=== PATIENT | female | born 1940 | race Caucasian/White ===

== ENCOUNTER 2017-10-02 14:51 | Inpatient (IN) | payer OTHER ==
--- NOTE | 2017-10-02 15:12 | PDOC ---
History of Present Illness - General Stated Complaint: FALL Time Seen by Provider: 10/02/17 15:08
[2017-10-02 15:37] VITALS: BMI 30.9
[2017-10-02] MEDS ORDERED: SODIUM CHLORIDE 500 ML IV ONE (15:54)
--- NOTE | 2017-10-02 16:00 | PDOC ---
History of Present Illness - General History Source: Patient, Family (Niece) - History of Present Illness Initial Comments: 10/02/17 16:04 The patient is a 76 year old female with a significant PMH of diabetes and HTN who was brought to the emergency department by her niece with left arm bruising s/p fall yesterday and generalized weakness since. The patient states she was running to the door when she slipped and fell. At baseline, the patient does not leave her home. The patient reports an episode of incontinence since the fall. The patient also states she has been unable to walk without assistance since yesterday. The patient notes she normally eats all day but has been unable to eat since the fall yesterday. The patient denies hitting her head. The patient denies hip or knee pain. The patient denies taking any blood thinners. The patient denies chest pain, back pain, shortness of breath, headache and dizziness. Denies cough, fever, chills, nausea, vomit, diarrhea and constipation. Allergies: NKA Past surgical history: None reported. Social history: No reported alcohol, drug, or cigarette use. <Bety Harris - Last Filed: 10/02/17 16:11> <Shmuel Ge - Last Filed: 10/02/17 17:20> - General Chief Complaint: Injury Stated Complaint: FALL Time Seen by Provider: 10/02/17 15:08 Past History <Bety Harris - Last Filed: 10/02/17 16:11> - Past Medical History COPD: No Diabetes: Yes HTN: Yes Psychiatric Problems: Yes (Depression) Thyroid Disease: Yes - Suicide/Smoking/Psychosocial Hx Smoking History: Never smoked Have you smoked in the past 12 months: No Hx Alcohol Use: No Drug/Substance Use Hx: No <Shmuel Ge - Last Filed: 10/02/17 17:20> - Past Medical History Allergies/Adverse Reactions: Allergies Allergy/AdvReac Type Severity Reaction Status Date / Time Penicillins Allergy Hives Verified 10/02/17 16:31 Home Medications: Ambulatory Orders Lisinopril 0 mg PO DAILY 10/02/17 Metformin HCl 0 mg PO BID 10/02/17 Review of Systems - Review of Systems Constitutional: No: Chills, Fever Respiratory: No: Cough, Shortness of Breath Cardiac (ROS): No: Chest Pain ABD/GI: No: Nausea, Vomiting : Yes: Incontinence, Urgency Musculoskeletal: Yes: Joint Pain, Muscle Pain Neurological: No: Tingling, Weakness All Other Systems: Reviewed and Negative <Shmuel Ge - Last Filed: 10/02/17 17:20> *Physical Exam - Vital Signs Last Vital Signs Temp Pulse Resp BP Pulse Ox 98.8 F 114 H 18 145/91 95 10/02/17 15:31 10/02/17 15:31 10/02/17 15:31 10/02/17 15:31 10/02/17 15:31 - Physical Exam Comments: 10/02/17 16:05 General: Patient is alert and in no acute distress. Speech is clear and appropriate. Head: Atraumatic and nontender. HEENT: Pupils are equal round and reactive to light, extraocular movements are intact. The tympanic membranes are clear, no hemotympanum. No facial deformity/ tenderness, no septal hematoma. The oropharynx is clear. Neck: The trachea is midline, there is no stridor. There is no midline cervical spine tenderness, full range of motion of neck. Chest: Nontender, no ecchymosis or abrasions. Heart: S1-S2, regular rate and rhythm. No murmurs. Lungs: Clear to auscultation bilaterally. Symmetric chest rise. Abdomen: Soft/nontender/nondistended. Bowel sounds are normal. There is no abdominal or flank ecchymosis. Back/Pelvis: There is no midline spine tenderness or step-off. Pelvis is stable and nontender. Extremities: (+) Ecchymosis to the upper left arm, no palpable hematoma. (+) Soft tissue swelling. (+) Lower extremities normal and with good strength. Wrist and lower arm have full ROM. There is no extremity deformity or joint swelling. No focal bony tenderness throughout. 2+ distal pulses throughout. Neuro: Alert and oriented x3. Cranial nerves II through XII are intact. 5 out of 5 motor strength x4 extremities. Kamqlj-krhd-cmidnt is intact. No pronator drift. Gait is stable. Skin: No abrasions/hematomas/lacerations. Psych: Affect is appropriate. <Bety Harris - Last Filed: 10/02/17 16:11> - Vital Signs Last Vital Signs Temp Pulse Resp BP Pulse Ox 98.8 F 114 H 18 145/91 95 10/02/17 15:31 10/02/17 15:31 10/02/17 15:31 10/02/17 15:31 10/02/17 15:31 <Shmuel Ge - Last Filed: 10/02/17 17:20> Heart Score/ECG Review #1 ECG reviewed & interpreted by me at: 16:27 General ECG Interpretation: Sinus Rhythm, Normal Rate (106), Normal Intervals ( RBBB), No acute ischemic changes <Shmuel Ge - Last Filed: 10/02/17 17:20> ED Treatment Course - LABORATORY CBC & Chemistry Diagram: 10/02/17 16:25 10/02/17 16:25 - RADIOLOGY Radiology Studies Ordered: Category Date Time Status HEAD CT WITHOUT CONTRAST [CT] Stat CT Scan 10/02/17 15:55 Ordered CHEST X-RAY PORTABLE* [RAD] Stat Radiology 10/02/17 15:54 Ordered <Shmuel Ge - Last Filed: 10/02/17 17:20> Medical Decision Making - Medical Decision Making 10/02/17 15:56 A portion of this note was documented by scribe services under my direction. I have reviewed the details of the note, within reason, and agree with the documentation with the following case summary and management plan written by me. 76-year-old female with history of hypertension and diabetes presents brought in by her niece/phlebotomist lab assistant with fall yesterday and subsequent generalized weakness since then. At baseline, patient is restricted to her home, avoids ambulating with walker but is otherwise ambulatory without assistance at baseline. Yesterday, patient states she was walking quickly to answer the door and tripped and fell, striking her left arm. No prolonged stay on the floor, but since then has felt generally weak, has had difficulty ambulating on her own , and had a few episodes of urinary urgency/incontinence. Denies any leg pain or weakness, denies any vomiting or headache, no fevers or chills. No localizing symptoms of infection. Normally has a very healthy appetite but barely 8 since yesterday. Afebrile. Vital signs within normal limits but notable tachycardia to 114. Exam as noted, trauma is isolated to the left shoulder Dry mucosa Neurologically intact 76-year-old female with hypertension and diabetes presents with new onset generalized weakness since falling yesterday. Suspect underlying infection or dehydration/metabolic derangement, rule out TBI, rule out shoulder fracture. Broad workup surrounding the etiology of the fall, question dehydration or infection CT head, L shoulder IVF reassess, possible admission given her deviation from baseline 10/02/17 17:19 leukocytosis of 19 with left shift, mild hyperglycemia with normal AG, trop negative. CXR without acute infiltrate, humerus with acute proximal fracture. Suspect UTI , will give abx after UA/cx obtained, proceed with admission. Dr. Delgado, covering service, called. <Shmuel Ge - Last Filed: 10/02/17 17:20> *DC/Admit/Observation/Transfer - Attestations Scribe Attestion: 10/02/17 16:10 Documentation prepared by Bety Harris, acting as medical assistant supervisor for Shmuel Ge MD. <Bety Harris - Last Filed: 10/02/17 16:11> <Shmuel Ge - Last Filed: 10/02/17 17:20> Diagnosis at time of Disposition: Generalized weakness Accidental fall Qualifiers: Encounter type: initial encounter Qualified Code(s): W19.XXXA - Unspecified fall, initial encounter - Discharge Dispostion Condition at time of disposition: Guarded
[2017-10-02 16:37] LABS: BASO % 0.2 % (0-2.0); EOS % 0.2 % (0-4.5); HEMATOCRIT 40.4 % (32.4-45.2); HEMOGLOBIN 13.4 GM/dL (10.7-15.3); LYMPH % 7.3 % (8-40); MCH 27.7 pg (25.7-33.7); MCHC 33.2 g/dl (32.0-36.0); MEAN CELL VOLUME 83.6 fl (80-96); MEAN PLT VOLUME 9.1 fl (7.5-11.1); MONO % 6.4 % (3.8-10.2); NEUT % 85.9 % (42.8-82.8); PLATELET COUNT 261 K/MM3 (134-434); RBC 4.83 M/mm3 (3.60-5.2); RDW 15.1 % (11.6-15.6); WHITE BLOOD COUNT 19.4 K/mm3 (4.0-10.0)
[2017-10-02 17:02] LABS: ALBUMIN 4.2 g/dl (3.4-5.0); ANION GAP 13 (8-16); BLOOD UREA NITROGEN 18 mg/dL (7-18); CALCIUM 9.4 mg/dL (8.5-10.1); CHLORIDE 105 mmol/L (98-107); CO2 22 mmol/L (21-32); CREATININE 0.8 mg/dL (0.55-1.02); GLUCOSE,RANDOM 204 mg/dL (74-106); POTASSIUM 3.9 mmol/L (3.5-5.1); SGOT/AST 19 U/L (15-37); SGPT/ALT 22 U/L (12-78); SODIUM 140 mmol/L (136-145)
[2017-10-02 17:04] LABS: INR 1.12 (0.82-1.09); PROTHROMBIN TIME (PATIENT) 12.6 SEC (9.98-11.88)
[2017-10-02 17:06] LABS: ALK PHOS 79 U/L (45-117); BILIRUBIN,TOTAL 0.5 mg/dL (0.2-1.0); TOT PROT 7.8 g/dl (6.4-8.2)
[2017-10-02 20:49] LABS: URINE APPEARANCE CLEAR; URINE BILIRUBIN NEGATIVE (NEGATIVE); URINE BLOOD NEGATIVE (NEGATIVE); URINE COLOR DKYELLOW; URINE GLUCOSE (UA) 1+ (NEGATIVE); URINE KETONE TRACE (NEGATIVE); URINE LEUK ESTERASE NEGATIVE (NEGATIVE); URINE NITRITE NEGATIVE (NEGATIVE); URINE UROBILINOGEN NEGATIVE mg/dL (0.2-1.0)
[2017-10-02 21:29] LABS: URINE PROTEIN 2+ (NEGATIVE)
[2017-10-02 21:34] LABS: URINE BACTERIA RARE /hpf (NONE SEEN); URINE HYALINE CAST 1 /lpf; URINE MUCUS RARE
--- NOTE | 2017-10-02 22:30 | PDOC ---
*Physical Exam - Vital Signs Last Vital Signs Temp Pulse Resp BP Pulse Ox 98.8 F 78 18 141/72 95 10/02/17 15:31 10/02/17 21:41 10/02/17 21:41 10/02/17 21:41 10/02/17 21:42 ED Treatment Course - LABORATORY CBC & Chemistry Diagram: 10/02/17 16:25 10/02/17 16:25 - ADDITIONAL ORDERS Additional order review: Laboratory Results 10/02/17 10/02/17 10/02/17 20:40 19:15 16:25 PT with INR INR Sodium 140 Potassium 3.9 Chloride 105 Carbon Dioxide 22 Anion Gap 13 BUN 18 Creatinine 0.8 Creat Clearance w eGFR > 60 Random Glucose 204 H Calcium 9.4 Total Bilirubin 0.5 AST 19 ALT 22 Alkaline Phosphatase 79 Creatine Kinase 257 H Creatine Kinase Index 1.8 CK-MB (CK-2) 4.693 H Troponin I 0.02 Total Protein 7.8 Albumin 4.2 Urine Color Dkyellow Urine Appearance Clear Urine pH 5.0 Ur Specific [place] 1.031 Urine Protein 2+ H Urine Glucose (UA) 1+ H Urine Ketones Trace H Urine Blood Negative Urine Nitrite Negative Urine Bilirubin Negative Urine Urobilinogen Negative Urine WBC (Auto) <1 Urine RBC (Auto) <1 Urine Bacteria Rare Hyaline Casts 1 Urine Mucus Rare Blood Type O NEGATIVE Antibody Screen Cancelled Antibody Identification Antigen Identification Spec Expiration Date Cancelled 10/02/17 10/02/17 16:25 15:54 PT with INR 12.60 H INR 1.12 Sodium Potassium Chloride Carbon Dioxide Anion Gap BUN Creatinine Creat Clearance w eGFR Random Glucose Calcium Total Bilirubin AST ALT Alkaline Phosphatase Creatine Kinase Creatine Kinase Index CK-MB (CK-2) Troponin I Total Protein Albumin Urine Color Urine Appearance Urine pH Ur Specific [place] Urine Protein Urine Glucose (UA) Urine Ketones Urine Blood Urine Nitrite Urine Bilirubin Urine Urobilinogen Urine WBC (Auto) Urine RBC (Auto) Urine Bacteria Hyaline Casts Urine Mucus Blood Type O NEGATIVE Antibody Screen Positive H Antibody Identification Anti-d Antigen Identification D Antigen - NEGATIVE Spec Expiration Date 10/02/17 16:25 RBC 4.83 MCV 83.6 MCHC 33.2 RDW 15.1 MPV 9.1 Neutrophils % 85.9 H Lymphocytes % 7.3 L Monocytes % 6.4 Eosinophils % 0.2 Basophils % 0.2 - Medications Given in the ED: ED Medications Discontinued Medications Generic Name Dose Route Start Last Admin Trade Name Mark PRN Reason Stop Dose Admin Sodium Chloride 500 mls @ 1,000 mls/hr 10/02/17 15:54 10/02/17 16:37 Normal Saline - IV 10/02/17 16:23 1,000 mls/hr ONCE ONE Administration Medical Decision Making - Medical Decision Making 10/02/17 22:[address] Keron Tineo about this patient's proximal left humerus fracture. Patient will be placed in a sling and Dr. Tineo will see her in the morning *DC/Admit/Observation/Transfer Diagnosis at time of Disposition: Generalized weakness Accidental fall Qualifiers: Encounter type: initial encounter Qualified Code(s): W19.XXXA - Unspecified fall, initial encounter Humerus fracture Qualifiers: Encounter type: initial encounter Humerus Location: surgical neck Fracture type : closed Fracture morphology: unspecified fracture morphology Fracture alignment : displaced Laterality: left Qualified Code(s): S42.212A - Unspecified displaced fracture of surgical neck of left humerus, initial encounter for closed fracture - Discharge Dispostion Condition at time of disposition: Guarded Admit: Yes - Referrals - Patient Instructions - Post Discharge Activity
--- NOTE | 2017-10-02 22:45 | PN ---
Teaching Attending Note Name of Resident: Salvador Matthews ATTENDING PHYSICIAN STATEMENT I saw and evaluated the patient. I reviewed the resident's note and discussed the case with the resident. I agree with the resident's findings and plan as documented. SUBJECTIVE: 76 F with pmhx of DM, htn, who presents to ED with her neice after she experienced a fall on the arm. Pt. states she slipped and ended up falling on the arm. Pt. notes weakness, but no leg or LE pain. Pt. states her nejoseph did not get her in time to help her to the bathroom, so she had incontinence. States she did not hit her head. Denies any chest pain, pressure or shortness of breath. No N,V,D. OBJECTIVE: Physical: VS: Vital Signs Period Temp Pulse Resp BP Sys/Sheehan Pulse Ox Last 24 Hr 98.8 F 78-114 18-18 141-145/72-91 95-95 GEN: NAD, Resting in bed, AA0X3 HEENT: NCAT, PERRL, Throat without erythema or exudates CARD: RRR S1, S2 RESP: CTAB ABD: BSx4, NTD to palpation EXT: Trace Non-Pitting edema bilateral LE, Left arm unable to raise CBCD WBC 19.4 K/mm3 (4.0-10.0) H 10/02/17 16:25 RBC 4.83 M/mm3 (3.60-5.2) 10/02/17 16:25 Hgb 13.4 GM/dL (10.7-15.3) 10/02/17 16:25 Hct 40.4 % (32.4-45.2) 10/02/17 16:25 MCV 83.6 fl (80-96) 10/02/17 16:25 MCHC 33.2 g/dl (32.0-36.0) 10/02/17 16:25 RDW 15.1 % (11.6-15.6) 10/02/17 16:25 Plt Count 261 K/MM3 (134-434) 10/02/17 16:25 MPV 9.1 fl (7.5-11.1) 10/02/17 16:25 CMP Sodium 140 mmol/L (136-145) 10/02/17 16:25 Potassium 3.9 mmol/L (3.5-5.1) 10/02/17 16:25 Chloride 105 mmol/L (98-107) 10/02/17 16:25 Carbon Dioxide 22 mmol/L (21-32) 10/02/17 16:25 Anion Gap 13 (8-16) 10/02/17 16:25 BUN 18 mg/dL (7-18) 10/02/17 16:25 Creatinine 0.8 mg/dL (0.55-1.02) 10/02/17 16:25 Creat Clearance w eGFR > 60 (>60) 10/02/17 16:25 Random Glucose 204 mg/dL (74-106) H 10/02/17 16:25 Calcium 9.4 mg/dL (8.5-10.1) 10/02/17 16:25 Total Bilirubin 0.5 mg/dL (0.2-1.0) 10/02/17 16:25 AST 19 U/L (15-37) 10/02/17 16:25 ALT 22 U/L (12-78) 10/02/17 16:25 Alkaline Phosphatase 79 U/L (45-117) 10/02/17 16:25 Total Protein 7.8 g/dl (6.4-8.2) 10/02/17 16:25 Albumin 4.2 g/dl (3.4-5.0) 10/02/17 16:25 CARDIAC ENZYMES Creatine Kinase 257 IU/L (26-192) H 10/02/17 16:25 Troponin I 0.02 ng/ml (0.00-0.05) 10/02/17 16:25 Urine Test Results Urine Color Dkyellow 10/02/17 20:40 Urine Appearance Clear 10/02/17 20:40 Urine pH 5.0 (5.0-8.0) 10/02/17 20:40 Ur Specific [place] 1.031 (1.001-1.035) 10/02/17 20:40 Urine Protein 2+ (NEGATIVE) H 10/02/17 20:40 Urine Glucose (UA) 1+ (NEGATIVE) H 10/02/17 20:40 Urine Ketones Trace (NEGATIVE) H 10/02/17 20:40 Urine Blood Negative (NEGATIVE) 10/02/17 20:40 Urine Nitrite Negative (NEGATIVE) 10/02/17 20:40 Urine Bilirubin Negative (NEGATIVE) 10/02/17 20:40 Urine Bacteria Rare /hpf (NONE SEEN) 10/02/17 20:40 Urine Mucus Rare 10/02/17 20:40 CXR- No acute process Shoulder Xray- L. Humeral fracture CT HEAD- Negative EKG:Sinus Tach 106, Normal Intervals (RBBB), No acute ischemic changes ASSESSMENT AND PLAN: 76 F with pmhx of DM, htn, who presents to ED with her neice after she experienced a fall on the arm. 1.) Mechanical Fall with Left Humeral Fracture - Ortho consult - Type & Screen, coags - CBC in AM - NPO after midnight 2.) Weakness - Ddx: dehydration, Hypothyriodism - Chk. TSH, B12, Folate - Gentle IVF - PT/OT 3.) DM- Uncontrolled - FS - RAISS - D5 1/2 NS after MN - Chk. HgBA1c 4.) HTN - C/W Lisinopril 5.) Dvt Ppx - Scds, due to possible sx Place in Med- Sx
--- NOTE | 2017-10-02 23:06 | MSN ---
Admitting History and Physical - Admission Chief Complaint: Left arm pain s/p fall History of Present Illness: Sherri Hassan is a 76 year old female with past medical history of DM, HTN, Depression, Schizophrenia and Thyroid disease, who was brought in to the ED by her niece for left arm pain and bruising s/p fall yesterday on her left side. Patient states that she was rushing to the door while wearing socks and she slipped and fell. Patient denies any LOC, head injury or use of any blood thinners. Patient also reports generalized weakness. Patient states that since the fall yesterday she has been experiencing fecal and urinary incontinence. Patient reports another fall today while trying to get out of bed. She states she hasn't taken any pain medications for her arm pain. Patient states that her appetite has been good. Patient states that at baseline, she ambulates without any assistive device at home. Patient denies fever, chills, cough, chest pain, SOB, nausea, vomiting, or leg swelling. ED course was notable for: 1. Left arm x-ray: acute proximal left humeral neck fracture with associated fracture of greater and possibly lesser tuberosities. 2. WBC: 19.4, T: 98.9F, CO: 114, BP: 145/91 3. CK-MB: 4.693 History Source: Patient, Family Member Limitations to Obtaining History: No Limitations - Past Medical History Cardiovascular: Yes: HTN Psych: Yes: Depression, Schizophrenia Endocrine: Yes: Diabetes Mellitus, Other (Thyroid disease, patient is unclear whether it's hypothyroidism or hyperthyroidism) - Smoking History Smoking history: Never smoked Have you smoked in the past 12 months: No - Alcohol/Substance Use Hx Alcohol Use: No Home Medications - Allergies Allergies/Adverse Reactions: Allergies Allergy/AdvReac Type Severity Reaction Status Date / Time Penicillins Allergy Hives Verified 10/02/17 16:31 - Home Medications Home Medications: Ambulatory Orders Lisinopril 0 mg PO DAILY 10/02/17 Metformin HCl 0 mg PO BID 10/02/17 Review of Systems - Review of Systems Constitutional: reports: Weakness Eyes: reports: No Symptoms HENT: reports: No Symptoms Neck: reports: No Symptoms Cardiovascular: reports: No Symptoms Respiratory: reports: No Symptoms Gastrointestinal: reports: No Symptoms Genitourinary: reports: No Symptoms Musculoskeletal: reports: Decreased ROM, Extremity Pain, Joint Pain Neurological: reports: No Symptoms Physical Examination Vital Signs: Vital Signs Temperature 98.8 F 10/02/17 15:31 Pulse Rate 78 10/02/17 21:41 Respiratory Rate 18 10/02/17 21:41 Blood Pressure 141/72 10/02/17 21:41 O2 Sat by Pulse Oximetry (%) 95 10/02/17 21:42 Constitutional: Yes: Well Nourished, Calm Eyes: Yes: Conjunctiva Clear, EOM Intact HENT: Yes: Atraumatic, Normocephalic Neck: Yes: Supple, Trachea Midline Cardiovascular: Yes: Regular Rate and Rhythm Respiratory: Yes: Regular, CTA Bilaterally Gastrointestinal: Yes: Normal Bowel Sounds, Soft Musculoskeletal: Yes: Other (decreased ROM in left upper extremity secondary to pain, ecchymosis noted in left upper arm, 1/5 strength in left upper extremtiy, 5/5 strength in right upper extremtiy and bilateral lower extremities) Extremities: Yes: Other (decreased ROM in left upper extremity secondary to pain , ecchymosis noted in left upper arm, 1/5 strength in left upper extremtiy, 5/5 strength in right upper extremtiy and bilateral lower extremities, pulses were palpable bilaterally and 2+ in upper and lower extremities bilaterally) Edema: No Peripheral Pulses WNL: Yes Peripheral Pulses: Left Radial: 2+, Right Radial: 2+, Left Doralis Pedis: 2+, Right Dorsalis Pedis: 2+ Neurological: Yes: Alert, Oriented Labs: CBC, BMP 10/02/17 16:25 10/02/17 16:25 Assessment/Plan Sherri Hassan is a 76 yo F w/ PMHx of DM, HTN, Depression, Schizophrenia and Thyroid disease, who was brought in to the ED for L arm pain s/p fall. Patient was admitted for left humeral neck fracture. 1. Left humeral neck fracture s/p fall - Xray of left shoulder showed acute proximal left humeral neck fracture with associated fracture of greater and possibly lesser tuberosities. - Head CT showed no acute intracranial pathology - WBC: 19.4 likely reactive because of fracture - Consult ortho, will possibly need surgery - NPO in case she goes to surgery - Pain control with morphine 1mg IVPUSH Q4H PRN 2. Weakness likely due to dehydration - IV fluids - CBC, BMP - TSH, B12, Folate, HbA1c - PT and OT - If no improvement, get neuro on board 3. DM - Hold meds - BGM - Sliding scale on board- Novolog 4. HTN - Continue Lisinopril 5. DVT proph - SCDs bilaterally Dispo: Admit to Med-Surg.
[2017-10-03] MEDS ORDERED: morphine SULFATE 4 MG/ML VIAL IVPUSH PRN ×2 (00:48→14:30)
[2017-10-03] MEDS ORDERED: SODIUM CHLORIDE 1,000 ML IV SCH ×3 (01:00→18:15)
--- NOTE | 2017-10-03 01:22 | HP ---
CHIEF COMPLAINT: fall and left arm pain HISTORY OF PRESENT ILLNESS: Patient is a 76 yo F with a PMHx of Schizophrenia, HTN, DM, hypothyroidism, presented with niece because of left arm pain after mechanical fall yesterday. Patient states she heard a doorbell and rushed to open the door. She tripped and fell on her left arm. Her nieceh eard her fall and took her to her bed. She states she can't move her arm and describes the pain as 7/10, constant pain and gets worse with movement. Patient had 1 episode of fecal and urinary incontinence because she states her niece took a long time to take her to the restroom. Patient is able to ambulate without a walker but has not been able to walk since falling yesterday. She also fell off the bed today but denies being injured. Patient denies head trauma, LOC, dizziness, chest pain, SOB, fever, nausea and vomiting. ER course was notable for: (1) Left Shoulder Xray- L. Humeral fracture (2) CT HEAD- Negative Recent Travel: n/a PAST MEDICAL HISTORY: Schizophrenia, HTN, DM PAST SURGICAL HISTORY: n/a Social History: Smoking: denies Alcohol: denies Drugs: denies Family History: Allergies Penicillins Allergy (Verified 10/02/17 16:31) Hives HOME MEDICATIONS: Home Medications Medication Instructions Recorded Lisinopril 0 mg PO DAILY 10/02/17 Metformin HCl 0 mg PO BID 10/02/17 REVIEW OF SYSTEMS CONSTITUTIONAL: generalized weakness Absent: fever, chills, diaphoresis, malaise, loss of appetite, weight change HEENT: Absent: rhinorrhea, nasal congestion, throat pain, throat swelling, difficulty swallowing, mouth swelling, ear pain, eye pain, visual changes CARDIOVASCULAR: Absent: chest pain, syncope, palpitations, irregular heart rate, lightheadedness , peripheral edema RESPIRATORY: Absent: cough, shortness of breath, dyspnea with exertion, orthopnea, wheezing, stridor, hemoptysis GASTROINTESTINAL: Absent: abdominal pain, abdominal distension, nausea, vomiting, diarrhea, constipation, melena, hematochezia GENITOURINARY: Absent: dysuria, frequency, urgency, hesitancy, hematuria, flank pain, genital pain MUSCULOSKELETAL: Absent: myalgia, arthralgia, joint swelling, back pain, neck pain SKIN: Absent: rash, itching, pallor HEMATOLOGIC/IMMUNOLOGIC: Absent: easy bleeding, easy bruising, lymphadenopathy, frequent infections ENDOCRINE: Absent: unexplained weight gain, unexplained weight loss, heat intolerance, cold intolerance NEUROLOGIC: Absent: headache, focal weakness or paresthesias, dizziness, unsteady gait, seizure, mental status changes, bladder or bowel incontinence PSYCHIATRIC: Absent: anxiety, depression, suicidal or homicidal ideation, hallucinations. PHYSICAL EXAMINATION Vital Signs - 24 hr 10/02/17 10/02/17 10/02/17 15:31 21:41 21:42 Temperature 98.8 F Pulse Rate 114 H Pulse Rate [ 78 Apical] Respiratory 18 18 Rate Blood Pressure 145/91 Blood Pressure 141/72 [Right Arm] O2 Sat by Pulse 95 95 Oximetry (%) GENERAL: Awake, alert, and fully oriented, in no acute distress. HEAD: Normal with no signs of trauma. EYES: sclera anicteric, conjunctiva clear. No lid lag. EARS, NOSE, THROAT: oropharynx clear without exudates. Moist mucous membranes. NECK: supple without lymphadenopathy, JVD, or masses. LUNGS: Breath sounds equal, clear to auscultation bilaterally. No wheezes, and no crackles. No accessory muscle use. HEART: Regular rate and rhythm, normal S1 and S2 without murmur, rub or gallop. ABDOMEN: Soft, nontender, not distended, normoactive bowel sounds, no guarding, no rebound, no masses. UPPER EXTREMITIES: 2+ pulses, warm, limited range of motion in left arm with 1/ 5 strength. 5/5 strength throughout except left arm. tender to palpation left arm. LOWER EXTREMITIES: No peripheral edema. NEUROLOGICAL: Cranial nerves II-XII intact. Normal speech. Normal gait. PSYCHIATRIC: Cooperative. Good eye contact. Appropriate mood and affect. SKIN: Warm, dry, normal turgor, no rashes or lesions noted, normal capillary refill. Laboratory Results - last 24 hr 10/02/17 10/02/17 10/02/17 15:54 16:25 16:25 WBC 19.4 H RBC 4.83 Hgb 13.4 Hct 40.4 MCV 83.6 MCH 27.7 MCHC 33.2 RDW 15.1 Plt Count 261 MPV 9.1 Neutrophils % 85.9 H Lymphocytes % 7.3 L Monocytes % 6.4 Eosinophils % 0.2 Basophils % 0.2 PT with INR 12.60 H INR 1.12 Sodium Potassium Chloride Carbon Dioxide Anion Gap BUN Creatinine Creat Clearance w eGFR Random Glucose Calcium Total Bilirubin AST ALT Alkaline Phosphatase Creatine Kinase Creatine Kinase Index CK-MB (CK-2) Troponin I Total Protein Albumin Urine Color Urine Appearance Urine pH Ur Specific [place] Urine Protein Urine Glucose (UA) Urine Ketones Urine Blood Urine Nitrite Urine Bilirubin Urine Urobilinogen Urine WBC (Auto) Urine RBC (Auto) Urine Bacteria Hyaline Casts Urine Mucus Blood Type O NEGATIVE Antibody Screen Positive H Antibody Identification Anti-d Antigen Identification D Antigen - NEGATIVE Spec Expiration Date 10/02/17 10/02/17 10/02/17 16:25 19:15 20:40 WBC RBC Hgb Hct MCV MCH MCHC RDW Plt Count MPV Neutrophils % Lymphocytes % Monocytes % Eosinophils % Basophils % PT with INR INR Sodium 140 Potassium 3.9 Chloride 105 Carbon Dioxide 22 Anion Gap 13 BUN 18 Creatinine 0.8 Creat Clearance w eGFR > 60 Random Glucose 204 H Calcium 9.4 Total Bilirubin 0.5 AST 19 ALT 22 Alkaline Phosphatase 79 Creatine Kinase 257 H Creatine Kinase Index 1.8 CK-MB (CK-2) 4.693 H Troponin I 0.02 Total Protein 7.8 Albumin 4.2 Urine Color Dkyellow Urine Appearance Clear Urine pH 5.0 Ur Specific [place] 1.031 Urine Protein 2+ H Urine Glucose (UA) 1+ H Urine Ketones Trace H Urine Blood Negative Urine Nitrite Negative Urine Bilirubin Negative Urine Urobilinogen Negative Urine WBC (Auto) <1 Urine RBC (Auto) <1 Urine Bacteria Rare Hyaline Casts 1 Urine Mucus Rare Blood Type O NEGATIVE Antibody Screen Cancelled Antibody Identification Antigen Identification Spec Expiration Date Cancelled CXR- No acute process Shoulder Xray- L. Humeral fracture CT HEAD- Negative ASSESSMENT/PLAN: Patient is a 76 yo F with a PMHx of Schizophrenia, HTN, DM, presented because of left arm pain after mechanical fall and was found to have a left humerus fracture. #Mechanical Fall with Left Humeral Fracture - Ortho consult: Dr. Tineo - CLYDE morning labs: CBC, BMP, Mag, Phos - Type & Screen, PT/INR - Pain control: morphine 1mg Q4 PRN - NPO #Weakness -From possible dehydration, hypothyroidism -FU TSH, B12, Folate -PT #Hypothyroidism -confirm home meds #DM -uncontrolled -HGB A1C -BGM's -D5 1/2 NS after MN -ISS #HTN - cont home med -Lisinopril 5mg Daily #FEN -D5 1/2 NS -WNL -NPO #Schizoprenia -confirm home meds #PPX -SCDs due to possible surgery Visit type - Emergency Visit Emergency Visit: Yes ED Registration Date: 10/02/17 Care time: The patient presented to the Emergency Department on the above date and was hospitalized for further evaluation of their emergent condition. - New Patient This patient is new to me today: Yes Date on this admission: 10/03/17 - Critical Care Critical Care patient: No
[2017-10-03] MEDS ORDERED: EPINEPHrine 1:1,000 0.3 MG/0.3 ML SYR IM ONE (02:26)
[2017-10-03] MEDS ORDERED: methylPREDNISolone NA SUCC 125 MG/2 ML VIAL IVPUSH ONE (02:27)
[2017-10-03] MEDS ORDERED: RACEPINEPHRINE IH SOL 2.25% 11.25 MG/0.5 ML VIAL IH ONE (02:28)
[2017-10-03] MEDS ORDERED: DEXTROSE 5%-0.45% SALINE 1,000 ML IV SCH ×2 (03:30→14:30)
[2017-10-03] MEDS ORDERED: INSULIN SLIDING SCALE (NOVOLOG) 1 VIAL SQ SCH ×2 (07:00)
[2017-10-03 08:46] LABS: BASO % 0.4 % (0-2.0); EOS % 0.5 % (0-4.5); HEMATOCRIT 37.7 % (32.4-45.2); HEMOGLOBIN 12.3 GM/dL (10.7-15.3); MCH 27.3 pg (25.7-33.7); MCHC 32.6 g/dl (32.0-36.0); MEAN CELL VOLUME 83.6 fl (80-96); MONO % 6.2 % (3.8-10.2); NEUT % 79.9 % (42.8-82.8); PLATELET COUNT 257 K/MM3 (134-434); RBC 4.51 M/mm3 (3.60-5.2); WHITE BLOOD COUNT 16.8 K/mm3 (4.0-10.0)
[2017-10-03 09:17] LABS: ANION GAP 9 (8-16); BLOOD UREA NITROGEN 13 mg/dL (7-18); CALCIUM 8.4 mg/dL (8.5-10.1); CHLORIDE 109 mmol/L (98-107); CO2 23 mmol/L (21-32); CREATININE 0.7 mg/dL (0.55-1.02); GLUCOSE,RANDOM 238 mg/dL (74-106); MAGNESIUM 1.9 mg/dL (1.8-2.4); PHOSPHOROUS 2.7 mg/dL (2.5-4.9); POTASSIUM 3.6 mmol/L (3.5-5.1); SODIUM 141 mmol/L (136-145)
[2017-10-03 09:22] LABS: INR 1.15 (0.82-1.09)
--- NOTE | 2017-10-03 09:29 | PN ---
Progress Note (short form) - Note Progress Note: Ortho FULL CONSULT DICTATED BY DR. DENSON
[2017-10-03] MEDS ORDERED: LISINOPRIL 5 MG TABLET (FP) PO SCH ×2 (10:00)
[2017-10-03] MEDS ORDERED: ATORVASTATIN CA 20 MG TABLET (FP) PO SCH (10:00)
[2017-10-03] MEDS ORDERED: ARIPiprazole 10 MG TABLET PO SCH (10:00)
[2017-10-03] MEDS ORDERED: SERTRALINE HCL 50 MG TABLET (FP) PO SCH (10:00)
[2017-10-03] MEDS ORDERED: METHIMAZOLE 5 MG TABLET (FP) PO SCH (10:00)
[2017-10-03] MEDS ORDERED: ROPIVACAINE HCL 0.5% 30ML VIAL ONE (11:38)
[2017-10-03] MEDS ORDERED: MIDAZOLAM HCL 2 MG/2 ML SINGLE DOSE VIAL ONE ×2 (11:39)
[2017-10-03] MEDS ORDERED: CLINDAMYCIN PHOSPHATE 600 MG/4 ML VIAL ONE (12:24)
[2017-10-03] MEDS ORDERED: PROPOFOL 20 ML ONE (12:24)
[2017-10-03] MEDS ORDERED: ROCURONIUM BROMIDE 50 MG/5 ML VIAL ONE (12:25)
[2017-10-03] MEDS ORDERED: CLINDAMYCIN 600 MG PREMIX BAG IVPB ONE (12:37)
[2017-10-03] MEDS ORDERED: DEXAMETHASONE SOD PHOSPHATE 4 MG/1 ML VIAL ONE (13:19)
[2017-10-03] MEDS ORDERED: NEOSTIGMINE METHYLSULFATE 0.5 MG/ML - 10 ML MDV ONE (13:26)
[2017-10-03] MEDS ORDERED: GLYCOPYRROLATE 0.2 MG/1 ML VIAL ONE (13:26)
--- NOTE | 2017-10-03 13:32 | OP ---
Operative Note - Note: Operative Date: 10/03/17 Pre-Operative Diagnosis: left proximal humerus fracture, RTC tear Operation: left proximal humerus ORIF, open RTC repair Implants: [place] screws x 2, 30mm length, 2 washers Surgeon: Lázaro Javier Tilt Wall Supervisor: Guillaume Bower Anesthesiologist/HAMMER OPERATOR: Shweta Michel Anesthesia: General Estimated Blood Loss (mls): 50 Drains, Volume Out (mls): 0 Blood Volume Replaced (mls): 0 Fluid Volume Replaced (mls): 700 Operative Report Dictated: Yes
--- NOTE | 2017-10-03 13:49 | CONS ---
DATE OF CONSULTATION: 10/03/2017 ORTHOPEDIC CONSULTATION/[facility] Patient is a 76-year-old female, schizophrenic, hypertensive, diabetic, who presented after a fall yesterday. Negative LOC. Patient complained of significant pain in her left shoulder. PHYSICAL EXAMINATION: She has marked increased pain with any range of motion of her shoulder with some moderate swelling. Full range of motion elbow, wrist, and fingers. Nontender clavicle, AC joint, and acromion. Supple C-spine. Cranial nerves 2-12 are grossly intact. IMAGING: X-rays which were evaluated in hospital show a proximal humerus fracture with displaced greater tuberosity fracture. IMPRESSION: A 3-part proximal humerus fracture of the left shoulder.. PLAN: Risks, benefits, and alternatives were discussed with the patient in great detail. Patient will be booked for a left shoulder ORIF later today. ANNA DENSON M.D. [id number]
[2017-10-03] MEDS ORDERED: ONDANSETRON 4 MG/2 ML VIAL IVPUSH PRN (14:04)
[2017-10-03] MEDS: LABETALOL HCL 5 MG/1 ML (100MG/20 ML VIAL) IVPB ONE (14:05)
--- NOTE | 2017-10-03 14:07 | EKG ---
Test Reason : Blood Pressure : / mmHG Vent. Rate : 106 BPM Atrial Rate : 106 BPM P-R Int : 164 ms QRS Dur : 124 ms QT Int : 360 ms P-R-T Axes : 040 021 012 degrees QTc Int : 478 ms SINUS TACHYCARDIA RIGHT BUNDLE BRANCH BLOCK ABNORMAL ECG NO PREVIOUS ECGS AVAILABLE Confirmed by STEPHANIE LAWS, RODRÍGUEZ ([id number]) on 10/03/2017 2:07:24 PM Referred By: Confirmed By:RODRÍGUEZ BROWN MD
[2017-10-03] MEDS ORDERED: LACTATED RINGERS SOLUTION 1,000 ML IV SCH (14:15)
--- NOTE | 2017-10-03 14:36 | MSN ---
Progress Note (short form) - Note Progress Note: Subjective: Patient complains of pain on her left arm but feels better due to the arm sling and morphine. Patient is scheduled and understanding of left proximal humerus ORIF, open RTC repair performed by Dr. Tineo Patient denies SOB, chest pains, nausea/ vomitting, fever. Objective: Last Vital Signs Temp Pulse Resp BP Pulse Ox 98.7 F 102 H 18 140/70 93 L 10/03/17 10:00 10/03/17 10:00 10/03/17 10:00 10/03/17 10:00 10/03/17 05:42 General: Alert and Oriented x3 HEENT: normocephalic, atraumatic. PERRLA. EOMI Heart: RRR, S1, S2 Lungs: clear to auscultation B/L Abdomen: normoactive bowel sound. soft, nontender to palpation. Extremities: Left upper extremity: patient arm is on a sling, pain with motion. ecchymosis on upper posterior left arm. sensation intact throughout Right Upper extremity: 5/5 strength throughout right UE. 2+ reflex of biceps , triceps, brachioradialis on right UE. radial pulse 2+ B/L on UE. sensation intact throughout. Lower extremities B/L: strength 5/5 on hip extension/ flexion, knee extension /flexion, plantar/dorsiflexion B/L. no peripheral edema noted. sensation intact throughout B/L LE. Neurologic: CN II-XII intact. Laboratory Last Values WBC 16.8 K/mm3 (4.0-10.0) H 10/03/17 08:00 RBC 4.51 M/mm3 (3.60-5.2) 10/03/17 08:00 Hgb 12.3 GM/dL (10.7-15.3) 10/03/17 08:00 Hct 37.7 % (32.4-45.2) 10/03/17 08:00 MCV 83.6 fl (80-96) 10/03/17 08:00 MCH 27.3 pg (25.7-33.7) 10/03/17 08:00 MCHC 32.6 g/dl (32.0-36.0) 10/03/17 08:00 RDW 15.0 % (11.6-15.6) 10/03/17 08:00 Plt Count 257 K/MM3 (134-434) 10/03/17 08:00 MPV 9.0 fl (7.5-11.1) 10/03/17 08:00 Neutrophils % 79.9 % (42.8-82.8) 10/03/17 08:00 Lymphocytes % 13.0 % (8-40) D 10/03/17 08:00 Monocytes % 6.2 % (3.8-10.2) 10/03/17 08:00 Eosinophils % 0.5 % (0-4.5) D 10/03/17 08:00 Basophils % 0.4 % (0-2.0) 10/03/17 08:00 PT with INR 13.00 SEC (9.98-11.88) H 10/03/17 08:00 INR 1.15 (0.82-1.09) H 10/03/17 08:00 Sodium 141 mmol/L (136-145) 10/03/17 08:00 Potassium 3.6 mmol/L (3.5-5.1) 10/03/17 08:00 Chloride 109 mmol/L (98-107) H 10/03/17 08:00 Carbon Dioxide 23 mmol/L (21-32) 10/03/17 08:00 Anion Gap 9 (8-16) 10/03/17 08:00 BUN 13 mg/dL (7-18) D 10/03/17 08:00 Creatinine 0.7 mg/dL (0.55-1.02) 10/03/17 08:00 Creat Clearance w eGFR > 60 (>60) 10/02/17 16:25 POC Glucometer 237 UNITS (80-120) 10/03/17 06:46 Random Glucose 238 mg/dL (74-106) H 10/03/17 08:00 Hemoglobin A1c % 8.5 % (4.8-6.0) H 10/03/17 08:00 Calcium 8.4 mg/dL (8.5-10.1) L 10/03/17 08:00 Phosphorus 2.7 mg/dL (2.5-4.9) 10/03/17 08:00 Magnesium 1.9 mg/dL (1.8-2.4) 10/03/17 08:00 Total Bilirubin 0.5 mg/dL (0.2-1.0) 10/02/17 16:25 AST 19 U/L (15-37) 10/02/17 16:25 ALT 22 U/L (12-78) 10/02/17 16:25 Alkaline Phosphatase 79 U/L (45-117) 10/02/17 16:25 Creatine Kinase 257 IU/L (26-192) H 10/02/17 16:25 Creatine Kinase Index 1.8 % (0.0-5.0) 10/02/17 16:25 CK-MB (CK-2) 4.693 ng/mL (0.5-3.6) H 10/02/17 16:25 Troponin I 0.02 ng/ml (0.00-0.05) 10/02/17 16:25 Total Protein 7.8 g/dl (6.4-8.2) 10/02/17 16:25 Albumin 4.2 g/dl (3.4-5.0) 10/02/17 16:25 Vitamin B12 578 pg/ml (180-914) 10/03/17 08:00 Serum Folate 9 ng/ml (3.1-17.5) 10/03/17 08:00 TSH 3.25 uIU/ml (0.358-3.74) 10/03/17 08:00 Urine Color Dkyellow 10/02/17 20:40 Urine Appearance Clear 10/02/17 20:40 Urine pH 5.0 (5.0-8.0) 10/02/17 20:40 Ur Specific [place] 1.031 (1.001-1.035) 10/02/17 20:40 Urine Protein 2+ (NEGATIVE) H 10/02/17 20:40 Urine Glucose (UA) 1+ (NEGATIVE) H 10/02/17 20:40 Urine Ketones Trace (NEGATIVE) H 10/02/17 20:40 Urine Blood Negative (NEGATIVE) 10/02/17 20:40 Urine Nitrite Negative (NEGATIVE) 10/02/17 20:40 Urine Bilirubin Negative (NEGATIVE) 10/02/17 20:40 Urine Urobilinogen Negative mg/dL (0.2-1.0) 10/02/17 20:40 Ur Leukocyte Esterase Negative (NEGATIVE) 10/02/17 20:40 Urine WBC (Auto) <1 /hpf (3-5) 10/02/17 20:40 Urine RBC (Auto) <1 /hpf (0-3) 10/02/17 20:40 Urine Bacteria Rare /hpf (NONE SEEN) 10/02/17 20:40 Hyaline Casts 1 /lpf 10/02/17 20:40 Urine Mucus Rare 10/02/17 20:40 Blood Type O NEGATIVE 10/02/17 19:15 Antibody Screen Cancelled 10/02/17 19:15 Antibody Identification Anti-d 10/02/17 15:54 Antigen Identification D Antigen - NEGATIVE 10/02/17 15:54 Spec Expiration Date Cancelled 10/02/17 19:15 Imaging: - Chest Xray: no acute abnormality - Head CT w/o contrast: no hemorrhage/ masses. no evidence of acute pathology. diffuse cerebral atrophy with sulcal widening and ventricular dilation noted. - shoulder CT: acute impacted humeral fracture w/ associated fractures of greater and possibly lesser humeral head tuberosities Assessment: 76yo F with a history of diabetes, HTN, schizophrenia, depression, hyperthyroidism presented with acute proximal left humeral fracture following a fall. Plan: 1) proximal left humeral fracture status post fall - ORIF, open RTC repair by Dr. Tineo performed on 10/03/17 - morphine sulfate 1mg IV push q4h prn pain - PT and rehab post-op 2) Schizophrenia/ Depression, well managed with home medication - Aripiprazole 10mg PO daily - Sertraline Hcl 100mg PO daily 3) Diabetes - sliding scale insulin aspart 1 vial sq ACHS - glucose have not been monitored due to surgery. Will continue to manage. 4) hyperthyroidism, well controlled with home medication - Methimazole 5mg PO daily 5) HTN, well controlled with home medication - lisinopril 10mg PO daily 6) hyperlipidemia, lipid panel not drawn. - continue home medication of simvastatin 40mg PO daily 7) FEN - fluid: NS 1000mls @50mls/hr IV dextrose/ sodium chloride D5-1/2ns 1000mls @ 42 mls/hr IV - electrolytes: no abnormalities - nutrition: NPO due to surgery 8) DVT prophylaxis - SCD placement B/L LE Dispo: left proximal humerus ORIF, open RTC repair. Post-op management. Physical therapy
--- NOTE | 2017-10-03 18:13 | PN ---
Teaching Attending Note Name of Resident: Debbie De Los Santos ATTENDING PHYSICIAN STATEMENT I saw and evaluated the patient. I reviewed the resident's note and discussed the case with the resident. I agree with the resident's findings and plan as documented. SUBJECTIVE: no fever or chills. has pain in L upper arm after sx . OBJECTIVE: NAd Cv : RRR, Lungs : CTAB ext: LUE in a sling, a surgical dressing on lateral L upper arm, with bruises . radial pulse 2+ , nl sensation and hand movement ASSESSMENT AND PLAN: 76 y/o lady with h/o HTN, DM, and other medical problems who presented with L arm pain after mechanical fall , she was found to have L humerus Fx 1- L humerus Fx: POD 0 after ORIF - pain meds as needed . add percocet to IV morphine - hector-OP Abx per sx - wound care per sx - IVF till MN - repeat CBC in am . leukocytosis is likely reactive to stress 2- HTN: cont lisinopril 3- Hyperthyroidism: - cont methimazole 4- DVT PX : add heaprin sq dispo : HLOC . will probably end up needing SNF
[2017-10-03] MEDS ORDERED: oxyCODONE HCL 5 MG TABLET PO PRN (18:16)
[2017-10-03] MEDS ORDERED: ACETAMINOPHEN 325 MG TABLET (FP) PO PRN (18:16)
[2017-10-03] MEDS: INSULIN SLIDING SCALE (NOVOLOG) 1 VIAL SQ SCH ×2 (18:31→22:17)
--- NOTE | 2017-10-03 20:28 | PN ---
Physical Exam: SUBJECTIVE: Patient seen and examined. Pt denies chest pain, abdominal pain, sob, nausea, vomiting, diarrhea, constipation, fever, chills. No events overnight. OBJECTIVE: Vital Signs Period Temp Pulse Resp BP Sys/Sheehan Pulse Ox Last 24 Hr 97.6 F-99 F 76-128 14-18 103-158/45-73 91-97 GENERAL: The patient is awake, alert, and fully oriented, in no acute distress. HEAD: Normal with no signs of trauma. LUNGS: Breath sounds equal, clear to auscultation bilaterally, no wheezes, no crackles, no accessory muscle use. HEART: Regular rate and rhythm, S1, S2 without murmur, rub or gallop. ABDOMEN: Soft, nontender, nondistended, normoactive bowel sounds, no guarding. EXTREMITIES: 1+ pulses, warm, well-perfused, no edema. 2+ malik radial pulses. LUE in a sling with bruises. NEUROLOGICAL: Cranial nerves II through XII grossly intact. Normal speech, gait not observed. No facial droop. Sensation intact and symmetric throughout. 2+ biceps jerk to RUE. 0+ malik knee jerks. Muscle strength 5/5 to malik LE hip flexion, dorsi- and plantar-flexion. Muscle strength 4/5 to malik UE hand squeeze. PSYCH: Normal mood, normal affect. SKIN: Warm, dry, normal turgor, no rashes or lesions noted Laboratory Results - last 24 hr 10/02/17 10/02/17 10/02/17 15:54 19:15 20:40 WBC RBC Hgb Hct MCV MCH MCHC RDW Plt Count MPV Neutrophils % Lymphocytes % Monocytes % Eosinophils % Basophils % PT with INR INR Sodium Potassium Chloride Carbon Dioxide Anion Gap BUN Creatinine POC Glucometer Random Glucose Hemoglobin A1c % Calcium Phosphorus Magnesium Vitamin B12 Serum Folate TSH Urine Color Dkyellow Urine Appearance Clear Urine pH 5.0 Ur Specific [place] 1.031 Urine Protein 2+ H Urine Glucose (UA) 1+ H Urine Ketones Trace H Urine Blood Negative Urine Nitrite Negative Urine Bilirubin Negative Urine Urobilinogen Negative Ur Leukocyte Esterase Negative Urine WBC (Auto) <1 Urine RBC (Auto) <1 Urine Bacteria Rare Hyaline Casts 1 Urine Mucus Rare Blood Type O NEGATIVE O NEGATIVE Antibody Screen Positive H Cancelled Antibody Identification Anti-d Antigen Identification D Antigen - NEGATIVE Spec Expiration Date Cancelled 10/03/17 10/03/17 10/03/17 06:46 08:00 08:00 WBC 16.8 H RBC 4.51 Hgb 12.3 Hct 37.7 MCV 83.6 MCH 27.3 MCHC 32.6 RDW 15.0 Plt Count 257 MPV 9.0 Neutrophils % 79.9 Lymphocytes % 13.0 D Monocytes % 6.2 Eosinophils % 0.5 D Basophils % 0.4 PT with INR 13.00 H INR 1.15 H Sodium Potassium Chloride Carbon Dioxide Anion Gap BUN Creatinine POC Glucometer 237 Random Glucose Hemoglobin A1c % Calcium Phosphorus Magnesium Vitamin B12 Serum Folate TSH Urine Color Urine Appearance Urine pH Ur Specific [place] Urine Protein Urine Glucose (UA) Urine Ketones Urine Blood Urine Nitrite Urine Bilirubin Urine Urobilinogen Ur Leukocyte Esterase Urine WBC (Auto) Urine RBC (Auto) Urine Bacteria Hyaline Casts Urine Mucus Blood Type Antibody Screen Antibody Identification Antigen Identification Spec Expiration Date 10/03/17 10/03/17 10/03/17 08:00 08:00 08:00 WBC RBC Hgb Hct MCV MCH MCHC RDW Plt Count MPV Neutrophils % Lymphocytes % Monocytes % Eosinophils % Basophils % PT with INR INR Sodium 141 Potassium 3.6 Chloride 109 H Carbon Dioxide 23 Anion Gap 9 BUN 13 D Creatinine 0.7 POC Glucometer Random Glucose 238 H Hemoglobin A1c % 8.5 H Calcium 8.4 L Phosphorus 2.7 Magnesium 1.9 Vitamin B12 578 Cancelled Serum Folate 9 TSH 3.25 Urine Color Urine Appearance Urine pH Ur Specific [place] Urine Protein Urine Glucose (UA) Urine Ketones Urine Blood Urine Nitrite Urine Bilirubin Urine Urobilinogen Ur Leukocyte Esterase Urine WBC (Auto) Urine RBC (Auto) Urine Bacteria Hyaline Casts Urine Mucus Blood Type Antibody Screen Antibody Identification Antigen Identification Spec Expiration Date 10/03/17 17:49 WBC RBC Hgb Hct MCV MCH MCHC RDW Plt Count MPV Neutrophils % Lymphocytes % Monocytes % Eosinophils % Basophils % PT with INR INR Sodium Potassium Chloride Carbon Dioxide Anion Gap BUN Creatinine POC Glucometer 284 Random Glucose Hemoglobin A1c % Calcium Phosphorus Magnesium Vitamin B12 Serum Folate TSH Urine Color Urine Appearance Urine pH Ur Specific [place] Urine Protein Urine Glucose (UA) Urine Ketones Urine Blood Urine Nitrite Urine Bilirubin Urine Urobilinogen Ur Leukocyte Esterase Urine WBC (Auto) Urine RBC (Auto) Urine Bacteria Hyaline Casts Urine Mucus Blood Type Antibody Screen Antibody Identification Antigen Identification Spec Expiration Date Active Medications Generic Name Dose Route Start Last Admin Trade Name Freq PRN Reason Stop Dose Admin Acetaminophen 325 mg 10/03/17 18:17 Tylenol - PO 10/06/17 18:15 Q4H PRN PAIN Aripiprazole 10 mg 10/04/17 10:00 Abilify PO DAILY [facility] Atorvastatin Calcium 20 mg 10/03/17 22:00 Lipitor - PO HS MAGDI Fentanyl 25 mcg 10/03/17 14:04 Sublimaze Injection - IVPUSH [id number] PRN PAIN Heparin Sodium (Porcine) 5,000 unit 10/03/17 22:00 Heparin - SQ TID [facility] Clindamycin Phosphate 600 mg in 50 mls @ 100 mls/hr 10/04/17 00:01 Cleocin 600 Mg Premix Ivpb - IVPB 10/04/17 00:30 ONCE ONE Sodium Chloride 1,000 mls @ 50 mls/hr 10/03/17 18:15 10/03/17 18:30 Normal Saline - IV 50 mls/hr ASDIR MAGDI Administration Insulin Aspart 1 vial 10/03/17 16:30 10/03/17 18:31 Novolog Vial Sliding Scale - SQ 6 units ACHS MAGDI Administration Protocol Lisinopril 10 mg 10/04/17 10:00 Prinivil PO DAILY [facility] Methimazole 5 mg 10/04/17 10:00 Tapazole - PO DAILY [facility] Morphine Sulfate 1 mg 10/03/17 14:30 Morphine Sulfate IVPUSH Q4H PRN PAIN Ondansetron HCl 4 mg 10/03/17 14:04 Zofran Injection IVPUSH Q6H PRN NAUSEA AND/OR VOMITING Oxycodone HCl 5 mg 10/03/17 18:17 Roxicodone - PO Q4H PRN PAIN Sertraline HCl 100 mg 10/04/17 10:00 Zoloft - PO DAILY [facility] IMAGIN10/02/17 CXR -> no definite radiographic evidence of acute abnormality in the chest. 10/02/17 Shoulder XRay -> acute impacted humeral neck fracture with associated fractures of the greater and lesser humeral head tuberosities. 10/02/[address] -> no acute intracranial pathology. ASSESSMENT/PLAN: 76yo F with PMH of htn, dm, hyperthyroidism, schizophrenia, presented s/p mechanical fall, found to have Left humerus fracture. # Left humerus fx - s/p ORIF - pain control with Percocet and Morphine prn - post-op wound care per surgery # DM - Novolog SSI - BGMs # htn - continue home med of Lisinopril # hyperthyroidism - continue home med of Methimazole # FEN - Fluids: NS @ 50 ml/hr - Electrolytes: wnl, continue to monitor - Nutrition: diabetic diet # Prophylaxis - DVT ppx with Heparin TID - deconditioning ppx with PT Visit type - Emergency Visit Emergency Visit: Yes ED Registration Date: 10/02/17 Care time: The patient presented to the Emergency Department on the above date and was hospitalized for further evaluation of their emergent condition. - New Patient This patient is new to me today: Yes Date on this admission: 10/03/17 - Critical Care Critical Care patient: No
[2017-10-03] MEDS: HEPARIN NA (PORCINE) 5,000 UNITS/ML 1ML VIAL SQ SCH (22:08)
[2017-10-03] MEDS: ATORVASTATIN CA 20 MG TABLET (FP) PO SCH (22:08)
[2017-10-03] MEDS: DOCUSATE SODIUM 100 MG CAPSULE (FP) PO SCH (22:08)
[2017-10-04] MEDS ORDERED: CLINDAMYCIN 600MG PREMIX IVPB 600 MG/50 ML BAG IVPB ONE (00:01)
[2017-10-04] MEDS ORDERED: CLINDAMYCIN 600MG PREMIX IVPB 50 ML IVPB ONE (00:01)
[2017-10-04] MEDS: HEPARIN NA (PORCINE) 5,000 UNITS/ML 1ML VIAL SQ SCH ×3 (06:02→21:45)
[2017-10-04] MEDS: DOCUSATE SODIUM 100 MG CAPSULE (FP) PO SCH ×3 (06:02→21:45)
[2017-10-04] MEDS: ACETAMINOPHEN 325 MG TABLET (FP) PO PRN ×2 (06:04→10:45)
[2017-10-04] MEDS: oxyCODONE HCL 5 MG TABLET PO PRN ×2 (06:04→10:43)
[2017-10-04] MEDS: INSULIN SLIDING SCALE (NOVOLOG) 1 VIAL SQ SCH ×4 (06:07→21:48)
[2017-10-04 08:18] LABS: BASO % 0.1 % (0-2.0); EOS % 0.2 % (0-4.5); LYMPH % 13.4 % (8-40); MCH 27.1 pg (25.7-33.7); MCHC 31.5 g/dl (32.0-36.0); MEAN CELL VOLUME 85.9 fl (80-96); MEAN PLT VOLUME 9.5 fl (7.5-11.1); MONO % 8.9 % (3.8-10.2); NEUT % 77.4 % (42.8-82.8); PLATELET COUNT 256 K/MM3 (134-434); RBC 4.08 M/mm3 (3.60-5.2); RDW 15.8 % (11.6-15.6); WHITE BLOOD COUNT 17.3 K/mm3 (4.0-10.0)
--- NOTE | 2017-10-04 08:28 | PN ---
Progress Note (short form) - Note Progress Note: Ortho Pt seen and examined s/p left proximal humerus orif pod #1 Selected Entries 10/04/17 06:00 Temperature 99.9 F H Pulse Rate 103 H Respiratory 20 Rate Blood Pressure 123/64 Laboratory Tests 10/04/17 07:15 WBC Pending Hgb Pending Hct Pending Plt Count Pending immobilizer intact, dressing c/d/i, +ecchymosis and swelling, nvi a/p keep immobilizer intact NWB LUE elevate hob to 60 deg pain control d/c planning
[2017-10-04] MEDS ORDERED: PT OWN MED DRAWER 7, Y5N ONE (10:41)
[2017-10-04] MEDS: METHIMAZOLE 5 MG TABLET (FP) PO SCH (10:45)
[2017-10-04] MEDS: SERTRALINE HCL 50 MG TABLET (FP) PO SCH (10:46)
[2017-10-04] MEDS: ARIPiprazole 10 MG TABLET PO SCH (10:46)
[2017-10-04] MEDS: LISINOPRIL 10 MG TABLET (FP) PO SCH (10:46)
--- NOTE | 2017-10-04 11:15 | PN ---
Progress Note (short form) - Note Progress Note: Pt day#1 s/p left ORIF humerus. Doing well, OOB to chair, no complaints. No anesthetic issues. Continue current treatment
--- NOTE | 2017-10-04 12:47 | OP ---
DATE OF OPERATION: 10/03/2017 PREOPERATIVE DIAGNOSIS: Left proximal humerus fracture and rotator cuff tear. POSTOPERATIVE DIAGNOSIS: Left proximal humerus fracture and rotator cuff tear. PROCEDURE: Left proximal humerus open reduction and internal fixation (ORIF) and open rotator cuff repair. SURGEON: Lázaro Javier M.D. LIBRARIAN HEAD: JOHNNY Ware ANESTHESIOLOGIST: Shweta Michel M.D. ANESTHESIA: Left interscalene block and LMA anesthesia. DRAINS: None. COMPLICATIONS: None. BLOOD LOSS: 50 mL. BLOOD GIVEN: None. FLUID REPLACEMENT: 700 mL. IMPLANTS: Two [place] titanium partially threaded cannulated screws both 30-mm in length with 2 washers and FiberWire. INDICATIONS: The patient is 76-year-old female with the preoperative diagnosis of a comminuted left proximal humerus fracture and rotator cuff tear. This is her non-dominant arm. She has a history of schizophrenia. DESCRIPTION OF PROCEDURE: The patient was brought to the operating room. Peripheral IV was placed. Intravenous sedation was given. Clindamycin of 600 mg was given. Left interscalene block was performed. She was placed in the beach chair position with ample padding throughout. The left upper extremity was prepped and draped in sterile fashion and bony landmarks marked out with a marking pen. A slightly posterior mini open rotator cuff repair incision was marked out with the marking pen. The incision was made with a number 10 scalpel blade. Subcutaneous hemostasis achieved with Bovie cautery. Dissection was done down to the bursa. An open bursectomy was performed exposing the rotator cuff and the fracture fragments. The area was irrigated and washed out. I tried not to disrupt the fracture as much as possible as it was in multiple pieces. The torn rotator cuff tear was still attached to the greater tuberosity. Hugo retractor was placed deep into the wound for retraction and protection including the axillary nerve throughout the case. Next we used 5 FiberWire and put them at the insertion of the rotator cuff onto the greater tuberosity and then used the standard 5.0-mm cannulated screws with the washer at 30-mm in length. We looped the posterior 6 tails around the screw with the washer and tightened it down. Next, I did the same thing with the anterior 4 tails of the FiberWire around an anterior screw with the washer also 30-mm in length. The screws came down quite nicely. There was good fixation. The rotator cuff was repaired. The greater tuberosity fracture was reduced. Overall the head looked to be in an excellent position and I tied the FiberWire tails to each other anterior to posterior 2 to 2. The area was copiously irrigated and washed out. The entire humerus and rotator cuff moved as a unit and visually it looked excellent. X-ray was brought in and the fracture fragments were all reduced into a very good position. The hardware was then in appropriate position. Closure was then done with 0 Vicryl in the deltoid layer, 2-0 Vicryl in the deep dermal layer, and final skin approximation was done with running subcuticular 4-0 Biosyn stitch with a 3-0 V-Loc suture covered with an Aquacel dressing. The patient was extubated and brought to the regular recovery room in stable condition. Total blood loss was about 50 mL. There were no complications during the case. Total operative time was about 45 minutes. Charla [id number]
--- NOTE | 2017-10-04 13:42 | MSN ---
Progress Note (short form) - Note Progress Note: Subjective: Patient complains of left arm pain that is better with pain medications. Patient has a lot of phlegm that she could not get out. Patient denies SOB, chest pains, nausea. vomitting. Objective: Vital Signs 10/03/17 10/03/17 10/04/17 21:00 23:21 02:00 Temperature 98.0 F 100.5 F H Pulse Rate 109 H 112 H Respiratory 20 20 20 Rate Blood Pressure 107/53 125/82 O2 Sat by Pulse 94 L Oximetry (%) 10/04/17 10/04/17 10/04/17 06:00 09:00 10:00 Temperature 99.9 F H 98.7 F Pulse Rate 103 H 111 H Respiratory 20 20 Rate Blood Pressure 123/64 136/56 O2 Sat by Pulse 94 L Oximetry (%) General: patient is alert and oriented x3 and is in no apparent distress HEENT: normocephalic, atraumatic. PERRLA. EOMI Heart: RRR, S1, S2 Lungs: intermittent rhonci and crackles throughout lungs B/L Abdomen: normoactive bowel sound. soft, nontender to palpation. Extremities: Left upper extremity- patient's arm is on an immobilizer. ecchymosis on upper left arm. sensation intact throughout. handgrip strength 4/5 Right upper extremity- 5/5 strength throughout. 2+ reflex on biceps. radial pulse 2+. sensation intact throughout. Lower extremities- 5/5 strength throughout B/L. Patellar reflex unable to ellicit. sensation intact throughout B/L. no edema noted. Neurologic: CN II-XII intact. Laboratory Last Values WBC 17.3 K/mm3 (4.0-10.0) H 10/04/17 07:15 RBC 4.08 M/mm3 (3.60-5.2) 10/04/17 07:15 Hgb 11.0 GM/dL (10.7-15.3) D 10/04/17 07:15 Hct 35.0 % (32.4-45.2) 10/04/17 07:15 MCV 85.9 fl (80-96) 10/04/17 07:15 MCH 27.1 pg (25.7-33.7) 10/04/17 07:15 MCHC 31.5 g/dl (32.0-36.0) L 10/04/17 07:15 RDW 15.8 % (11.6-15.6) H 10/04/17 07:15 Plt Count 256 K/MM3 (134-434) 10/04/17 07:15 MPV 9.5 fl (7.5-11.1) 10/04/17 07:15 Neutrophils % 77.4 % (42.8-82.8) 10/04/17 07:15 Lymphocytes % 13.4 % (8-40) 10/04/17 07:15 Monocytes % 8.9 % (3.8-10.2) 10/04/17 07:15 Eosinophils % 0.2 % (0-4.5) 10/04/17 07:15 Basophils % 0.1 % (0-2.0) 10/04/17 07:15 PT with INR 13.00 SEC (9.98-11.88) H 10/03/17 08:00 INR 1.15 (0.82-1.09) H 10/03/17 08:00 Sodium 141 mmol/L (136-145) 10/03/17 08:00 Potassium 3.6 mmol/L (3.5-5.1) 10/03/17 08:00 Chloride 109 mmol/L (98-107) H 10/03/17 08:00 Carbon Dioxide 23 mmol/L (21-32) 10/03/17 08:00 Anion Gap 9 (8-16) 10/03/17 08:00 BUN 13 mg/dL (7-18) D 10/03/17 08:00 Creatinine 0.7 mg/dL (0.55-1.02) 10/03/17 08:00 Creat Clearance w eGFR > 60 (>60) 10/02/17 16:25 POC Glucometer 238 UNITS (80-120) 10/04/17 11:43 Random Glucose 238 mg/dL (74-106) H 10/03/17 08:00 Hemoglobin A1c % 8.5 % (4.8-6.0) H 10/03/17 08:00 Calcium 8.4 mg/dL (8.5-10.1) L 10/03/17 08:00 Phosphorus 2.7 mg/dL (2.5-4.9) 10/03/17 08:00 Magnesium 1.9 mg/dL (1.8-2.4) 10/03/17 08:00 Total Bilirubin 0.5 mg/dL (0.2-1.0) 10/02/17 16:25 AST 19 U/L (15-37) 10/02/17 16:25 ALT 22 U/L (12-78) 10/02/17 16:25 Alkaline Phosphatase 79 U/L (45-117) 10/02/17 16:25 Creatine Kinase 257 IU/L (26-192) H 10/02/17 16:25 Creatine Kinase Index 1.8 % (0.0-5.0) 10/02/17 16:25 CK-MB (CK-2) 4.693 ng/mL (0.5-3.6) H 10/02/17 16:25 Troponin I 0.02 ng/ml (0.00-0.05) 10/02/17 16:25 Total Protein 7.8 g/dl (6.4-8.2) 10/02/17 16:25 Albumin 4.2 g/dl (3.4-5.0) 10/02/17 16:25 Vitamin B12 578 pg/ml (180-914) 10/03/17 08:00 Serum Folate 9 ng/ml (3.1-17.5) 10/03/17 08:00 TSH 3.25 uIU/ml (0.358-3.74) 10/03/17 08:00 Urine Color Dkyellow 10/02/17 20:40 Urine Appearance Clear 10/02/17 20:40 Urine pH 5.0 (5.0-8.0) 10/02/17 20:40 Ur Specific [place] 1.031 (1.001-1.035) 10/02/17 20:40 Urine Protein 2+ (NEGATIVE) H 10/02/17 20:40 Urine Glucose (UA) 1+ (NEGATIVE) H 10/02/17 20:40 Urine Ketones Trace (NEGATIVE) H 10/02/17 20:40 Urine Blood Negative (NEGATIVE) 10/02/17 20:40 Urine Nitrite Negative (NEGATIVE) 10/02/17 20:40 Urine Bilirubin Negative (NEGATIVE) 10/02/17 20:40 Urine Urobilinogen Negative mg/dL (0.2-1.0) 10/02/17 20:40 Ur Leukocyte Esterase Negative (NEGATIVE) 10/02/17 20:40 Urine WBC (Auto) <1 /hpf (3-5) 10/02/17 20:40 Urine RBC (Auto) <1 /hpf (0-3) 10/02/17 20:40 Urine Bacteria Rare /hpf (NONE SEEN) 10/02/17 20:40 Hyaline Casts 1 /lpf 10/02/17 20:40 Urine Mucus Rare 10/02/17 20:40 Blood Type O NEGATIVE 10/02/17 19:15 Antibody Screen Cancelled 10/02/17 19:15 Antibody Identification Anti-d 10/02/17 15:54 Antigen Identification D Antigen - NEGATIVE 10/02/17 15:54 Spec Expiration Date Cancelled 10/02/17 19:15 Imaging: - Chest xray on 10/04: limited examination. obscured by soft tissue of the chest. no large pleural effusion. follow up with improved respiration recommended. - Chest Xray on 10/02: no acute abnormality - Head CT on 10/02 w/o contrast: no hemorrhage/ masses. no evidence of acute pathology. diffuse cerebral atrophy with sulcal widening and ventricular dilation noted. - shoulder CT on 10/02: acute impacted humeral fracture w/ associated fractures of greater and possibly lesser humeral head tuberosities Assessment: 76yo F with a history of diabetes, HTN, schizophrenia, depression, hyperthyroidism presented with acute proximal left humeral fracture following a fall is status post day 1 left humerus ORIF and rotator cuff repair. Plan: 1) proximal left humeral fracture status post fall. ORIF, open RTC repair by Dr. Tineo performed on 10/03/17 - acetaminophen 325mg PO q4h prn pain. pain is controlled. - oxycodone Hcl 5mg PO q4h prn pain. pain is controlled. - morphine sulfate 1mg IV push q4h prn pain - PT and rehab post-op - continue to monitor WBC and temperature. - ice, elevated head of bed to 60 degrees. non weight bearing on left upper extremity per Dr. Javier. 2) Schizophrenia/ Depression, well managed with home medication - Aripiprazole 10mg PO daily - Sertraline Hcl 100mg PO daily 3) Diabetes - sliding scale insulin aspart 1 vial sq ACHS 4) hyperthyroidism, well controlled with home medication - Methimazole 5mg PO daily 5) HTN, well controlled with home medication - lisinopril 10mg PO daily 6) hyperlipidemia - continue home medication of simvastatin 40mg PO daily 7) constipation, patient has not had bowel movement in 2 days. - Docusate Sodium (Colace -) 100 mg PO TID COUNT INCLUDES THE [facility] 7) FEN - fluid: none - electrolytes: no abnormalities - nutrition: diabetic/sodium diet 8) DVT prophylaxis - Heparin Sodium (Porcine) (Heparin -) 5,000 unit SQ TID COUNT INCLUDES THE [facility] - SCD placement B/L LE Dispo: Patient did not tolerate weight bearing on LE with PT. Will need rehab facility if discharged.
--- NOTE | 2017-10-04 17:43 | PN ---
Teaching Attending Note Name of Resident: Debbie De Los Santos ATTENDING PHYSICIAN STATEMENT I saw and evaluated the patient. I reviewed the resident's note and discussed the case with the resident. I agree with the resident's findings and plan as documented. SUBJECTIVE: low grade fever last night . has no SOB or cough. Low O2 sats this am OBJECTIVE: NAd Cv : RRR Lungs : bilateral crackles ext: LUE in a sling, a surgical dressing on lateral L upper arm, with bruises . radial pulse 2+ , nl sensation and hand movement ASSESSMENT AND PLAN: 76 y/o lady with h/o HTN, DM, and other medical problems who presented with L arm pain after mechanical fall , she was found to have L humerus Fx 1- L humerus Fx: POD 1 after ORIF - pain meds as needed . - wound care per sx - fever within 24 hr of sx. monitor . leukocytosis is likely reactive to stress 2- Hypoxia: stop IVF, Cxray with effusions . allow autodiuresis 2- HTN: cont lisinopril 3- Hyperthyroidism: - cont methimazole 4- DVT PX: heaprin sq SNF placement in progress
--- NOTE | 2017-10-04 20:30 | PN ---
Physical Exam: SUBJECTIVE: Patient seen and examined. Pt had low-grade fever at 2am. Pt denies cough, sob. Pain is controlled. OBJECTIVE: Vital Signs Period Temp Pulse Resp BP Sys/Sheehan Pulse Ox Last 24 Hr 98.0 F-100.5 F 97-116 18-20 107-137/53-82 94-94 GENERAL: The patient is awake, alert, and fully oriented, in no acute distress. HEAD: Normal with no signs of trauma. LUNGS: malik crackles, no accessory muscle use. HEART: Regular rate and rhythm, S1, S2 without murmur, rub or gallop. ABDOMEN: Soft, nontender, nondistended, (+) bowel sounds x 4, no guarding. EXTREMITIES: Warm, well-perfused, no edema. LUE in a sling with bruises, dressing CDI. NEUROLOGICAL: Sensation intact through malik UE. Pt able to move both hands. PSYCH: Normal mood, normal affect. SKIN: Warm, dry, normal turgor, no rashes or lesions noted Laboratory Results - last 24 hr 10/03/17 10/04/17 10/04/17 22:15 06:06 07:15 WBC 17.3 H RBC 4.08 Hgb 11.0 D Hct 35.0 MCV 85.9 MCH 27.1 MCHC 31.5 L RDW 15.8 H Plt Count 256 MPV 9.5 Neutrophils % 77.4 Lymphocytes % 13.4 Monocytes % 8.9 Eosinophils % 0.2 Basophils % 0.1 POC Glucometer 306 204 10/04/17 10/04/17 11:43 16:42 WBC RBC Hgb Hct MCV MCH MCHC RDW Plt Count MPV Neutrophils % Lymphocytes % Monocytes % Eosinophils % Basophils % POC Glucometer 238 198 Active Medications Generic Name Dose Route Start Last Admin Trade Name Freq PRN Reason Stop Dose Admin Acetaminophen 325 mg 10/03/17 18:17 10/04/17 10:45 Tylenol - PO 10/06/17 18:15 325 mg Q4H PRN Administration PAIN Aripiprazole 10 mg 10/04/17 10:00 10/04/17 10:46 Abilify PO 10 mg DAILY MAGDI Administration Atorvastatin Calcium 20 mg 10/03/17 22:00 10/03/17 22:08 Lipitor - PO 20 mg HS MAGDI Administration Docusate Sodium 100 mg 10/03/17 22:00 10/04/17 14:18 Colace - PO 100 mg TID MAGDI Administration Fentanyl 25 mcg 10/03/17 14:04 Sublimaze Injection - IVPUSH [id number] PRN PAIN Heparin Sodium (Porcine) 5,000 unit 10/03/17 22:00 10/04/17 14:18 Heparin - SQ 5,000 unit TID MAGDI Administration Insulin Aspart 1 vial 10/03/17 16:30 10/04/17 17:03 Novolog Vial Sliding Scale - SQ 2 units ACHS MAGDI Administration Protocol Lisinopril 10 mg 10/04/17 10:00 10/04/17 10:46 Prinivil PO 10 mg DAILY MAGDI Administration Methimazole 5 mg 10/04/17 10:00 10/04/17 10:45 Tapazole - PO 5 mg DAILY MAGDI Administration Ondansetron HCl 4 mg 10/03/17 14:04 Zofran Injection IVPUSH Q6H PRN NAUSEA AND/OR VOMITING Oxycodone HCl 5 mg 10/03/17 18:17 10/04/17 10:43 Roxicodone - PO 5 mg Q4H PRN Administration PAIN Sertraline HCl 100 mg 10/04/17 10:00 10/04/17 10:46 Zoloft - PO 100 mg DAILY MAGDI Administration IMAGIN10/04/17 CXR -> no large pleural effusions seen (possibly small Right sided pleural effusion noted). ASSESSMENT/PLAN: 76yo F with PMH of htn, dm, hyperthyroidism, schizophrenia, presented s/p mechanical fall, found to have Left humerus fracture. # Left humerus fx, s/p ORIF - POD #1 - pain control with Percocet and Morphine prn - post-op wound care per surgery - non-weight bearing to Left UE per surgery # hypoxia - D/C IVFs - no diuresis at this time, continue to monitor # DM - Novolog SSI - BGMs # htn - continue home med of Lisinopril # hyperthyroidism - continue home med of Methimazole # chronic schizophrenia - managed with home medications # FEN - Fluids: po - Electrolytes: continue to monitor - Nutrition: diabetic, low sodium diet # Prophylaxis - DVT ppx with Heparin TID - deconditioning ppx with PT Visit type - Emergency Visit Emergency Visit: Yes ED Registration Date: 10/02/17 Care time: The patient presented to the Emergency Department on the above date and was hospitalized for further evaluation of their emergent condition. - New Patient This patient is new to me today: No - Critical Care Critical Care patient: No
[2017-10-04] MEDS: ATORVASTATIN CA 20 MG TABLET (FP) PO SCH (21:45)
[2017-10-05] MEDS: oxyCODONE HCL 5 MG TABLET PO PRN ×2 (03:42→21:21)
[2017-10-05] MEDS: ACETAMINOPHEN 325 MG TABLET (FP) PO PRN ×2 (03:42→21:22)
[2017-10-05] MEDS: HEPARIN NA (PORCINE) 5,000 UNITS/ML 1ML VIAL SQ SCH ×3 (06:19→21:20)
[2017-10-05] MEDS: INSULIN SLIDING SCALE (NOVOLOG) 1 VIAL SQ SCH ×4 (06:19→21:20)
[2017-10-05] MEDS: DOCUSATE SODIUM 100 MG CAPSULE (FP) PO SCH ×3 (06:19→22:18)
[2017-10-05 09:07] LABS: HEMATOCRIT 34.3 % (32.4-45.2); HEMOGLOBIN 10.9 GM/dL (10.7-15.3); MCH 27.1 pg (25.7-33.7); MCHC 31.7 g/dl (32.0-36.0); MEAN CELL VOLUME 85.3 fl (80-96); MEAN PLT VOLUME 9.1 fl (7.5-11.1); PLATELET COUNT 280 K/MM3 (134-434); RBC 4.02 M/mm3 (3.60-5.2); RDW 15.5 % (11.6-15.6)
[2017-10-05] MEDS ORDERED: PT OWN MED DRAWER 7, Y5N ONE (09:35)
[2017-10-05] MEDS: LISINOPRIL 10 MG TABLET (FP) PO SCH (09:40)
[2017-10-05] MEDS: METHIMAZOLE 5 MG TABLET (FP) PO SCH (09:40)
[2017-10-05] MEDS: ARIPiprazole 10 MG TABLET PO SCH (09:40)
[2017-10-05] MEDS: SERTRALINE HCL 50 MG TABLET (FP) PO SCH (09:40)
--- NOTE | 2017-10-05 10:28 | PN ---
Progress Note (short form) - Note Progress Note: Ortho Pt seen and examined s/p left proximal humerus orif pod #2 Selected Entries 10/05/17 05:29 Temperature 98.6 F Pulse Rate 98 H Respiratory 20 Rate Blood Pressure 154/70 Laboratory Tests 10/05/17 09:02 WBC 17.0 H Hgb 10.9 Hct 34.3 Plt Count 280 immobilizer intact, dressing c/d/i, +ecchymosis and swelling, nvi a/p keep immobilizer intact NWB LUE elevate hob to 60 deg pain control d/c planning
[2017-10-05] MEDS ORDERED: INSULIN (NOVOLOG) ASPART 100 UNITS/ML 10ML VIAL ONE ×3 (11:21→21:19)
--- NOTE | 2017-10-05 14:50 | MSN ---
Progress Note (short form) - Note Progress Note: Subjective: Patient is doing better and pain on left arm is well managed. Phlegm has cleared out. Patient denies SOB, chest pains, nausea/vomitting, abdominal discomfort. Patient has not had a bowel movement for 3 days. Objective: Vital Signs - 8 hr 10/05/17 14:04 Temperature 100.2 F H Pulse Rate 103 H Respiratory 18 Rate Blood Pressure 134/66 General: patient is alert and oriented x3 and in no apparent distress HEENT: normocephalic, atraumatic. PERRLA. EOMI Heart: RRR, normal S1, S2 Lungs: CTA B/L Abdomen: normoactive bowel sounds, nontender to palpation Left UE: patient on immnobilizer. ecchymosis on upper left arm has improved. sensation is intact throughout. handgrip strength 3/5. radial pulse 2+ Right UE: 5/5 strength throughout. 2+ reflex on biceps. radial pulse 2+. sensation intact throughout B/L LE: 5/5 strength throughout. Patellar reflex 1+ B/L. sensation intact throughout. no edema noted. CBC WBC 17.0 K/mm3 (4.0-10.0) H 10/05/17 09:02 RBC 4.02 M/mm3 (3.60-5.2) 10/05/17 09:02 Hgb 10.9 GM/dL (10.7-15.3) 10/05/17 09:02 Hct 34.3 % (32.4-45.2) 10/05/17 09:02 MCV 85.3 fl (80-96) 10/05/17 09:02 MCH 27.1 pg (25.7-33.7) 10/05/17 09:02 MCHC 31.7 g/dl (32.0-36.0) L 10/05/17 09:02 RDW 15.5 % (11.6-15.6) 10/05/17 09:02 Plt Count 280 K/MM3 (134-434) 10/05/17 09:02 MPV 9.1 fl (7.5-11.1) 10/05/17 09:02 Neutrophils % 77.4 % (42.8-82.8) 10/04/17 07:15 Lymphocytes % 13.4 % (8-40) 10/04/17 07:15 Monocytes % 8.9 % (3.8-10.2) 10/04/17 07:15 Eosinophils % 0.2 % (0-4.5) 10/04/17 07:15 Basophils % 0.1 % (0-2.0) 10/04/17 07:15 Imaging: - Chest xray on 10/05: shallow inspiration. mild left basilar atelectasis suggested. no evidence of pulmonary consolidations, vascular congestion. - Chest xray on 10/04: limited examination. obscured by soft tissue of the chest. no large pleural effusion. follow up with improved respiration recommended. - Chest Xray on 10/02: no acute abnormality - Head CT on 10/02 w/o contrast: no hemorrhage/ masses. no evidence of acute pathology. diffuse cerebral atrophy with sulcal widening and ventricular dilation noted. - shoulder CT on 10/02: acute impacted humeral fracture w/ associated fractures of greater and possibly lesser humeral head tuberosities Assessment: 76yo F with a history of diabetes, HTN, schizophrenia, depression, hyperthyroidism presented with acute proximal left humeral fracture following a fall is status post day 2 left humerus ORIF and rotator cuff repair. Plan: 1) proximal left humeral fracture status post fall. ORIF, open RTC repair by Dr. Tineo performed on 10/03/17 - oxycodone 5mg q4h prn pain. pain medication renewed. - acetaminophen 325mg PO q4h prn pain. pain is controlled. - morphine sulfate 1mg IV push q4h prn pain - PT and rehab post-op - continue to monitor WBC and temperature. - ice, elevated head of bed to 60 degrees. non weight bearing on left upper extremity per Dr. Javier. 2) Hypoxia & fever. Patient on oxygen mask. - ultrasound of B/L LE for possible DVT. If negative, follow up with chest CT to rule out PE or pneumonia. If chest CT negative then will diurese patient. - UA for possible UTI - continue to monitor WBC for continued signs of infection/ improvements. 3) Schizophrenia/ Depression, well managed with home medication - Aripiprazole 10mg PO daily - Sertraline Hcl 100mg PO daily 4) Diabetes - sliding scale insulin aspart 1 vial sq ACHS. Patient glucose was 210 and received 4 units this morning. 5) hyperthyroidism, well controlled with home medication - Methimazole 5mg PO daily 6) HTN, well controlled with home medication - lisinopril 10mg PO daily 7) hyperlipidemia - continue home medication of simvastatin 40mg PO daily 8) constipation, patient has not had bowel movement in 2 days. - Docusate Sodium (Colace -) 100 mg PO TID [facility] 9) FEN - fluid: none - electrolytes: no abnormalities - nutrition: diabetic/sodium diet 10) DVT prophylaxis - Heparin Sodium (Porcine) (Heparin -) 5,000 unit SQ TID [facility] - SCD placement B/L LE Dispo: management of hypoxia & fever for possible infections, UTI, DVT/PE. Patient did not tolerate weight bearing on LE with PT. Will need rehab facility if discharged.
--- NOTE | 2017-10-05 15:56 | PN ---
Teaching Attending Note Name of Resident: Debbie De Los Santos ATTENDING PHYSICIAN STATEMENT I saw and evaluated the patient. I reviewed the resident's note and discussed the case with the resident. I agree with the resident's findings and plan as documented. SUBJECTIVE: she has no complaints. had fever last night. denies urinary sx like dysuria but per RN, had urinary retention and 500 cc of urine were removed via straight cath. no abd pain. has no cough . no CP was hypoxic on 3 l of oxygen and was placed on venti mask OBJECTIVE: NAD Cv: RRR Lungs : bilateral crackles , much improved today . good air entry . No jVD Ext: LUE in a sling, a surgical dressing on lateral L upper arm, with bruises . radial pulse 2+ , nl sensation and hand movement ASSESSMENT AND PLAN: 76 y/o lady with h/o HTN, DM, and other medical problems who presented with L arm pain after mechanical fall , she was found to have L humerus Fx 1- L humerus Fx: POD 2 after ORIF - pain meds as needed . - wound care per sx. 2- Fever: in the setting of persistent leukocytosis after 24 hr form sx , there is a concern for infection. - Check UA ( especially with the retention last ight ) - Repeat cxray shows no infiltrate, but still PNA can't be r/o. will CT her chest - US doppler to r/o DVT as cause of fever 3- Hypoxia: not clear on reason. PNA is a possibility. Pulmonary edema is possible, but crackles have diminished and BNP is < 300. although P Eis in DDx , it is low in the presence of fever . - check US doppler on LE to r/o DVT - if Neg doppler , will do CTA , to r/o PE. given her WELLS score for PE of 3. - if no PNA and no PE , then will try diuresis 2- HTN: change to Novasc , in anticipation of IV contrast being given. 3- Hyperthyroidism: - cont methimazole 4- DVT PX: heaprin sq HLOC
[2017-10-05 18:11] LABS: URINE APPEARANCE CLOUDY; URINE BILIRUBIN NEGATIVE (NEGATIVE); URINE BLOOD NEGATIVE (NEGATIVE); URINE COLOR YELLOW; URINE GLUCOSE (UA) 1+ (NEGATIVE); URINE KETONE NEGATIVE (NEGATIVE); URINE NITRITE NEGATIVE (NEGATIVE); URINE UROBILINOGEN NEGATIVE mg/dL (0.2-1.0)
[2017-10-05 18:13] LABS: URINE LEUK ESTERASE 3+ (NEGATIVE); URINE PROTEIN 1+ (NEGATIVE)
[2017-10-05 18:16] LABS: EPI CELLS MODERATE /HPF (FEW); URINE BACTERIA MODERATE /hpf (NONE SEEN); URINE HYALINE CAST 6 /lpf; URINE MUCUS RARE
[2017-10-05] MEDS ORDERED: PIPERACILLIN/TAZOB 3.375 GM 50 ML IVPB SCH (19:45)
[2017-10-05] MEDS ORDERED: VANCOMYCIN 1,000 MG in DEXTROSE 5%-WATER - 250 ML IVPB ONE (20:00)
[2017-10-05] MEDS ORDERED: AZTREONAM 1 GRAM SYRINGE 1 GM/10 ML DISP.SYRIN IVPUSH ONE (20:30)
[2017-10-05] MEDS ORDERED: AZTREONAM 2 GRAM SYRINGE 2 GM/10 ML DISP.SYRIN IVPUSH ONE (20:30)
[2017-10-05] MEDS: METRONIDAZOLE 500 MG PREMIXED 500 MG/100 ML MG IVPB SCH (20:54)
--- NOTE | 2017-10-05 21:06 | PN ---
Physical Exam: SUBJECTIVE: Patient seen and examined. Pt had another low-grade fever overnight at 2am. Per nurse had 500ml urinary retention overnight, relieved with straight cath. Pt remains hypoxic on ventimask. Pain is controlled. Pt reports (+) flatus, but no bowel movement. OBJECTIVE: Vital Signs Period Temp Pulse Resp BP Sys/Sheehan Pulse Ox Last 24 Hr 98.1 F-100.6 F 98-109 18-20 114-154/58-70 89-92 GENERAL: The patient is awake, alert, and fully oriented, in no acute distress. LUNGS: jean-paul crackles improved today as compared to yesterday. No accessory muscle use. HEART: Regular rate and rhythm, S1, S2 without murmur, rub or gallop. ABDOMEN: Soft, nontender, nondistended, (+) bowel sounds x 4, no guarding. EXTREMITIES: jean-paul LE warm, well-perfused, no edema. LUE in an immobilizer with healing bruises. Surgical dressing CDI. Radial pulse 2+ jean-paul. NEUROLOGICAL: Sensation intact through jean-paul UE. Pt able to move both hands. PSYCH: Normal mood, normal affect. SKIN: Warm, dry, normal turgor, no rashes or lesions noted Laboratory Results - last 24 hr 10/04/17 10/05/17 10/05/17 21:44 06:17 07:00 WBC RBC Hgb Hct MCV MCH MCHC RDW Plt Count MPV POC Glucometer 254 210 B-Natriuretic Peptide 306.51 Urine Color Urine Appearance Urine pH Ur Specific Logan Urine Protein Urine Glucose (UA) Urine Ketones Urine Blood Urine Nitrite Urine Bilirubin Urine Urobilinogen Urine WBC (Auto) Urine RBC (Auto) Ur Epithelial Cells Urine Bacteria Hyaline Casts Urine Mucus 10/05/17 10/05/17 10/05/17 09:02 11:15 16:15 WBC 17.0 H RBC 4.02 Hgb 10.9 Hct 34.3 MCV 85.3 MCH 27.1 MCHC 31.7 L RDW 15.5 Plt Count 280 MPV 9.1 POC Glucometer 229 B-Natriuretic Peptide Urine Color Yellow Urine Appearance Cloudy Urine pH 5.0 Ur Specific Logan 1.026 Urine Protein 1+ H Urine Glucose (UA) 1+ H Urine Ketones Negative Urine Blood Negative Urine Nitrite Negative Urine Bilirubin Negative Urine Urobilinogen Negative Urine WBC (Auto) 45 Urine RBC (Auto) 1 Ur Epithelial Cells Moderate Urine Bacteria Moderate Hyaline Casts 6 Urine Mucus Rare 10/05/17 16:51 WBC RBC Hgb Hct MCV MCH MCHC RDW Plt Count MPV POC Glucometer 268 B-Natriuretic Peptide Urine Color Urine Appearance Urine pH Ur Specific Logan Urine Protein Urine Glucose (UA) Urine Ketones Urine Blood Urine Nitrite Urine Bilirubin Urine Urobilinogen Urine WBC (Auto) Urine RBC (Auto) Ur Epithelial Cells Urine Bacteria Hyaline Casts Urine Mucus Active Medications Generic Name Dose Route Start Last Admin Trade Name Freq PRN Reason Stop Dose Admin Acetaminophen 325 mg 10/03/17 18:17 10/05/17 03:42 Tylenol - PO 10/06/17 18:15 325 mg Q4H PRN Administration PAIN Amlodipine Besylate 2.5 mg 10/06/17 10:00 Norvasc - PO DAILY MAGDI Aripiprazole 10 mg 10/04/17 10:00 10/05/17 09:40 Abilify PO 10 mg DAILY MAGDI Administration Atorvastatin Calcium 20 mg 10/03/17 22:00 10/04/17 21:45 Lipitor - PO 20 mg HS MAGDI Administration Docusate Sodium 100 mg 10/03/17 22:00 10/05/17 13:52 Colace - PO 100 mg TID MAGDI Administration Fentanyl 25 mcg 10/03/17 14:04 Sublimaze Injection - IVPUSH [id number] PRN PAIN Heparin Sodium (Porcine) 5,000 unit 10/03/17 22:00 10/05/17 13:52 Heparin - SQ 5,000 unit TID MAGDI Administration Vancomycin HCl 1,000 mg/ 250 mls @ 166.667 mls/hr 10/05/17 20:00 Dextrose IVPB 10/05/17 21:29 ONCE ONE Protocol Aztreonam 2 gm/ Dextrose 50 mls @ 100 mls/hr 10/06/17 02:00 IVPB Q8H-IV MAGDI Protocol Metronidazole 500 mg in 100 mls @ 100 mls/hr 10/05/17 20:00 Flagyl 500mg Premixed Ivpb - IVPB Q8H-IV MAGDI Aztreonam 2 gm in 10 mls @ 120 mls/hr 10/05/17 20:30 Azactam (Restricted To Id) - IVPUSH 10/05/17 20:34 ONCE ONE Insulin Aspart 1 vial 10/03/17 16:30 12/15/17 19:18 Novolog Vial Sliding Scale - SQ 6 units ACHS MAGDI Administration Protocol Methimazole 5 mg 10/04/17 10:00 10/05/17 09:40 Tapazole - PO 5 mg DAILY MAGDI Administration Ondansetron HCl 4 mg 10/03/17 14:04 Zofran Injection IVPUSH Q6H PRN NAUSEA AND/OR VOMITING Oxycodone HCl 5 mg 10/03/17 18:17 10/05/17 03:42 Roxicodone - PO 5 mg Q4H PRN Administration PAIN Sertraline HCl 100 mg 10/04/17 10:00 10/05/17 09:40 Zoloft - PO 100 mg DAILY MAGDI Administration IMAGIN10/05/17 CXR -> mild Left basilar atelectasis suggested. No evidence of pulmonary consolidation or congestion. 10/05/17 Vascular Study -> no DVTs to jean-paul LE. 10/05/17 CTA -> official read pending. Jean-Paul infiltrates appreciated. ASSESSMENT/PLAN: 76yo F with PMH of htn, dm, hyperthyroidism, schizophrenia, presented s/p mechanical fall, found to have Left humerus fracture. # Left humerus fx, s/p ORIF on 10/03/17 - POD #2 - pain control with Percocet prn - post-op wound care per surgery - non-weight bearing to Left UE per surgery # fever and persistent leukocytosis - concerning for infection - f/u UA, legionella, blood cultures - Duplex study revealed no DVTs of jean-paul LE - f/u CTA to assess for pulmonary embolism and/or pna - Wells Score 3 (for surgery and tachycardia) - CTA - official read pending though jean-paul infiltrates appreciated -> Vancomycin, Aztreonam, and Flagyl initiated. ID Consult. # persistent hypoxia - ventimask, O2 prn - bnp 300 - crackles improved on physical exam - no diuresis at this time, f/u CTA # DM - Novolog SSI - BGMs # htn - Lisinopril for IV contrast for CTA - Norvasc 2.5mg added # hyperthyroidism - continue home med of Methimazole # chronic schizophrenia - managed with home medications # FEN - Fluids: po - Electrolytes: continue to monitor - Nutrition: diabetic, low sodium diet # Prophylaxis - DVT ppx with Heparin TID - deconditioning ppx with PT Visit type - Emergency Visit Emergency Visit: Yes ED Registration Date: 10/02/17 Care time: The patient presented to the Emergency Department on the above date and was hospitalized for further evaluation of their emergent condition. - New Patient This patient is new to me today: No - Critical Care Critical Care patient: No
[2017-10-05] MEDS: ATORVASTATIN CA 20 MG TABLET (FP) PO SCH (21:21)
[2017-10-06] MEDS: METRONIDAZOLE 500 MG PREMIXED 500 MG/100 ML MG IVPB SCH ×2 (02:35→10:27)
[2017-10-06] MEDS ORDERED: INSULIN (NOVOLOG) ASPART 100 UNITS/ML 10ML VIAL ONE (05:49)
[2017-10-06] MEDS: INSULIN SLIDING SCALE (NOVOLOG) 1 VIAL SQ SCH ×4 (06:13→21:23)
[2017-10-06] MEDS: HEPARIN NA (PORCINE) 5,000 UNITS/ML 1ML VIAL SQ SCH ×3 (06:13→21:21)
[2017-10-06] MEDS: DOCUSATE SODIUM 100 MG CAPSULE (FP) PO SCH ×3 (06:13→21:21)
[2017-10-06 08:09] LABS: HEMATOCRIT 33.9 % (32.4-45.2); MCH 27.4 pg (25.7-33.7); MCHC 32.4 g/dl (32.0-36.0); MEAN CELL VOLUME 84.6 fl (80-96); MEAN PLT VOLUME 9.2 fl (7.5-11.1); PLATELET COUNT 284 K/MM3 (134-434); RBC 4.01 M/mm3 (3.60-5.2); RDW 15.3 % (11.6-15.6); WHITE BLOOD COUNT 14.7 K/mm3 (4.0-10.0)
[2017-10-06 08:37] LABS: ANION GAP 7 (8-16); BLOOD UREA NITROGEN 20 mg/dL (7-18); CALCIUM 8.1 mg/dL (8.5-10.1); CHLORIDE 107 mmol/L (98-107); CO2 25 mmol/L (21-32); CREATININE 0.5 mg/dL (0.55-1.02); GLUCOSE,RANDOM 230 mg/dL (74-106); MAGNESIUM 2.3 mg/dL (1.8-2.4); POTASSIUM 4.1 mmol/L (3.5-5.1); SODIUM 139 mmol/L (136-145)
[2017-10-06] MEDS ORDERED: PT OWN MED DRAWER 7, Y5N ONE ×2 (10:18→21:14)
[2017-10-06] MEDS: amLODIPine BESYLATE 2.5 MG TABLET (FP) PO SCH (10:28)
[2017-10-06] MEDS: ARIPiprazole 10 MG TABLET PO SCH (10:28)
[2017-10-06] MEDS: SERTRALINE HCL 50 MG TABLET (FP) PO SCH (10:28)
[2017-10-06] MEDS: METHIMAZOLE 5 MG TABLET (FP) PO SCH (10:29)
[2017-10-06] MEDS ORDERED: VANCOMYCIN 1,000 MG in DEXTROSE 5%-WATER - 250 ML IVPB ONE (11:30)
[2017-10-06] MEDS ORDERED: AZTREONAM 2 GRAM SYRINGE 2 GM/10 ML DISP.SYRIN IVPUSH ONE (11:30)
[2017-10-06] MEDS ORDERED: POTASSIUM PHOSPHATE 15 MM in SODIUM CHLORIDE 250 ML IVPB ONE (11:33)
--- NOTE | 2017-10-06 11:54 | CON.ID ---
Consult Consult Specialty:: infectious diseases Referred by:: Reason for Consultation:: pneumonia - History of Present Illness Chief Complaint: sob,fever History of Present Illness: 76 year old female with past medical history of DM, HTN, Depression, Schizophrenia and Thyroid disease, admitted for for fall and fracture of her arm and is post op now from s/p left proximal humerus orif pod #3 It seems patient was doing well till she became suddenly sob about 2 days back and spiked a fever,her wbc has also been resistant and has not decreased much and continues to be on the higher side patient does not recollect the incidence of being sob she was worked up and a ct scan was done currently patient does not have any more complaints and though still on nasal o2 patient looks to be comfortable patient was on venti mask during that time also patient receive abx vanco and azactam - History Source History Provided By: Patient, Medical Record Limitations to Obtaining History: Poor Historian - Past Medical History Cardio/Vascular: Yes: HTN Psych: Yes: Depression, Schizophrenia Endocrine: Yes: Diabetes Mellitus, Other (Thyroid disease, patient is unclear whether it's hypothyroidism or hyperthyroidism) - Alcohol/Substance Use Hx Alcohol Use: No - Smoking History Smoking history: Never smoked Have you smoked in the past 12 months: No Home Medications - Allergies Allergies/Adverse Reactions: Allergies Allergy/AdvReac Type Severity Reaction Status Date / Time Penicillins Allergy Hives Verified 10/02/17 16:31 - Home Medications Home Medications: Ambulatory Orders Lisinopril 10 mg PO DAILY 10/02/17 Metformin HCl 1,000 mg PO BID 10/02/17 Aripiprazole [Abilify] 10 mg PO DAILY 10/03/17 Cholecalciferol (Vitamin D3) [Vitamin D3] 50,000 unit PO WEEKLY 10/03/17 Methimazole [Tapazole] 5 mg PO DAILY 10/03/17 Sertraline HCl [Zoloft] 100 mg PO DAILY 10/03/17 Simvastatin 40 mg PO DAILY 10/03/17 Review of Systems - Review of Systems Constitutional: reports: No Symptoms Eyes: reports: No Symptoms HENT: reports: No Symptoms Neck: reports: No Symptoms Cardiovascular: reports: No Symptoms Respiratory: reports: SOB Gastrointestinal: reports: No Symptoms Genitourinary: reports: No Symptoms Breasts: reports: No Symptoms Reported Musculoskeletal: reports: No Symptoms Integumentary: reports: No Symptoms Neurological: reports: No Symptoms Endocrine: reports: No Symptoms Hematology/Lymphatic: reports: No Symptoms Psychiatric: reports: No Symptoms Physical Exam Vital Signs: Vital Signs Temperature 98.8 F 10/06/17 05:29 Pulse Rate 90 10/06/17 05:29 Respiratory Rate 20 10/06/17 05:29 Blood Pressure 146/70 10/06/17 05:29 O2 Sat by Pulse Oximetry (%) 92 L 10/05/17 21:00 Constitutional: Yes: Well Nourished, No Distress, Calm Eyes: Yes: Conjunctiva Clear HENT: Yes: Atraumatic, Normocephalic Neck: Yes: Supple, Trachea Midline Cardiovascular: Yes: Regular Rate and Rhythm Respiratory: Yes: Poor Air Entry (bases), Other (minimal crackles) Gastrointestinal: Yes: Normal Bowel Sounds, Soft Musculoskeletal: Yes: Other Extremities: Yes: Other (left arm wound cdi) Wound/Incision: Yes: Clean/Dry Neurological: Yes: Alert, Oriented Psychiatric: Yes: Alert Labs: CBC, BMP 10/06/17 07:15 10/06/17 07:15 Imaging - Results Chest X-ray: Report Reviewed, Image Reviewed Cat Scan: Image Reviewed, Other (report pending) Assessment/Plan 76yo F with PMH of htn, dm, hyperthyroidism, schizophrenia, presented s/p mechanical fall, found to have Left humerus fracture. # Left humerus fx, s/p ORIF o # fever and persistent leukocytosis # pneumonia # DM # htn # hyperthyroidism # schizophrenia plan will start patient on aztreonam and clinda await for cx reports monitor resp status rest as per primary team patient gets wells with pcn should be able to tolerate ertapenam will watch how she does
[2017-10-06] MEDS ORDERED: ERTAPENEM SODIUM 1 GM/50 ML PRE-DOCKED IVPB SCH (12:15)
[2017-10-06] MEDS: CLINDAMYCIN 300 MG PREMIX IVPB 300 MG/50 ML BAG IVPB SCH ×2 (16:07→21:21)
--- NOTE | 2017-10-06 16:14 | PN ---
Teaching Attending Note Name of Resident: Debbie De Los Santos ATTENDING PHYSICIAN STATEMENT I saw and evaluated the patient. I reviewed the resident's note and discussed the case with the resident. I agree with the resident's findings and plan as documented. SUBJECTIVE: Denies SOB or PC . has no abd pain or diarrhea OBJECTIVE: NAD Cv: RRR Lungs : bilateral crackles at bases . good air entry . No jVD Ext: LUE in a sling, a surgical dressing on lateral L upper arm, with bruises . radial pulse 2+ , nl sensation and hand movement ASSESSMENT AND PLAN: 76 y/o lady with h/o HTN, DM, and other medical problems who presented with L arm pain after mechanical fall , she was found to have L humerus Fx 1- L humerus Fx: POD 3 after ORIF - pain meds as needed . - wound care per sx. 2- Fever: CT with b/l infiltrates. treat for hospital acquired PNA , but aspiration PNA is possibl e UA is also positive . WBC improved after abx last night - send urine cx - appreciate ID input, ertapenem and clinda. - follow legionella Ag 3- Hypoxia:likely due to b.l PNA . CT chest with ground glass opacities which could be due to PNA or pulm congestion after IVf administration - hold of IVF at this itm e - check echo - No PE on CTA 4- HTN: cont Norvasc in place of lisinopril after IV dye administration 5- Hyperthyroidism: - cont methimazole 6- DVT PX: heaprin sq HLOC
[2017-10-06] MEDS: ERTAPENEM SODIUM 1 GM in SODIUM CHLORIDE 50 ML IVPB SCH (16:57)
--- NOTE | 2017-10-06 21:13 | PN ---
Physical Exam: SUBJECTIVE: Patient seen and examined. Pt remains hypoxic. Pain is controlled. Pt reports (+) bowel movement. No events overnight. OBJECTIVE: Vital Signs Period Temp Pulse Resp BP Sys/Sheehan Pulse Ox Last 24 Hr 97.7 F-99.8 F 88-101 18-20 130-151/70-90 98 GENERAL: The patient is awake, alert, and fully oriented, in no acute distress. LUNGS: bibasilar crackles and scattered wheezing. No accessory muscle use. HEART: Regular rate and rhythm, S1, S2 without murmur, rub or gallop. ABDOMEN: Soft, nontender, nondistended, no guarding. EXTREMITIES: malik LE warm, well-perfused, no edema. LUE in an immobilizer with healing bruises. Surgical dressing CDI. Radial pulse 2+ malik. NEUROLOGICAL: Sensation intact through malik UE. Pt able to move both hands. PSYCH: Normal mood, normal affect. SKIN: Warm, dry, normal turgor, no rashes or lesions noted Laboratory Results - last 24 hr 10/05/17 10/06/17 10/06/17 21:18 05:47 07:15 WBC RBC Hgb Hct MCV MCH MCHC RDW Plt Count MPV Sodium 139 Potassium 4.1 Chloride 107 Carbon Dioxide 25 Anion Gap 7 L BUN 20 H D Creatinine 0.5 L D POC Glucometer 316 245 Random Glucose 230 H Calcium 8.1 L Phosphorus 2.0 L D Magnesium 2.3 D 10/06/17 10/06/17 10/06/17 07:15 11:27 16:52 WBC 14.7 H RBC 4.01 Hgb 11.0 Hct 33.9 MCV 84.6 MCH 27.4 MCHC 32.4 RDW 15.3 Plt Count 284 MPV 9.2 Sodium Potassium Chloride Carbon Dioxide Anion Gap BUN Creatinine POC Glucometer 325 207 Random Glucose Calcium Phosphorus Magnesium Active Medications Generic Name Dose Route Start Last Admin Trade Name Freq PRN Reason Stop Dose Admin Amlodipine Besylate 2.5 mg 10/06/17 10:00 10/06/17 10:28 Norvasc - PO 2.5 mg DAILY MAGDI Administration Aripiprazole 10 mg 10/04/17 10:00 10/06/17 10:28 Abilify PO 10 mg DAILY MAGDI Administration Atorvastatin Calcium 20 mg 10/03/17 22:00 10/05/17 21:21 Lipitor - PO 20 mg HS MAGDI Administration Docusate Sodium 100 mg 10/03/17 22:00 10/06/17 13:43 Colace - PO 100 mg TID MAGDI Administration Heparin Sodium (Porcine) 5,000 unit 10/03/17 22:00 10/06/17 13:44 Heparin - SQ 5,000 unit TID MAGDI Administration Clindamycin Phosphate 300 mg in 50 mls @ 100 mls/hr 10/06/17 12:15 10/06/17 16:07 Cleocin 300 Mg Premix Ivpb IVPB 100 mls/hr Q6H-IV MAGDI Administration Ertapenem 1 gm/ Sodium 50 mls @ 100 mls/hr 10/06/17 13:00 10/06/17 16:57 Chloride IVPB 100 mls/hr Q24H MAGDI Administration Insulin Aspart 1 vial 10/03/17 16:30 10/06/17 16:56 Novolog Vial Sliding Scale - SQ 4 units ACHS MAGDI Administration Protocol Methimazole 5 mg 10/04/17 10:00 10/06/17 10:29 Tapazole - PO 5 mg DAILY MAGDI Administration Ondansetron HCl 4 mg 10/03/17 14:04 Zofran Injection IVPUSH Q6H PRN NAUSEA AND/OR VOMITING Oxycodone HCl 5 mg 10/03/17 18:17 10/05/17 21:21 Roxicodone - PO 5 mg Q4H PRN Administration PAIN Sertraline HCl 100 mg 10/04/17 10:00 10/06/17 10:28 Zoloft - PO 100 mg DAILY MAGDI Administration ASSESSMENT/PLAN: 76yo F with PMH of htn, dm, hyperthyroidism, schizophrenia, presented s/p mechanical fall, found to have Left humerus fracture. # Left humerus fx, s/p ORIF on 10/03/17 - POD #3 - pain control with Percocet prn - post-op wound care per surgery - non-weight bearing to Left UE per surgery # fever and persistent leukocytosis - concerning for infection - f/u UA, legionella, blood cultures - ID recs appreciated: Clindamycin and Ertapenem # persistent hypoxia - ventimask, O2 prn - no diuresis at this time, f/u CTA - f/u echo # DM - Novolog SSI - BGMs # htn - continue Norvasc and Lisinopril # hyperthyroidism - continue home med of Methimazole # chronic schizophrenia - managed with home medications # hypophosphatemia - repleted with KPhos 15mm # FEN - Fluids: po - Electrolytes: continue to monitor - Nutrition: diabetic, low sodium diet # Prophylaxis - DVT ppx with Heparin TID - deconditioning ppx with PT Visit type - Emergency Visit Emergency Visit: Yes ED Registration Date: 10/02/17 Care time: The patient presented to the Emergency Department on the above date and was hospitalized for further evaluation of their emergent condition. - New Patient This patient is new to me today: No - Critical Care Critical Care patient: No
[2017-10-06] MEDS: ATORVASTATIN CA 20 MG TABLET (FP) PO SCH (21:21)
[2017-10-07] MEDS: ALBUTEROL SO4 2.5/IPRATROPIUM 0.5 INH SOL 3 ML VIAL.NEB. NEB PRN ×3 (01:07→22:10)
[2017-10-07] MEDS ORDERED: PT OWN MED DRAWER 7, Y5N ONE ×5 (01:43→21:01)
[2017-10-07] MEDS: CLINDAMYCIN 300 MG PREMIX IVPB 300 MG/50 ML BAG IVPB SCH ×5 (03:07→21:17)
[2017-10-07] MEDS: HEPARIN NA (PORCINE) 5,000 UNITS/ML 1ML VIAL SQ SCH ×3 (06:15→21:17)
[2017-10-07] MEDS: INSULIN SLIDING SCALE (NOVOLOG) 1 VIAL SQ SCH ×4 (06:15→21:17)
[2017-10-07] MEDS: DOCUSATE SODIUM 100 MG CAPSULE (FP) PO SCH ×3 (06:15→21:17)
[2017-10-07] MEDS: AZTREONAM 2 GM in DEXTROSE 5%-WATER - 50 ML IVPB SCH (08:52)
[2017-10-07] MEDS: LABETALOL HCL 5 MG/1 ML (100MG/20 ML VIAL) IVPB ONE (08:55)
[2017-10-07 08:59] LABS: BASO % 0.6 % (0-2.0); EOS % 3.8 % (0-4.5); HEMOGLOBIN 10.6 GM/dL (10.7-15.3); LYMPH % 14.7 % (8-40); MCH 27.2 pg (25.7-33.7); MCHC 32.3 g/dl (32.0-36.0); MEAN CELL VOLUME 84.1 fl (80-96); MEAN PLT VOLUME 9.3 fl (7.5-11.1); MONO % 5.6 % (3.8-10.2); NEUT % 75.3 % (42.8-82.8); PLATELET COUNT 301 K/MM3 (134-434); RBC 3.92 M/mm3 (3.60-5.2); RDW 15.1 % (11.6-15.6)
[2017-10-07] MEDS: amLODIPine BESYLATE 2.5 MG TABLET (FP) PO SCH (09:11)
[2017-10-07] MEDS: SERTRALINE HCL 50 MG TABLET (FP) PO SCH (09:11)
[2017-10-07] MEDS: METHIMAZOLE 5 MG TABLET (FP) PO SCH (09:11)
[2017-10-07] MEDS: ARIPiprazole 10 MG TABLET PO SCH (09:12)
[2017-10-07] MEDS: oxyCODONE HCL 5 MG TABLET PO PRN ×2 (09:12→21:16)
[2017-10-07 09:22] LABS: ANION GAP 9 (8-16); BLOOD UREA NITROGEN 14 mg/dL (7-18); CALCIUM 8.5 mg/dL (8.5-10.1); CHLORIDE 108 mmol/L (98-107); CO2 26 mmol/L (21-32); CREATININE 0.6 mg/dL (0.55-1.02); GLUCOSE,RANDOM 229 mg/dL (74-106); POTASSIUM 4.3 mmol/L (3.5-5.1); SODIUM 143 mmol/L (136-145)
--- NOTE | 2017-10-07 11:32 | PN ---
Progress Note, Physician History of Present Illness: says she feels better wbc still on the higher side patient feels comfortable - Current Medication List Current Medications: Active Medications Albuterol/Ipratropium (Duoneb -) 1 amp NEB Q4H PRN PRN Reason: SHORTNESS OF BREATH Last Admin: 10/07/17 06:13 Dose: 1 amp Amlodipine Besylate (Norvasc -) 2.5 mg PO DAILY [facility] Last Admin: 10/07/17 09:11 Dose: 2.5 mg Aripiprazole (Abilify) 10 mg PO DAILY [facility] Last Admin: 10/07/17 09:12 Dose: 10 mg Atorvastatin Calcium (Lipitor -) 20 mg PO HS [facility] Last Admin: 10/06/17 21:21 Dose: 20 mg Docusate Sodium (Colace -) 100 mg PO TID [facility] Last Admin: 10/07/17 06:15 Dose: 100 mg Heparin Sodium (Porcine) (Heparin -) 5,000 unit SQ TID [facility] Last Admin: 10/07/17 06:15 Dose: 5,000 unit Clindamycin Phosphate (Cleocin 300 Mg Premix Ivpb) 300 mg in 50 mls @ 100 mls/ hr IVPB Q6H-IV MAGDI Last Admin: 10/07/17 09:11 Dose: 100 mls/hr Ertapenem 1 gm/ Sodium (Chloride) 50 mls @ 100 mls/hr IVPB Q24H [facility] Last Admin: 10/06/17 16:57 Dose: 100 mls/hr Insulin Aspart (Novolog Vial Sliding Scale -) 1 vial SQ ACHS MAGDI PRN Reason: Protocol Last Admin: 10/07/17 06:15 Dose: 6 units Methimazole (Tapazole -) 5 mg PO DAILY [facility] Last Admin: 10/07/17 09:11 Dose: 5 mg Ondansetron HCl (Zofran Injection) 4 mg IVPUSH Q6H PRN PRN Reason: NAUSEA AND/OR VOMITING Oxycodone HCl (Roxicodone -) 5 mg PO Q4H PRN PRN Reason: PAIN Last Admin: 10/07/17 09:12 Dose: 5 mg Sertraline HCl (Zoloft -) 100 mg PO DAILY [facility] Last Admin: 10/07/17 09:11 Dose: 100 mg - Objective Vital Signs: Vital Signs Temperature 97.1 F L 10/07/17 09:25 Pulse Rate 92 H 10/07/17 09:25 Respiratory Rate 20 10/07/17 09:25 Blood Pressure 136/64 10/07/17 09:25 O2 Sat by Pulse Oximetry (%) 94 L 10/06/17 21:00 Constitutional: Yes: No Distress, Calm Cardiovascular: Yes: Regular Rate and Rhythm Respiratory: Yes: Cough, On Nasal O2, Poor Air Entry, Other (crackles) Gastrointestinal: Yes: Normal Bowel Sounds, Soft Musculoskeletal: Yes: WNL Extremities: Yes: WNL Neurological: Yes: Alert, Oriented Psychiatric: Yes: Alert Labs: CBC, BMP 10/07/17 08:00 10/07/17 08:00 INR, PTT INR 1.15 (0.82-1.09) H 10/03/17 08:00 Assessment/Plan 76yo F with PMH of htn, dm, hyperthyroidism, schizophrenia, presented s/p mechanical fall, found to have Left humerus fracture. # Left humerus fx, s/p ORIF o # fever and persistent leukocytosis # pneumonia # DM # htn # hyperthyroidism # schizophrenia plan will start patient on ertapenam and clinda blood cx reports noted incentive rosi follow wbc if still ncreases then might consider antifungal
[2017-10-07] MEDS: ERTAPENEM SODIUM 1 GM in SODIUM CHLORIDE 50 ML IVPB SCH (12:01)
[2017-10-07] MEDS ORDERED: FUROSEMIDE 40 MG/4 ML INJECTABLE VIAL IVPUSH ONE (17:05)
--- NOTE | 2017-10-07 17:10 | PN ---
Progress Note (short form) - Note Progress Note: Subjective: no SOB , no pain Objective: Vital Signs: Last Vital Signs Temp Pulse Resp BP Pulse Ox 98.2 F 83 20 143/62 94 L 10/07/17 15:54 10/07/17 15:54 10/07/17 15:54 10/07/17 15:54 10/07/17 09:00 al Exam Laboratory Results - last 24 hr 10/06/17 10/06/17 10/07/17 16:52 21:18 06:13 WBC RBC Hgb Hct MCV MCH MCHC RDW Plt Count MPV Neutrophils % Lymphocytes % Monocytes % Eosinophils % Basophils % Sodium Potassium Chloride Carbon Dioxide Anion Gap BUN Creatinine POC Glucometer 207 249 262 Random Glucose Calcium 10/07/17 10/07/17 10/07/17 08:00 08:00 11:38 WBC 16.0 H RBC 3.92 Hgb 10.6 L Hct 33.0 MCV 84.1 MCH 27.2 MCHC 32.3 RDW 15.1 Plt Count 301 MPV 9.3 Neutrophils % 75.3 Lymphocytes % 14.7 Monocytes % 5.6 Eosinophils % 3.8 D Basophils % 0.6 D Sodium 143 Potassium 4.3 Chloride 108 H Carbon Dioxide 26 Anion Gap 9 BUN 14 D Creatinine 0.6 POC Glucometer 238 Random Glucose 229 H Calcium 8.5 : PE : NAD Cv: RRR Lungs : bilateral crackles at bases . good air entry . No jVD Ext: LUE in a sling, a surgical dressing on lateral L upper arm, with bruises . radial pulse 2+ , nl sensation and hand movement ASSESSMENT AND PLAN: 76 y/o lady with h/o HTN, DM, and other medical problems who presented with L arm pain after mechanical fall , she was found to have L humerus Fx 1- L humerus Fx: POD 4 after ORIF - pain meds as needed . - wound care per sx. 2- Hospital acquired PNA ( and possible aspiratioN ) ertapenem and clinda. - follow legionella Ag - urine cx pending due to pyuria 3- Hypoxia:likely due to b.l PNA . CT chest with ground glass opacities which could be due to PNA or pulm congestion after IVf administration -try 20 of IV lasix todya - check echo - No PE on CTA 4- HTN: cont Norvasc in place of lisinopril after IV dye administration 5- Hyperthyroidism: - cont methimazole 6- DVT PX: heaprin sq HLOC Visit type - Emergency Visit Emergency Visit: Yes ED Registration Date: 10/02/17 Care time: The patient presented to the Emergency Department on the above date and was hospitalized for further evaluation of their emergent condition. - New Patient This patient is new to me today: No - Critical Care Critical Care patient: No
[2017-10-07] MEDS ORDERED: INSULIN (NOVOLOG) ASPART 100 UNITS/ML 10ML VIAL ONE ×2 (18:05→21:09)
[2017-10-07] MEDS: ATORVASTATIN CA 20 MG TABLET (FP) PO SCH (21:17)
[2017-10-08] MEDS ORDERED: PT OWN MED DRAWER 7, Y5N ONE ×5 (01:08→16:27)
[2017-10-08] MEDS: CLINDAMYCIN 300 MG PREMIX IVPB 300 MG/50 ML BAG IVPB SCH ×2 (02:36→10:07)
[2017-10-08] MEDS: HEPARIN NA (PORCINE) 5,000 UNITS/ML 1ML VIAL SQ SCH ×3 (05:58→21:45)
[2017-10-08] MEDS: DOCUSATE SODIUM 100 MG CAPSULE (FP) PO SCH ×3 (05:58→21:45)
[2017-10-08] MEDS: INSULIN SLIDING SCALE (NOVOLOG) 1 VIAL SQ SCH ×4 (06:00→21:46)
[2017-10-08] MEDS ORDERED: INSULIN (NOVOLOG) ASPART 100 UNITS/ML 10ML VIAL ONE ×3 (06:16→21:28)
[2017-10-08 08:20] LABS: BASO % 0.2 % (0-2.0); EOS % 4.3 % (0-4.5); HEMATOCRIT 35.2 % (32.4-45.2); HEMOGLOBIN 11.2 GM/dL (10.7-15.3); LYMPH % 12.9 % (8-40); MCH 27.1 pg (25.7-33.7); MCHC 31.9 g/dl (32.0-36.0); MONO % 5.2 % (3.8-10.2); NEUT % 77.4 % (42.8-82.8); PLATELET COUNT 342 K/MM3 (134-434); RBC 4.14 M/mm3 (3.60-5.2); RDW 15.1 % (11.6-15.6); WHITE BLOOD COUNT 15.8 K/mm3 (4.0-10.0)
[2017-10-08 08:36] LABS: ANION GAP 9 (8-16); BLOOD UREA NITROGEN 15 mg/dL (7-18); CALCIUM 8.3 mg/dL (8.5-10.1); CHLORIDE 104 mmol/L (98-107); CO2 26 mmol/L (21-32); GLUCOSE,RANDOM 183 mg/dL (74-106); SODIUM 139 mmol/L (136-145)
[2017-10-08 08:38] LABS: CREATININE 0.6 mg/dL (0.55-1.02)
--- NOTE | 2017-10-08 08:55 | PN ---
Progress Note (short form) - Note Progress Note: Ortho Pt seen and examined s/p left proximal humerus orif Selected Entries 10/08/17 06:00 Temperature 97.9 F Pulse Rate 90 Respiratory 17 Rate Blood Pressure 149/81 Laboratory Tests 10/08/17 07:45 WBC 15.8 H Hgb 11.2 Hct 35.2 Plt Count 342 immobilizer intact, dressing c/d/i, ecchymosis and swelling improving, nvi a/p keep immobilizer intact NWB LUE elevate hob to 60 deg may remove wrist strap and begin elbow ROM as tolerated pain control d/c planning
[2017-10-08] MEDS: SERTRALINE HCL 50 MG TABLET (FP) PO SCH (09:28)
[2017-10-08] MEDS: ARIPiprazole 10 MG TABLET PO SCH (09:28)
[2017-10-08] MEDS: amLODIPine BESYLATE 2.5 MG TABLET (FP) PO SCH (09:28)
[2017-10-08] MEDS: METHIMAZOLE 5 MG TABLET (FP) PO SCH (09:28)
--- NOTE | 2017-10-08 13:35 | PN ---
Progress Note, Physician History of Present Illness: stable says she feels better - Current Medication List Current Medications: Active Medications Albuterol/Ipratropium (Duoneb -) 1 amp NEB Q4H PRN PRN Reason: SHORTNESS OF BREATH Last Admin: 10/07/17 22:10 Dose: 1 amp Amlodipine Besylate (Norvasc -) 2.5 mg PO DAILY [facility] Last Admin: 10/08/17 09:28 Dose: 2.5 mg Aripiprazole (Abilify) 10 mg PO DAILY [facility] Last Admin: 10/08/17 09:28 Dose: 10 mg Atorvastatin Calcium (Lipitor -) 20 mg PO HS [facility] Last Admin: 10/07/17 21:17 Dose: 20 mg Docusate Sodium (Colace -) 100 mg PO TID [facility] Last Admin: 10/08/17 05:58 Dose: 100 mg Heparin Sodium (Porcine) (Heparin -) 5,000 unit SQ TID [facility] Last Admin: 10/08/17 05:58 Dose: 5,000 unit Ertapenem 1 gm/ Sodium (Chloride) 50 mls @ 100 mls/hr IVPB Q24H [facility] Last Admin: 10/07/17 12:01 Dose: 100 mls/hr Insulin Aspart (Novolog Vial Sliding Scale -) 1 vial SQ ACHS [facility] PRN Reason: Protocol Last Admin: 10/08/17 11:35 Dose: 4 units Methimazole (Tapazole -) 5 mg PO DAILY [facility] Last Admin: 10/08/17 09:28 Dose: 5 mg Ondansetron HCl (Zofran Injection) 4 mg IVPUSH Q6H PRN PRN Reason: NAUSEA AND/OR VOMITING Oxycodone HCl (Roxicodone -) 5 mg PO Q4H PRN PRN Reason: PAIN Last Admin: 10/07/17 21:16 Dose: 5 mg Sertraline HCl (Zoloft -) 100 mg PO DAILY [facility] Last Admin: 10/08/17 09:28 Dose: 100 mg - Objective Vital Signs: Vital Signs Temperature 98.2 F 10/08/17 09:26 Pulse Rate 92 H 10/08/17 09:26 Respiratory Rate 22 10/08/17 09:26 Blood Pressure 150/75 10/08/17 09:26 O2 Sat by Pulse Oximetry (%) 91 L 10/08/17 09:00 Constitutional: Yes: No Distress, Calm Cardiovascular: Yes: Regular Rate and Rhythm Respiratory: Yes: On Nasal O2, Poor Air Entry Gastrointestinal: Yes: Normal Bowel Sounds, Soft Musculoskeletal: Yes: WNL Extremities: Yes: Other Wound/Incision: Yes: Clean/Dry Neurological: Yes: Alert, Oriented Psychiatric: Yes: Alert, Oriented Labs: CBC, BMP 10/08/17 07:45 10/08/17 07:45 INR, PTT INR 1.15 (0.82-1.09) H 10/03/17 08:00 Assessment/Plan 76yo F with PMH of htn, dm, hyperthyroidism, schizophrenia, presented s/p mechanical fall, found to have Left humerus fracture. # Left humerus fx, s/p ORIF o # fever and persistent leukocytosis # pneumonia # DM # htn # hyperthyroidism # schizophrenia wbc trending down plan will stop clinda all cx reports noted continue erta for now rest as per primary team
[2017-10-08] MEDS: ERTAPENEM SODIUM 1 GM in SODIUM CHLORIDE 50 ML IVPB SCH (13:48)
[2017-10-08] MEDS: ALBUTEROL SO4 2.5/IPRATROPIUM 0.5 INH SOL 3 ML VIAL.NEB. NEB PRN ×2 (14:25→23:34)
[2017-10-08] MEDS ORDERED: FUROSEMIDE 40 MG/4 ML INJECTABLE VIAL IVPUSH ONE (16:15)
--- NOTE | 2017-10-08 19:11 | PN ---
Teaching Attending Note Name of Resident: Melchor Wolf ATTENDING PHYSICIAN STATEMENT I saw and evaluated the patient. I reviewed the resident's note and discussed the case with the resident. I agree with the resident's findings and plan as documented. SUBJECTIVE: No fever or chills . feels a little wheezy . No SOB OBJECTIVE: NAD Cv: RRR Lungs: bilateral crackles at bases . good air entry . No JVD Ext: LUE in a sling, a surgical dressing on lateral L upper arm, with bruises . radial pulse 2+ , nl sensation and hand movement ASSESSMENT AND PLAN: 76 y/o lady with h/o HTN, DM, and other medical problems who presented with L arm pain after mechanical fall , she was found to have L humerus Fx 1- L humerus Fx: POD 5 after ORIF - pain meds as needed . - wound care per sx. 2- Hospital acquired PNA ( and possible aspiration ) - ertapenem . clinda dc'd - urine cx Neg 3- Hypoxia: likely due to b.l PNA and a component of pulmonary eedema -give 20 f iV lasix today -echo is still pending - No PE on CTA 4- HTN: cont Norvasc in place of lisinopril after IV dye administration 5- Hyperthyroidism: - cont methimazole 6- DVT PX: heaprin sq HLOC
--- NOTE | 2017-10-08 19:14 | PN ---
Physical Exam: SUBJECTIVE: Patient seen and examined. No acute events overnight. Pt endorses a productive cough of clear sputum. He states that pain is well controlled. OBJECTIVE: Vital Signs Period Temp Pulse Resp BP Sys/Sheehan Pulse Ox Last 24 Hr 97.7 F-98.6 F 83-98 17-22 119-159/62-98 91-92 GENERAL: elderly female, awake, alert, and fully oriented, in no acute distress. HEENT: NC, AT LUNGS: right sided rales, transmitted upper airway sounds HEART: Regular rate and rhythm, S1, S2 without murmur, rub or gallop. ABDOMEN: Soft, nontender, nondistended, normoactive bowel sounds, no guarding, no rebound, no hepatosplenomegaly, no masses. EXTREMITIES: no LE edema NEUROLOGICAL: Cranial nerves II through XII grossly intact. Normal speech, gait not observed. Laboratory Results - last 24 hr 10/07/17 10/08/17 10/08/17 21:08 05:54 07:45 WBC 15.8 H RBC 4.14 Hgb 11.2 Hct 35.2 MCV 85.0 MCH 27.1 MCHC 31.9 L RDW 15.1 Plt Count 342 MPV 9.0 Neutrophils % 77.4 Lymphocytes % 12.9 Monocytes % 5.2 Eosinophils % 4.3 Basophils % 0.2 Sodium Potassium Chloride Carbon Dioxide Anion Gap BUN Creatinine POC Glucometer 264 212 Random Glucose Calcium 10/08/17 10/08/17 10/08/17 07:45 11:24 16:52 WBC RBC Hgb Hct MCV MCH MCHC RDW Plt Count MPV Neutrophils % Lymphocytes % Monocytes % Eosinophils % Basophils % Sodium 139 Potassium 4.0 Chloride 104 Carbon Dioxide 26 Anion Gap 9 BUN 15 Creatinine 0.6 POC Glucometer 249 216 Random Glucose 183 H D Calcium 8.3 L Active Medications Generic Name Dose Route Start Last Admin Trade Name Freq PRN Reason Stop Dose Admin Albuterol/Ipratropium 1 amp 10/07/17 00:48 10/08/17 14:25 Duoneb - NEB 1 amp Q4H PRN Administration SHORTNESS OF BREATH Amlodipine Besylate 2.5 mg 10/06/17 10:00 10/08/17 09:28 Norvasc - PO 2.5 mg DAILY MAGDI Administration Aripiprazole 10 mg 10/04/17 10:00 10/08/17 09:28 Abilify PO 10 mg DAILY [facility]DI Administration Atorvastatin Calcium 20 mg 10/03/17 22:00 10/07/17 21:17 Lipitor - PO 20 mg HS MAGDI Administration Docusate Sodium 100 mg 10/03/17 22:00 10/08/17 13:39 Colace - PO 100 mg TID [facility]DI Administration Heparin Sodium (Porcine) 5,000 unit 10/03/17 22:00 10/08/17 13:39 Heparin - SQ 5,000 unit TID [facility]DI Administration Ertapenem 1 gm/ Sodium 50 mls @ 100 mls/hr 10/06/17 13:00 10/08/17 13:48 Chloride IVPB 100 mls/hr Q24H [facility]DI Administration Insulin Aspart 1 vial 10/03/17 16:30 10/08/17 17:04 Novolog Vial Sliding Scale - SQ 4 units ACHS MAGDI Administration Protocol Methimazole 5 mg 10/04/17 10:00 10/08/17 09:28 Tapazole - PO 5 mg DAILY [facility]DI Administration Ondansetron HCl 4 mg 10/03/17 14:04 Zofran Injection IVPUSH Q6H PRN NAUSEA AND/OR VOMITING Oxycodone HCl 5 mg 10/03/17 18:17 10/07/17 21:16 Roxicodone - PO 5 mg Q4H PRN Administration PAIN Sertraline HCl 100 mg 10/04/17 10:00 10/08/17 09:28 Zoloft - PO 100 mg DAILY MAGDI Administration ASSESSMENT/PLAN: 76F w/ hx of HTN, DM, schizophrenia, hyperthyroidism and other medical problems who presented with L arm pain after mechanical fall, and was found to have L humerus Fx. #L humerus Fx - POD #5 after ORIF - pain control wiht oxycodone - wound care #HAP - continue ertapenem - clinda dc'd - urine cx negative -afebrile overnight, wbc trending down #Hypoxia- likely 2/2 b/l PNA and a component of pulmonary edema -20mg IV lasix given -f/u echo - No PE on CTA #HTN -cont Norvasc in place of lisinopril after IV dye administration #Hyperthyroidism - cont methimazole #schizophrenia -continue aripiprazole #anxiety/depression -continue sertraline #DM -continue ISS -BGM #FEN/ppx -no fluids -electrolytes wnl -diabetic/sodium diet -no GI ppx -heparin 5000U TID -Melchor Wolf MD PGY1 Visit type - Emergency Visit Emergency Visit: Yes ED Registration Date: 10/02/17 Care time: The patient presented to the Emergency Department on the above date and was hospitalized for further evaluation of their emergent condition. - New Patient This patient is new to me today: Yes Date on this admission: 10/09/17 - Critical Care Critical Care patient: No
[2017-10-08] MEDS: ATORVASTATIN CA 20 MG TABLET (FP) PO SCH (21:45)
[2017-10-09] MEDS: ALBUTEROL SO4 2.5/IPRATROPIUM 0.5 INH SOL 3 ML VIAL.NEB. NEB PRN ×3 (05:54→23:40)
[2017-10-09] MEDS: HEPARIN NA (PORCINE) 5,000 UNITS/ML 1ML VIAL SQ SCH ×3 (06:41→21:38)
[2017-10-09] MEDS: INSULIN SLIDING SCALE (NOVOLOG) 1 VIAL SQ SCH ×4 (06:42→21:38)
[2017-10-09] MEDS: DOCUSATE SODIUM 100 MG CAPSULE (FP) PO SCH ×3 (06:42→21:38)
[2017-10-09] MEDS ORDERED: PT OWN MED DRAWER 7, Y5N ONE ×2 (06:55→09:15)
[2017-10-09 08:51] LABS: BASO % 0.4 % (0-2.0); EOS % 3.5 % (0-4.5); HEMATOCRIT 36.7 % (32.4-45.2); HEMOGLOBIN 11.8 GM/dL (10.7-15.3); LYMPH % 12.6 % (8-40); MCH 27.1 pg (25.7-33.7); MCHC 32.1 g/dl (32.0-36.0); MEAN CELL VOLUME 84.3 fl (80-96); MEAN PLT VOLUME 8.7 fl (7.5-11.1); NEUT % 78.5 % (42.8-82.8); PLATELET COUNT 391 K/MM3 (134-434); RBC 4.36 M/mm3 (3.60-5.2); RDW 15.3 % (11.6-15.6); WHITE BLOOD COUNT 18.8 K/mm3 (4.0-10.0)
[2017-10-09] MEDS: SERTRALINE HCL 50 MG TABLET (FP) PO SCH (09:16)
[2017-10-09] MEDS: METHIMAZOLE 5 MG TABLET (FP) PO SCH (09:17)
[2017-10-09] MEDS: amLODIPine BESYLATE 2.5 MG TABLET (FP) PO SCH (09:17)
[2017-10-09] MEDS: ARIPiprazole 10 MG TABLET PO SCH (09:17)
[2017-10-09 09:41] LABS: ANION GAP 8 (8-16); BLOOD UREA NITROGEN 14 mg/dL (7-18); CALCIUM 8.3 mg/dL (8.5-10.1); CHLORIDE 105 mmol/L (98-107); CO2 28 mmol/L (21-32); CREATININE 0.6 mg/dL (0.55-1.02); GLUCOSE,RANDOM 191 mg/dL (74-106); POTASSIUM 3.7 mmol/L (3.5-5.1); SODIUM 141 mmol/L (136-145)
[2017-10-09] MEDS: guaiFENesin 600 MG TABLET.ER (FP) PO SCH ×2 (12:26→21:39)
[2017-10-09] MEDS: ERTAPENEM SODIUM 1 GM in SODIUM CHLORIDE 50 ML IVPB SCH (12:27)
--- NOTE | 2017-10-09 14:04 | PN ---
Progress Note, Physician History of Present Illness: stable says she feels better patient looks better wbc has increased - Current Medication List Current Medications: Active Medications Albuterol/Ipratropium (Duoneb -) 1 amp NEB Q4H PRN PRN Reason: SHORTNESS OF BREATH Last Admin: 10/09/17 10:35 Dose: 1 amp Aripiprazole (Abilify) 10 mg PO DAILY [facility] Last Admin: 10/09/17 09:17 Dose: 10 mg Atorvastatin Calcium (Lipitor -) 20 mg PO HS [facility] Last Admin: 10/08/17 21:45 Dose: 20 mg Docusate Sodium (Colace -) 100 mg PO TID [facility] Last Admin: 10/09/17 13:51 Dose: 100 mg Guaifenesin (Mucinex -) 600 mg PO BID [facility] Last Admin: 10/09/17 12:26 Dose: 600 mg Heparin Sodium (Porcine) (Heparin -) 5,000 unit SQ TID [facility] Last Admin: 10/09/17 13:51 Dose: 5,000 unit Ertapenem 1 gm/ Sodium (Chloride) 50 mls @ 100 mls/hr IVPB Q24H [facility] Last Admin: 10/09/17 12:27 Dose: 100 mls/hr Insulin Aspart (Novolog Vial Sliding Scale -) 1 vial SQ ACHS [facility] PRN Reason: Protocol Last Admin: 10/09/17 11:19 Dose: 10 units Lisinopril (Prinivil) 5 mg PO DAILY [facility] Methimazole (Tapazole -) 5 mg PO DAILY [facility] Last Admin: 10/09/17 09:17 Dose: 5 mg Ondansetron HCl (Zofran Injection) 4 mg IVPUSH Q6H PRN PRN Reason: NAUSEA AND/OR VOMITING Oxycodone HCl (Roxicodone -) 5 mg PO Q4H PRN PRN Reason: PAIN Last Admin: 10/07/17 21:16 Dose: 5 mg Sertraline HCl (Zoloft -) 100 mg PO DAILY [facility] Last Admin: 10/09/17 09:16 Dose: 100 mg - Objective Vital Signs: Vital Signs Temperature 98 F 10/09/17 10:00 Pulse Rate 100 H 10/09/17 10:00 Respiratory Rate 20 10/09/17 10:00 Blood Pressure 135/65 10/09/17 10:00 O2 Sat by Pulse Oximetry (%) 95 10/09/17 09:00 Constitutional: Yes: No Distress, Calm Respiratory: Yes: Regular, CTA Bilaterally Gastrointestinal: Yes: Normal Bowel Sounds, Soft Musculoskeletal: Yes: Other Extremities: Yes: Other Wound/Incision: Yes: Clean/Dry Neurological: Yes: Alert, Oriented Psychiatric: Yes: Alert, Oriented Labs: CBC, BMP 10/09/17 08:00 10/09/17 08:48 INR, PTT INR 1.15 (0.82-1.09) H 10/03/17 08:00 Assessment/Plan 76yo F with PMH of htn, dm, hyperthyroidism, schizophrenia, presented s/p mechanical fall, found to have Left humerus fracture. # Left humerus fx, s/p ORIF o # fever and persistent leukocytosis # pneumonia # DM # htn # hyperthyroidism # schizophrenia wbc trending down plan await for repeat cx if wbc does not start trending then we will have to scan the shoulder rest as per primary team
--- NOTE | 2017-10-09 19:55 | PN ---
Teaching Attending Note Name of Resident: Melchor Wolf ATTENDING PHYSICIAN STATEMENT I saw and evaluated the patient. I reviewed the resident's note and discussed the case with the resident. I agree with the resident's findings and plan as documented. SUBJECTIVE: no SOB, has no fever . has minimal pain in L arm OBJECTIVE: NAD Cv: RRR Lungs: bilateral crackles at bases . good air entry . No JVD Ext: LUE in a sling, a surgical dressing on lateral L upper arm, with bruises . radial pulse 2+ , nl sensation and hand movement ASSESSMENT AND PLAN: 76 y/o lady with h/o HTN, DM, and other medical problems who presented with L arm pain after mechanical fall , she was found to have L humerus Fx 1- L humerus Fx: POD 6 after ORIF - pain meds as needed. - wound care per sx. 2- Hospital acquired PNA ( and possible aspiration ) - ertapenem . - white count increased today, he received steroids 2 nights ago, hopefully it is a reaction to that. if no imporvement , then CT of left upper arm should be considered 3- Hypoxia: likely due to b.l PNA and a component of pulmonary edema -received 2 doses of lasix for possible diastolic heart failure - still has O2 requirement of 4 L . will will evaluate volume status tomorrow 4- HTN: switch back to her home lisinopril 5- Hyperthyroidism: - cont methimazole 6- DVT PX: heparin sq HLOC
--- NOTE | 2017-10-09 20:01 | PN ---
Physical Exam: SUBJECTIVE: Patient seen and examined. No acute events overnight. Pt reports that she has difficulty coughing up her sputum. She states that her breathing is fine, and pain is well controlled. OBJECTIVE: Vital Signs Period Temp Pulse Resp BP Sys/Sheehan Pulse Ox Last 24 Hr 98 F-99.1 F 92-100 20-21 135-157/65-82 92-95 GENERAL: elderly female, awake, alert, and fully oriented, in no acute distress. HEENT: NC, AT LUNGS: no rales, + transmitted upper airway sounds HEART: Regular rate and rhythm, S1, S2 without murmur, rub or gallop. ABDOMEN: Soft, nontender, nondistended, normoactive bowel sounds, no guarding, no rebound, no hepatosplenomegaly, no masses. EXTREMITIES: no LE edema NEUROLOGICAL: Cranial nerves II through XII grossly intact. Normal speech, gait not observed. Laboratory Results - last 24 hr 10/08/17 10/09/17 10/09/17 21:45 06:39 08:00 WBC 18.8 H RBC 4.36 Hgb 11.8 Hct 36.7 MCV 84.3 MCH 27.1 MCHC 32.1 RDW 15.3 Plt Count 391 MPV 8.7 Neutrophils % 78.5 Lymphocytes % 12.6 Monocytes % 5.0 Eosinophils % 3.5 Basophils % 0.4 Sodium Potassium Chloride Carbon Dioxide Anion Gap BUN Creatinine POC Glucometer 191 195 Random Glucose Calcium 10/09/17 10/09/17 10/09/17 08:48 11:17 17:01 WBC RBC Hgb Hct MCV MCH MCHC RDW Plt Count MPV Neutrophils % Lymphocytes % Monocytes % Eosinophils % Basophils % Sodium 141 Potassium 3.7 Chloride 105 Carbon Dioxide 28 Anion Gap 8 BUN 14 Creatinine 0.6 POC Glucometer 351 210 Random Glucose 191 H Calcium 8.3 L Active Medications Generic Name Dose Route Start Last Admin Trade Name Freq PRN Reason Stop Dose Admin Albuterol/Ipratropium 1 amp 10/07/17 00:48 10/09/17 10:35 Duoneb - NEB 1 amp Q4H PRN Administration SHORTNESS OF BREATH Aripiprazole 10 mg 10/04/17 10:00 10/09/17 09:17 Abilify PO 10 mg DAILY MAGDI Administration Atorvastatin Calcium 20 mg 10/03/17 22:00 10/08/17 21:45 Lipitor - PO 20 mg HS MAGDI Administration Docusate Sodium 100 mg 10/03/17 22:00 10/09/17 13:51 Colace - PO 100 mg TID MAGDI Administration Guaifenesin 600 mg 10/09/17 10:00 10/09/17 12:26 Mucinex - PO 600 mg BID [facility]DI Administration Heparin Sodium (Porcine) 5,000 unit 10/03/17 22:00 10/09/17 13:51 Heparin - SQ 5,000 unit TID [facility]DI Administration Ertapenem 1 gm/ Sodium 50 mls @ 100 mls/hr 10/06/17 13:00 10/09/17 12:27 Chloride IVPB 100 mls/hr Q24H MAGDI Administration Insulin Aspart 1 vial 10/03/17 16:30 10/09/17 17:04 Novolog Vial Sliding Scale - SQ 4 units ACHS MAGDI Administration Protocol Lisinopril 5 mg 10/10/17 10:00 Prinivil PO DAILY [facility] Methimazole 5 mg 10/04/17 10:00 10/09/17 09:17 Tapazole - PO 5 mg DAILY [facility] Administration Ondansetron HCl 4 mg 10/03/17 14:04 Zofran Injection IVPUSH Q6H PRN NAUSEA AND/OR VOMITING Sertraline HCl 100 mg 10/04/17 10:00 10/09/17 09:16 Zoloft - PO 100 mg DAILY [facility]DI Administration ASSESSMENT/PLAN: 76F w/ hx of HTN, DM, schizophrenia, hyperthyroidism and other medical problems who presented with L arm pain after mechanical fall, and was found to have L humerus Fx. #L humerus Fx - POD #6 after ORIF - pain control with oxycodone - wound care #HAP - continue ertapenem day #4 - urine cx negative -afebrile overnight, wbc trending up to 18.8 from 15.8 -repeat CXR: progressive congestive changes, possible early infiltrate at left base -f/u CXR vinh am. If shows congestion, will give lasix 40mg -f/u repeat Bcx -trend temps and wbc counts #Hypoxia- likely 2/2 b/l PNA and a component of pulmonary edema -20mg IV lasix given -echo: mild to moderate MR, mild aortic sclerosis #HTN -switched back to home lisinopril #Hyperthyroidism - cont methimazole #schizophrenia -continue aripiprazole #anxiety/depression -continue sertraline #DM -continue ISS -BGM #FEN/ppx -no fluids -electrolytes wnl -diabetic/sodium diet -no GI ppx -heparin 5000U TID -Melchor Wolf MD PGY1 Visit type - Emergency Visit Emergency Visit: Yes ED Registration Date: 10/02/17 Care time: The patient presented to the Emergency Department on the above date and was hospitalized for further evaluation of their emergent condition. - New Patient This patient is new to me today: No - Critical Care Critical Care patient: No
[2017-10-09] MEDS: ATORVASTATIN CA 20 MG TABLET (FP) PO SCH (21:38)
[2017-10-10] MEDS: HEPARIN NA (PORCINE) 5,000 UNITS/ML 1ML VIAL SQ SCH ×3 (06:30→21:23)
[2017-10-10] MEDS: DOCUSATE SODIUM 100 MG CAPSULE (FP) PO SCH ×3 (06:30→21:23)
[2017-10-10] MEDS: INSULIN SLIDING SCALE (NOVOLOG) 1 VIAL SQ SCH ×4 (06:31→21:23)
[2017-10-10 09:16] LABS: HEMATOCRIT 37.4 % (32.4-45.2); MCH 27.1 pg (25.7-33.7); MEAN CELL VOLUME 84.8 fl (80-96); MEAN PLT VOLUME 9.1 fl (7.5-11.1); PLATELET COUNT 405 K/MM3 (134-434); RBC 4.41 M/mm3 (3.60-5.2); RDW 15.3 % (11.6-15.6); WHITE BLOOD COUNT 23.7 K/mm3 (4.0-10.0)
[2017-10-10 09:35] LABS: ANION GAP 8 (8-16); BLOOD UREA NITROGEN 12 mg/dL (7-18); CALCIUM 8.3 mg/dL (8.5-10.1); CHLORIDE 104 mmol/L (98-107); CO2 28 mmol/L (21-32); CREATININE 0.6 mg/dL (0.55-1.02); GLUCOSE,RANDOM 198 mg/dL (74-106); POTASSIUM 3.8 mmol/L (3.5-5.1); SODIUM 140 mmol/L (136-145)
[2017-10-10] MEDS ORDERED: FUROSEMIDE 40 MG/4 ML INJECTABLE VIAL IVPUSH ONE (09:48)
[2017-10-10] MEDS ORDERED: PT OWN MED DRAWER 7, Y5N ONE (10:04)
[2017-10-10] MEDS: LISINOPRIL 5 MG TABLET (FP) PO SCH (10:05)
[2017-10-10] MEDS: SERTRALINE HCL 50 MG TABLET (FP) PO SCH (10:05)
[2017-10-10] MEDS: guaiFENesin 600 MG TABLET.ER (FP) PO SCH ×2 (10:05→21:23)
[2017-10-10] MEDS: METHIMAZOLE 5 MG TABLET (FP) PO SCH (10:06)
[2017-10-10] MEDS: ARIPiprazole 10 MG TABLET PO SCH (10:06)
--- NOTE | 2017-10-10 11:19 | PN ---
Progress Note (short form) - Note Progress Note: Pt seen, doing well s/p Left Humerus ORIF. + c/o pain in shoulder but improving LUE grossly NVI Overall pt doing well. Con't with sling. No heavy activities/lifting. Can DC/transfer from an ortho pov F/U in office as an out pt in 7-14 days
--- NOTE | 2017-10-10 11:52 | PN ---
Teaching Attending Note Name of Resident: Melchor Wolf ATTENDING PHYSICIAN STATEMENT I saw and evaluated the patient. I reviewed the resident's note and discussed the case with the resident. I agree with the resident's findings and plan as documented. SUBJECTIVE: Patient is comfortable with no acute distress, no shortness of breath. OBJECTIVE: Vital Signs Temperature 98.3 F 10/10/17 06:00 Pulse Rate 94 H 10/10/17 06:00 Respiratory Rate 21 10/10/17 06:00 Blood Pressure 126/61 10/10/17 06:00 O2 Sat by Pulse Oximetry (%) 95 10/09/17 21:00 CBCD WBC 23.7 K/mm3 (4.0-10.0) H 10/10/17 09:08 RBC 4.41 M/mm3 (3.60-5.2) 10/10/17 09:08 Hgb 12.0 GM/dL (10.7-15.3) 10/10/17 09:08 Hct 37.4 % (32.4-45.2) 10/10/17 09:08 MCV 84.8 fl (80-96) 10/10/17 09:08 MCHC 32.0 g/dl (32.0-36.0) 10/10/17 09:08 RDW 15.3 % (11.6-15.6) 10/10/17 09:08 Plt Count 405 K/MM3 (134-434) 10/10/17 09:08 MPV 9.1 fl (7.5-11.1) 10/10/17 09:08 CMP Sodium 140 mmol/L (136-145) 10/10/17 09:08 Potassium 3.8 mmol/L (3.5-5.1) 10/10/17 09:08 Chloride 104 mmol/L (98-107) 10/10/17 09:08 Carbon Dioxide 28 mmol/L (21-32) 10/10/17 09:08 Anion Gap 8 (8-16) 10/10/17 09:08 BUN 12 mg/dL (7-18) 10/10/17 09:08 Creatinine 0.6 mg/dL (0.55-1.02) 10/10/17 09:08 Creat Clearance w eGFR > 60 (>60) 10/02/17 16:25 Random Glucose 198 mg/dL (74-106) H 10/10/17 09:08 Calcium 8.3 mg/dL (8.5-10.1) L 10/10/17 09:08 Total Bilirubin 0.5 mg/dL (0.2-1.0) 10/02/17 16:25 AST 19 U/L (15-37) 10/02/17 16:25 ALT 22 U/L (12-78) 10/02/17 16:25 Alkaline Phosphatase 79 U/L (45-117) 10/02/17 16:25 Total Protein 7.8 g/dl (6.4-8.2) 10/02/17 16:25 Albumin 4.2 g/dl (3.4-5.0) 10/02/17 16:25 CARDIAC ENZYMES Creatine Kinase 257 IU/L (26-192) H 10/02/17 16:25 Troponin I 0.02 ng/ml (0.00-0.05) 10/02/17 16:25 Current Medications Generic Name Dose Route Start Last Admin Trade Name Freq PRN Reason Stop Dose Admin Albuterol/Ipratropium 1 amp 10/07/17 00:48 10/09/17 23:40 Duoneb - NEB 1 amp Q4H PRN Administration SHORTNESS OF BREATH Aripiprazole 10 mg 10/04/17 10:00 10/10/17 10:06 Abilify PO 10 mg DAILY MAGDI Administration Atorvastatin Calcium 20 mg 10/03/17 22:00 10/09/17 21:38 Lipitor - PO 20 mg HS MAGDI Administration Docusate Sodium 100 mg 10/03/17 22:00 10/10/17 06:30 Colace - PO 100 mg TID MAGDI Administration Guaifenesin 600 mg 10/09/17 10:00 10/10/17 10:05 Mucinex - PO 600 mg BID MAGDI Administration Heparin Sodium (Porcine) 5,000 unit 10/03/17 22:00 10/10/17 06:30 Heparin - SQ 5,000 unit TID MAGDI Administration Ertapenem 1 gm/ Sodium 50 mls @ 100 mls/hr 10/06/17 13:00 10/09/17 12:27 Chloride IVPB 100 mls/hr Q24H MAGDI Administration Insulin Aspart 1 vial 10/03/17 16:30 10/10/17 11:28 Novolog Vial Sliding Scale - SQ 8 units ACHS MAGDI Administration Protocol Lisinopril 5 mg 10/10/17 10:00 10/10/17 10:05 Prinivil PO 5 mg DAILY [facility]DI Administration Methimazole 5 mg 10/04/17 10:00 10/10/17 10:06 Tapazole - PO 5 mg DAILY [facility] Administration Ondansetron HCl 4 mg 10/03/17 14:04 Zofran Injection IVPUSH Q6H PRN NAUSEA AND/OR VOMITING Sertraline HCl 100 mg 10/04/17 10:00 10/10/17 10:05 Zoloft - PO 100 mg DAILY [facility]DI Administration Home Medications Medication Instructions Recorded Lisinopril 10 mg PO DAILY 10/02/17 Metformin HCl 1,000 mg PO BID 10/02/17 Aripiprazole [Abilify] 10 mg PO DAILY 10/03/17 Cholecalciferol (Vitamin D3) 50,000 unit PO WEEKLY 10/03/17 [Vitamin D3] Methimazole [Tapazole] 5 mg PO DAILY 10/03/17 Sertraline HCl [Zoloft] 100 mg PO DAILY 10/03/17 Simvastatin 40 mg PO DAILY 10/03/17 PE: per resident's note Microbiology 10/09/17 14:55 Blood - Peripheral Venous Blood Culture - Preliminary NO GROWTH OBTAINED AFTER 96 HOURS, INCUBATION TO CONTINUE FOR 1 DAYS. 10/09/17 13:40 Blood - Peripheral Venous Blood Culture - Preliminary NO GROWTH OBTAINED AFTER 96 HOURS, INCUBATION TO CONTINUE FOR 1 DAYS. 10/05/17 20:45 Blood - Peripheral Venous Blood Culture - Final NO GROWTH AFTER 5 DAYS INCUBATION 10/05/17 20:45 Blood - Peripheral Venous Blood Culture - Final NO GROWTH AFTER 5 DAYS INCUBATION 10/06/17 17:30 Urine - Urine - Catheterized Urine Culture - Final NO GROWTH OBTAINED 10/02/17 20:40 Urine - Urine Clean Catch Urine Culture - Final NO GROWTH OBTAINED ASSESSMENT AND PLAN: 76 y/o lady with h/o HTN, DM, and other medical problems who presented with L arm pain after mechanical fall , she was found to have L humerus Fx # Left humerus Fx: POD 7 after ORIF continue pain meds. # Hospital acquired PNA on ertapenem continue. Acute Leukocytosis will monitor , possible due to steroid use 2 days ago. If no improvement , then CT of left upper arm should be considered. # HTN: continue home lisinopril # Hyperthyroidism: cont methimazole DVT PX: heparin sq
[2017-10-10 12:37] LABS: ANISOCYTOSIS 1+; MACROCYTOSIS 0; PLATELET ESTIMATE NORMAL
[2017-10-10] MEDS: ERTAPENEM SODIUM 1 GM in SODIUM CHLORIDE 50 ML IVPB SCH (13:30)
--- NOTE | 2017-10-10 15:52 | PN ---
Progress Note, Physician History of Present Illness: stable says she feels better patient looks better wbc has increased - Current Medication List Current Medications: Active Medications Albuterol/Ipratropium (Duoneb -) 1 amp NEB Q4H PRN PRN Reason: SHORTNESS OF BREATH Last Admin: 10/09/17 23:40 Dose: 1 amp Aripiprazole (Abilify) 10 mg PO DAILY [facility] Last Admin: 10/10/17 10:06 Dose: 10 mg Atorvastatin Calcium (Lipitor -) 20 mg PO HS [facility] Last Admin: 10/09/17 21:38 Dose: 20 mg Docusate Sodium (Colace -) 100 mg PO TID [facility] Last Admin: 10/10/17 14:31 Dose: 100 mg Guaifenesin (Mucinex -) 600 mg PO BID [facility] Last Admin: 10/10/17 10:05 Dose: 600 mg Heparin Sodium (Porcine) (Heparin -) 5,000 unit SQ TID [facility] Last Admin: 10/10/17 14:31 Dose: 5,000 unit Ertapenem 1 gm/ Sodium (Chloride) 50 mls @ 100 mls/hr IVPB Q24H [facility] Last Admin: 10/10/17 13:30 Dose: 100 mls/hr Insulin Aspart (Novolog Vial Sliding Scale -) 1 vial SQ ACHS [facility] PRN Reason: Protocol Last Admin: 10/10/17 11:28 Dose: 8 units Lisinopril (Prinivil) 5 mg PO DAILY [facility] Last Admin: 10/10/17 10:05 Dose: 5 mg Methimazole (Tapazole -) 5 mg PO DAILY [facility] Last Admin: 10/10/17 10:06 Dose: 5 mg Sertraline HCl (Zoloft -) 100 mg PO DAILY [facility] Last Admin: 10/10/17 10:05 Dose: 100 mg - Objective Vital Signs: Vital Signs Temperature 98.5 F 10/10/17 14:00 Pulse Rate 117 H 10/10/17 14:00 Respiratory Rate 22 10/10/17 14:00 Blood Pressure 119/69 10/10/17 14:00 O2 Sat by Pulse Oximetry (%) 94 L 10/10/17 09:00 Constitutional: Yes: No Distress, Calm Cardiovascular: Yes: Regular Rate and Rhythm Respiratory: Yes: Regular, CTA Bilaterally, On Nasal O2 Gastrointestinal: Yes: Normal Bowel Sounds, Soft Musculoskeletal: Yes: WNL Extremities: Yes: Other Wound/Incision: Yes: Dressing Dry and Intact Neurological: Yes: Alert, Oriented Psychiatric: Yes: Alert, Oriented Labs: CBC, BMP 10/10/17 09:08 10/10/17 09:08 INR, PTT INR 1.15 (0.82-1.09) H 10/03/17 08:00 Assessment/Plan 76yo F with PMH of htn, dm, hyperthyroidism, schizophrenia, presented s/p mechanical fall, found to have Left humerus fracture. # Left humerus fx, s/p ORIF o # fever and persistent leukocytosis # pneumonia # DM # htn # hyperthyroidism # schizophrenia wbc trending down plan ct scan of the shoulder to be done continue abx once we ahve the scan we will see if the joint needs tapped
--- NOTE | 2017-10-10 16:03 | PN ---
Physical Exam: SUBJECTIVE: Patient seen and examined. Pt reports an unproductive cough and wheezing, but no SOB. She denies all other complaints. OBJECTIVE: Vital Signs Period Temp Pulse Resp BP Sys/Sheehan Pulse Ox Last 24 Hr 98.3 F-99.1 F 94-117 21-22 119-157/61-71 94-95 GENERAL: elderly female, awake, alert, and fully oriented, in no acute distress. HEENT: NC, AT LUNGS: inspiratory rales, expiratory wheezing HEART: Regular rate and rhythm, S1, S2 without murmur, rub or gallop. ABDOMEN: Soft, nontender, nondistended, normoactive bowel sounds, no guarding, no rebound, no hepatosplenomegaly, no masses. EXTREMITIES: no LE edema. LUE in sling, tender NEUROLOGICAL: Cranial nerves II through XII grossly intact. Normal speech, gait not observed. Laboratory Results - last 24 hr 10/09/17 10/09/17 10/10/17 17:01 21:07 06:29 WBC RBC Hgb Hct MCV MCH MCHC RDW Plt Count MPV Neutrophils % Neutrophils % (Manual) Band Neutrophils % Lymphocytes % Lymphocytes % (Manual) Monocytes % (Manual) Eosinophils % (Manual) Basophils % (Manual) Myelocytes % (Man) Metamyelocytes Hypochromia Platelet Estimate Polychromasia Poikilocytosis Anisocytosis Microcytosis Macrocytosis Sodium Potassium Chloride Carbon Dioxide Anion Gap BUN Creatinine POC Glucometer 210 168 201 Random Glucose Calcium 10/10/17 10/10/17 10/10/17 09:08 09:08 11:23 WBC 23.7 H RBC 4.41 Hgb 12.0 Hct 37.4 MCV 84.8 MCH 27.1 MCHC 32.0 RDW 15.3 Plt Count 405 MPV 9.1 Neutrophils % No Result Required. Neutrophils % (Manual) 81.1 Band Neutrophils % 0.0 Lymphocytes % No Result Required. Lymphocytes % (Manual) 12.2 Monocytes % (Manual) 2 L Eosinophils % (Manual) 4.5 Basophils % (Manual) 0.0 Myelocytes % (Man) 0 Metamyelocytes 0 Hypochromia 0 Platelet Estimate Normal Polychromasia 1+ Poikilocytosis 0 Anisocytosis 1+ Microcytosis 1+ Macrocytosis 0 Sodium 140 Potassium 3.8 Chloride 104 Carbon Dioxide 28 Anion Gap 8 BUN 12 Creatinine 0.6 POC Glucometer 343 Random Glucose 198 H Calcium 8.3 L Active Medications Generic Name Dose Route Start Last Admin Trade Name Freq PRN Reason Stop Dose Admin Albuterol/Ipratropium 1 amp 10/07/17 00:48 10/09/17 23:40 Duoneb - NEB 1 amp Q4H PRN Administration SHORTNESS OF BREATH Aripiprazole 10 mg 10/04/17 10:00 10/10/17 10:06 Abilify PO 10 mg DAILY [facility]DI Administration Atorvastatin Calcium 20 mg 10/03/17 22:00 10/09/17 21:38 Lipitor - PO 20 mg HS MAGDI Administration Docusate Sodium 100 mg 10/03/17 22:00 10/10/17 14:31 Colace - PO 100 mg TID [facility]DI Administration Guaifenesin 600 mg 10/09/17 10:00 10/10/17 10:05 Mucinex - PO 600 mg BID MAGDI Administration Heparin Sodium (Porcine) 5,000 unit 10/03/17 22:00 10/10/17 14:31 Heparin - SQ 5,000 unit TID MAGDI Administration Ertapenem 1 gm/ Sodium 50 mls @ 100 mls/hr 10/06/17 13:00 10/10/17 13:30 Chloride IVPB 100 mls/hr Q24H [facility]DI Administration Insulin Aspart 1 vial 10/03/17 16:30 10/10/17 11:28 Novolog Vial Sliding Scale - SQ 8 units ACHS MAGDI Administration Protocol Lisinopril 5 mg 10/10/17 10:00 10/10/17 10:05 Prinivil PO 5 mg DAILY [facility] Administration Methimazole 5 mg 10/04/17 10:00 10/10/17 10:06 Tapazole - PO 5 mg DAILY [facility] Administration Sertraline HCl 100 mg 10/04/17 10:00 10/10/17 10:05 Zoloft - PO 100 mg DAILY [facility] Administration ASSESSMENT/PLAN: 76F w/ hx of HTN, DM, schizophrenia, hyperthyroidism and other medical problems who presented with L arm pain after mechanical fall, and was found to have L humerus Fx. #L humerus Fx - POD #7 after ORIF - pain control with oxycodone - wound care - due to increasing leukocytosis, CT LUE w/wo contrast ordered to rule out infectious source - f/u CT LUE - further abx for LUE source of infection per ID #HAP - continue ertapenem day #5 -afebrile overnight, wbc trending up to 23.7 from 18.8 -repeat CXR: possible infiltrate at left base with congestive changes -given IV lasix 40 mg -f/u CXR vinh -repeat Bcx: no growth x 24hrs -trend temps and wbc counts #acute respiratory failure in the setting of PNA, possible aspiration, and pumonary edema requiring IV lasix and oxygen via venti-mask to NC- resolving -40mg IV lasix given -echo: mild to moderate MR, mild aortic sclerosis #HTN -continue home lisinopril #Hyperthyroidism - cont methimazole #schizophrenia -continue aripiprazole #anxiety/depression -continue sertraline #DM -continue ISS -BGM #FEN/ppx -no fluids -electrolytes wnl -diabetic/sodium diet -no GI ppx -heparin 5000U TID -Melchor Wolf MD PGY1 Visit type - Emergency Visit Emergency Visit: Yes ED Registration Date: 10/02/17 Care time: The patient presented to the Emergency Department on the above date and was hospitalized for further evaluation of their emergent condition. - New Patient This patient is new to me today: No - Critical Care Critical Care patient: No
[2017-10-10] MEDS ORDERED: GLYCERIN 1 RECTAL SUPPOSITORY, ADULT RC ONE (16:45)
[2017-10-10] MEDS: ATORVASTATIN CA 20 MG TABLET (FP) PO SCH (21:23)
[2017-10-11] MEDS: DOCUSATE SODIUM 100 MG CAPSULE (FP) PO SCH ×3 (05:41→22:52)
[2017-10-11] MEDS: HEPARIN NA (PORCINE) 5,000 UNITS/ML 1ML VIAL SQ SCH (05:41)
[2017-10-11] MEDS: INSULIN SLIDING SCALE (NOVOLOG) 1 VIAL SQ SCH ×4 (06:34→22:52)
[2017-10-11 08:38] LABS: BASO % 0.3 % (0-2.0); EOS % 3.5 % (0-4.5); HEMATOCRIT 35.2 % (32.4-45.2); HEMOGLOBIN 11.2 GM/dL (10.7-15.3); LYMPH % 11.3 % (8-40); MCH 27.1 pg (25.7-33.7); MCHC 31.9 g/dl (32.0-36.0); MEAN CELL VOLUME 84.9 fl (80-96); MEAN PLT VOLUME 9.1 fl (7.5-11.1); MONO % 4.5 % (3.8-10.2); NEUT % 80.4 % (42.8-82.8); PLATELET COUNT 372 K/MM3 (134-434); RBC 4.15 M/mm3 (3.60-5.2); RDW 15.4 % (11.6-15.6); WHITE BLOOD COUNT 22.5 K/mm3 (4.0-10.0)
[2017-10-11 08:58] LABS: ALBUMIN 2.7 g/dl (3.4-5.0); ANION GAP 10 (8-16); BLOOD UREA NITROGEN 15 mg/dL (7-18); CALCIUM 8.4 mg/dL (8.5-10.1); CHLORIDE 102 mmol/L (98-107); CO2 27 mmol/L (21-32); GLUCOSE,RANDOM 169 mg/dL (74-106); POTASSIUM 3.6 mmol/L (3.5-5.1); SODIUM 139 mmol/L (136-145)
[2017-10-11 09:02] LABS: ALK PHOS 98 U/L (45-117); BILIRUBIN,TOTAL 0.7 mg/dL (0.2-1.0); CREATININE 0.6 mg/dL (0.55-1.02); SGOT/AST 18 U/L (15-37); SGPT/ALT 29 U/L (12-78); TOT PROT 6.2 g/dl (6.4-8.2)
[2017-10-11] MEDS ORDERED: POTASSIUM CHLORIDE TABS 20 MEQ TABLET.ER (FP) PO ONE (09:30)
[2017-10-11] MEDS ORDERED: PT OWN MED DRAWER 7, Y5N ONE (09:52)
[2017-10-11] MEDS: ARIPiprazole 10 MG TABLET PO SCH (09:53)
[2017-10-11] MEDS: METHIMAZOLE 5 MG TABLET (FP) PO SCH (09:53)
[2017-10-11] MEDS: SERTRALINE HCL 50 MG TABLET (FP) PO SCH (09:53)
[2017-10-11] MEDS: LISINOPRIL 5 MG TABLET (FP) PO SCH (09:53)
[2017-10-11] MEDS: guaiFENesin 600 MG TABLET.ER (FP) PO SCH ×2 (09:53→22:52)
[2017-10-11] MEDS ORDERED: VANCOMYCIN 1 GRAM (PRE-DOCKED) 1,000 MG/250 ML BAG IVPB ONE (10:08)
[2017-10-11] MEDS ORDERED: VANCOMYCIN 1,000 MG in DEXTROSE 5%-WATER - 250 ML IVPB ONE (11:00)
--- NOTE | 2017-10-11 11:26 | PN ---
Progress Note, Physician History of Present Illness: patient stable ct scan noted plan is for tap of the joint today - Current Medication List Current Medications: Active Medications Albuterol/Ipratropium (Duoneb -) 1 amp NEB Q4H PRN PRN Reason: SHORTNESS OF BREATH Last Admin: 10/09/17 23:40 Dose: 1 amp Aripiprazole (Abilify) 10 mg PO DAILY [facility] Last Admin: 10/11/17 09:53 Dose: 10 mg Atorvastatin Calcium (Lipitor -) 20 mg PO HS [facility] Last Admin: 10/10/17 21:23 Dose: 20 mg Docusate Sodium (Colace -) 100 mg PO TID [facility] Last Admin: 10/11/17 05:41 Dose: 100 mg Guaifenesin (Mucinex -) 600 mg PO BID [facility] Last Admin: 10/11/17 09:53 Dose: 600 mg Ertapenem 1 gm/ Sodium (Chloride) 50 mls @ 100 mls/hr IVPB Q24H [facility] Last Admin: 10/10/17 13:30 Dose: 100 mls/hr Vancomycin HCl 1,000 mg/ (Dextrose) 250 mls @ 166.667 mls/hr IVPB ONCE ONE Stop: 10/11/17 12:29 Insulin Aspart (Novolog Vial Sliding Scale -) 1 vial SQ ACHS [facility] PRN Reason: Protocol Last Admin: 10/11/17 06:34 Dose: 2 units Lisinopril (Prinivil) 5 mg PO DAILY [facility] Last Admin: 10/11/17 09:53 Dose: 5 mg Methimazole (Tapazole -) 5 mg PO DAILY [facility] Last Admin: 10/11/17 09:53 Dose: 5 mg Sertraline HCl (Zoloft -) 100 mg PO DAILY [facility] Last Admin: 10/11/17 09:53 Dose: 100 mg - Objective Vital Signs: Vital Signs Temperature 98.2 F 10/11/17 06:27 Pulse Rate 94 H 10/11/17 06:27 Respiratory Rate 20 10/11/17 06:27 Blood Pressure 141/61 10/11/17 06:27 O2 Sat by Pulse Oximetry (%) 95 10/10/17 21:00 Constitutional: Yes: No Distress, Calm Cardiovascular: Yes: Regular Rate and Rhythm Respiratory: Yes: Regular, CTA Bilaterally, On Nasal O2 Gastrointestinal: Yes: Normal Bowel Sounds, Soft Musculoskeletal: Yes: WNL Extremities: Yes: Other Neurological: Yes: Alert, Oriented Psychiatric: Yes: Alert, Oriented Labs: CBC, BMP 10/11/17 07:30 10/11/17 07:30 INR, PTT INR 1.15 (0.82-1.09) H 10/03/17 08:00 Assessment/Plan 76yo F with PMH of htn, dm, hyperthyroidism, schizophrenia, presented s/p mechanical fall, found to have Left humerus fracture. # Left humerus fx, s/p ORIF o # fever and persistent leukocytosis # pneumonia # DM # htn # hyperthyroidism # schizophrenia wbc trending down plan ct scan of the shoulder to be done continue abx
[2017-10-11] MEDS: ERTAPENEM SODIUM 1 GM in SODIUM CHLORIDE 50 ML IVPB SCH (14:00)
--- NOTE | 2017-10-11 14:41 | PN ---
Physical Exam: SUBJECTIVE: Patient seen and examined. No acute events overnight. Pt denies SOB, chest pain, n/v/d/c, dysuria. She states that she can't move her left arm due to pain. She denies fevers and chills. OBJECTIVE: Vital Signs Period Temp Pulse Resp BP Sys/Sheehan Pulse Ox Last 24 Hr 98.2 F-98.7 F 94-108 20-22 129-141/61-69 95 GENERAL: elderly female, awake, alert, and fully oriented, in no acute distress. HEENT: NC, AT LUNGS: mild inspiratory rales, expiratory wheezing HEART: tachycardic, S1, S2 without murmur, rub or gallop. ABDOMEN: Soft, nontender, nondistended, normoactive bowel sounds, no guarding, no rebound, no hepatosplenomegaly, no masses. EXTREMITIES: no LE edema. LUE in sling, tender, warm to touch NEUROLOGICAL: Cranial nerves II through XII grossly intact. Normal speech, gait not observed. Laboratory Results - last 24 hr 10/10/17 10/10/17 10/11/17 17:48 21:05 05:30 WBC RBC Hgb Hct MCV MCH MCHC RDW Plt Count MPV Neutrophils % Lymphocytes % Monocytes % Eosinophils % Basophils % Sodium Potassium Chloride Carbon Dioxide Anion Gap BUN Creatinine Creat Clearance w eGFR POC Glucometer 184 186 197 Random Glucose Calcium Total Bilirubin AST ALT Alkaline Phosphatase Total Protein Albumin 10/11/17 10/11/17 10/11/17 07:30 07:30 11:42 WBC 22.5 H RBC 4.15 Hgb 11.2 Hct 35.2 MCV 84.9 MCH 27.1 MCHC 31.9 L RDW 15.4 Plt Count 372 MPV 9.1 Neutrophils % 80.4 Lymphocytes % 11.3 Monocytes % 4.5 Eosinophils % 3.5 Basophils % 0.3 Sodium 139 Potassium 3.6 Chloride 102 Carbon Dioxide 27 Anion Gap 10 BUN 15 D Creatinine 0.6 Creat Clearance w eGFR > 60 POC Glucometer 230 Random Glucose 169 H Calcium 8.4 L Total Bilirubin 0.7 D AST 18 ALT 29 D Alkaline Phosphatase 98 D Total Protein 6.2 L D Albumin 2.7 L D Active Medications Generic Name Dose Route Start Last Admin Trade Name Freq PRN Reason Stop Dose Admin Albuterol/Ipratropium 1 amp 10/07/17 00:48 10/09/17 23:40 Duoneb - NEB 1 amp Q4H PRN Administration SHORTNESS OF BREATH Aripiprazole 10 mg 10/04/17 10:00 10/11/17 09:53 Abilify PO 10 mg DAILY [facility]DI Administration Atorvastatin Calcium 20 mg 10/03/17 22:00 10/10/17 21:23 Lipitor - PO 20 mg HS MAGDI Administration Docusate Sodium 100 mg 10/03/17 22:00 10/11/17 05:41 Colace - PO 100 mg TID MAGDI Administration Guaifenesin 600 mg 10/09/17 10:00 10/11/17 09:53 Mucinex - PO 600 mg BID MAGDI Administration Ertapenem 1 gm/ Sodium 50 mls @ 100 mls/hr 10/06/17 13:00 10/10/17 13:30 Chloride IVPB 100 mls/hr Q24H MAGDI Administration Insulin Aspart 1 vial 10/03/17 16:30 10/11/17 11:45 Novolog Vial Sliding Scale - SQ 4 units ACHS MAGDI Administration Protocol Lisinopril 5 mg 10/10/17 10:00 10/11/17 09:53 Prinivil PO 5 mg DAILY [facility]DI Administration Methimazole 5 mg 10/04/17 10:00 10/11/17 09:53 Tapazole - PO 5 mg DAILY [facility] Administration Sertraline HCl 100 mg 10/04/17 10:00 10/11/17 09:53 Zoloft - PO 100 mg DAILY MAGDI Administration CT LUE: nonspecific glenohumeral joint effusion that can be traumatic vs. infectious. Fluid accumulation in subdeltoid bursa. Fat containing lesion, 3 month f/u suggested. ASSESSMENT/PLAN: 76F w/ hx of HTN, DM, schizophrenia, hyperthyroidism and other medical problems who presented with L arm pain after mechanical fall, and was found to have L humerus Fx. Pt developed PNA in hospital, currently being treated with ertapenem and vancomycin, with increasing leukocytosis. Possible other infectious source in LUE. #L humerus Fx - POD #8 after ORIF - pain control with oxycodone - wound care - CT LUE: nonspecific glenohumeral joint effusion that can be traumatic vs. infectious - f/u US guided FNA of joint effusion to evaluate for infectious source - further abx for LUE source of infection per ID. currently on ertapenem and vancomycin #HAP - continue ertapenem day #6 -afebrile overnight, wbc trending down from 23.7 to 22.5 -repeat Bcx: no growth x 24hrs -trend temps and wbc counts #acute respiratory failure in the setting of PNA, possible aspiration, and pumonary edema requiring IV lasix and oxygen via venti-mask to NC- resolving -40mg IV lasix given -echo: mild to moderate MR, mild aortic sclerosis #HTN -continue home lisinopril #Hyperthyroidism - cont methimazole #schizophrenia -continue aripiprazole #anxiety/depression -continue sertraline #DM -continue ISS -BGM #FEN/ppx -no fluids -electrolytes wnl -diabetic/sodium diet -no GI ppx -heparin 5000U TID -Melchor Wolf MD PGY1 Visit type - Emergency Visit Emergency Visit: Yes ED Registration Date: 10/02/17 Care time: The patient presented to the Emergency Department on the above date and was hospitalized for further evaluation of their emergent condition. - New Patient This patient is new to me today: No - Critical Care Critical Care patient: No
--- NOTE | 2017-10-11 22:43 | PN ---
Teaching Attending Note Name of Resident: Melchor Wolf ATTENDING PHYSICIAN STATEMENT I saw and evaluated the patient. I reviewed the resident's note and discussed the case with the resident. I agree with the resident's findings and plan as documented. SUBJECTIVE: Patient is feeling better with no acute distress. OBJECTIVE: Vital Signs Temperature 98.5 F 10/11/17 13:56 Pulse Rate 104 H 10/11/17 13:56 Respiratory Rate 22 10/11/17 13:56 Blood Pressure 132/70 10/11/17 09:00 O2 Sat by Pulse Oximetry (%) 94 L 10/11/17 09:00 CBCD WBC 22.5 K/mm3 (4.0-10.0) H 10/11/17 07:30 RBC 4.15 M/mm3 (3.60-5.2) 10/11/17 07:30 Hgb 11.2 GM/dL (10.7-15.3) 10/11/17 07:30 Hct 35.2 % (32.4-45.2) 10/11/17 07:30 MCV 84.9 fl (80-96) 10/11/17 07:30 MCHC 31.9 g/dl (32.0-36.0) L 10/11/17 07:30 RDW 15.4 % (11.6-15.6) 10/11/17 07:30 Plt Count 372 K/MM3 (134-434) 10/11/17 07:30 MPV 9.1 fl (7.5-11.1) 10/11/17 07:30 CMP Sodium 139 mmol/L (136-145) 10/11/17 07:30 Potassium 3.6 mmol/L (3.5-5.1) 10/11/17 07:30 Chloride 102 mmol/L (98-107) 10/11/17 07:30 Carbon Dioxide 27 mmol/L (21-32) 10/11/17 07:30 Anion Gap 10 (8-16) 10/11/17 07:30 BUN 15 mg/dL (7-18) D 10/11/17 07:30 Creatinine 0.6 mg/dL (0.55-1.02) 10/11/17 07:30 Creat Clearance w eGFR > 60 (>60) 10/11/17 07:30 Random Glucose 169 mg/dL (74-106) H 10/11/17 07:30 Calcium 8.4 mg/dL (8.5-10.1) L 10/11/17 07:30 Total Bilirubin 0.7 mg/dL (0.2-1.0) D 10/11/17 07:30 AST 18 U/L (15-37) 10/11/17 07:30 ALT 29 U/L (12-78) D 10/11/17 07:30 Alkaline Phosphatase 98 U/L (45-117) D 10/11/17 07:30 Total Protein 6.2 g/dl (6.4-8.2) L D 10/11/17 07:30 Albumin 2.7 g/dl (3.4-5.0) L D 10/11/17 07:30 CARDIAC ENZYMES Creatine Kinase 257 IU/L (26-192) H 10/02/17 16:25 Troponin I 0.02 ng/ml (0.00-0.05) 10/02/17 16:25 Current Medications Generic Name Dose Route Start Last Admin Trade Name Freq PRN Reason Stop Dose Admin Albuterol/Ipratropium 1 amp 10/07/17 00:48 10/09/17 23:40 Duoneb - NEB 1 amp Q4H PRN Administration SHORTNESS OF BREATH Aripiprazole 10 mg 10/04/17 10:00 10/11/17 09:53 Abilify PO 10 mg DAILY MAGDI Administration Atorvastatin Calcium 20 mg 10/03/17 22:00 10/10/17 21:23 Lipitor - PO 20 mg HS MAGDI Administration Docusate Sodium 100 mg 10/03/17 22:00 10/11/17 14:58 Colace - PO 100 mg TID MAGDI Administration Guaifenesin 600 mg 10/09/17 10:00 10/11/17 09:53 Mucinex - PO 600 mg BID MAGDI Administration Ertapenem 1 gm/ Sodium 50 mls @ 100 mls/hr 10/06/17 13:00 10/11/17 14:00 Chloride IVPB 100 mls/hr Q24H MAGDI Administration Insulin Aspart 1 vial 10/03/17 16:30 10/11/17 17:23 Novolog Vial Sliding Scale - SQ 2 units ACHS MAGDI Administration Protocol Lisinopril 5 mg 10/10/17 10:00 10/11/17 09:53 Prinivil PO 5 mg DAILY MAGDI Administration Methimazole 5 mg 10/04/17 10:00 10/11/17 09:53 Tapazole - PO 5 mg DAILY MAGDI Administration Sertraline HCl 100 mg 10/04/17 10:00 10/11/17 09:53 Zoloft - PO 100 mg DAILY MAGDI Administration Home Medications Medication Instructions Recorded Lisinopril 10 mg PO DAILY 10/02/17 Metformin HCl 1,000 mg PO BID 10/02/17 Aripiprazole [Abilify] 10 mg PO DAILY 10/03/17 Cholecalciferol (Vitamin D3) 50,000 unit PO WEEKLY 10/03/17 [Vitamin D3] Methimazole [Tapazole] 5 mg PO DAILY 10/03/17 Sertraline HCl [Zoloft] 100 mg PO DAILY 10/03/17 Simvastatin 40 mg PO DAILY 10/03/17 PE: per resident's note Microbiology 10/09/17 14:55 Blood - Peripheral Venous Blood Culture - Preliminary NO GROWTH OBTAINED AFTER 96 HOURS, INCUBATION TO CONTINUE FOR 1 DAYS. 10/09/17 13:40 Blood - Peripheral Venous Blood Culture - Preliminary NO GROWTH OBTAINED AFTER 96 HOURS, INCUBATION TO CONTINUE FOR 1 DAYS. 10/05/17 20:45 Blood - Peripheral Venous Blood Culture - Final NO GROWTH AFTER 5 DAYS INCUBATION 10/05/17 20:45 Blood - Peripheral Venous Blood Culture - Final NO GROWTH AFTER 5 DAYS INCUBATION 10/06/17 17:30 Urine - Urine - Catheterized Urine Culture - Final NO GROWTH OBTAINED 10/02/17 20:40 Urine - Urine Clean Catch Urine Culture - Final NO GROWTH OBTAINED CT LUE: nonspecific glenohumeral joint effusion that can be traumatic vs. infectious. Fluid accumulation in subdeltoid bursa. Fat containing lesion, 3 month f/u suggested. ASSESSMENT AND PLAN: 76 y/o lady with h/o HTN, DM, and other medical problems who presented with L arm pain after mechanical fall , she was found to have L humerus Fx # Left humerus Fx: POD 9 s/p ORIF continue pain meds. CT of upper extremity nonspecific glenohumeral joint effusion that can be traumatic vs. infectious. Fluid accumulation in subdeltoid bursa. Fat containing lesion, 3 month f/u suggested # Hospital acquired PNA on ertapenem continue. Vancomycin is added as per ID # Acute Leukocytosis continue to monitor, wbc is trending down from 23.7 to 22.5 , on Vancomycin now as per ID # HTN: continue home lisinopril # Hyperthyroidism: cont methimazole DVT PX: heparin sq
[2017-10-11] MEDS: ATORVASTATIN CA 20 MG TABLET (FP) PO SCH (22:52)
[2017-10-12] MEDS ORDERED: PT OWN MED DRAWER 7, Y5N ONE ×2 (02:35→09:47)
[2017-10-12] MEDS: DOCUSATE SODIUM 100 MG CAPSULE (FP) PO SCH ×3 (05:52→22:29)
[2017-10-12] MEDS: INSULIN SLIDING SCALE (NOVOLOG) 1 VIAL SQ SCH ×4 (06:37→22:29)
[2017-10-12 08:50] LABS: BASO % 0.3 % (0-2.0); EOS % 3.6 % (0-4.5); HEMATOCRIT 34.1 % (32.4-45.2); HEMOGLOBIN 11.1 GM/dL (10.7-15.3); LYMPH % 9.8 % (8-40); MCH 27.5 pg (25.7-33.7); MCHC 32.5 g/dl (32.0-36.0); MEAN CELL VOLUME 84.7 fl (80-96); MONO % 4.6 % (3.8-10.2); NEUT % 81.7 % (42.8-82.8); PLATELET COUNT 333 K/MM3 (134-434); RBC 4.03 M/mm3 (3.60-5.2); RDW 15.3 % (11.6-15.6); WHITE BLOOD COUNT 17.4 K/mm3 (4.0-10.0)
[2017-10-12 09:14] LABS: ALBUMIN 2.6 g/dl (3.4-5.0); ANION GAP 8 (8-16); BILIRUBIN,TOTAL 0.5 mg/dL (0.2-1.0); BLOOD UREA NITROGEN 10 mg/dL (7-18); CHLORIDE 103 mmol/L (98-107); CO2 27 mmol/L (21-32); CREATININE 0.6 mg/dL (0.55-1.02); GLUCOSE,RANDOM 171 mg/dL (74-106); SGOT/AST 14 U/L (15-37); SGPT/ALT 26 U/L (12-78); SODIUM 138 mmol/L (136-145); TOT PROT 5.8 g/dl (6.4-8.2)
[2017-10-12 09:15] LABS: ALK PHOS 98 U/L (45-117)
[2017-10-12] MEDS: SERTRALINE HCL 50 MG TABLET (FP) PO SCH (09:49)
[2017-10-12] MEDS: METHIMAZOLE 5 MG TABLET (FP) PO SCH (09:50)
[2017-10-12] MEDS: guaiFENesin 600 MG TABLET.ER (FP) PO SCH ×2 (09:50→22:30)
[2017-10-12] MEDS: LISINOPRIL 5 MG TABLET (FP) PO SCH (09:50)
[2017-10-12] MEDS: ENOXAPARIN NA (PORCINE) 40 MG/0.4 ML DISP.SYRIN SQ SCH (09:50)
[2017-10-12] MEDS: ARIPiprazole 10 MG TABLET PO SCH (09:50)
--- NOTE | 2017-10-12 12:02 | PN ---
Progress Note, Physician History of Present Illness: continues to have leukocytosis stable joint could not be tapped - Current Medication List Current Medications: Active Medications Albuterol/Ipratropium (Duoneb -) 1 amp NEB Q4H PRN PRN Reason: SHORTNESS OF BREATH Last Admin: 10/09/17 23:40 Dose: 1 amp Aripiprazole (Abilify) 10 mg PO DAILY [facility] Last Admin: 10/12/17 09:50 Dose: 10 mg Atorvastatin Calcium (Lipitor -) 20 mg PO HS [facility] Last Admin: 10/11/17 22:52 Dose: 20 mg Docusate Sodium (Colace -) 100 mg PO TID [facility] Last Admin: 10/12/17 05:52 Dose: 100 mg Enoxaparin Sodium (Lovenox -) 40 mg SQ DAILY [facility] Last Admin: 10/12/17 09:50 Dose: 40 mg Guaifenesin (Mucinex -) 600 mg PO BID [facility] Last Admin: 10/12/17 09:50 Dose: 600 mg Ertapenem 1 gm/ Sodium (Chloride) 50 mls @ 100 mls/hr IVPB Q24H [facility] Last Admin: 10/11/17 14:00 Dose: 100 mls/hr Vancomycin HCl 1,250 mg/ (Dextrose) 250 mls @ 250 mls/hr IVPB DAILY [facility] PRN Reason: Protocol Insulin Aspart (Novolog Vial Sliding Scale -) 1 vial SQ ACHS [facility] PRN Reason: Protocol Last Admin: 10/12/17 11:50 Dose: 10 units Lisinopril (Prinivil) 5 mg PO DAILY [facility] Last Admin: 10/12/17 09:50 Dose: 5 mg Methimazole (Tapazole -) 5 mg PO DAILY [facility] Last Admin: 10/12/17 09:50 Dose: 5 mg Sertraline HCl (Zoloft -) 100 mg PO DAILY [facility] Last Admin: 10/12/17 09:49 Dose: 100 mg - Objective Vital Signs: Vital Signs Temperature 98.5 F 10/12/17 06:00 Pulse Rate 86 10/12/17 06:00 Respiratory Rate 20 10/12/17 06:00 Blood Pressure 148/73 10/12/17 06:00 O2 Sat by Pulse Oximetry (%) 94 L 10/11/17 21:00 Constitutional: Yes: No Distress, Calm Cardiovascular: Yes: Regular Rate and Rhythm Respiratory: Yes: Regular, CTA Bilaterally, On Nasal O2 Gastrointestinal: Yes: Normal Bowel Sounds, Soft Musculoskeletal: Yes: WNL Extremities: Yes: Other Wound/Incision: Yes: Dressing Dry and Intact Neurological: Yes: Alert, Oriented Psychiatric: Yes: Alert, Oriented Labs: CBC, BMP 10/12/17 07:00 10/12/17 07:00 INR, PTT INR 1.15 (0.82-1.09) H 10/03/17 08:00 Assessment/Plan 76yo F with PMH of htn, dm, hyperthyroidism, schizophrenia, presented s/p mechanical fall, found to have Left humerus fracture. # Left humerus fx, s/p ORIF o # fever and persistent leukocytosis # pneumonia # DM # htn # hyperthyroidism # schizophrenia wbc trending down plan started vanco close monitoring of wbc
[2017-10-12] MEDS ORDERED: VANCOMYCIN 1,250 MG in DEXTROSE 5%-WATER - 250 ML IVPB SCH (13:00)
[2017-10-12] MEDS: ERTAPENEM SODIUM 1 GM in SODIUM CHLORIDE 50 ML IVPB SCH (14:29)
[2017-10-12] MEDS: VANCOMYCIN 1,250 MG in DEXTROSE 5%-WATER - 250 ML IVPB SCH (15:00)
--- NOTE | 2017-10-12 16:58 | PN ---
Physical Exam: SUBJECTIVE: Patient seen and examined. No acute events overnight. Pt denies fevers, chills, chest pain, SOB, n/v/d/c, and dysuria. OBJECTIVE: Vital Signs Period Temp Pulse Resp BP Sys/Sheehan Pulse Ox Last 24 Hr 97.1 F-98.6 F 68-97 18-20 148-148/72-73 94 GENERAL: elderly female, awake, alert, and fully oriented, in no acute distress. HEENT: NC, AT LUNGS: mild inspiratory rales, expiratory wheezing HEART: normal rate and rhythm, S1, S2 without murmur, rub or gallop. ABDOMEN: Soft, nontender, nondistended, normoactive bowel sounds, no guarding, no rebound, no hepatosplenomegaly, no masses. EXTREMITIES: no LE edema. LUE in sling, tender, warm to touch NEUROLOGICAL: Cranial nerves II through XII grossly intact. Normal speech, gait not observed. Laboratory Results - last 24 hr 10/11/17 10/11/17 10/12/17 16:46 22:52 05:50 WBC RBC Hgb Hct MCV MCH MCHC RDW Plt Count MPV Absolute Neuts (auto) Absolute Lymphs (auto) Absolute Monos (auto) Absolute Eos (auto) Absolute Basos (auto) Neutrophils % Lymphocytes % Monocytes % Eosinophils % Basophils % Sodium Potassium Chloride Carbon Dioxide Anion Gap BUN Creatinine Creat Clearance w eGFR POC Glucometer 198 197 258 Random Glucose Calcium Total Bilirubin AST ALT Alkaline Phosphatase Total Protein Albumin 10/12/17 10/12/17 10/12/17 07:00 07:00 11:49 WBC 17.4 H RBC 4.03 Hgb 11.1 Hct 34.1 MCV 84.7 MCH 27.5 MCHC 32.5 RDW 15.3 Plt Count 333 MPV 9.0 Absolute Neuts (auto) 14.2 L Absolute Lymphs (auto) 1.7 L Absolute Monos (auto) 0.8 L Absolute Eos (auto) 0.6 Absolute Basos (auto) 0.1 Neutrophils % 81.7 Lymphocytes % 9.8 Monocytes % 4.6 Eosinophils % 3.6 Basophils % 0.3 Sodium 138 Potassium 4.0 Chloride 103 Carbon Dioxide 27 Anion Gap 8 BUN 10 D Creatinine 0.6 Creat Clearance w eGFR > 60 POC Glucometer 355 Random Glucose 171 H Calcium 8.0 L Total Bilirubin 0.5 D AST 14 L D ALT 26 Alkaline Phosphatase 98 Total Protein 5.8 L Albumin 2.6 L Active Medications Generic Name Dose Route Start Last Admin Trade Name Freq PRN Reason Stop Dose Admin Albuterol/Ipratropium 1 amp 10/07/17 00:48 10/09/17 23:40 Duoneb - NEB 1 amp Q4H PRN Administration SHORTNESS OF BREATH Aripiprazole 10 mg 10/04/17 10:00 10/12/17 09:50 Abilify PO 10 mg DAILY MAGDI Administration Atorvastatin Calcium 20 mg 10/03/17 22:00 10/11/17 22:52 Lipitor - PO 20 mg HS MAGDI Administration Docusate Sodium 100 mg 10/03/17 22:00 10/12/17 14:29 Colace - PO 100 mg TID MAGDI Administration Enoxaparin Sodium 40 mg 10/12/17 10:00 10/12/17 09:50 Lovenox - SQ 40 mg DAILY MAGDI Administration Guaifenesin 600 mg 10/09/17 10:00 10/12/17 09:50 Mucinex - PO 600 mg BID MAGDI Administration Ertapenem 1 gm/ Sodium 50 mls @ 100 mls/hr 10/06/17 13:00 10/12/17 14:29 Chloride IVPB 100 mls/hr Q24H MAGDI Administration Vancomycin HCl 1,250 mg/ 250 mls @ 166.667 mls/hr 10/12/17 14:00 10/12/17 15: 00 Dextrose IVPB 166.667 mls/hr DAILY@1400 MAGDI Administration Protocol Insulin Aspart 1 vial 10/03/17 16:30 10/12/17 16:56 Novolog Vial Sliding Scale - SQ 2 units ACHS MAGDI Administration Protocol Lisinopril 5 mg 10/10/17 10:00 10/12/17 09:50 Prinivil PO 5 mg DAILY [facility]DI Administration Methimazole 5 mg 10/04/17 10:00 10/12/17 09:50 Tapazole - PO 5 mg DAILY [facility]DI Administration Sertraline HCl 100 mg 10/04/17 10:00 10/12/17 09:49 Zoloft - PO 100 mg DAILY MAGDI Administration ASSESSMENT/PLAN: 76F w/ hx of HTN, DM, schizophrenia, hyperthyroidism and other medical problems who presented with L arm pain after mechanical fall, and was found to have L humerus Fx. Pt developed PNA in hospital, currently being treated with ertapenem and vancomycin, with downtrending leukocytosis #L humerus Fx - POD #9 after ORIF - pain control with oxycodone - wound care #infection -being treated for HAP, but leukocytosis started increasing. CT LUE showed nonspecific glenohumeral joint effusion that can be traumatic vs. infectious, but can't do US guided FNA of joint effusion to evaluate for infectious source as effusion is too small. - continue ertapenem and vanc -afebrile overnight, wbc trending down from 22.5 to 17.4 -repeat Bcx: no growth x 48hrs -trend temps and wbc counts #acute respiratory failure in the setting of PNA, possible aspiration, and pumonary edema requiring IV lasix and oxygen via venti-mask to NC- resolving -echo: mild to moderate MR, mild aortic sclerosis #HTN -continue home lisinopril #Hyperthyroidism - cont methimazole #schizophrenia -continue aripiprazole #anxiety/depression -continue sertraline #DM -continue ISS -BGM #FEN/ppx -no fluids -electrolytes wnl -diabetic/sodium diet -no GI ppx -lovenox 40 -Melchor Wolf MD PGY1 Visit type - Emergency Visit Emergency Visit: Yes ED Registration Date: 10/02/17 Care time: The patient presented to the Emergency Department on the above date and was hospitalized for further evaluation of their emergent condition. - New Patient This patient is new to me today: No - Critical Care Critical Care patient: No
--- NOTE | 2017-10-12 21:13 | PN ---
Teaching Attending Note Name of Resident: Melchor Wolf ATTENDING PHYSICIAN STATEMENT I saw and evaluated the patient. I reviewed the resident's note and discussed the case with the resident. I agree with the resident's findings and plan as documented. SUBJECTIVE: Patient continues to be well, no acute event. OBJECTIVE: Vital Signs Temperature 99 F 10/12/17 19:36 Pulse Rate 102 H 10/12/17 19:36 Respiratory Rate 19 10/12/17 19:36 Blood Pressure 134/104 10/12/17 19:36 O2 Sat by Pulse Oximetry (%) 94 L 10/12/17 09:00 CBCD WBC 17.4 K/mm3 (4.0-10.0) H 10/12/17 07:00 RBC 4.03 M/mm3 (3.60-5.2) 10/12/17 07:00 Hgb 11.1 GM/dL (10.7-15.3) 10/12/17 07:00 Hct 34.1 % (32.4-45.2) 10/12/17 07:00 MCV 84.7 fl (80-96) 10/12/17 07:00 MCHC 32.5 g/dl (32.0-36.0) 10/12/17 07:00 RDW 15.3 % (11.6-15.6) 10/12/17 07:00 Plt Count 333 K/MM3 (134-434) 10/12/17 07:00 MPV 9.0 fl (7.5-11.1) 10/12/17 07:00 CMP Sodium 138 mmol/L (136-145) 10/12/17 07:00 Potassium 4.0 mmol/L (3.5-5.1) 10/12/17 07:00 Chloride 103 mmol/L (98-107) 10/12/17 07:00 Carbon Dioxide 27 mmol/L (21-32) 10/12/17 07:00 Anion Gap 8 (8-16) 10/12/17 07:00 BUN 10 mg/dL (7-18) D 10/12/17 07:00 Creatinine 0.6 mg/dL (0.55-1.02) 10/12/17 07:00 Creat Clearance w eGFR > 60 (>60) 10/12/17 07:00 Random Glucose 171 mg/dL (74-106) H 10/12/17 07:00 Calcium 8.0 mg/dL (8.5-10.1) L 10/12/17 07:00 Total Bilirubin 0.5 mg/dL (0.2-1.0) D 10/12/17 07:00 AST 14 U/L (15-37) L D 10/12/17 07:00 ALT 26 U/L (12-78) 10/12/17 07:00 Alkaline Phosphatase 98 U/L (45-117) 10/12/17 07:00 Total Protein 5.8 g/dl (6.4-8.2) L 10/12/17 07:00 Albumin 2.6 g/dl (3.4-5.0) L 10/12/17 07:00 CARDIAC ENZYMES Creatine Kinase 257 IU/L (26-192) H 10/02/17 16:25 Troponin I 0.02 ng/ml (0.00-0.05) 10/02/17 16:25 Current Medications Generic Name Dose Route Start Last Admin Trade Name Freq PRN Reason Stop Dose Admin Albuterol/Ipratropium 1 amp 10/07/17 00:48 10/09/17 23:40 Duoneb - NEB 1 amp Q4H PRN Administration SHORTNESS OF BREATH Aripiprazole 10 mg 10/04/17 10:00 10/12/17 09:50 Abilify PO 10 mg DAILY MAGDI Administration Atorvastatin Calcium 20 mg 10/03/17 22:00 10/11/17 22:52 Lipitor - PO 20 mg HS MAGDI Administration Docusate Sodium 100 mg 10/03/17 22:00 10/12/17 14:29 Colace - PO 100 mg TID MAGDI Administration Enoxaparin Sodium 40 mg 10/12/17 10:00 10/12/17 09:50 Lovenox - SQ 40 mg DAILY MAGDI Administration Guaifenesin 600 mg 10/09/17 10:00 10/12/17 09:50 Mucinex - PO 600 mg BID MAGDI Administration Ertapenem 1 gm/ Sodium 50 mls @ 100 mls/hr 10/06/17 13:00 10/12/17 14:29 Chloride IVPB 100 mls/hr Q24H MAGDI Administration Vancomycin HCl 1,250 mg/ 250 mls @ 166.667 mls/hr 10/12/17 14:00 10/12/17 15: 00 Dextrose IVPB 166.667 mls/hr DAILY@1400 MAGDI Administration Protocol Insulin Aspart 1 vial 10/03/17 16:30 10/12/17 16:56 Novolog Vial Sliding Scale - SQ 2 units ACHS MAGDI Administration Protocol Lisinopril 5 mg 10/10/17 10:00 10/12/17 09:50 Prinivil PO 5 mg DAILY MAGDI Administration Methimazole 5 mg 10/04/17 10:00 10/12/17 09:50 Tapazole - PO 5 mg DAILY MAGDI Administration Sertraline HCl 100 mg 10/04/17 10:00 10/12/17 09:49 Zoloft - PO 100 mg DAILY MAGDI Administration Home Medications Medication Instructions Recorded Lisinopril 10 mg PO DAILY 10/02/17 Metformin HCl 1,000 mg PO BID 10/02/17 Aripiprazole [Abilify] 10 mg PO DAILY 10/03/17 Cholecalciferol (Vitamin D3) 50,000 unit PO WEEKLY 10/03/17 [Vitamin D3] Methimazole [Tapazole] 5 mg PO DAILY 10/03/17 Sertraline HCl [Zoloft] 100 mg PO DAILY 10/03/17 Simvastatin 40 mg PO DAILY 10/03/17 PE: per resident's note CT LUE: nonspecific glenohumeral joint effusion that can be traumatic vs. infectious. Fluid accumulation in subdeltoid bursa. Fat containing lesion, 3 month f/u suggested. ASSESSMENT AND PLAN: 76 y/o lady with h/o HTN, DM, and other medical problems who presented with L arm pain after mechanical fall , she was found to have L humerus Fx # Left humerus Fx: POD 10 s/p ORIF continue pain meds. CT of upper extremity nonspecific glenohumeral joint effusion that can be traumatic vs. infectious. Fluid accumulation in subdeltoid bursa. Fat containing lesion, 3 month f/u suggested # Hospital acquired PNA on ertapenem continue. Vancomycin continue as per ID. # Acute Leukocytosis continue to monitor, wbc is trending down from 23.7 to 22.5 --> 17.4 today , on Vancomycin now as per ID # HTN: continue home lisinopril # Hyperthyroidism: cont methimazole DVT PX: heparin sq
[2017-10-12] MEDS ORDERED: INSULIN (NOVOLOG) ASPART 100 UNITS/ML 10ML VIAL ONE (21:31)
[2017-10-12] MEDS: ATORVASTATIN CA 20 MG TABLET (FP) PO SCH (22:29)
[2017-10-13] MEDS: INSULIN SLIDING SCALE (NOVOLOG) 1 VIAL SQ SCH ×4 (06:15→21:20)
[2017-10-13] MEDS: DOCUSATE SODIUM 100 MG CAPSULE (FP) PO SCH ×3 (06:15→21:19)
[2017-10-13] MEDS ORDERED: PT OWN MED DRAWER 7, Y5N ONE ×2 (10:00→14:50)
[2017-10-13] MEDS: ARIPiprazole 10 MG TABLET PO SCH (10:01)
[2017-10-13] MEDS: ENOXAPARIN NA (PORCINE) 40 MG/0.4 ML DISP.SYRIN SQ SCH (10:01)
[2017-10-13] MEDS: METHIMAZOLE 5 MG TABLET (FP) PO SCH (10:01)
[2017-10-13] MEDS: guaiFENesin 600 MG TABLET.ER (FP) PO SCH ×2 (10:01→21:19)
[2017-10-13] MEDS: LISINOPRIL 5 MG TABLET (FP) PO SCH (10:01)
[2017-10-13] MEDS: SERTRALINE HCL 50 MG TABLET (FP) PO SCH (10:03)
[2017-10-13] MEDS: ERTAPENEM SODIUM 1 GM in SODIUM CHLORIDE 50 ML IVPB SCH (13:23)
--- NOTE | 2017-10-13 14:22 | PN ---
Progress Note, Physician History of Present Illness: Pt seen and examined. Events noted/lab and radiology results noted. Pt is currently afebrile, without specific complaints. Weak but sat up in chair for a few hrs today. Denies fever/chills, shortness of breath, dysuria, cough. - Current Medication List Current Medications: Active Medications Albuterol/Ipratropium (Duoneb -) 1 amp NEB Q4H PRN PRN Reason: SHORTNESS OF BREATH Last Admin: 10/09/17 23:40 Dose: 1 amp Aripiprazole (Abilify) 10 mg PO DAILY [facility] Last Admin: 10/13/17 10:01 Dose: 10 mg Atorvastatin Calcium (Lipitor -) 20 mg PO HS [facility] Last Admin: 10/12/17 22:29 Dose: 20 mg Docusate Sodium (Colace -) 100 mg PO TID [facility] Last Admin: 10/13/17 13:24 Dose: Not Given Enoxaparin Sodium (Lovenox -) 40 mg SQ DAILY [facility] Last Admin: 10/13/17 10:01 Dose: 40 mg Guaifenesin (Mucinex -) 600 mg PO BID [facility] Last Admin: 10/13/17 10:01 Dose: 600 mg Ertapenem 1 gm/ Sodium (Chloride) 50 mls @ 100 mls/hr IVPB Q24H MAGDI Last Admin: 10/13/17 13:23 Dose: 100 mls/hr Vancomycin HCl 1,250 mg/ (Dextrose) 250 mls @ 166.667 mls/hr IVPB DAILY@1400 MAGDI PRN Reason: Protocol Last Admin: 10/12/17 15:00 Dose: 166.667 mls/hr Insulin Aspart (Novolog Vial Sliding Scale -) 1 vial SQ ACHS MAGDI PRN Reason: Protocol Last Admin: 10/13/17 11:24 Dose: 4 units Lisinopril (Prinivil) 5 mg PO DAILY [facility] Last Admin: 10/13/17 10:01 Dose: 5 mg Methimazole (Tapazole -) 5 mg PO DAILY [facility] Last Admin: 10/13/17 10:01 Dose: 5 mg Sertraline HCl (Zoloft -) 100 mg PO DAILY [facility] Last Admin: 10/13/17 10:03 Dose: 100 mg - Objective Vital Signs: Vital Signs Temperature 97.3 F L 10/13/17 10:00 Pulse Rate 101 H 10/13/17 10:00 Respiratory Rate 20 10/13/17 10:00 Blood Pressure 129/82 10/13/17 10:00 O2 Sat by Pulse Oximetry (%) 96 10/13/17 09:00 Constitutional: Yes: No Distress, Calm Cardiovascular: Yes: Regular Rate and Rhythm Respiratory: Yes: Regular Gastrointestinal: Yes: Normal Bowel Sounds, Soft Extremities: Yes: WNL Wound/Incision: Yes: Clean/Dry Neurological: Yes: Weakness Labs: CBC, BMP 10/12/17 07:00 10/12/17 07:00 INR, PTT INR 1.15 (0.82-1.09) H 10/03/17 08:00 Microbiology 10/09/17 13:40 Blood - Peripheral Venous Blood Culture - Preliminary NO GROWTH OBTAINED AFTER 96 HOURS, INCUBATION TO CONTINUE FOR 1 DAYS. 10/09/17 14:55 Blood - Peripheral Venous Blood Culture - Preliminary NO GROWTH OBTAINED AFTER 72 HOURS, INCUBATION TO CONTINUE FOR 2 DAYS. 10/05/17 20:45 Blood - Peripheral Venous Blood Culture - Final NO GROWTH AFTER 5 DAYS INCUBATION 10/05/17 20:45 Blood - Peripheral Venous Blood Culture - Final NO GROWTH AFTER 5 DAYS INCUBATION 10/06/17 17:30 Urine - Urine - Catheterized Urine Culture - Final NO GROWTH OBTAINED 10/02/17 20:40 Urine - Urine Clean Catch Urine Culture - Final NO GROWTH OBTAINED - ....Imaging Cat Scan: Report Reviewed Problem List - Problems (1) Accidental fall Code(s): W19.XXXA - UNSPECIFIED FALL, INITIAL ENCOUNTER Qualifiers: Encounter type: initial encounter Qualified Code(s): W19.XXXA - Unspecified fall, initial encounter (2) Generalized weakness Code(s): R53.1 - WEAKNESS (3) Humerus fracture Code(s): S42.309A - UNSP FRACTURE OF SHAFT OF HUMERUS, UNSP ARM, INIT Qualifiers: Encounter type: initial encounter Humerus Location: surgical neck Fracture type: closed Fracture morphology: unspecified fracture morphology Fracture alignment: displaced Laterality: left Qualified Code(s): S42.212A - Unspecified displaced fracture of surgical neck of left humerus, initial encounter for closed fracture (4) Leukocytosis Code(s): D72.829 - ELEVATED WHITE BLOOD CELL COUNT, UNSPECIFIED Assessment/Plan 76 y.o. female admitted s/p fall, has Lt humeral fx s/p repair, possible PNA, with perisistent leukocytosis and weakness - cont current antibiotics for now - repeat cbc monitor vitals, currently stable
[2017-10-13] MEDS: VANCOMYCIN 1,250 MG in DEXTROSE 5%-WATER - 250 ML IVPB SCH (14:59)
--- NOTE | 2017-10-13 16:24 | PN ---
Physical Exam: SUBJECTIVE: Patient seen and examined Comfortable with no acute distress. OBJECTIVE: Vital Signs Temperature 98.5 F 10/13/17 15:19 Pulse Rate 88 10/13/17 15:19 Respiratory Rate 17 10/13/17 15:19 Blood Pressure 134/61 10/13/17 15:19 O2 Sat by Pulse Oximetry (%) 96 10/13/17 09:00 GENERAL: The patient is awake, alert, and fully oriented, in no acute distress. HEAD: Normal with no signs of trauma. EYES: PERRL, extraocular movements intact, sclera anicteric, conjunctiva clear. ENT: Ears normal, oropharynx clear without exudates, moist mucous membranes. NECK: Trachea midline, full range of motion, supple. LUNGS: Breath sounds equal, clear to auscultation bilaterally, no wheezes, no crackles, no accessory muscle use. HEART: Regular rate and rhythm, S1, S2 without murmur, rub or gallop. ABDOMEN: Soft, nontender, nondistended, normoactive bowel sounds, no guarding, no rebound, no hepatosplenomegaly, no masses. EXTREMITIES: 2+ pulses, warm, well-perfused, Left Upper extremity in immobilizer NEUROLOGICAL: Cranial nerves II through XII grossly intact. Normal speech, gait not observed. PSYCH: Normal mood, normal affect. SKIN: Warm, dry, normal turgor, no rashes or lesions noted Laboratory Results - last 24 hr 10/12/17 10/12/17 10/13/17 16:54 22:28 06:14 POC Glucometer 194 168 179 10/13/17 11:23 POC Glucometer 221 CBCD WBC 17.4 K/mm3 (4.0-10.0) H 10/12/17 07:00 RBC 4.03 M/mm3 (3.60-5.2) 10/12/17 07:00 Hgb 11.1 GM/dL (10.7-15.3) 10/12/17 07:00 Hct 34.1 % (32.4-45.2) 10/12/17 07:00 MCV 84.7 fl (80-96) 10/12/17 07:00 MCHC 32.5 g/dl (32.0-36.0) 10/12/17 07:00 RDW 15.3 % (11.6-15.6) 10/12/17 07:00 Plt Count 333 K/MM3 (134-434) 10/12/17 07:00 MPV 9.0 fl (7.5-11.1) 10/12/17 07:00 CMP Sodium 138 mmol/L (136-145) 10/12/17 07:00 Potassium 4.0 mmol/L (3.5-5.1) 10/12/17 07:00 Chloride 103 mmol/L (98-107) 10/12/17 07:00 Carbon Dioxide 27 mmol/L (21-32) 10/12/17 07:00 Anion Gap 8 (8-16) 10/12/17 07:00 BUN 10 mg/dL (7-18) D 10/12/17 07:00 Creatinine 0.6 mg/dL (0.55-1.02) 10/12/17 07:00 Creat Clearance w eGFR > 60 (>60) 10/12/17 07:00 Random Glucose 171 mg/dL (74-106) H 10/12/17 07:00 Calcium 8.0 mg/dL (8.5-10.1) L 10/12/17 07:00 Total Bilirubin 0.5 mg/dL (0.2-1.0) D 10/12/17 07:00 AST 14 U/L (15-37) L D 10/12/17 07:00 ALT 26 U/L (12-78) 10/12/17 07:00 Alkaline Phosphatase 98 U/L (45-117) 10/12/17 07:00 Total Protein 5.8 g/dl (6.4-8.2) L 10/12/17 07:00 Albumin 2.6 g/dl (3.4-5.0) L 10/12/17 07:00 CARDIAC ENZYMES Creatine Kinase 257 IU/L (26-192) H 10/02/17 16:25 Troponin I 0.02 ng/ml (0.00-0.05) 10/02/17 16:25 Active Medications Generic Name Dose Route Start Last Admin Trade Name Freq PRN Reason Stop Dose Admin Albuterol/Ipratropium 1 amp 10/07/17 00:48 10/09/17 23:40 Duoneb - NEB 1 amp Q4H PRN Administration SHORTNESS OF BREATH Aripiprazole 10 mg 10/04/17 10:00 10/13/17 10:01 Abilify PO 10 mg DAILY MAGDI Administration Atorvastatin Calcium 20 mg 10/03/17 22:00 10/12/17 22:29 Lipitor - PO 20 mg HS MAGDI Administration Docusate Sodium 100 mg 10/03/17 22:00 10/13/17 13:24 Colace - PO Not Given TID MAGDI Enoxaparin Sodium 40 mg 10/12/17 10:00 10/13/17 10:01 Lovenox - SQ 40 mg DAILY [facility]DI Administration Guaifenesin 600 mg 10/09/17 10:00 10/13/17 10:01 Mucinex - PO 600 mg BID MAGDI Administration Ertapenem 1 gm/ Sodium 50 mls @ 100 mls/hr 10/06/17 13:00 10/13/17 13:23 Chloride IVPB 100 mls/hr Q24H MAGDI Administration Vancomycin HCl 1,250 mg/ 250 mls @ 166.667 mls/hr 10/12/17 14:00 10/13/17 14: 59 Dextrose IVPB 166.667 mls/hr DAILY@1400 MAGDI Administration Protocol Insulin Aspart 1 vial 10/03/17 16:30 10/13/17 11:24 Novolog Vial Sliding Scale - SQ 4 units ACHS MAGDI Administration Protocol Lisinopril 5 mg 10/10/17 10:00 10/13/17 10:01 Prinivil PO 5 mg DAILY MAGDI Administration Methimazole 5 mg 10/04/17 10:00 10/13/17 10:01 Tapazole - PO 5 mg DAILY [facility] Administration Sertraline HCl 100 mg 10/04/17 10:00 10/13/17 10:03 Zoloft - PO 100 mg DAILY [facility] Administration CT LUE: nonspecific glenohumeral joint effusion that can be traumatic vs. infectious. Fluid accumulation in subdeltoid bursa. Fat containing lesion, 3 month f/u suggested. ASSESSMENT AND PLAN: 76 y/o lady with h/o HTN, DM, and other medical problems who presented with L arm pain after mechanical fall , she was found to have L humerus Fx # Left humerus Fx: POD 11 s/p ORIF continue pain meds. CT of upper extremity nonspecific glenohumeral joint effusion that can be traumatic vs. infectious. Fluid accumulation in subdeltoid bursa. Fat containing lesion, 3 month f/u suggested # Hospital acquired PNA on ertapenem continue. Vancomycin continue as per ID. # Acute Leukocytosis will continue to monitor, wbc is trending down from 23.7 to 22.5--> 17.4 today will continue to monitor , on Vancomycin now as per ID # HTN: continue home lisinopril # Hyperthyroidism: cont methimazole DVT PX: heparin sq Visit type - Emergency Visit Emergency Visit: Yes ED Registration Date: 10/02/17 Care time: The patient presented to the Emergency Department on the above date and was hospitalized for further evaluation of their emergent condition. - New Patient This patient is new to me today: No - Critical Care Critical Care patient: No - Discharge Referral [facility]erred to [facility] Med P.[facility].: No
[2017-10-13] MEDS ORDERED: INSULIN (NOVOLOG) ASPART 100 UNITS/ML 10ML VIAL ONE (21:17)
[2017-10-13] MEDS: ATORVASTATIN CA 20 MG TABLET (FP) PO SCH (21:19)
[2017-10-13] MEDS: NYSTATIN POWDER 100,000 UNITS/GM - 15 GM TOPICAL POWDER TP SCH (21:48)
[2017-10-13] MEDS: ALBUTEROL SO4 2.5/IPRATROPIUM 0.5 INH SOL 3 ML VIAL.NEB. NEB PRN (22:28)
[2017-10-14] MEDS: NYSTATIN POWDER 100,000 UNITS/GM - 15 GM TOPICAL POWDER TP SCH ×3 (06:09→21:50)
[2017-10-14] MEDS: DOCUSATE SODIUM 100 MG CAPSULE (FP) PO SCH ×3 (06:09→21:50)
[2017-10-14] MEDS: INSULIN SLIDING SCALE (NOVOLOG) 1 VIAL SQ SCH ×4 (06:17→21:50)
[2017-10-14] MEDS ORDERED: INSULIN (NOVOLOG) ASPART 100 UNITS/ML 10ML VIAL ONE ×3 (06:22→21:45)
[2017-10-14 08:24] LABS: BASO % 0.2 % (0-2.0); EOS % 3.4 % (0-4.5); HEMATOCRIT 35.7 % (32.4-45.2); HEMOGLOBIN 11.3 GM/dL (10.7-15.3); LYMPH % 11.9 % (8-40); MCH 27.2 pg (25.7-33.7); MCHC 31.7 g/dl (32.0-36.0); MEAN CELL VOLUME 85.7 fl (80-96); MEAN PLT VOLUME 9.4 fl (7.5-11.1); MONO % 3.8 % (3.8-10.2); NEUT % 80.7 % (42.8-82.8); PLATELET COUNT 315 K/MM3 (134-434); RBC 4.16 M/mm3 (3.60-5.2); RDW 15.5 % (11.6-15.6); WHITE BLOOD COUNT 17.2 K/mm3 (4.0-10.0)
[2017-10-14 08:46] LABS: ALBUMIN 2.7 g/dl (3.4-5.0); ANION GAP 10 (8-16); BLOOD UREA NITROGEN 8 mg/dL (7-18); CALCIUM 8.7 mg/dL (8.5-10.1); CHLORIDE 102 mmol/L (98-107); CO2 27 mmol/L (21-32); GLUCOSE,RANDOM 155 mg/dL (74-106); MAGNESIUM 2.2 mg/dL (1.8-2.4); SODIUM 139 mmol/L (136-145)
[2017-10-14 08:51] LABS: ALK PHOS 114 U/L (45-117); BILIRUBIN,TOTAL 0.3 mg/dL (0.2-1.0); CREATININE 0.6 mg/dL (0.55-1.02); PHOSPHOROUS 2.9 mg/dL (2.5-4.9); SGOT/AST 20 U/L (15-37); SGPT/ALT 29 U/L (12-78); TOT PROT 6.3 g/dl (6.4-8.2)
[2017-10-14] MEDS ORDERED: PT OWN MED DRAWER 7, Y5N ONE (09:49)
[2017-10-14] MEDS: ARIPiprazole 10 MG TABLET PO SCH (09:56)
[2017-10-14] MEDS: guaiFENesin 600 MG TABLET.ER (FP) PO SCH ×2 (09:56→21:50)
[2017-10-14] MEDS: SERTRALINE HCL 50 MG TABLET (FP) PO SCH (09:56)
[2017-10-14] MEDS: LISINOPRIL 5 MG TABLET (FP) PO SCH (09:56)
[2017-10-14] MEDS: METHIMAZOLE 5 MG TABLET (FP) PO SCH (09:57)
[2017-10-14] MEDS: ENOXAPARIN NA (PORCINE) 40 MG/0.4 ML DISP.SYRIN SQ SCH (09:57)
[2017-10-14] MEDS: ERTAPENEM SODIUM 1 GM in SODIUM CHLORIDE 50 ML IVPB SCH (13:15)
[2017-10-14] MEDS: VANCOMYCIN 1,250 MG in DEXTROSE 5%-WATER - 250 ML IVPB SCH (13:15)
--- NOTE | 2017-10-14 13:26 | PN ---
Progress Note, Physician History of Present Illness: Pt is doing well. Less weak than yesterday. Remains afebrile. No new specific complaints. - Current Medication List Current Medications: Active Medications Albuterol/Ipratropium (Duoneb -) 1 amp NEB Q4H PRN PRN Reason: SHORTNESS OF BREATH Last Admin: 10/13/17 22:28 Dose: 1 amp Aripiprazole (Abilify) 10 mg PO DAILY [facility] Last Admin: 10/14/17 09:56 Dose: 10 mg Atorvastatin Calcium (Lipitor -) 20 mg PO HS [facility] Last Admin: 10/13/17 21:19 Dose: 20 mg Docusate Sodium (Colace -) 100 mg PO TID [facility] Last Admin: 10/14/17 13:16 Dose: 100 mg Enoxaparin Sodium (Lovenox -) 40 mg SQ DAILY [facility] Last Admin: 10/14/17 09:57 Dose: 40 mg Guaifenesin (Mucinex -) 600 mg PO BID [facility] Last Admin: 10/14/17 09:56 Dose: 600 mg Ertapenem 1 gm/ Sodium (Chloride) 50 mls @ 100 mls/hr IVPB Q24H [facility] Last Admin: 10/14/17 13:15 Dose: 100 mls/hr Vancomycin HCl 1,250 mg/ (Dextrose) 250 mls @ 166.667 mls/hr IVPB DAILY@1400 [facility] PRN Reason: Protocol Last Admin: 10/14/17 13:15 Dose: 166.667 mls/hr Insulin Aspart (Novolog Vial Sliding Scale -) 1 vial SQ ACHS [facility] PRN Reason: Protocol Last Admin: 10/14/17 11:44 Dose: 2 units Lisinopril (Prinivil) 5 mg PO DAILY [facility] Last Admin: 10/14/17 09:56 Dose: 5 mg Methimazole (Tapazole -) 5 mg PO DAILY [facility] Last Admin: 10/14/17 09:57 Dose: 5 mg Nystatin (Nystop Powder -) 1 applic TP TID [facility] Last Admin: 10/14/17 13:15 Dose: 1 applic Sertraline HCl (Zoloft -) 100 mg PO DAILY [facility] Last Admin: 10/14/17 09:56 Dose: 100 mg - Objective Vital Signs: Vital Signs Temperature 98.2 F 10/14/17 08:00 Pulse Rate 92 H 10/14/17 08:00 Respiratory Rate 18 10/14/17 08:00 Blood Pressure 130/62 10/14/17 08:00 O2 Sat by Pulse Oximetry (%) 95 10/14/17 09:00 Constitutional: Yes: No Distress, Calm Cardiovascular: Yes: Regular Rate and Rhythm Respiratory: Yes: Regular Gastrointestinal: Yes: Normal Bowel Sounds, Soft Wound/Incision: Yes: Clean/Dry, Dressing Dry and Intact Neurological: Yes: Alert Labs: CBC, BMP 10/14/17 08:05 10/14/17 08:05 INR, PTT INR 1.15 (0.82-1.09) H 10/03/17 08:00 Problem List - Problems (1) Accidental fall Code(s): W19.XXXA - UNSPECIFIED FALL, INITIAL ENCOUNTER Qualifiers: Encounter type: initial encounter Qualified Code(s): W19.XXXA - Unspecified fall, initial encounter (2) Generalized weakness Code(s): R53.1 - WEAKNESS (3) Humerus fracture Code(s): S42.309A - UNSP FRACTURE OF SHAFT OF HUMERUS, UNSP ARM, INIT Qualifiers: Encounter type: initial encounter Humerus Location: surgical neck Fracture type: closed Fracture morphology: unspecified fracture morphology Fracture alignment: displaced Laterality: left Qualified Code(s): S42.212A - Unspecified displaced fracture of surgical neck of left humerus, initial encounter for closed fracture (4) Leukocytosis Code(s): D72.829 - ELEVATED WHITE BLOOD CELL COUNT, UNSPECIFIED Assessment/Plan 76yo F s/p mechanical fall Left humerus fx, s/p ORIF , Glenohumeral joint effusion couldnt be aspirated to r/o infectious process persistent leukocytosis DM Htn hyperthyroidism schizophrenia wbc trending down, pt afebrile cont. current antibiotics for now cont. monitor wbc vitals stable at this time
--- NOTE | 2017-10-14 18:43 | PN ---
Progress Note (short form) - Note Progress Note: Patient has no new complain, no shortness of breath, her left arm pain is better but still unable to move the arm. Vital Signs Temperature 99.4 F 10/14/17 14:15 Pulse Rate 99 H 10/14/17 14:15 Respiratory Rate 17 10/14/17 14:15 Blood Pressure 146/74 10/14/17 14:15 O2 Sat by Pulse Oximetry (%) 95 10/14/17 09:00 GENERAL: The patient is awake, alert, and fully oriented, in no acute distress. HEAD: Normal with no signs of trauma. EYES: PERRL, extraocular movements intact, sclera anicteric, conjunctiva clear. ENT: Ears normal, oropharynx clear without exudates, moist mucous membranes. NECK: Trachea midline, full range of motion, supple. LUNGS: Breath sounds equal, clear to auscultation bilaterally, no wheezes, no crackles, no accessory muscle use. HEART: Regular rate and rhythm, S1, S2 without murmur, rub or gallop. ABDOMEN: Soft, nontender, nondistended, normoactive bowel sounds, no guarding, no rebound, no hepatosplenomegaly, no masses. EXTREMITIES: 2+ pulses, warm, well-perfused, Left Upper extremity in immobilizer NEUROLOGICAL: Cranial nerves II through XII grossly intact. Normal speech, gait not observed. PSYCH: Normal mood, normal affect. SKIN: Warm, dry, normal turgor, no rashes or lesions noted CBCD WBC 17.2 K/mm3 (4.0-10.0) H 10/14/17 08:05 RBC 4.16 M/mm3 (3.60-5.2) 10/14/17 08:05 Hgb 11.3 GM/dL (10.7-15.3) 10/14/17 08:05 Hct 35.7 % (32.4-45.2) 10/14/17 08:05 MCV 85.7 fl (80-96) 10/14/17 08:05 MCHC 31.7 g/dl (32.0-36.0) L 10/14/17 08:05 RDW 15.5 % (11.6-15.6) 10/14/17 08:05 Plt Count 315 K/MM3 (134-434) 10/14/17 08:05 MPV 9.4 fl (7.5-11.1) 10/14/17 08:05 CMP Sodium 139 mmol/L (136-145) 10/14/17 08:05 Potassium 4.0 mmol/L (3.5-5.1) 10/14/17 08:05 Chloride 102 mmol/L (98-107) 10/14/17 08:05 Carbon Dioxide 27 mmol/L (21-32) 10/14/17 08:05 Anion Gap 10 (8-16) 10/14/17 08:05 BUN 8 mg/dL (7-18) 10/14/17 08:05 Creatinine 0.6 mg/dL (0.55-1.02) 10/14/17 08:05 Creat Clearance w eGFR > 60 (>60) 10/14/17 08:05 Random Glucose 155 mg/dL (74-106) H 10/14/17 08:05 Calcium 8.7 mg/dL (8.5-10.1) 10/14/17 08:05 Total Bilirubin 0.3 mg/dL (0.2-1.0) D 10/14/17 08:05 AST 20 U/L (15-37) D 10/14/17 08:05 ALT 29 U/L (12-78) 10/14/17 08:05 Alkaline Phosphatase 114 U/L (45-117) 10/14/17 08:05 Total Protein 6.3 g/dl (6.4-8.2) L 10/14/17 08:05 Albumin 2.7 g/dl (3.4-5.0) L 10/14/17 08:05 CARDIAC ENZYMES Creatine Kinase 257 IU/L (26-192) H 10/02/17 16:25 Troponin I 0.02 ng/ml (0.00-0.05) 10/02/17 16:25 Current Medications Generic Name Dose Route Start Last Admin Trade Name Freq PRN Reason Stop Dose Admin Albuterol/Ipratropium 1 amp 10/07/17 00:48 10/13/17 22:28 Duoneb - NEB 1 amp Q4H PRN Administration SHORTNESS OF BREATH Aripiprazole 10 mg 10/04/17 10:00 10/14/17 09:56 Abilify PO 10 mg DAILY [facility] Administration Atorvastatin Calcium 20 mg 12/13/17 22:00 10/13/17 21:19 Lipitor - PO 20 mg HS [facility] Administration Docusate Sodium 100 mg 10/03/17 22:00 10/14/17 13:16 Colace - PO 100 mg TID [facility] Administration Enoxaparin Sodium 40 mg 10/12/17 10:00 10/14/17 09:57 Lovenox - SQ 40 mg DAILY [facility] Administration Guaifenesin 600 mg 10/09/17 10:00 10/14/17 09:56 Mucinex - PO 600 mg BID [facility] Administration Ertapenem 1 gm/ Sodium 50 mls @ 100 mls/hr 10/06/17 13:00 10/14/17 13:15 Chloride IVPB 100 mls/hr Q24H [facility] Administration Vancomycin HCl 1,250 mg/ 250 mls @ 166.667 mls/hr 10/12/17 14:00 10/14/17 13: 15 Dextrose IVPB 166.667 mls/hr DAILY@1400 [facility] Administration Protocol Insulin Aspart 1 vial 10/03/17 16:30 10/14/17 16:36 Novolog Vial Sliding Scale - SQ 8 units ACHS [facility] Administration Protocol Lisinopril 5 mg 10/10/17 10:00 10/14/17 09:56 Prinivil PO 5 mg DAILY [facility] Administration Methimazole 5 mg 10/04/17 10:00 10/14/17 09:57 Tapazole - PO 5 mg DAILY [facility] Administration Nystatin 1 applic 10/13/17 22:00 10/14/17 13:15 Nystop Powder - TP 1 applic TID [facility] Administration Sertraline HCl 100 mg 10/04/17 10:00 10/14/17 09:56 Zoloft - PO 100 mg DAILY [facility] Administration Home Medications Medication Instructions Recorded Lisinopril 10 mg PO DAILY 10/02/17 Metformin HCl 1,000 mg PO BID 10/02/17 Aripiprazole [Abilify] 10 mg PO DAILY 10/03/17 Cholecalciferol (Vitamin D3) 50,000 unit PO WEEKLY 10/03/17 [Vitamin D3] Methimazole [Tapazole] 5 mg PO DAILY 10/03/17 Sertraline HCl [Zoloft] 100 mg PO DAILY 10/03/17 Simvastatin 40 mg PO DAILY 10/03/17 CT LUE: nonspecific glenohumeral joint effusion that can be traumatic vs. infectious. Fluid accumulation in subdeltoid bursa. Fat containing lesion, 3 month f/u suggested. ASSESSMENT AND PLAN: 76 y/o lady with h/o HTN, DM, and other medical problems who presented with L arm pain after mechanical fall , she was found to have L humerus Fx # Left humerus Fx: POD 12 s/p ORIF continue pain meds. CT of upper extremity nonspecific glenohumeral joint effusion that can be traumatic vs. infectious. Fluid accumulation in subdeltoid bursa. Fat containing lesion, 3 month f/u suggested . As per IR unable to tap the effusion since it's minimal , patient continues to have leukocytosis with left shift. # Hospital acquired PNA on ertapenem and Vancomycin continue as per ID; # Acute Leukocytosis will continue to monitor, wbc is trending down from 23.7 to 22.5--> 17.4-->17.2 today will continue to monitor , on Vancomycin now as per ID # HTN: continue home lisinopril # Hyperthyroidism: cont methimazole DVT PX: heparin sq Visit type - Emergency Visit Emergency Visit: Yes ED Registration Date: 10/02/17 Care time: The patient presented to the Emergency Department on the above date and was hospitalized for further evaluation of their emergent condition. - New Patient This patient is new to me today: No - Critical Care Critical Care patient: No
[2017-10-14] MEDS: ATORVASTATIN CA 20 MG TABLET (FP) PO SCH (21:50)
[2017-10-15] MEDS: NYSTATIN POWDER 100,000 UNITS/GM - 15 GM TOPICAL POWDER TP SCH ×3 (06:11→22:46)
[2017-10-15] MEDS: DOCUSATE SODIUM 100 MG CAPSULE (FP) PO SCH ×3 (06:11→22:40)
[2017-10-15] MEDS: INSULIN SLIDING SCALE (NOVOLOG) 1 VIAL SQ SCH ×4 (06:22→22:44)
[2017-10-15] MEDS ORDERED: INSULIN (NOVOLOG) ASPART 100 UNITS/ML 10ML VIAL ONE ×2 (06:29→22:43)
[2017-10-15 09:39] LABS: HEMOGLOBIN 11.6 GM/dL (10.7-15.3); MCH 26.7 pg (25.7-33.7); MCHC 31.3 g/dl (32.0-36.0); MEAN CELL VOLUME 85.3 fl (80-96); PLATELET COUNT 331 K/MM3 (134-434); RBC 4.33 M/mm3 (3.60-5.2); RDW 15.6 % (11.6-15.6); WHITE BLOOD COUNT 25.6 K/mm3 (4.0-10.0)
[2017-10-15] MEDS ORDERED: PT OWN MED DRAWER 7, Y5N ONE ×2 (09:57→13:31)
[2017-10-15] MEDS: guaiFENesin 600 MG TABLET.ER (FP) PO SCH ×2 (10:08→22:40)
[2017-10-15] MEDS: ARIPiprazole 10 MG TABLET PO SCH (10:08)
[2017-10-15] MEDS: METHIMAZOLE 5 MG TABLET (FP) PO SCH (10:08)
[2017-10-15] MEDS: ENOXAPARIN NA (PORCINE) 40 MG/0.4 ML DISP.SYRIN SQ SCH (10:08)
[2017-10-15] MEDS: SERTRALINE HCL 50 MG TABLET (FP) PO SCH (10:08)
[2017-10-15] MEDS: LISINOPRIL 5 MG TABLET (FP) PO SCH (10:08)
[2017-10-15 10:11] LABS: ALBUMIN 2.6 g/dl (3.4-5.0); ALK PHOS 120 U/L (45-117); ANION GAP 10 (8-16); BILIRUBIN,TOTAL 0.4 mg/dL (0.2-1.0); BLOOD UREA NITROGEN 14 mg/dL (7-18); CALCIUM 8.7 mg/dL (8.5-10.1); CHLORIDE 101 mmol/L (98-107); CO2 27 mmol/L (21-32); CREATININE 0.7 mg/dL (0.55-1.02); GLUCOSE,RANDOM 193 mg/dL (74-106); POTASSIUM 3.9 mmol/L (3.5-5.1); SGOT/AST 18 U/L (15-37); SGPT/ALT 28 U/L (12-78); SODIUM 138 mmol/L (136-145); TOT PROT 6.4 g/dl (6.4-8.2)
[2017-10-15 10:39] LABS: ACANTHOCYTES 0; ANISOCYTOSIS 0; HELMET CELLS 0; HOWELL-JOLLY BODIES 0; MACROCYTOSIS 0; OVALOCYTE 0; PLATELET ESTIMATE NORMAL; SICKELED CELLS 0; TARGET CELLS 0; TEAR DROP CELLS 0; TOXIC GRANULATION 0
--- NOTE | 2017-10-15 11:08 | PN ---
Progress Note, Physician History of Present Illness: continues to have leukocytosis stable wbc has increased - Current Medication List Current Medications: Active Medications Albuterol/Ipratropium (Duoneb -) 1 amp NEB Q4H PRN PRN Reason: SHORTNESS OF BREATH Last Admin: 10/13/17 22:28 Dose: 1 amp Aripiprazole (Abilify) 10 mg PO DAILY [facility] Last Admin: 10/15/17 10:08 Dose: 10 mg Atorvastatin Calcium (Lipitor -) 20 mg PO HS [facility] Last Admin: 10/14/17 21:50 Dose: 20 mg Docusate Sodium (Colace -) 100 mg PO TID [facility] Last Admin: 10/15/17 06:11 Dose: 100 mg Enoxaparin Sodium (Lovenox -) 40 mg SQ DAILY [facility] Last Admin: 10/15/17 10:08 Dose: 40 mg Guaifenesin (Mucinex -) 600 mg PO BID [facility] Last Admin: 10/15/17 10:08 Dose: 600 mg Ertapenem 1 gm/ Sodium (Chloride) 50 mls @ 100 mls/hr IVPB Q24H [facility] Last Admin: 10/14/17 13:15 Dose: 100 mls/hr Insulin Aspart (Novolog Vial Sliding Scale -) 1 vial SQ ACHS [facility] PRN Reason: Protocol Last Admin: 10/15/17 06:22 Dose: 2 units Lisinopril (Prinivil) 5 mg PO DAILY [facility] Last Admin: 10/15/17 10:08 Dose: 5 mg Methimazole (Tapazole -) 5 mg PO DAILY [facility] Last Admin: 10/15/17 10:08 Dose: 5 mg Nystatin (Nystop Powder -) 1 applic TP TID [facility] Last Admin: 10/15/17 06:11 Dose: 1 applic Sertraline HCl (Zoloft -) 100 mg PO DAILY [facility] Last Admin: 10/15/17 10:08 Dose: 100 mg - Objective Vital Signs: Vital Signs Temperature 98.2 F 10/15/17 10:00 Pulse Rate 91 H 10/15/17 10:00 Respiratory Rate 20 10/15/17 10:00 Blood Pressure 127/61 10/15/17 10:00 O2 Sat by Pulse Oximetry (%) 95 10/14/17 21:00 Constitutional: Yes: No Distress, Calm HENT: Yes: Other (red tongue) Neck: Yes: Supple Cardiovascular: Yes: Regular Rate and Rhythm Respiratory: Yes: On Nasal O2, Other Gastrointestinal: Yes: Normal Bowel Sounds, Soft Musculoskeletal: Yes: WNL Extremities: Yes: WNL Wound/Incision: Yes: Dressing Dry and Intact Neurological: Yes: Alert, Oriented Psychiatric: Yes: Alert, Oriented Labs: CBC, BMP 10/15/17 09:15 10/15/17 09:15 INR, PTT INR 1.15 (0.82-1.09) H 10/03/17 08:00 Assessment/Plan 76yo F with PMH of htn, dm, hyperthyroidism, schizophrenia, presented s/p mechanical fall, found to have Left humerus fracture. # Left humerus fx, s/p ORIF o # fever and persistent leukocytosis # pneumonia # DM # htn # hyperthyroidism # schizophrenia patients wbc has jumped up again i think the source might be the collection other thing to check is if patient has dirrhoea---according to nursing staff she doesnt plan will stop vanco continue ertapenam see if the joint can be tapped watch the wbc if dirrhoea start oral vanco and send for cdiff
[2017-10-15] MEDS: ERTAPENEM SODIUM 1 GM in SODIUM CHLORIDE 50 ML IVPB SCH (14:05)
--- NOTE | 2017-10-15 15:18 | PN ---
Physical Exam: SUBJECTIVE: Patient seen and examined. No acute events overnight. Pt denies fevers, chills, chest pain, SOB, abdominal pain, n/v/d/c, dysuria. She endorses pain in her left arm preventing her from being able to move it, but she states that it is better than before. OBJECTIVE: Vital Signs Period Temp Pulse Resp BP Sys/Sheehan Pulse Ox Last 24 Hr 98 F-98.2 F 87-98 19-24 113-127/59-63 93-95 GENERAL: elderly female, awake, alert, and fully oriented, in no acute distress. HEENT: NC, AT LUNGS: mild wheezing and rales HEART: normal rate and rhythm, S1, S2 without murmur, rub or gallop. ABDOMEN: Soft, nontender, nondistended, normoactive bowel sounds, no guarding, no rebound, no hepatosplenomegaly, no masses. EXTREMITIES: no LE edema. LUE in sling, tender, warm to touch NEUROLOGICAL: Cranial nerves II through XII grossly intact. Normal speech, gait not observed. Laboratory Results - last 24 hr 10/14/17 10/14/17 10/15/17 16:35 21:38 05:35 WBC RBC Hgb Hct MCV MCH MCHC RDW Plt Count MPV Neutrophils % Neutrophils % (Manual) Band Neutrophils % Lymphocytes % Lymphocytes % (Manual) Monocytes % (Manual) Eosinophils % (Manual) Basophils % (Manual) Myelocytes % (Man) Metamyelocytes Hypochromia Toxic Granulation Dohle Bodies Platelet Estimate Polychromasia Poikilocytosis Basophilic Stippling Anisocytosis Microcytosis Macrocytosis Spherocytes Sickle Cells Target Cells Tear Drop Cells Ovalocytes Stomatocytes Helmet Cells Amaya-Gem Bodies [place] Rings Saravanan Cells Acanthocytes (Spur) Fragmented RBCs Schistocytes Sodium Potassium Chloride Carbon Dioxide Anion Gap BUN Creatinine Creat Clearance w eGFR POC Glucometer 307 293 195 Random Glucose Calcium Total Bilirubin AST ALT Alkaline Phosphatase Total Protein Albumin 10/15/17 10/15/17 10/15/17 09:15 09:15 11:50 WBC 25.6 H D RBC 4.33 Hgb 11.6 Hct 37.0 MCV 85.3 MCH 26.7 MCHC 31.3 L RDW 15.6 Plt Count 331 MPV 9.0 Neutrophils % No Result Required. Neutrophils % (Manual) 82.2 Band Neutrophils % 0.0 Lymphocytes % No Result Required. Lymphocytes % (Manual) 6.9 L D Monocytes % (Manual) 7 D Eosinophils % (Manual) 0.0 D Basophils % (Manual) 0.0 Myelocytes % (Man) 1 D Metamyelocytes 1 D Hypochromia 0 Toxic Granulation 0 Dohle Bodies 0 Platelet Estimate Normal Polychromasia 0 Poikilocytosis 0 Basophilic Stippling 0 Anisocytosis 0 Microcytosis 0 Macrocytosis 0 Spherocytes 0 Sickle Cells 0 Target Cells 0 Tear Drop Cells 0 Ovalocytes 0 Stomatocytes 0 Helmet Cells 0 Amaya-Gem Bodies 0 [place] Rings 0 Saravanan Cells 0 Acanthocytes (Spur) 0 Fragmented RBCs 0 Schistocytes 0 Sodium 138 Potassium 3.9 Chloride 101 Carbon Dioxide 27 Anion Gap 10 BUN 14 D Creatinine 0.7 Creat Clearance w eGFR > 60 POC Glucometer 215 Random Glucose 193 H D Calcium 8.7 Total Bilirubin 0.4 D AST 18 ALT 28 Alkaline Phosphatase 120 H Total Protein 6.4 Albumin 2.6 L Active Medications Generic Name Dose Route Start Last Admin Trade Name Freq PRN Reason Stop Dose Admin Aripiprazole 10 mg 10/04/17 10:00 10/15/17 10:08 Abilify PO 10 mg DAILY [facility] Administration Atorvastatin Calcium 20 mg 10/03/17 22:00 10/14/17 21:50 Lipitor - PO 20 mg HS [facility] Administration Docusate Sodium 100 mg 10/03/17 22:00 10/15/17 14:05 Colace - PO 100 mg TID [facility] Administration Enoxaparin Sodium 40 mg 10/12/17 10:00 10/15/17 10:08 Lovenox - SQ 40 mg DAILY [facility] Administration Guaifenesin 600 mg 10/09/17 10:00 10/15/17 10:08 Mucinex - PO 600 mg BID [facility] Administration Ertapenem 1 gm/ Sodium 50 mls @ 100 mls/hr 10/06/17 13:00 10/15/17 14:05 Chloride IVPB 100 mls/hr Q24H [facility] Administration Insulin Aspart 1 vial 10/03/17 16:30 10/15/17 12:04 Novolog Vial Sliding Scale - SQ 4 units ACHS [facility]DI Administration Protocol Lisinopril 5 mg 10/10/17 10:00 10/15/17 10:08 Prinivil PO 5 mg DAILY [facility] Administration Methimazole 5 mg 10/04/17 10:00 10/15/17 10:08 Tapazole - PO 5 mg DAILY [facility] Administration Nystatin 1 applic 10/13/17 22:00 10/15/17 14:07 Nystop Powder - TP 1 applic TID [facility] Administration Nystatin 500,000 unit 10/15/17 14:00 Mycolog - PO TID [facility] Sertraline HCl 100 mg 10/04/17 10:00 10/15/17 10:08 Zoloft - PO 100 mg DAILY [facility] Administration ASSESSMENT/PLAN: 76F w/ hx of HTN, DM, schizophrenia, hyperthyroidism and other medical problems who presented with L arm pain after mechanical fall, and was found to have L humerus Fx. Pt developed PNA in hospital, currently being treated with ertapenem , with increasing leukocytosis #L humerus Fx - POD #12 after ORIF - wound care #infection -being treated for HAP, but leukocytosis increasing. CT LUE showed nonspecific glenohumeral joint effusion that can be traumatic vs. infectious, but can't do US guided FNA of joint effusion to evaluate for infectious source as effusion is too small. - continue ertapenem. D/C vanc per ID -afebrile overnight, wbc trending up from 17 to 25 -f/u repeat Bcx, UA, Ucx, and CXR -f/u CT abdomen/pelvis to assess for infectious etiology -trend temps and wbc counts #acute respiratory failure in the setting of PNA, possible aspiration, and pulmonary edema requiring IV lasix and oxygen via venti-mask to NC- resolving -echo: mild to moderate MR, mild aortic sclerosis #HTN -continue home lisinopril #Hyperthyroidism - cont methimazole #schizophrenia -continue aripiprazole #anxiety/depression -continue sertraline #DM -continue ISS -BGM #FEN/ppx -no fluids -electrolytes wnl -diabetic/sodium diet -no GI ppx -lovenox 40 -Melchor Wolf MD PGY1 Visit type - Emergency Visit Emergency Visit: Yes ED Registration Date: 10/02/17 Care time: The patient presented to the Emergency Department on the above date and was hospitalized for further evaluation of their emergent condition. - New Patient This patient is new to me today: No - Critical Care Critical Care patient: No
[2017-10-15] MEDS: NYSTATIN 500,000 UNITS TABLET PO SCH ×2 (15:46→22:43)
--- NOTE | 2017-10-15 19:11 | PN ---
Teaching Attending Note Name of Resident: Melchor Wolf ATTENDING PHYSICIAN STATEMENT I saw and evaluated the patient. I reviewed the resident's note and discussed the case with the resident. I agree with the resident's findings and plan as documented. SUBJECTIVE: Patient is the same has no new complains. OBJECTIVE: Vital Signs Temperature 99.7 F H 10/15/17 14:15 Pulse Rate 101 H 10/15/17 14:15 Respiratory Rate 20 10/15/17 10:00 Blood Pressure 123/63 10/15/17 14:15 O2 Sat by Pulse Oximetry (%) 93 L 10/15/17 09:00 CBCD WBC 25.6 K/mm3 (4.0-10.0) H D 10/15/17 09:15 RBC 4.33 M/mm3 (3.60-5.2) 10/15/17 09:15 Hgb 11.6 GM/dL (10.7-15.3) 10/15/17 09:15 Hct 37.0 % (32.4-45.2) 10/15/17 09:15 MCV 85.3 fl (80-96) 10/15/17 09:15 MCHC 31.3 g/dl (32.0-36.0) L 10/15/17 09:15 RDW 15.6 % (11.6-15.6) 10/15/17 09:15 Plt Count 331 K/MM3 (134-434) 10/15/17 09:15 MPV 9.0 fl (7.5-11.1) 10/15/17 09:15 CMP Sodium 138 mmol/L (136-145) 10/15/17 09:15 Potassium 3.9 mmol/L (3.5-5.1) 10/15/17 09:15 Chloride 101 mmol/L (98-107) 10/15/17 09:15 Carbon Dioxide 27 mmol/L (21-32) 10/15/17 09:15 Anion Gap 10 (8-16) 10/15/17 09:15 BUN 14 mg/dL (7-18) D 10/15/17 09:15 Creatinine 0.7 mg/dL (0.55-1.02) 10/15/17 09:15 Creat Clearance w eGFR > 60 (>60) 10/15/17 09:15 Random Glucose 193 mg/dL (74-106) H D 10/15/17 09:15 Calcium 8.7 mg/dL (8.5-10.1) 10/15/17 09:15 Total Bilirubin 0.4 mg/dL (0.2-1.0) D 10/15/17 09:15 AST 18 U/L (15-37) 10/15/17 09:15 ALT 28 U/L (12-78) 10/15/17 09:15 Alkaline Phosphatase 120 U/L (45-117) H 10/15/17 09:15 Total Protein 6.4 g/dl (6.4-8.2) 10/15/17 09:15 Albumin 2.6 g/dl (3.4-5.0) L 10/15/17 09:15 CARDIAC ENZYMES Creatine Kinase 257 IU/L (26-192) H 10/02/17 16:25 Troponin I 0.02 ng/ml (0.00-0.05) 10/02/17 16:25 Current Medications Generic Name Dose Route Start Last Admin Trade Name Mark PRN Reason Stop Dose Admin Aripiprazole 10 mg 10/04/17 10:00 10/15/17 10:08 Abilify PO 10 mg DAILY [facility] Administration Atorvastatin Calcium 20 mg 10/03/17 22:00 10/14/17 21:50 Lipitor - PO 20 mg HS [facility] Administration Docusate Sodium 100 mg 10/03/17 22:00 10/15/17 14:05 Colace - PO 100 mg TID [facility] Administration Enoxaparin Sodium 40 mg 10/12/17 10:00 10/15/17 10:08 Lovenox - SQ 40 mg DAILY [facility] Administration Guaifenesin 600 mg 10/09/17 10:00 10/15/17 10:08 Mucinex - PO 600 mg BID [facility] Administration Ertapenem 1 gm/ Sodium 50 mls @ 100 mls/hr 10/06/17 13:00 10/15/17 14:05 Chloride IVPB 100 mls/hr Q24H [facility] Administration Insulin Aspart 1 vial 10/03/17 16:30 10/15/17 17:00 Novolog Vial Sliding Scale - SQ Not Given ACHS [facility] Protocol Lisinopril 5 mg 10/10/17 10:00 10/15/17 10:08 Prinivil PO 5 mg DAILY [facility] Administration Methimazole 5 mg 10/04/17 10:00 10/15/17 10:08 Tapazole - PO 5 mg DAILY [facility] Administration Nystatin 1 applic 10/13/17 22:00 10/15/17 14:07 Nystop Powder - TP 1 applic TID [facility] Administration Nystatin 500,000 unit 10/15/17 14:00 10/15/17 15:46 Mycolog - PO 500,000 unit TID [facility] Administration Sertraline HCl 100 mg 10/04/17 10:00 10/15/17 10:08 Zoloft - PO 100 mg DAILY [facility] Administration Home Medications Medication Instructions Recorded Lisinopril 10 mg PO DAILY 10/02/17 Metformin HCl 1,000 mg PO BID 10/02/17 Aripiprazole [Abilify] 10 mg PO DAILY 10/03/17 Cholecalciferol (Vitamin D3) 50,000 unit PO WEEKLY 10/03/17 [Vitamin D3] Methimazole [Tapazole] 5 mg PO DAILY 10/03/17 Sertraline HCl [Zoloft] 100 mg PO DAILY 10/03/17 Simvastatin 40 mg PO DAILY 10/03/17 PE: Left arm is in immobilizer rest of PE per resident's note CT LUE: nonspecific glenohumeral joint effusion that can be traumatic vs. infectious. Fluid accumulation in subdeltoid bursa. Fat containing lesion, 3 month f/u suggested. ASSESSMENT AND PLAN: 76 y/o lady with h/o HTN, DM, and other medical problems who presented with L arm pain after mechanical fall , she was found to have L humerus Fx # Acute Leukocytosis with left shift continues, bld culture and urine culture ordered, 23.7 to 22.5--> 17.4-->25.6 today discussed with ID will order CT abdomen and pelvis to r/o an abdominal abscess. # Left humerus Fx: POD 14 s/p ORIF continue pain meds. CT of upper extremity nonspecific glenohumeral joint effusion that can be traumatic vs. infectious. Fluid accumulation in subdeltoid bursa. Fat containing lesion, 3 month f/u suggested. # Hospital acquired PNA on ertapenem continue , discontinued Vancomycin as per ID. # HTN: continue home lisinopril # Hyperthyroidism: cont methimazole DVT PX: heparin sq
[2017-10-15] MEDS: ATORVASTATIN CA 20 MG TABLET (FP) PO SCH (22:40)
[2017-10-16] MEDS: DOCUSATE SODIUM 100 MG CAPSULE (FP) PO SCH ×3 (06:22→21:34)
[2017-10-16] MEDS: NYSTATIN 500,000 UNITS TABLET PO SCH ×4 (06:23→21:35)
[2017-10-16] MEDS: NYSTATIN POWDER 100,000 UNITS/GM - 15 GM TOPICAL POWDER TP SCH ×3 (06:23→21:35)
[2017-10-16] MEDS: INSULIN SLIDING SCALE (NOVOLOG) 1 VIAL SQ SCH ×4 (06:24→21:34)
[2017-10-16 08:26] LABS: BASO % 0.1 % (0-2.0); EOS % 2.4 % (0-4.5); HEMATOCRIT 36.9 % (32.4-45.2); HEMOGLOBIN 11.7 GM/dL (10.7-15.3); LYMPH % 7.3 % (8-40); MCH 26.9 pg (25.7-33.7); MCHC 31.6 g/dl (32.0-36.0); MONO % 4.3 % (3.8-10.2); NEUT % 85.9 % (42.8-82.8); PLATELET COUNT 378 K/MM3 (134-434); RBC 4.34 M/mm3 (3.60-5.2); RDW 16.1 % (11.6-15.6); WHITE BLOOD COUNT 22.7 K/mm3 (4.0-10.0)
[2017-10-16 08:48] LABS: ALBUMIN 2.6 g/dl (3.4-5.0); ANION GAP 7 (8-16); BILIRUBIN,TOTAL 0.6 mg/dL (0.2-1.0); BLOOD UREA NITROGEN 10 mg/dL (7-18); CALCIUM 8.5 mg/dL (8.5-10.1); CHLORIDE 102 mmol/L (98-107); CO2 27 mmol/L (21-32); CREATININE 0.7 mg/dL (0.55-1.02); GLUCOSE,RANDOM 151 mg/dL (74-106); SGOT/AST 35 U/L (15-37); SGPT/ALT 41 U/L (12-78); SODIUM 136 mmol/L (136-145); TOT PROT 6.5 g/dl (6.4-8.2)
[2017-10-16 08:49] LABS: ALK PHOS 136 U/L (45-117)
[2017-10-16] MEDS ORDERED: PT OWN MED DRAWER 7, Y5N ONE ×2 (09:11→13:46)
[2017-10-16] MEDS: ARIPiprazole 10 MG TABLET PO SCH (09:13)
[2017-10-16] MEDS: METHIMAZOLE 5 MG TABLET (FP) PO SCH (09:14)
[2017-10-16] MEDS: ENOXAPARIN NA (PORCINE) 40 MG/0.4 ML DISP.SYRIN SQ SCH (09:14)
[2017-10-16] MEDS: LISINOPRIL 5 MG TABLET (FP) PO SCH (09:14)
[2017-10-16] MEDS: guaiFENesin 600 MG TABLET.ER (FP) PO SCH ×2 (09:14→21:33)
[2017-10-16] MEDS: SERTRALINE HCL 50 MG TABLET (FP) PO SCH (09:15)
[2017-10-16] MEDS: ERTAPENEM SODIUM 1 GM in SODIUM CHLORIDE 50 ML IVPB SCH (13:50)
--- NOTE | 2017-10-16 15:06 | PN ---
Progress Note, Physician History of Present Illness: stable but continues to have high wbc abd and chest ct noted plan is for the shoulder to be reevalauted - Current Medication List Current Medications: Active Medications Aripiprazole (Abilify) 10 mg PO DAILY [facility] Last Admin: 10/16/17 09:13 Dose: 10 mg Atorvastatin Calcium (Lipitor -) 20 mg PO HS [facility] Last Admin: 10/15/17 22:40 Dose: 20 mg Docusate Sodium (Colace -) 100 mg PO TID [facility] Last Admin: 10/16/17 13:50 Dose: 100 mg Enoxaparin Sodium (Lovenox -) 40 mg SQ DAILY [facility] Last Admin: 10/16/17 09:14 Dose: 40 mg Guaifenesin (Mucinex -) 600 mg PO BID [facility] Last Admin: 10/16/17 09:14 Dose: 600 mg Ertapenem 1 gm/ Sodium (Chloride) 50 mls @ 100 mls/hr IVPB Q24H [facility] Last Admin: 10/16/17 13:50 Dose: 100 mls/hr Insulin Aspart (Novolog Vial Sliding Scale -) 1 vial SQ ACHS [facility] PRN Reason: Protocol Last Admin: 10/16/17 11:35 Dose: 4 units Lisinopril (Prinivil) 5 mg PO DAILY [facility] Last Admin: 10/16/17 09:14 Dose: 5 mg Methimazole (Tapazole -) 5 mg PO DAILY [facility] Last Admin: 10/16/17 09:14 Dose: 5 mg Nystatin (Nystop Powder -) 1 applic TP TID [facility] Last Admin: 10/16/17 13:50 Dose: 1 applic Nystatin (Mycolog -) 500,000 unit PO TID [facility] Last Admin: 10/16/17 13:50 Dose: 500,000 unit Sertraline HCl (Zoloft -) 100 mg PO DAILY [facility] Last Admin: 10/16/17 09:15 Dose: 100 mg - Objective Vital Signs: Vital Signs Temperature 98.2 F 10/16/17 08:30 Pulse Rate 95 H 10/16/17 08:30 Respiratory Rate 22 10/16/17 08:30 Blood Pressure 135/65 10/16/17 08:30 O2 Sat by Pulse Oximetry (%) 92 L 10/16/17 08:30 Constitutional: Yes: No Distress, Calm Cardiovascular: Yes: Regular Rate and Rhythm Respiratory: Yes: On Nasal O2 Gastrointestinal: Yes: Normal Bowel Sounds, Soft Musculoskeletal: Yes: WNL Extremities: Yes: WNL Integumentary: Yes: Other Wound/Incision: Yes: Clean/Dry Neurological: Yes: Alert Psychiatric: Yes: Alert Labs: CBC, BMP 10/16/17 07:00 10/16/17 07:00 INR, PTT INR 1.15 (0.82-1.09) H 10/03/17 08:00 Assessment/Plan 76yo F with PMH of htn, dm, hyperthyroidism, schizophrenia, presented s/p mechanical fall, found to have Left humerus fracture. # Left humerus fx, s/p ORIF o # fever and persistent leukocytosis # pneumonia # DM # htn # hyperthyroidism # schizophrenia patients wbc has jumped up again i think the source might be the collection other thing to check is if patient has dirrhoea---according to nursing staff she doesnt plan continue ertapenam await for u/s report if tappable fluid noted please tap the joint rest as per primary team
--- NOTE | 2017-10-16 16:17 | PN ---
Physical Exam: SUBJECTIVE: Patient seen and examined. No acute events overnight. OBJECTIVE: Vital Signs Period Temp Pulse Resp BP Sys/[place] Pulse Ox Last 24 Hr 98.2 F-99.2 F 86-95 20-22 119-140/61-70 92-94 GENERAL: elderly female, awake, alert, and fully oriented, in no acute distress. HEENT: NC, AT LUNGS: mild wheezing and rales HEART: normal rate and rhythm, S1, S2 without murmur, rub or gallop. ABDOMEN: Soft, nontender, nondistended, normoactive bowel sounds, no guarding, no rebound, no hepatosplenomegaly, no masses. EXTREMITIES: no LE edema. LUE in sling, tender, with ecchymosis, less warm to touch NEUROLOGICAL: Cranial nerves II through XII grossly intact. Normal speech, gait not observed. Laboratory Results - last 24 hr 10/15/17 10/15/17 10/16/17 16:59 22:37 05:41 WBC RBC Hgb Hct MCV MCH MCHC RDW Plt Count MPV Neutrophils % Lymphocytes % Monocytes % Eosinophils % Basophils % Sodium Potassium Chloride Carbon Dioxide Anion Gap BUN Creatinine Creat Clearance w eGFR POC Glucometer 145 184 190 Random Glucose Calcium Total Bilirubin AST ALT Alkaline Phosphatase Total Protein Albumin 10/16/17 10/16/17 10/16/17 07:00 07:00 11:29 WBC 22.7 H RBC 4.34 Hgb 11.7 Hct 36.9 MCV 85.0 MCH 26.9 MCHC 31.6 L RDW 16.1 H Plt Count 378 MPV 9.0 Neutrophils % 85.9 H Lymphocytes % 7.3 L D Monocytes % 4.3 Eosinophils % 2.4 Basophils % 0.1 Sodium 136 Potassium 4.0 Chloride 102 Carbon Dioxide 27 Anion Gap 7 L BUN 10 D Creatinine 0.7 Creat Clearance w eGFR > 60 POC Glucometer 221 Random Glucose 151 H D Calcium 8.5 Total Bilirubin 0.6 D AST 35 D ALT 41 D Alkaline Phosphatase 136 H Total Protein 6.5 Albumin 2.6 L Active Medications Generic Name Dose Route Start Last Admin Trade Name Freq PRN Reason Stop Dose Admin Aripiprazole 10 mg 10/04/17 10:00 10/16/17 09:13 Abilify PO 10 mg DAILY [facility]DI Administration Atorvastatin Calcium 20 mg 10/03/17 22:00 10/15/17 22:40 Lipitor - PO 20 mg HS MAGDI Administration Docusate Sodium 100 mg 10/03/17 22:00 10/16/17 13:50 Colace - PO 100 mg TID MAGDI Administration Enoxaparin Sodium 40 mg 10/12/17 10:00 10/16/17 09:14 Lovenox - SQ 40 mg DAILY [facility]DI Administration Guaifenesin 600 mg 10/09/17 10:00 10/16/17 09:14 Mucinex - PO 600 mg BID [facility]DI Administration Ertapenem 1 gm/ Sodium 50 mls @ 100 mls/hr 10/06/17 13:00 10/16/17 13:50 Chloride IVPB 100 mls/hr Q24H [facility]DI Administration Insulin Aspart 1 vial 10/03/17 16:30 10/16/17 11:35 Novolog Vial Sliding Scale - SQ 4 units ACHS MAGDI Administration Protocol Lisinopril 5 mg 10/10/17 10:00 10/16/17 09:14 Prinivil PO 5 mg DAILY [facility]DI Administration Methimazole 5 mg 10/04/17 10:00 10/16/17 09:14 Tapazole - PO 5 mg DAILY [facility]DI Administration Nystatin 1 applic 10/13/17 22:00 10/16/17 13:50 Nystop Powder - TP 1 applic TID [facility]DI Administration Nystatin 500,000 unit 10/15/17 14:00 10/16/17 13:50 Mycolog - PO 500,000 unit TID [facility]DI Administration Sertraline HCl 100 mg 10/04/17 10:00 10/16/17 09:15 Zoloft - PO 100 mg DAILY [facility]DI Administration ASSESSMENT/PLAN: 76F w/ hx of HTN, DM, schizophrenia, hyperthyroidism and other medical problems who presented with L arm pain after mechanical fall, and was found to have L humerus Fx. s/p ORIF. Pt developed PNA in hospital, currently being treated with ertapenem, with increasing leukocytosis #L humerus Fx - POD #13 after ORIF - wound care #infection -being treated for HAP, but leukocytosis increasing. CT LUE showed nonspecific glenohumeral joint effusion that can be traumatic vs. infectious, but can't do US guided FNA of joint effusion to evaluate for infectious source as effusion is too small. - continue ertapenem per ID -afebrile overnight, wbc trending down from 25 to 22.7 -Bcx: pending -f/u UA, Ucx -CXR: decreased congestion. fluid in horizontal fissure -CT abdomen/pelvis: b/l lower lobe consolidations, no intra-abdominal abscesses -trend temps and wbc counts -f/u US and doppler of LUE to r/o abscess, increasing effusion, and DVT #acute respiratory failure in the setting of PNA, possible aspiration, and pulmonary edema requiring IV lasix and oxygen via venti-mask to NC- resolving -echo: mild to moderate MR, mild aortic sclerosis #HTN -continue home lisinopril #Hyperthyroidism - cont methimazole #schizophrenia -continue aripiprazole #anxiety/depression -continue sertraline #DM -continue ISS -BGM #FEN/ppx -no fluids -electrolytes wnl -diabetic/sodium diet -no GI ppx -lovenox 40 -Melchor Wolf MD PGY1 Visit type - Emergency Visit Emergency Visit: Yes ED Registration Date: 10/02/17 Care time: The patient presented to the Emergency Department on the above date and was hospitalized for further evaluation of their emergent condition. - New Patient This patient is new to me today: No - Critical Care Critical Care patient: No
--- NOTE | 2017-10-16 19:12 | PN ---
Teaching Attending Note Name of Resident: Melchor Wolf ATTENDING PHYSICIAN STATEMENT I saw and evaluated the patient. I reviewed the resident's note and discussed the case with the resident. I agree with the resident's findings and plan as documented. SUBJECTIVE: Patient is the same, pain is better on the left upper extremity in the immobilizer, no shortness of breath. OBJECTIVE: Vital Signs Temperature 98.5 F 10/16/17 15:48 Pulse Rate 91 H 10/16/17 15:48 Respiratory Rate 22 10/16/17 15:48 Blood Pressure 140/70 10/16/17 15:48 O2 Sat by Pulse Oximetry (%) 92 L 10/16/17 10:00 CBCD WBC 22.7 K/mm3 (4.0-10.0) H 10/16/17 07:00 RBC 4.34 M/mm3 (3.60-5.2) 10/16/17 07:00 Hgb 11.7 GM/dL (10.7-15.3) 10/16/17 07:00 Hct 36.9 % (32.4-45.2) 10/16/17 07:00 MCV 85.0 fl (80-96) 10/16/17 07:00 MCHC 31.6 g/dl (32.0-36.0) L 10/16/17 07:00 RDW 16.1 % (11.6-15.6) H 10/16/17 07:00 Plt Count 378 K/MM3 (134-434) 10/16/17 07:00 MPV 9.0 fl (7.5-11.1) 10/16/17 07:00 CMP Sodium 136 mmol/L (136-145) 10/16/17 07:00 Potassium 4.0 mmol/L (3.5-5.1) 10/16/17 07:00 Chloride 102 mmol/L (98-107) 10/16/17 07:00 Carbon Dioxide 27 mmol/L (21-32) 10/16/17 07:00 Anion Gap 7 (8-16) L 10/16/17 07:00 BUN 10 mg/dL (7-18) D 10/16/17 07:00 Creatinine 0.7 mg/dL (0.55-1.02) 10/16/17 07:00 Creat Clearance w eGFR > 60 (>60) 10/16/17 07:00 Random Glucose 151 mg/dL (74-106) H D 10/16/17 07:00 Calcium 8.5 mg/dL (8.5-10.1) 10/16/17 07:00 Total Bilirubin 0.6 mg/dL (0.2-1.0) D 10/16/17 07:00 AST 35 U/L (15-37) D 10/16/17 07:00 ALT 41 U/L (12-78) D 10/16/17 07:00 Alkaline Phosphatase 136 U/L (45-117) H 10/16/17 07:00 Total Protein 6.5 g/dl (6.4-8.2) 10/16/17 07:00 Albumin 2.6 g/dl (3.4-5.0) L 10/16/17 07:00 CARDIAC ENZYMES Creatine Kinase 257 IU/L (26-192) H 10/02/17 16:25 Troponin I 0.02 ng/ml (0.00-0.05) 10/02/17 16:25 Current Medications Generic Name Dose Route Start Last Admin Trade Name Freq PRN Reason Stop Dose Admin Aripiprazole 10 mg 10/04/17 10:00 10/16/17 09:13 Abilify PO 10 mg DAILY MAGDI Administration Atorvastatin Calcium 20 mg 10/03/17 22:00 10/15/17 22:40 Lipitor - PO 20 mg HS MAGDI Administration Docusate Sodium 100 mg 10/03/17 22:00 10/16/17 13:50 Colace - PO 100 mg TID MAGDI Administration Enoxaparin Sodium 40 mg 10/12/17 10:00 10/16/17 09:14 Lovenox - SQ 40 mg DAILY MAGDI Administration Guaifenesin 600 mg 10/09/17 10:00 10/16/17 09:14 Mucinex - PO 600 mg BID MAGDI Administration Ertapenem 1 gm/ Sodium 50 mls @ 100 mls/hr 10/06/17 13:00 10/16/17 13:50 Chloride IVPB 100 mls/hr Q24H [facility]DI Administration Insulin Aspart 1 vial 10/03/17 16:30 10/16/17 17:04 Novolog Vial Sliding Scale - SQ 4 units ACHS MAGDI Administration Protocol Lisinopril 5 mg 10/10/17 10:00 10/16/17 09:14 Prinivil PO 5 mg DAILY MAGDI Administration Methimazole 5 mg 10/04/17 10:00 10/16/17 09:14 Tapazole - PO 5 mg DAILY [facility]DI Administration Nystatin 1 applic 10/13/17 22:00 10/16/17 13:50 Nystop Powder - TP 1 applic TID MAGDI Administration Nystatin 500,000 unit 10/15/17 14:00 10/16/17 13:50 Mycolog - PO 500,000 unit TID [facility]DI Administration Sertraline HCl 100 mg 10/04/17 10:00 10/16/17 09:15 Zoloft - PO 100 mg DAILY MAGDI Administration Home Medications Medication Instructions Recorded Lisinopril 10 mg PO DAILY 10/02/17 Metformin HCl 1,000 mg PO BID 10/02/17 Aripiprazole [Abilify] 10 mg PO DAILY 10/03/17 Cholecalciferol (Vitamin D3) 50,000 unit PO WEEKLY 10/03/17 [Vitamin D3] Methimazole [Tapazole] 5 mg PO DAILY 10/03/17 Sertraline HCl [Zoloft] 100 mg PO DAILY 10/03/17 Simvastatin 40 mg PO DAILY 10/03/17 PE: left upper extremity in immobilizer lips: upper lip positive for nonspecific lesion rest of PE per resident's note Microbiology 10/15/17 18:10 Blood - Peripheral Venous Blood Culture - Preliminary NO GROWTH OBTAINED AFTER 24 HOURS, INCUBATION TO CONTINUE FOR 4 DAYS. 10/15/17 18:10 Blood - Peripheral Venous Blood Culture - Preliminary NO GROWTH OBTAINED AFTER 24 HOURS, INCUBATION TO CONTINUE FOR 4 DAYS. 10/09/17 14:55 Blood - Peripheral Venous Blood Culture - Final NO GROWTH AFTER 5 DAYS INCUBATION 10/09/17 13:40 Blood - Peripheral Venous Blood Culture - Final NO GROWTH AFTER 5 DAYS INCUBATION 10/05/17 20:45 Blood - Peripheral Venous Blood Culture - Final NO GROWTH AFTER 5 DAYS INCUBATION 10/05/17 20:45 Blood - Peripheral Venous Blood Culture - Final NO GROWTH AFTER 5 DAYS INCUBATION 10/06/17 17:30 Urine - Urine - Catheterized Urine Culture - Final NO GROWTH OBTAINED 10/02/17 20:40 Urine - Urine Clean Catch Urine Culture - Final NO GROWTH OBTAINED ASSESSMENT AND PLAN: 76 y/o lady with h/o HTN, DM, and other medical problems who presented with L arm pain after mechanical fall , she was found to have L humerus Fx # Acute Leukocytosis with left shift continues, bld culture and urine culture ordered, 23.7 to 22.5--> 17.4-->25.6-->22.7 today discussed with ID , will get US of left arm US : limited study no abscess , duplex ordered to r/o DVT . CT abdomen and pelvis: no abscess. urine was not done since patient has incontinence , ordered straight cath UA, urine culture # Left humerus Fx: POD 15 s/p ORIF continue pain meds. CT of upper extremity nonspecific glenohumeral joint effusion that can be traumatic vs. infectious. Fluid accumulation in subdeltoid bursa. Fat containing lesion, 3 month f/u suggested. # Hospital acquired PNA on ertapenem continue , discontinued Vancomycin as per ID. # HTN: continue home lisinopril # Hyperthyroidism: cont methimazole DVT PX: heparin sq
[2017-10-16] MEDS ORDERED: INSULIN (NOVOLOG) ASPART 100 UNITS/ML 10ML VIAL ONE (21:32)
[2017-10-16] MEDS: ATORVASTATIN CA 20 MG TABLET (FP) PO SCH (21:33)
[2017-10-17 00:26] LABS: URINE APPEARANCE CLEAR; URINE BILIRUBIN NEGATIVE (NEGATIVE); URINE BLOOD NEGATIVE (NEGATIVE); URINE COLOR YELLOW; URINE GLUCOSE (UA) NEGATIVE (NEGATIVE); URINE KETONE NEGATIVE (NEGATIVE); URINE LEUK ESTERASE NEGATIVE (NEGATIVE); URINE NITRITE NEGATIVE (NEGATIVE); URINE PROTEIN NEGATIVE (NEGATIVE); URINE UROBILINOGEN NEGATIVE mg/dL (0.2-1.0)
[2017-10-17] MEDS: DOCUSATE SODIUM 100 MG CAPSULE (FP) PO SCH ×3 (05:53→21:18)
[2017-10-17] MEDS: NYSTATIN POWDER 100,000 UNITS/GM - 15 GM TOPICAL POWDER TP SCH ×3 (05:54→21:18)
[2017-10-17] MEDS: NYSTATIN 500,000 UNITS TABLET PO SCH ×3 (05:54→21:20)
[2017-10-17] MEDS: INSULIN SLIDING SCALE (NOVOLOG) 1 VIAL SQ SCH ×4 (06:32→21:17)
[2017-10-17] MEDS ORDERED: INSULIN (NOVOLOG) ASPART 100 UNITS/ML 10ML VIAL ONE ×3 (06:37→21:16)
[2017-10-17 08:58] LABS: BASO % 0.2 % (0-2.0); EOS % 3.9 % (0-4.5); HEMATOCRIT 35.8 % (32.4-45.2); HEMOGLOBIN 11.3 GM/dL (10.7-15.3); LYMPH % 10.6 % (8-40); MCH 26.8 pg (25.7-33.7); MCHC 31.5 g/dl (32.0-36.0); MEAN CELL VOLUME 85.2 fl (80-96); MEAN PLT VOLUME 8.9 fl (7.5-11.1); NEUT % 81.3 % (42.8-82.8); PLATELET COUNT 368 K/MM3 (134-434); RDW 15.8 % (11.6-15.6); WHITE BLOOD COUNT 17.1 K/mm3 (4.0-10.0)
[2017-10-17 09:15] LABS: ALBUMIN 2.5 g/dl (3.4-5.0); ANION GAP 7 (8-16); BLOOD UREA NITROGEN 9 mg/dL (7-18); CALCIUM 8.3 mg/dL (8.5-10.1); CHLORIDE 105 mmol/L (98-107); CO2 26 mmol/L (21-32); CREATININE 0.6 mg/dL (0.55-1.02); GLUCOSE,RANDOM 112 mg/dL (74-106); MAGNESIUM 2.3 mg/dL (1.8-2.4); PHOSPHOROUS 3.4 mg/dL (2.5-4.9); POTASSIUM 4.1 mmol/L (3.5-5.1); SGOT/AST 44 U/L (15-37); SGPT/ALT 58 U/L (12-78); SODIUM 138 mmol/L (136-145)
[2017-10-17 09:17] LABS: ALK PHOS 141 U/L (45-117); BILIRUBIN,TOTAL 0.5 mg/dL (0.2-1.0); TOT PROT 6.5 g/dl (6.4-8.2)
[2017-10-17] MEDS ORDERED: PT OWN MED DRAWER 7, Y5N ONE ×3 (11:30→21:20)
[2017-10-17] MEDS: SERTRALINE HCL 50 MG TABLET (FP) PO SCH (11:34)
[2017-10-17] MEDS: guaiFENesin 600 MG TABLET.ER (FP) PO SCH ×2 (11:34→21:18)
[2017-10-17] MEDS: METHIMAZOLE 5 MG TABLET (FP) PO SCH (11:34)
[2017-10-17] MEDS: ENOXAPARIN NA (PORCINE) 40 MG/0.4 ML DISP.SYRIN SQ SCH (11:34)
[2017-10-17] MEDS: LISINOPRIL 5 MG TABLET (FP) PO SCH (11:34)
[2017-10-17] MEDS: ARIPiprazole 10 MG TABLET PO SCH (11:35)
[2017-10-17] MEDS: ERTAPENEM SODIUM 1 GM in SODIUM CHLORIDE 50 ML IVPB SCH (14:21)
--- NOTE | 2017-10-17 16:24 | PN ---
Progress Note, Physician History of Present Illness: patient c/o pain the shoulder joint unable to move her shoulder - Current Medication List Current Medications: Active Medications Aripiprazole (Abilify) 10 mg PO DAILY [facility] Last Admin: 10/17/17 11:35 Dose: 10 mg Atorvastatin Calcium (Lipitor -) 20 mg PO HS [facility] Last Admin: 10/16/17 21:33 Dose: 20 mg Docusate Sodium (Colace -) 100 mg PO TID [facility] Last Admin: 10/17/17 13:36 Dose: 100 mg Enoxaparin Sodium (Lovenox -) 40 mg SQ DAILY [facility] Last Admin: 10/17/17 11:34 Dose: 40 mg Guaifenesin (Mucinex -) 600 mg PO BID [facility] Last Admin: 10/17/17 11:34 Dose: 600 mg Insulin Aspart (Novolog Vial Sliding Scale -) 1 vial SQ ACHS [facility] PRN Reason: Protocol Last Admin: 10/17/17 11:42 Dose: 2 units Lisinopril (Prinivil) 5 mg PO DAILY [facility] Last Admin: 10/17/17 11:34 Dose: 5 mg Methimazole (Tapazole -) 5 mg PO DAILY [facility] Last Admin: 10/17/17 11:34 Dose: 5 mg Nystatin (Nystop Powder -) 1 applic TP TID [facility] Last Admin: 10/17/17 13:37 Dose: 1 applic Nystatin (Mycolog -) 500,000 unit PO TID [facility] Last Admin: 10/17/17 13:36 Dose: 500,000 unit Sertraline HCl (Zoloft -) 100 mg PO DAILY [facility] Last Admin: 10/17/17 11:34 Dose: 100 mg - Objective Vital Signs: Vital Signs Temperature 98.5 F 10/17/17 14:57 Pulse Rate 99 H 10/17/17 14:57 Respiratory Rate 20 10/17/17 14:57 Blood Pressure 132/67 10/17/17 14:57 O2 Sat by Pulse Oximetry (%) 95 10/17/17 09:00 Constitutional: Yes: Calm, Mild Distress Cardiovascular: Yes: Regular Rate and Rhythm Respiratory: Yes: Regular, CTA Bilaterally Gastrointestinal: Yes: Normal Bowel Sounds, Soft Musculoskeletal: Yes: Other Extremities: Yes: Other (left shoulder pain not able to move the shoulder) Wound/Incision: Yes: Dressing Dry and Intact Neurological: Yes: Alert, Oriented Psychiatric: Yes: Alert, Oriented Labs: CBC, BMP 10/17/17 06:00 10/17/17 06:00 INR, PTT INR 1.15 (0.82-1.09) H 10/03/17 08:00 Assessment/Plan 76yo F with PMH of htn, dm, hyperthyroidism, schizophrenia, presented s/p mechanical fall, found to have Left humerus fracture. # Left humerus fx, s/p ORIF o # fever and persistent leukocytosis # pneumonia # DM # htn # hyperthyroidism # schizophrenia wbc down plan will stop all abx esr crp patient definitely need physio of shoulder or she will get a frozen shoulder will see how patient does without abx out of bed
--- NOTE | 2017-10-17 17:49 | PN ---
Physical Exam: SUBJECTIVE: Patient seen and examined. No acute events overnight. Pt denies any new subjective complaints. She still endorses LUE pain upon movement. OBJECTIVE: Vital Signs Period Temp Pulse Resp BP Sys/[place] Pulse Ox Last 24 Hr 97.8 F-98.9 F 78-99 20-21 110-142/58-78 94-95 GENERAL: elderly female, awake, alert, and fully oriented, in no acute distress. HEENT: NC, AT LUNGS: mild wheezing and rales HEART: normal rate and rhythm, S1, S2 without murmur, rub or gallop. ABDOMEN: Soft, nontender, nondistended, normoactive bowel sounds, no guarding, no rebound, no hepatosplenomegaly, no masses. EXTREMITIES: no LE edema. LUE in sling, tender, with ecchymosis, less warm to touch NEUROLOGICAL: Cranial nerves II through XII grossly intact. Normal speech, gait not observed. Laboratory Results - last 24 hr 10/16/17 10/16/17 10/17/17 21:30 22:30 05:35 WBC RBC Hgb Hct MCV MCH MCHC RDW Plt Count MPV Neutrophils % Lymphocytes % Monocytes % Eosinophils % Basophils % Sodium Potassium Chloride Carbon Dioxide Anion Gap BUN Creatinine Creat Clearance w eGFR POC Glucometer 163 258 Random Glucose Calcium Phosphorus Magnesium Total Bilirubin AST ALT Alkaline Phosphatase Total Protein Albumin Urine Color Yellow Urine Appearance Clear Urine pH 5.0 Ur Specific [place] 1.035 Urine Protein Negative Urine Glucose (UA) Negative Urine Ketones Negative Urine Blood Negative Urine Nitrite Negative Urine Bilirubin Negative Urine Urobilinogen Negative Ur Leukocyte Esterase Negative 10/17/17 10/17/17 10/17/17 06:00 06:00 11:36 WBC 17.1 H RBC 4.20 Hgb 11.3 Hct 35.8 MCV 85.2 MCH 26.8 MCHC 31.5 L RDW 15.8 H Plt Count 368 MPV 8.9 Neutrophils % 81.3 Lymphocytes % 10.6 D Monocytes % 4.0 Eosinophils % 3.9 Basophils % 0.2 Sodium 138 Potassium 4.1 Chloride 105 Carbon Dioxide 26 Anion Gap 7 L BUN 9 Creatinine 0.6 Creat Clearance w eGFR > 60 POC Glucometer 174 Random Glucose 112 H D Calcium 8.3 L Phosphorus 3.4 Magnesium 2.3 Total Bilirubin 0.5 AST 44 H D ALT 58 D Alkaline Phosphatase 141 H Total Protein 6.5 Albumin 2.5 L Urine Color Urine Appearance Urine pH Ur Specific [place] Urine Protein Urine Glucose (UA) Urine Ketones Urine Blood Urine Nitrite Urine Bilirubin Urine Urobilinogen Ur Leukocyte Esterase 10/17/17 17:06 WBC RBC Hgb Hct MCV MCH MCHC RDW Plt Count MPV Neutrophils % Lymphocytes % Monocytes % Eosinophils % Basophils % Sodium Potassium Chloride Carbon Dioxide Anion Gap BUN Creatinine Creat Clearance w eGFR POC Glucometer 129 Random Glucose Calcium Phosphorus Magnesium Total Bilirubin AST ALT Alkaline Phosphatase Total Protein Albumin Urine Color Urine Appearance Urine pH Ur Specific [place] Urine Protein Urine Glucose (UA) Urine Ketones Urine Blood Urine Nitrite Urine Bilirubin Urine Urobilinogen Ur Leukocyte Esterase Active Medications Generic Name Dose Route Start Last Admin Trade Name Freq PRN Reason Stop Dose Admin Aripiprazole 10 mg 10/04/17 10:00 10/17/17 11:35 Abilify PO 10 mg DAILY [facility]DI Administration Atorvastatin Calcium 20 mg 10/03/17 22:00 10/16/17 21:33 Lipitor - PO 20 mg HS MAGDI Administration Docusate Sodium 100 mg 10/03/17 22:00 10/17/17 13:36 Colace - PO 100 mg TID MAGDI Administration Enoxaparin Sodium 40 mg 10/12/17 10:00 10/17/17 11:34 Lovenox - SQ 40 mg DAILY MAGDI Administration Guaifenesin 600 mg 10/09/17 10:00 10/17/17 11:34 Mucinex - PO 600 mg BID MAGDI Administration Insulin Aspart 1 vial 10/03/17 16:30 10/17/17 17:07 Novolog Vial Sliding Scale - SQ Not Given [facility] Protocol Lisinopril 5 mg 10/10/17 10:00 10/17/17 11:34 Prinivil PO 5 mg DAILY [facility]DI Administration Methimazole 5 mg 10/04/17 10:00 10/17/17 11:34 Tapazole - PO 5 mg DAILY [facility]DI Administration Nystatin 1 applic 10/13/17 22:00 10/17/17 13:37 Nystop Powder - TP 1 applic TID [facility]DI Administration Nystatin 500,000 unit 10/15/17 14:00 10/17/17 13:36 Mycolog - PO 500,000 unit TID [facility]DI Administration Sertraline HCl 100 mg 10/04/17 10:00 10/17/17 11:34 Zoloft - PO 100 mg DAILY [facility]DI Administration US LUE: very limited exam due to inability to move arm. no abscess identified. doppler unable to be done. ASSESSMENT/PLAN: 76F w/ hx of HTN, DM, schizophrenia, hyperthyroidism and other medical problems who presented with L arm pain after mechanical fall, and was found to have L humerus Fx. s/p ORIF. Pt developed PNA in hospital, currently being treated with ertapenem, with increasing leukocytosis #L humerus Fx - POD #14 after ORIF - wound care #infection -being treated for HAP, but leukocytosis increasing. CT LUE showed nonspecific glenohumeral joint effusion that can be traumatic vs. infectious, but can't do US guided FNA of joint effusion to evaluate for infectious source as effusion is too small. -lab called to determine pt's baseline wbc count. Pt had wbc counts of 12 and 14 between [id number]. - per ID, ertapenem stopped. Will see how pt does off of all abx -afebrile overnight, wbc trending down from 22.7 to 17 -Bcx: no growth x 24h -UA: negative -Ucx: pending -CT abdomen/pelvis: b/l lower lobe consolidations, no intra-abdominal abscesses -trend temps and wbc counts #acute respiratory failure in the setting of PNA, possible aspiration, and pulmonary edema requiring IV lasix and oxygen via venti-mask to NC- resolving -echo: mild to moderate MR, mild aortic sclerosis #HTN -continue home lisinopril #Hyperthyroidism - cont methimazole #schizophrenia -continue aripiprazole #anxiety/depression -continue sertraline #DM -continue ISS -BGM #FEN/ppx -no fluids -electrolytes wnl -diabetic/sodium diet -no GI ppx -lovenox 40 -Melchor Wolf MD PGY1 Visit type - Emergency Visit Emergency Visit: Yes ED Registration Date: 10/02/17 Care time: The patient presented to the Emergency Department on the above date and was hospitalized for further evaluation of their emergent condition. - New Patient This patient is new to me today: No - Critical Care Critical Care patient: No
--- NOTE | 2017-10-17 18:44 | PN ---
Teaching Attending Note Name of Resident: Melchor Wolf ATTENDING PHYSICIAN STATEMENT I saw and evaluated the patient. I reviewed the resident's note and discussed the case with the resident. I agree with the resident's findings and plan as documented. SUBJECTIVE: No fever or chills . has no abd pain or SOB . pain and discomfort in LUE OBJECTIVE: NAD Cv: RRR Lungs: bilateral crackles at bases . good air entry Ext: LUE in a sling, a surgical wound with well healing scar , and resolution of bruising. No erythema . . radial pulse 2+ , nl sensation and hand movement ASSESSMENT AND PLAN: 76 y/o lady with h/o HTN, DM, and other medical problems who presented with L arm pain after mechanical fall , she was found to have L humerus Fx 1- Persistent leukocytosis: no clear etiology. PNA was treated with ertapenem , vanco did not help, CT Abd/Pelvis, and LUE with no source - lab called and reported WBC of 12-14 in 2016, and 17 - agree with ID , stop Abx and monitor 2- L humerus Fx : cont to monitor . 3- HTN: cont lisinopril 4- hyperthyroidism: cont methimazole DVT px
[2017-10-17] MEDS: ATORVASTATIN CA 20 MG TABLET (FP) PO SCH (21:18)
[2017-10-18] MEDS: NYSTATIN 500,000 UNITS TABLET PO SCH ×3 (05:58→21:56)
[2017-10-18] MEDS: DOCUSATE SODIUM 100 MG CAPSULE (FP) PO SCH ×3 (05:58→21:55)
[2017-10-18] MEDS: NYSTATIN POWDER 100,000 UNITS/GM - 15 GM TOPICAL POWDER TP SCH ×3 (05:58→21:57)
[2017-10-18] MEDS: INSULIN SLIDING SCALE (NOVOLOG) 1 VIAL SQ SCH ×4 (06:23→21:55)
[2017-10-18] MEDS ORDERED: INSULIN (NOVOLOG) ASPART 100 UNITS/ML 10ML VIAL ONE ×2 (06:35→11:11)
[2017-10-18 08:10] LABS: BASO % 0.1 % (0-2.0); HEMATOCRIT 35.2 % (32.4-45.2); HEMOGLOBIN 11.1 GM/dL (10.7-15.3); LYMPH % 12.7 % (8-40); MCH 26.9 pg (25.7-33.7); MCHC 31.6 g/dl (32.0-36.0); MEAN CELL VOLUME 85.1 fl (80-96); MEAN PLT VOLUME 8.9 fl (7.5-11.1); MONO % 4.4 % (3.8-10.2); NEUT % 78.8 % (42.8-82.8); PLATELET COUNT 373 K/MM3 (134-434); RBC 4.14 M/mm3 (3.60-5.2); RDW 15.5 % (11.6-15.6); WHITE BLOOD COUNT 14.8 K/mm3 (4.0-10.0)
[2017-10-18 08:12] LABS: ANION GAP 7 (8-16); BLOOD UREA NITROGEN 9 mg/dL (7-18); CALCIUM 8.4 mg/dL (8.5-10.1); CHLORIDE 103 mmol/L (98-107); CO2 28 mmol/L (21-32); GLUCOSE,RANDOM 152 mg/dL (74-106); POTASSIUM 4.4 mmol/L (3.5-5.1); SODIUM 138 mmol/L (136-145)
[2017-10-18 08:13] LABS: CREATININE 0.7 mg/dL (0.55-1.02)
[2017-10-18] MEDS ORDERED: PT OWN MED DRAWER 7, Y5N ONE ×2 (09:49→15:02)
[2017-10-18] MEDS: SERTRALINE HCL 50 MG TABLET (FP) PO SCH (09:55)
[2017-10-18] MEDS: guaiFENesin 600 MG TABLET.ER (FP) PO SCH ×2 (09:55→21:56)
[2017-10-18] MEDS: METHIMAZOLE 5 MG TABLET (FP) PO SCH (09:55)
[2017-10-18] MEDS: ENOXAPARIN NA (PORCINE) 40 MG/0.4 ML DISP.SYRIN SQ SCH (09:55)
[2017-10-18] MEDS: ARIPiprazole 10 MG TABLET PO SCH (09:55)
[2017-10-18] MEDS: LISINOPRIL 5 MG TABLET (FP) PO SCH (09:55)
[2017-10-18] MEDS: VITAMIN B COMPLEX W/C COMBO TABLET (FP) PO SCH (11:15)
--- NOTE | 2017-10-18 13:46 | PN ---
Teaching Attending Note Name of Resident: Melchor Wolf ATTENDING PHYSICIAN STATEMENT I saw and evaluated the patient. I reviewed the resident's note and discussed the case with the resident. I agree with the resident's findings and plan as documented. SUBJECTIVE: no fever or chills, denies any pain. had BM yesterday, no diarrhea OBJECTIVE: NAD , erythema and crusting around mouth angles , and upper lip. Cv: RRR Lungs: bilateral crackles at bases much improved . good air entry Ext: LUE in a sling, a surgical wound with well healing scar , and resolution of bruising. No erythema . . radial pulse 2+ , nl sensation and hand movement . ASSESSMENT AND PLAN: 76 y/o lady with h/o HTN, DM, and other medical problems who presented with L arm pain after mechanical fall , she was found to have L humerus Fx 1- Persistent leukocytosis: after treating PNA . - improved WBC off ABx today. - base line WBC 12-14 as outpt - monitor off Abx - ESR slightly elevated and CRP is elevated. will need to follow off abx in 1 week 2- Angular cheilitis : possible Vit B def. also with possible superimposed bacterial infection. possible herpis simplex lesions - start B comples - apply topical bacitracin 3- L humerus Fx: cont to monitor . 4- HTN: cont lisinopril 5- hyperthyroidism: cont methimazole DVT px cont PT. might be ready for dc on Sunday
[2017-10-18] MEDS: BACITRACIN 15 GM TUBE TOPICAL OINTMENT TP SCH ×2 (15:00→21:57)
--- NOTE | 2017-10-18 17:37 | PN ---
Physical Exam: SUBJECTIVE: Patient seen and examined No acute events overnight. Pt denies any new subjective complaints. She still endorses LUE pain upon movement, but it is slightly improved compared to yesterday. OBJECTIVE: Vital Signs Period Temp Pulse Resp BP Sys/Sheehan Pulse Ox Last 24 Hr 97.8 F-99 F 88-98 20-20 111-148/60-70 94-95 GENERAL: elderly female, awake, alert, and fully oriented, in no acute distress. HEENT: NC, AT LUNGS: decreased wheezing and rales HEART: normal rate and rhythm, S1, S2 without murmur, rub or gallop. ABDOMEN: Soft, nontender, nondistended, normoactive bowel sounds, no guarding, no rebound, no hepatosplenomegaly, no masses. EXTREMITIES: no LE edema. LUE in immobilizer, non-tender, with ecchymosis, less warm to touch NEUROLOGICAL: Cranial nerves II through XII grossly intact. Normal speech, gait not observed. Laboratory Results - last 24 hr 10/17/17 10/17/17 10/17/17 16:30 16:30 17:06 WBC RBC Hgb Hct MCV MCH MCHC RDW Plt Count MPV Neutrophils % Lymphocytes % Monocytes % Eosinophils % Basophils % ESR 68 H Sodium Potassium Chloride Carbon Dioxide Anion Gap BUN Creatinine POC Glucometer 129 Random Glucose Calcium C-Reactive Protein 6.8 H 10/17/17 10/18/17 10/18/17 20:55 05:15 06:00 WBC 14.8 H RBC 4.14 Hgb 11.1 Hct 35.2 MCV 85.1 MCH 26.9 MCHC 31.6 L RDW 15.5 Plt Count 373 MPV 8.9 Neutrophils % 78.8 Lymphocytes % 12.7 Monocytes % 4.4 Eosinophils % 4.0 Basophils % 0.1 ESR Sodium Potassium Chloride Carbon Dioxide Anion Gap BUN Creatinine POC Glucometer 247 188 Random Glucose Calcium C-Reactive Protein 10/18/17 10/18/17 06:00 11:07 WBC RBC Hgb Hct MCV MCH MCHC RDW Plt Count MPV Neutrophils % Lymphocytes % Monocytes % Eosinophils % Basophils % ESR Sodium 138 Potassium 4.4 Chloride 103 Carbon Dioxide 28 Anion Gap 7 L BUN 9 Creatinine 0.7 POC Glucometer 210 Random Glucose 152 H D Calcium 8.4 L C-Reactive Protein Active Medications Generic Name Dose Route Start Last Admin Trade Name Freq PRN Reason Stop Dose Admin Aripiprazole 10 mg 10/04/17 10:00 10/18/17 09:55 Abilify PO 10 mg DAILY [facility] Administration Atorvastatin Calcium 20 mg 10/03/17 22:00 10/17/17 21:18 Lipitor - PO 20 mg HS [facility] Administration Bacitracin 1 applic 10/18/17 12:00 10/18/17 15:00 Bacitracin - TP 1 applic BID [facility] Administration Docusate Sodium 100 mg 10/03/17 22:00 10/18/17 15:00 Colace - PO 100 mg TID [facility] Administration Enoxaparin Sodium 40 mg 10/12/17 10:00 10/18/17 09:55 Lovenox - SQ 40 mg DAILY [facility] Administration Guaifenesin 600 mg 10/09/17 10:00 10/18/17 09:55 Mucinex - PO 600 mg BID [facility] Administration Insulin Aspart 1 vial 10/03/17 16:30 10/18/17 17:17 Novolog Vial Sliding Scale - SQ 2 units ACHS [facility] Administration Protocol Lisinopril 5 mg 10/10/17 10:00 10/18/17 09:55 Prinivil PO 5 mg DAILY [facility] Administration Methimazole 5 mg 10/04/17 10:00 10/18/17 09:55 Tapazole - PO 5 mg DAILY [facility] Administration Multivitamins 1 each 10/18/17 10:15 10/18/17 11:15 Total B With C - PO 1 each DAILY [facility] Administration Nystatin 1 applic 10/13/17 22:00 10/18/17 15:00 Nystop Powder - TP 1 applic TID [facility] Administration Nystatin 500,000 unit 10/15/17 14:00 10/18/17 15:00 Mycolog - PO 500,000 unit TID [facility] Administration Sertraline HCl 100 mg 10/04/17 10:00 10/18/17 09:55 Zoloft - PO 100 mg DAILY [facility] Administration ASSESSMENT/PLAN: 76F w/ hx of HTN, DM, schizophrenia, hyperthyroidism and other medical problems who presented with L arm pain after mechanical fall, and was found to have L humerus Fx. s/p ORIF. Pt developed PNA in hospital, s/p course of abx. #L humerus Fx - POD #15 after ORIF - wound care - spoke to orthopedic surgeon, Dr. Tineo, about pt. He states that the shoulder should not be moved for 2 more weeks. No weight bearing. #infection -s/p treatment for PNA, no longer on abx per ID -pt has hx of persistent leukocytosis -afebrile overnight, wbc trending down from 17 to 14.8, almost back at pt's baseline -Bcx: no growth x 48h -trend temps and wbc counts #acute respiratory failure in the setting of PNA, possible aspiration, and pulmonary edema requiring IV lasix and oxygen via venti-mask to NC- resolving -echo: mild to moderate MR, mild aortic sclerosis #HTN -continue home lisinopril #Hyperthyroidism - cont methimazole #schizophrenia -continue aripiprazole #anxiety/depression -continue sertraline #DM -continue ISS -BGM #FEN/ppx -no fluids -electrolytes wnl -diabetic/sodium diet -no GI ppx -lovenox 40 #Dispo -daughter spoken to on the phone. She is in agreement that pt should go to [facility] after discharge. -Melchor Wolf MD PGY1 Visit type - Emergency Visit Emergency Visit: Yes ED Registration Date: 10/02/17 Care time: The patient presented to the Emergency Department on the above date and was hospitalized for further evaluation of their emergent condition. - New Patient This patient is new to me today: No - Critical Care Critical Care patient: No
--- NOTE | 2017-10-18 19:01 | PN ---
Progress Note, Physician History of Present Illness: comfortable no complaints - Current Medication List Current Medications: Active Medications Aripiprazole (Abilify) 10 mg PO DAILY [facility] Last Admin: 10/18/17 09:55 Dose: 10 mg Atorvastatin Calcium (Lipitor -) 20 mg PO HS [facility] Last Admin: 10/17/17 21:18 Dose: 20 mg Bacitracin (Bacitracin -) 1 applic TP BID [facility] Last Admin: 10/18/17 15:00 Dose: 1 applic Docusate Sodium (Colace -) 100 mg PO TID [facility] Last Admin: 10/18/17 15:00 Dose: 100 mg Enoxaparin Sodium (Lovenox -) 40 mg SQ DAILY [facility] Last Admin: 10/18/17 09:55 Dose: 40 mg Guaifenesin (Mucinex -) 600 mg PO BID [facility] Last Admin: 10/18/17 09:55 Dose: 600 mg Insulin Aspart (Novolog Vial Sliding Scale -) 1 vial SQ ACHS [facility] PRN Reason: Protocol Last Admin: 10/18/17 17:17 Dose: 2 units Lisinopril (Prinivil) 5 mg PO DAILY [facility] Last Admin: 10/18/17 09:55 Dose: 5 mg Methimazole (Tapazole -) 5 mg PO DAILY [facility] Last Admin: 10/18/17 09:55 Dose: 5 mg Multivitamins (Total B With C -) 1 each PO DAILY [facility] Last Admin: 10/18/17 11:15 Dose: 1 each Nystatin (Nystop Powder -) 1 applic TP TID [facility] Last Admin: 10/18/17 15:00 Dose: 1 applic Nystatin (Mycolog -) 500,000 unit PO TID [facility] Last Admin: 10/18/17 15:00 Dose: 500,000 unit Sertraline HCl (Zoloft -) 100 mg PO DAILY [facility] Last Admin: 10/18/17 09:55 Dose: 100 mg - Objective Vital Signs: Vital Signs Temperature 99 F 10/18/17 14:35 Pulse Rate 98 H 10/18/17 14:35 Respiratory Rate 20 10/18/17 10:00 Blood Pressure 127/69 10/18/17 14:35 O2 Sat by Pulse Oximetry (%) 94 L 10/18/17 09:00 Constitutional: Yes: No Distress, Calm Cardiovascular: Yes: Regular Rate and Rhythm Respiratory: Yes: Regular, CTA Bilaterally Gastrointestinal: Yes: Normal Bowel Sounds, Soft Musculoskeletal: Yes: WNL Extremities: Yes: WNL Neurological: Yes: Alert, Oriented Psychiatric: Yes: Alert Labs: CBC, BMP 10/18/17 06:00 10/18/17 06:00 INR, PTT INR 1.15 (0.82-1.09) H 10/03/17 08:00 Assessment/Plan 76yo F with PMH of htn, dm, hyperthyroidism, schizophrenia, presented s/p mechanical fall, found to have Left humerus fracture. # Left humerus fx, s/p ORIF o # fever and persistent leukocytosis # pneumonia # DM # htn # hyperthyroidism # schizophrenia wbc down plan stable off of abx continue to monitor wbc rest as per primary
[2017-10-18] MEDS: ATORVASTATIN CA 20 MG TABLET (FP) PO SCH (21:55)
[2017-10-19] MEDS: DOCUSATE SODIUM 100 MG CAPSULE (FP) PO SCH ×3 (06:00→21:47)
[2017-10-19] MEDS: NYSTATIN POWDER 100,000 UNITS/GM - 15 GM TOPICAL POWDER TP SCH ×3 (06:00→21:47)
[2017-10-19] MEDS: NYSTATIN 500,000 UNITS TABLET PO SCH ×2 (06:00→13:21)
[2017-10-19] MEDS: INSULIN SLIDING SCALE (NOVOLOG) 1 VIAL SQ SCH ×4 (06:13→21:53)
--- NOTE | 2017-10-19 08:39 | PN ---
Progress Note (short form) - Note Progress Note: Ortho Pt seen and examined s/p left proximal humerus orif Selected Entries 10/19/17 05:35 Temperature 98.1 F Pulse Rate 92 H Respiratory 18 Rate Blood Pressure 148/76 immobilizer intact, incision c/d/i, nvi a/p keep immobilizer intact NWB LUE elevate hob to 60 deg may remove wrist strap and begin elbow ROM as tolerated pain control d/c planning
[2017-10-19 09:04] LABS: BASO % 0.9 % (0-2.0); EOS % 4.8 % (0-4.5); HEMATOCRIT 37.5 % (32.4-45.2); HEMOGLOBIN 11.8 GM/dL (10.7-15.3); LYMPH % 15.7 % (8-40); MCH 26.8 pg (25.7-33.7); MCHC 31.5 g/dl (32.0-36.0); MEAN CELL VOLUME 85.3 fl (80-96); MEAN PLT VOLUME 8.8 fl (7.5-11.1); NEUT % 74.6 % (42.8-82.8); PLATELET COUNT 429 K/MM3 (134-434); RBC 4.39 M/mm3 (3.60-5.2); RDW 15.5 % (11.6-15.6); WHITE BLOOD COUNT 16.2 K/mm3 (4.0-10.0)
[2017-10-19] MEDS ORDERED: PT OWN MED DRAWER 7, Y5N ONE ×2 (09:34→13:19)
[2017-10-19] MEDS: LISINOPRIL 5 MG TABLET (FP) PO SCH (09:40)
[2017-10-19] MEDS: METHIMAZOLE 5 MG TABLET (FP) PO SCH (09:40)
[2017-10-19] MEDS: VITAMIN B COMPLEX W/C COMBO TABLET (FP) PO SCH (09:40)
[2017-10-19] MEDS: ARIPiprazole 10 MG TABLET PO SCH (09:40)
[2017-10-19] MEDS: SERTRALINE HCL 50 MG TABLET (FP) PO SCH (09:41)
[2017-10-19] MEDS: guaiFENesin 600 MG TABLET.ER (FP) PO SCH ×2 (09:41→21:47)
[2017-10-19] MEDS: BACITRACIN 15 GM TUBE TOPICAL OINTMENT TP SCH ×2 (09:42→21:52)
[2017-10-19] MEDS ORDERED: INSULIN (NOVOLOG) ASPART 100 UNITS/ML 10ML VIAL ONE (12:01)
--- NOTE | 2017-10-19 12:28 | PN ---
Progress Note, Physician History of Present Illness: stable rash in the lower part of the back noted - Current Medication List Current Medications: Active Medications Aripiprazole (Abilify) 10 mg PO DAILY [facility] Last Admin: 10/19/17 09:40 Dose: 10 mg Atorvastatin Calcium (Lipitor -) 20 mg PO HS [facility] Last Admin: 10/18/17 21:55 Dose: 20 mg Bacitracin (Bacitracin -) 1 applic TP BID [facility] Last Admin: 10/19/17 09:42 Dose: 1 applic Docusate Sodium (Colace -) 100 mg PO TID [facility] Last Admin: 10/19/17 06:00 Dose: 100 mg Guaifenesin (Mucinex -) 600 mg PO BID [facility] Last Admin: 10/19/17 09:41 Dose: 600 mg Insulin Aspart (Novolog Vial Sliding Scale -) 1 vial SQ ACHS [facility] PRN Reason: Protocol Last Admin: 10/19/17 12:03 Dose: 4 units Lisinopril (Prinivil) 5 mg PO DAILY [facility] Last Admin: 10/19/17 09:40 Dose: 5 mg Methimazole (Tapazole -) 5 mg PO DAILY [facility] Last Admin: 10/19/17 09:40 Dose: 5 mg Multivitamins (Total B With C -) 1 each PO DAILY [facility] Last Admin: 10/19/17 09:40 Dose: 1 each Nystatin (Nystop Powder -) 1 applic TP TID [facility] Last Admin: 10/19/17 06:00 Dose: 1 applic Nystatin (Mycolog -) 500,000 unit PO TID [facility] Last Admin: 10/19/17 06:00 Dose: 500,000 unit Sertraline HCl (Zoloft -) 100 mg PO DAILY [facility] Last Admin: 10/19/17 09:41 Dose: 100 mg - Objective Vital Signs: Vital Signs Temperature 98.3 F 10/19/17 08:58 Pulse Rate 90 10/19/17 08:58 Respiratory Rate 18 10/19/17 08:58 Blood Pressure 147/87 10/19/17 08:58 O2 Sat by Pulse Oximetry (%) 95 10/18/17 21:00 Constitutional: Yes: No Distress, Calm Cardiovascular: Yes: Regular Rate and Rhythm Respiratory: Yes: Regular, CTA Bilaterally Gastrointestinal: Yes: Normal Bowel Sounds, Soft Musculoskeletal: Yes: Other Extremities: Yes: Other Integumentary: Yes: Rash, Other (patient stable rash noted on the lower back) Neurological: Yes: Alert, Oriented Psychiatric: Yes: Alert, Oriented Labs: CBC, BMP 10/19/17 08:40 10/18/17 06:00 INR, PTT INR 1.15 (0.82-1.09) H 10/03/17 08:00 Assessment/Plan 76yo F with PMH of htn, dm, hyperthyroidism, schizophrenia, presented s/p mechanical fall, found to have Left humerus fracture. # Left humerus fx, s/p ORIF o # fever and persistent leukocytosis # pneumonia # DM # htn # hyperthyroidism # schizophrenia wbc increased plan continue to monitor off of abx monitor the rash rest as per primary and ortho
[2017-10-19] MEDS: NYSTATIN 500,000 UNITS/5 ML SUSPENSION PO SCH (18:10)
--- NOTE | 2017-10-19 19:04 | PN ---
Teaching Attending Note Name of Resident: Melchor Wolf ATTENDING PHYSICIAN STATEMENT I saw and evaluated the patient. I reviewed the resident's note and discussed the case with the resident. I agree with the resident's findings and plan as documented. SUBJECTIVE: no fever or chills, has no pain . no SOB OBJECTIVE: NAD , erythema and crusting around mouth angles , and upper lip. Cv: RRR Lungs: bilateral crackles at bases much improved. good air entry Ext: LUE in a sling, a surgical wound with well healing scar, and resolution of bruising. No erythema . . radial pulse 2+ , nl sensation and hand movement . ASSESSMENT AND PLAN: 76 y/o lady with h/o HTN, DM, and other medical problems who presented with L arm pain after mechanical fall , she was found to have L humerus Fx 1- Persistent leukocytosis: after treating PNA. - monitor off ABx - ESR slightly elevated and CRP is elevated. will need to follow off abx in 1 week 2- Angular cheilitis. - B comples - apply topical bacitracin - fungal treatment 3- L humerus Fx: cont to monitor . 4- HTN: cont lisinopril 5- hyperthyroidism: cont methimazole DVT px rehab arrangements
--- NOTE | 2017-10-19 20:45 | PN ---
Physical Exam: SUBJECTIVE: Patient seen and examined No acute events overnight. Pt denies any new subjective complaints. She still endorses LUE pain upon movement, but it is slightly improved compared to yesterday. OBJECTIVE: Vital Signs Period Temp Pulse Resp BP Sys/Sheehan Pulse Ox Last 24 Hr 97.7 F-98.3 F 90-110 18-18 104-148/58-87 95-96 GENERAL: elderly female, awake, alert, and fully oriented, in no acute distress. HEENT: crusted lesions around lips LUNGS: decreased wheezing and rales HEART: normal rate and rhythm, S1, S2 without murmur, rub or gallop. ABDOMEN: Soft, nontender, nondistended, normoactive bowel sounds, no guarding, no rebound, no hepatosplenomegaly, no masses. EXTREMITIES: no LE edema. LUE in immobilizer, non-tender, with ecchymosis NEUROLOGICAL: Cranial nerves II through XII grossly intact. Normal speech, gait not observed. Laboratory Results - last 24 hr 10/18/17 10/19/17 10/19/17 21:54 05:59 08:40 WBC 16.2 H RBC 4.39 Hgb 11.8 Hct 37.5 MCV 85.3 MCH 26.8 MCHC 31.5 L RDW 15.5 Plt Count 429 MPV 8.8 Neutrophils % 74.6 Lymphocytes % 15.7 D Monocytes % 4.0 Eosinophils % 4.8 H Basophils % 0.9 D POC Glucometer 139 164 10/19/17 10/19/17 11:58 17:00 WBC RBC Hgb Hct MCV MCH MCHC RDW Plt Count MPV Neutrophils % Lymphocytes % Monocytes % Eosinophils % Basophils % POC Glucometer 204 145 Active Medications Generic Name Dose Route Start Last Admin Trade Name Freq PRN Reason Stop Dose Admin Aripiprazole 10 mg 10/04/17 10:00 10/19/17 09:40 Abilify PO 10 mg DAILY [facility]DI Administration Atorvastatin Calcium 20 mg 10/03/17 22:00 10/18/17 21:55 Lipitor - PO 20 mg HS [facility] Administration Bacitracin 1 applic 10/18/17 12:00 10/19/17 09:42 Bacitracin - TP 1 applic BID [facility] Administration Docusate Sodium 100 mg 10/03/17 22:00 10/19/17 13:21 Colace - PO 100 mg TID [facility] Administration Guaifenesin 600 mg 10/09/17 10:00 10/19/17 09:41 Mucinex - PO 600 mg BID [facility] Administration Insulin Aspart 1 vial 10/03/17 16:30 10/19/17 17:01 Novolog Vial Sliding Scale - SQ Not Given ACHS [facility] Protocol Lisinopril 5 mg 10/10/17 10:00 10/19/17 09:40 Prinivil PO 5 mg DAILY [facility] Administration Methimazole 5 mg 10/04/17 10:00 10/19/17 09:40 Tapazole - PO 5 mg DAILY [facility] Administration Multivitamins 1 each 10/18/17 10:15 10/19/17 09:40 Total B With C - PO 1 each DAILY [facility] Administration Nystatin 1 applic 10/13/17 22:00 10/19/17 13:24 Nystop Powder - TP 1 applic TID [facility] Administration Nystatin 500,000 units 10/19/17 18:00 10/19/17 18:10 Nystatin Oral Suspension - PO 500,000 units Q6HPO [facility] Administration Sertraline HCl 100 mg 10/04/17 10:00 10/19/17 09:41 Zoloft - PO 100 mg DAILY [facility] Administration ASSESSMENT/PLAN: 76F w/ hx of HTN, DM, schizophrenia, hyperthyroidism and other medical problems who presented with L arm pain after mechanical fall, and was found to have L humerus Fx. s/p ORIF. Pt developed PNA in hospital, s/p course of abx. #L humerus Fx - POD #16 after ORIF - wound care - spoke to orthopedic surgeon, Dr. Tineo, about pt. He states that the shoulder should not be moved for 2 more weeks. No weight bearing. #infection -s/p treatment for PNA, no longer on abx per ID -pt has hx of persistent leukocytosis -afebrile overnight, wbc of 16.2 -Bcx: no growth -trend temps and wbc counts #acute respiratory failure in the setting of PNA, possible aspiration, and pulmonary edema requiring IV lasix and oxygen via venti-mask to NC- resolving -echo: mild to moderate MR, mild aortic sclerosis #cheilosis -possibly fungal. started nystatin swish and swallow -bacitracin -vitamin B complex #HTN -continue home lisinopril #Hyperthyroidism - cont methimazole #schizophrenia -continue aripiprazole #anxiety/depression -continue sertraline #DM -continue ISS -BGM #FEN/ppx -no fluids -electrolytes wnl -diabetic/sodium diet -no GI ppx -lovenox 40 #Dispo -daughter spoken to on the phone. She is in agreement that pt should go to [facility] after discharge. -Melchor Wolf MD PGY1 Visit type - Emergency Visit Emergency Visit: Yes ED Registration Date: 10/02/17 Care time: The patient presented to the Emergency Department on the above date and was hospitalized for further evaluation of their emergent condition. - New Patient This patient is new to me today: No - Critical Care Critical Care patient: No
[2017-10-19] MEDS: ATORVASTATIN CA 20 MG TABLET (FP) PO SCH (21:47)
[2017-10-20] MEDS: NYSTATIN 500,000 UNITS/5 ML SUSPENSION PO SCH ×4 (00:50→17:22)
[2017-10-20] MEDS: DOCUSATE SODIUM 100 MG CAPSULE (FP) PO SCH ×3 (06:35→21:18)
[2017-10-20] MEDS: NYSTATIN POWDER 100,000 UNITS/GM - 15 GM TOPICAL POWDER TP SCH ×3 (06:35→21:18)
[2017-10-20] MEDS: INSULIN SLIDING SCALE (NOVOLOG) 1 VIAL SQ SCH ×4 (06:47→21:22)
[2017-10-20 08:49] LABS: HEMATOCRIT 36.7 % (32.4-45.2); HEMOGLOBIN 11.6 GM/dL (10.7-15.3); MCH 26.9 pg (25.7-33.7); MCHC 31.6 g/dl (32.0-36.0); MEAN CELL VOLUME 85.1 fl (80-96); MEAN PLT VOLUME 8.7 fl (7.5-11.1); PLATELET COUNT 401 K/MM3 (134-434); RBC 4.32 M/mm3 (3.60-5.2)
[2017-10-20] MEDS ORDERED: PT OWN MED DRAWER 7, Y5N ONE (09:48)
[2017-10-20] MEDS: SERTRALINE HCL 50 MG TABLET (FP) PO SCH (09:49)
[2017-10-20] MEDS: LISINOPRIL 5 MG TABLET (FP) PO SCH (09:49)
[2017-10-20] MEDS: VITAMIN B COMPLEX W/C COMBO TABLET (FP) PO SCH (09:49)
[2017-10-20] MEDS: BACITRACIN 15 GM TUBE TOPICAL OINTMENT TP SCH ×2 (09:50→21:19)
[2017-10-20] MEDS: guaiFENesin 600 MG TABLET.ER (FP) PO SCH ×2 (09:50→21:18)
[2017-10-20] MEDS: METHIMAZOLE 5 MG TABLET (FP) PO SCH (09:50)
[2017-10-20] MEDS: ARIPiprazole 10 MG TABLET PO SCH (09:50)
[2017-10-20] MEDS ORDERED: INSULIN (NOVOLOG) ASPART 100 UNITS/ML 10ML VIAL ONE (11:50)
[2017-10-20] MEDS: ZINC OXIDE 20% TOPICAL OINTMENT 30 GM TUBE TP SCH ×2 (12:32→21:24)
--- NOTE | 2017-10-20 14:22 | PN ---
Progress Note, Physician History of Present Illness: no complaints wbc has started to increases - Current Medication List Current Medications: Active Medications Aripiprazole (Abilify) 10 mg PO DAILY [facility] Last Admin: 10/20/17 09:50 Dose: 10 mg Atorvastatin Calcium (Lipitor -) 20 mg PO HS [facility] Last Admin: 10/19/17 21:47 Dose: 20 mg Bacitracin (Bacitracin -) 1 applic TP BID [facility] Last Admin: 10/20/17 09:50 Dose: 1 applic Docusate Sodium (Colace -) 100 mg PO TID [facility] Last Admin: 10/20/17 13:48 Dose: 100 mg Guaifenesin (Mucinex -) 600 mg PO BID [facility] Last Admin: 10/20/17 09:50 Dose: 600 mg Insulin Aspart (Novolog Vial Sliding Scale -) 1 vial SQ ACHS [facility] PRN Reason: Protocol Last Admin: 10/20/17 11:53 Dose: 6 units Lisinopril (Prinivil) 5 mg PO DAILY [facility] Last Admin: 10/20/17 09:49 Dose: 5 mg Methimazole (Tapazole -) 5 mg PO DAILY [facility] Last Admin: 10/20/17 09:50 Dose: 5 mg Multi-Ingredient Ointment (Zinc Oxide) 1 applic TP BID [facility] Last Admin: 10/20/17 12:32 Dose: 1 applic Multivitamins (Total B With C -) 1 each PO DAILY [facility] Last Admin: 10/20/17 09:49 Dose: 1 each Nystatin (Nystop Powder -) 1 applic TP TID [facility] Last Admin: 10/20/17 13:49 Dose: 1 applic Nystatin (Nystatin Oral Suspension -) 500,000 units PO Q6HPO [facility] Last Admin: 10/20/17 12:32 Dose: 500,000 units Sertraline HCl (Zoloft -) 100 mg PO DAILY [facility] Last Admin: 10/20/17 09:49 Dose: 100 mg - Objective Vital Signs: Vital Signs Temperature 98.5 F 10/20/17 09:14 Pulse Rate 93 H 10/20/17 09:14 Respiratory Rate 18 10/20/17 09:14 Blood Pressure 116/56 10/20/17 09:14 O2 Sat by Pulse Oximetry (%) 96 10/20/17 09:00 Constitutional: Yes: No Distress, Calm HENT: Yes: Other (rash aorund the mouth--better) Cardiovascular: Yes: Regular Rate and Rhythm Respiratory: Yes: Regular, CTA Bilaterally Gastrointestinal: Yes: Normal Bowel Sounds, Soft Musculoskeletal: Yes: WNL Extremities: Yes: Other Neurological: Yes: Alert, Oriented Psychiatric: Yes: Alert, Oriented Labs: CBC, BMP 10/20/17 07:45 10/18/17 06:00 INR, PTT INR 1.15 (0.82-1.09) H 10/03/17 08:00 Assessment/Plan 76yo F with PMH of htn, dm, hyperthyroidism, schizophrenia, presented s/p mechanical fall, found to have Left humerus fracture. # Left humerus fx, s/p ORIF o # fever and persistent leukocytosis # pneumonia # DM # htn # hyperthyroidism # schizophrenia wbc increased plan continue to monitor off of abx monitor the rash if wbc increases have to look at the operative site continue to monitor wbc
--- NOTE | 2017-10-20 14:50 | PN ---
Teaching Attending Note Name of Resident: Melchor Wolf ATTENDING PHYSICIAN STATEMENT I saw and evaluated the patient. I reviewed the resident's note and discussed the case with the resident. I agree with the resident's findings and plan as documented. SUBJECTIVE: No fever or chills . denies any SOB or CP . no pain in surgical site OBJECTIVE: NAD, erythema and crusting around lips Cv: RRR Lungs: good air entry , no crackles or rales today Ext: LUE in a sling, a surgical wound with well healing scar, and resolution of bruising. No erythema. radial pulse 2+, nl sensation and hand movement. ASSESSMENT AND PLAN: 76 y/o lady with h/o HTN, DM, and other medical problems who presented with L arm pain after mechanical fall , she was found to have L humerus Fx 1- Persistent leukocytosis: s/p PNA treatment - monitor off ABx. WBC 17 k today - repeat CRP, ESR if going down then possibly there is no active infection 2- Angular cheilitis. - B complex - apply topical bacitracin - fungal treatment 3- L humerus Fx: cont to monitor . 4- HTN: cont lisinopril 5- hyperthyroidism: cont methimazole DVT px Rehab arrangements
--- NOTE | 2017-10-20 16:18 | PN ---
Physical Exam: SUBJECTIVE: Patient seen and examined No acute events overnight. Pt denies any new subjective complaints. She endorses less LUE pain upon movement. She denies pain or pruritis over her rash on her back. OBJECTIVE: Vital Signs Period Temp Pulse Resp BP Sys/Sheehan Pulse Ox Last 24 Hr 98.1 F-99.7 F 91-101 18-20 116-143/56-72 96-96 GENERAL: elderly female, awake, alert, and fully oriented, in no acute distress. HEENT: crusted lesions around lips LUNGS: decreased wheezing and rales HEART: normal rate and rhythm, S1, S2 without murmur, rub or gallop. ABDOMEN: Soft, nontender, nondistended, normoactive bowel sounds, no guarding, no rebound, no hepatosplenomegaly, no masses. Back: macular rash underneath immobilizer and underneath diaper EXTREMITIES: no LE edema. LUE in immobilizer, non-tender, with ecchymosis NEUROLOGICAL: Cranial nerves II through XII grossly intact. Normal speech Laboratory Results - last 24 hr 10/19/17 10/19/17 10/20/17 17:00 21:50 06:46 WBC RBC Hgb Hct MCV MCH MCHC RDW Plt Count MPV POC Glucometer 145 254 194 C-Reactive Protein 10/20/17 10/20/17 10/20/17 07:45 11:42 15:15 WBC 17.0 H RBC 4.32 Hgb 11.6 Hct 36.7 MCV 85.1 MCH 26.9 MCHC 31.6 L RDW 16.0 H Plt Count 401 MPV 8.7 POC Glucometer 269 C-Reactive Protein 2.9 H D Active Medications Generic Name Dose Route Start Last Admin Trade Name Stanleyq PRN Reason Stop Dose Admin Aripiprazole 10 mg 10/04/17 10:00 10/20/17 09:50 Abilify PO 10 mg DAILY [facility] Administration Atorvastatin Calcium 20 mg 10/03/17 22:00 10/19/17 21:47 Lipitor - PO 20 mg HS [facility] Administration Bacitracin 1 applic 10/18/17 12:00 10/20/17 09:50 Bacitracin - TP 1 applic BID [facility] Administration Docusate Sodium 100 mg 10/03/17 22:00 10/20/17 13:48 Colace - PO 100 mg TID [facility] Administration Guaifenesin 600 mg 10/09/17 10:00 10/20/17 09:50 Mucinex - PO 600 mg BID [facility] Administration Insulin Aspart 1 vial 10/03/17 16:30 10/20/17 11:53 Novolog Vial Sliding Scale - SQ 6 units ACHS [facility] Administration Protocol Lisinopril 5 mg 10/10/17 10:00 10/20/17 09:49 Prinivil PO 5 mg DAILY [facility] Administration Methimazole 5 mg 10/04/17 10:00 10/20/17 09:50 Tapazole - PO 5 mg DAILY [facility] Administration Multi-Ingredient Ointment 1 applic 10/20/17 12:00 10/20/17 12:32 Zinc Oxide TP 1 applic BID [facility] Administration Multivitamins 1 each 10/18/17 10:15 10/20/17 09:49 Total B With C - PO 1 each DAILY [facility] Administration Nystatin 1 applic 10/13/17 22:00 10/20/17 13:49 Nystop Powder - TP 1 applic TID [facility] Administration Nystatin 500,000 units 10/19/17 18:00 10/20/17 12:32 Nystatin Oral Suspension - PO 500,000 units Q6HPO [facility] Administration Sertraline HCl 100 mg 10/04/17 10:00 10/20/17 09:49 Zoloft - PO 100 mg DAILY [facility] Administration ASSESSMENT/PLAN: 76F w/ hx of HTN, DM, schizophrenia, hyperthyroidism and other medical problems who presented with L arm pain after mechanical fall, and was found to have L humerus Fx. s/p ORIF. Pt developed PNA in hospital, s/p course of abx. #L humerus Fx - POD #17 after ORIF - wound care - spoke to orthopedic surgeon, Dr. Tineo, about pt. He states that the shoulder should not be moved for 2 more weeks. No weight bearing. #infection -s/p treatment for PNA, no longer on abx per ID -pt has hx of persistent leukocytosis -afebrile overnight, wbc of 17 -Bcx: no growth -trend temps and wbc counts #acute respiratory failure in the setting of PNA, possible aspiration, and pulmonary edema requiring IV lasix and oxygen via venti-mask to NC- resolving -echo: mild to moderate MR, mild aortic sclerosis #cheilosis -possibly fungal. continue nystatin swish and swallow -continue bacitracin -continue vitamin B complex #back rash -start zinc oxide cream #HTN -continue home lisinopril #Hyperthyroidism - cont methimazole #schizophrenia -continue aripiprazole #anxiety/depression -continue sertraline #DM -continue ISS -BGM #FEN/ppx -no fluids -electrolytes wnl -diabetic/sodium diet -no GI ppx -lovenox 40 #Dispo -pt medically cleared for D/C. Awaiting SNF placement -Melchor Wolf MD PGY1 Visit type - Emergency Visit Emergency Visit: Yes ED Registration Date: 10/02/17 Care time: The patient presented to the Emergency Department on the above date and was hospitalized for further evaluation of their emergent condition. - New Patient This patient is new to me today: No - Critical Care Critical Care patient: No
[2017-10-20] MEDS: ATORVASTATIN CA 20 MG TABLET (FP) PO SCH (21:18)
[2017-10-21] MEDS: NYSTATIN 500,000 UNITS/5 ML SUSPENSION PO SCH ×4 (00:23→18:34)
[2017-10-21] MEDS: DOCUSATE SODIUM 100 MG CAPSULE (FP) PO SCH ×3 (06:02→22:52)
[2017-10-21] MEDS: NYSTATIN POWDER 100,000 UNITS/GM - 15 GM TOPICAL POWDER TP SCH ×3 (06:02→22:54)
[2017-10-21] MEDS: INSULIN SLIDING SCALE (NOVOLOG) 1 VIAL SQ SCH ×4 (06:03→22:57)
[2017-10-21 08:26] LABS: HEMATOCRIT 38.3 % (32.4-45.2); HEMOGLOBIN 12.1 GM/dL (10.7-15.3); MCH 26.7 pg (25.7-33.7); MCHC 31.5 g/dl (32.0-36.0); MEAN CELL VOLUME 84.8 fl (80-96); MEAN PLT VOLUME 8.9 fl (7.5-11.1); PLATELET COUNT 431 K/MM3 (134-434); RBC 4.52 M/mm3 (3.60-5.2); RDW 15.9 % (11.6-15.6); WHITE BLOOD COUNT 21.7 K/mm3 (4.0-10.0)
[2017-10-21 10:29] LABS: ANISOCYTOSIS 2+; PLATELET ESTIMATE NORMAL
[2017-10-21] MEDS ORDERED: PT OWN MED DRAWER 7, Y5N ONE ×2 (10:47→22:21)
[2017-10-21] MEDS: ARIPiprazole 10 MG TABLET PO SCH (10:49)
[2017-10-21] MEDS: LISINOPRIL 5 MG TABLET (FP) PO SCH (10:49)
[2017-10-21] MEDS: guaiFENesin 600 MG TABLET.ER (FP) PO SCH ×2 (10:49→22:52)
[2017-10-21] MEDS: BACITRACIN 15 GM TUBE TOPICAL OINTMENT TP SCH ×2 (10:49→22:53)
[2017-10-21] MEDS: VITAMIN B COMPLEX W/C COMBO TABLET (FP) PO SCH (10:50)
[2017-10-21] MEDS: METHIMAZOLE 5 MG TABLET (FP) PO SCH (10:50)
[2017-10-21] MEDS: SERTRALINE HCL 50 MG TABLET (FP) PO SCH (10:50)
[2017-10-21] MEDS: ZINC OXIDE 20% TOPICAL OINTMENT 30 GM TUBE TP SCH ×2 (10:51→22:53)
--- NOTE | 2017-10-21 15:00 | PN ---
Progress Note, Physician History of Present Illness: wbc continues to increase patient has a lot of pain while moving the shoulder looks like patient is heading towards frozen shoulder - Current Medication List Current Medications: Active Medications Aripiprazole (Abilify) 10 mg PO DAILY [facility] Last Admin: 10/21/17 10:49 Dose: 10 mg Atorvastatin Calcium (Lipitor -) 20 mg PO HS [facility] Last Admin: 10/20/17 21:18 Dose: 20 mg Bacitracin (Bacitracin -) 1 applic TP BID [facility] Last Admin: 10/21/17 10:49 Dose: 1 applic Docusate Sodium (Colace -) 100 mg PO TID [facility] Last Admin: 10/21/17 14:40 Dose: 100 mg Guaifenesin (Mucinex -) 600 mg PO BID [facility] Last Admin: 10/21/17 10:49 Dose: 600 mg Insulin Aspart (Novolog Vial Sliding Scale -) 1 vial SQ ACHS [facility] PRN Reason: Protocol Last Admin: 10/21/17 11:33 Dose: 8 units Lisinopril (Prinivil) 5 mg PO DAILY [facility] Last Admin: 10/21/17 10:49 Dose: 5 mg Methimazole (Tapazole -) 5 mg PO DAILY [facility] Last Admin: 10/21/17 10:50 Dose: 5 mg Multi-Ingredient Ointment (Zinc Oxide) 1 applic TP BID [facility] Last Admin: 10/21/17 10:51 Dose: 1 applic Multivitamins (Total B With C -) 1 each PO DAILY [facility] Last Admin: 10/21/17 10:50 Dose: 1 each Nystatin (Nystop Powder -) 1 applic TP TID [facility] Last Admin: 10/21/17 14:40 Dose: 1 applic Nystatin (Nystatin Oral Suspension -) 500,000 units PO Q6HPO [facility] Last Admin: 10/21/17 11:30 Dose: 500,000 units Sertraline HCl (Zoloft -) 100 mg PO DAILY [facility] Last Admin: 10/21/17 10:50 Dose: 100 mg - Objective Vital Signs: Vital Signs Temperature 97.6 F 10/21/17 09:00 Pulse Rate 91 H 10/21/17 09:00 Respiratory Rate 20 10/21/17 09:00 Blood Pressure 127/66 10/21/17 09:00 O2 Sat by Pulse Oximetry (%) 94 L 10/21/17 09:00 Constitutional: Yes: Calm, Mild Distress (pain of the rt shoulder) Neck: Yes: Supple Cardiovascular: Yes: Regular Rate and Rhythm Respiratory: Yes: Regular, CTA Bilaterally Gastrointestinal: Yes: Normal Bowel Sounds, Soft Musculoskeletal: Yes: Other Extremities: Yes: Other (no movement of the shoulder) Wound/Incision: Yes: Clean/Dry Neurological: Yes: Alert, Oriented Labs: CBC, BMP 10/21/17 07:17 10/18/17 06:00 INR, PTT INR 1.15 (0.82-1.09) H 10/03/17 08:00 Assessment/Plan 76yo F with PMH of htn, dm, hyperthyroidism, schizophrenia, presented s/p mechanical fall, found to have Left humerus fracture. # Left humerus fx, s/p ORIF o # fever and persistent leukocytosis # pneumonia # DM # htn # hyperthyroidism # schizophrenia wbc increased plan continue to monitor off of abx wbc climbing consider reimaging the shoulder and figure out why thee is so much pain and no movement of the shoulder
--- NOTE | 2017-10-21 15:40 | PN ---
Progress Note (short form) - Note Progress Note: Subjective: no SOB , no pain Objective: Vital Signs: Last Vital Signs Temp Pulse Resp BP Pulse Ox 97.6 F 91 H 20 127/66 94 L 10/21/17 09:00 10/21/17 09:00 10/21/17 09:00 10/21/17 09:00 10/21/17 09:00 Laboratory Results - last 24 hr 10/20/17 10/20/17 10/20/17 15:15 15:15 17:05 WBC RBC Hgb Hct MCV MCH MCHC RDW Plt Count MPV Neutrophils % Neutrophils % (Manual) Band Neutrophils % Lymphocytes % Lymphocytes % (Manual) Monocytes % (Manual) Eosinophils % (Manual) Basophils % (Manual) Myelocytes % (Man) Metamyelocytes Hypochromia Platelet Estimate Anisocytosis Microcytosis ESR 70 H POC Glucometer 131 C-Reactive Protein 2.9 H D 10/20/17 10/21/17 10/21/17 21:17 05:48 07:17 WBC 21.7 H RBC 4.52 Hgb 12.1 Hct 38.3 MCV 84.8 MCH 26.7 MCHC 31.5 L RDW 15.9 H Plt Count 431 MPV 8.9 Neutrophils % No Result Required. Neutrophils % (Manual) 80.0 Band Neutrophils % 0.0 Lymphocytes % No Result Required. Lymphocytes % (Manual) 12.0 D Monocytes % (Manual) 4 Eosinophils % (Manual) 1.0 D Basophils % (Manual) 1.0 D Myelocytes % (Man) 0 D Metamyelocytes 0 D Hypochromia 1+ Platelet Estimate Normal Anisocytosis 2+ Microcytosis 1+ ESR POC Glucometer 201 245 C-Reactive Protein 10/21/17 11:31 WBC RBC Hgb Hct MCV MCH MCHC RDW Plt Count MPV Neutrophils % Neutrophils % (Manual) Band Neutrophils % Lymphocytes % Lymphocytes % (Manual) Monocytes % (Manual) Eosinophils % (Manual) Basophils % (Manual) Myelocytes % (Man) Metamyelocytes Hypochromia Platelet Estimate Anisocytosis Microcytosis ESR POC Glucometer 314 C-Reactive Protein Physical Exam: NAD, erythema and crusting around lips Cv: RRR Lungs: good air entry , no crackles or rales today Ext: LUE in a sling, a surgical wound with well healing scar, and resolution of bruising. No erythema. radial pulse 2+, nl sensation and hand movement. ASSESSMENT AND PLAN: 76 y/o lady with h/o HTN, DM, and other medical problems who presented with L arm pain after mechanical fall , she was found to have L humerus Fx 1- Persistent leukocytosis: -worse - US of L upper arm -CRP better. less likley infectious etiology 2- Angular cheilitis. - B complex - apply topical bacitracin - fungal treatment 3- L humerus Fx: cont to monitor . 4- HTN: cont lisinopril 5- hyperthyroidism: cont methimazole 6- DM : cont SSI . at dc ight need another agent with metformin DVT px Visit type - Emergency Visit Emergency Visit: Yes ED Registration Date: 10/02/17 Care time: The patient presented to the Emergency Department on the above date and was hospitalized for further evaluation of their emergent condition. - New Patient This patient is new to me today: No - Critical Care Critical Care patient: No
[2017-10-21] MEDS: ATORVASTATIN CA 20 MG TABLET (FP) PO SCH (22:52)
[2017-10-22] MEDS: NYSTATIN 500,000 UNITS/5 ML SUSPENSION PO SCH ×5 (00:13→23:09)
[2017-10-22] MEDS: DOCUSATE SODIUM 100 MG CAPSULE (FP) PO SCH ×3 (06:02→21:10)
[2017-10-22] MEDS: INSULIN SLIDING SCALE (NOVOLOG) 1 VIAL SQ SCH ×4 (06:03→21:28)
[2017-10-22] MEDS: NYSTATIN POWDER 100,000 UNITS/GM - 15 GM TOPICAL POWDER TP SCH ×2 (06:03→13:49)
[2017-10-22 08:00] LABS: BASO % 0.5 % (0-2.0); EOS % 4.1 % (0-4.5); HEMATOCRIT 37.5 % (32.4-45.2); HEMOGLOBIN 11.9 GM/dL (10.7-15.3); LYMPH % 12.2 % (8-40); MCH 26.9 pg (25.7-33.7); MCHC 31.7 g/dl (32.0-36.0); MEAN CELL VOLUME 84.9 fl (80-96); MEAN PLT VOLUME 9.1 fl (7.5-11.1); MONO % 3.6 % (3.8-10.2); NEUT % 79.6 % (42.8-82.8); PLATELET COUNT 397 K/MM3 (134-434); RBC 4.42 M/mm3 (3.60-5.2); RDW 15.7 % (11.6-15.6); WHITE BLOOD COUNT 18.2 K/mm3 (4.0-10.0)
--- NOTE | 2017-10-22 10:31 | PN ---
Physical Exam: SUBJECTIVE: Patient seen and examined at bed side this morning. Complaining of left shoulder stiffness and minimal pain. Denies chest pain, sob, cough, palpitatin, abdominal pain, nausea or vomiting. No acute overnight events as per RN. OBJECTIVE: Vital Signs Period Temp Pulse Resp BP Sys/Sheehan Pulse Ox Last 24 Hr 98.0 F-98.6 F 86-97 20-20 115-144/45-73 94 GENERAL: Elderly female, lying in bed, patient is awake, alert, and fully oriented, in no acute distress. HEAD: Normal with no signs of trauma. EYES: EOM intact, no pallor or icterus. ENT: Crusted lesions around the angles of the mouth, Ears normal, dry mucous membranes. NECK: Supple. LUNGS: Breath sounds equal, clear to auscultation bilaterally, no wheezes, no crackles, no accessory muscle use. HEART: Regular rate and rhythm, S1, S2 without murmur, rub or gallop. ABDOMEN: Soft, nontender, nondistended, normoactive bowel sounds, no guarding, no rebound, no hepatosplenomegaly, no masses. Upper left extremity: surgical scar dwain +, limited range of motion, non tender to touch, no erythema, pulses intact ++ EXTREMITIES: 2+ pulses, warm, well-perfused, no edema. NEUROLOGICAL: No facial droop, Cranial nerves II through XII grossly intact. Normal speech, gait not observed. PSYCH: Normal mood, normal affect. SKIN: Rashes- rounded lesions, pale in the center, scattered in the back, around the abdominal area, flexor surface of her right arm, inguinal area. Laboratory Results - last 24 hr 10/21/17 10/21/17 10/21/17 07:17 11:31 16:34 WBC RBC Hgb Hct MCV MCH MCHC RDW Plt Count MPV Neutrophils % Neutrophils % (Manual) 80.0 Band Neutrophils % 0.0 Lymphocytes % Lymphocytes % (Manual) 12.0 D Monocytes % Monocytes % (Manual) 4 Eosinophils % Eosinophils % (Manual) 1.0 D Basophils % Basophils % (Manual) 1.0 D Myelocytes % (Man) 0 D Metamyelocytes 0 D Hypochromia 1+ Platelet Estimate Normal Anisocytosis 2+ Microcytosis 1+ POC Glucometer 314 201 10/21/17 10/22/17 10/22/17 22:55 06:01 06:30 WBC 18.2 H RBC 4.42 Hgb 11.9 Hct 37.5 MCV 84.9 MCH 26.9 MCHC 31.7 L RDW 15.7 H Plt Count 397 MPV 9.1 Neutrophils % 79.6 Neutrophils % (Manual) Band Neutrophils % Lymphocytes % 12.2 D Lymphocytes % (Manual) Monocytes % 3.6 L Monocytes % (Manual) Eosinophils % 4.1 Eosinophils % (Manual) Basophils % 0.5 Basophils % (Manual) Myelocytes % (Man) Metamyelocytes Hypochromia Platelet Estimate Anisocytosis Microcytosis POC Glucometer 177 176 Active Medications Generic Name Dose Route Start Last Admin Trade Name Freq PRN Reason Stop Dose Admin Aripiprazole 10 mg 10/04/17 10:00 10/21/17 10:49 Abilify PO 10 mg DAILY MAGDI Administration Atorvastatin Calcium 20 mg 10/03/17 22:00 10/21/17 22:52 Lipitor - PO 20 mg HS [facility]DI Administration Bacitracin 1 applic 10/18/17 12:00 10/21/17 22:53 Bacitracin - TP 1 applic BID [facility]DI Administration Docusate Sodium 100 mg 10/03/17 22:00 10/22/17 06:02 Colace - PO 100 mg TID [facility] Administration Guaifenesin 600 mg 10/09/17 10:00 10/21/17 22:52 Mucinex - PO 600 mg BID [facility]DI Administration Insulin Aspart 1 vial 10/03/17 16:30 10/22/17 06:03 Novolog Vial Sliding Scale - SQ 2 units ACHS MAGDI Administration Protocol Lisinopril 5 mg 10/10/17 10:00 10/21/17 10:49 Prinivil PO 5 mg DAILY [facility] Administration Methimazole 5 mg 10/04/17 10:00 10/21/17 10:50 Tapazole - PO 5 mg DAILY [facility] Administration Multi-Ingredient Ointment 1 applic 10/20/17 12:00 10/21/17 22:53 Zinc Oxide TP 1 applic BID [facility]DI Administration Multivitamins 1 each 10/18/17 10:15 10/21/17 10:50 Total B With C - PO 1 each DAILY [facility] Administration Nystatin 1 applic 10/13/17 22:00 10/22/17 06:03 Nystop Powder - TP 1 applic TID [facility] Administration Nystatin 500,000 units 10/19/17 18:00 10/22/17 06:02 Nystatin Oral Suspension - PO 500,000 units Q6HPO [facility] Administration Sertraline HCl 100 mg 10/04/17 10:00 10/21/17 10:50 Zoloft - PO 100 mg DAILY [facility] Administration ASSESSMENT/PLAN: Patient is an 76 year old Female with past medical history of HTN, DM, schizophrenia, hyperthyroidism and other medical problems who presented with L arm pain after mechanical fall, and was found to have L humerus Fx. s/p ORIF. Pt developed PNA in hospital, s/p course of abx. # Left humerus fracture s/p mechanical fall POD 19 after ORIF still complaining of pain in the left shoulder, ROM limited No weight bearing. # Questionable abscess vs infection Leukocytosis improving however due to the pain on the left shoulder, USG of upper ext was done, report pending. ESR 92 and CRP increased to 3.8, unsure the source of infection at this time. Off antibiotics, will wait for imaging report. # Angular cheilosis Continue vitamin B complex # Rash in contact area-likely possibly fungal Changed powder to Nystatin cream to be applied BID Nystatin swich and swallow Zinc Oxide cream BID # HTN-stable continue home lisinopril # Hyperthyroidism cont methimazole # Schizophrenia continue aripiprazole # Anxiety/depression Doesn't have suicidal ideation at this time continue sertraline #DM continue ISS BGM # FEN Not on IV fluids Electrolytes WNL Gluten restricted diet # Prophylaxis For DVT: on Heparin 5000 IU sq TID For GI: Not indicated #Dispo: Duration of stay unknown. Awaiting SNF placement. Illness, Investigation and plan of care explained to the patient. She verbalized understanding. Case discussed with Dr. Ferrera.
[2017-10-22] MEDS: METHIMAZOLE 5 MG TABLET (FP) PO SCH (10:50)
[2017-10-22] MEDS: SERTRALINE HCL 50 MG TABLET (FP) PO SCH (10:50)
[2017-10-22] MEDS: LISINOPRIL 5 MG TABLET (FP) PO SCH (10:50)
[2017-10-22] MEDS: BACITRACIN 15 GM TUBE TOPICAL OINTMENT TP SCH ×2 (10:51→21:11)
[2017-10-22] MEDS: VITAMIN B COMPLEX W/C COMBO TABLET (FP) PO SCH (10:51)
[2017-10-22] MEDS: guaiFENesin 600 MG TABLET.ER (FP) PO SCH ×2 (10:51→21:10)
[2017-10-22] MEDS: ZINC OXIDE 20% TOPICAL OINTMENT 30 GM TUBE TP SCH ×2 (10:52→21:12)
[2017-10-22] MEDS ORDERED: PT OWN MED DRAWER 7, Y5N ONE ×2 (11:03→21:00)
[2017-10-22] MEDS: ARIPiprazole 10 MG TABLET PO SCH (11:05)
[2017-10-22] MEDS ORDERED: INSULIN (NOVOLOG) ASPART 100 UNITS/ML 10ML VIAL ONE ×2 (11:59→21:27)
--- NOTE | 2017-10-22 15:13 | PN ---
Progress Note, Physician History of Present Illness: stable no complaints shoulder bothering her pain while movement - Current Medication List Current Medications: Active Medications Aripiprazole (Abilify) 10 mg PO DAILY [facility] Last Admin: 10/22/17 11:05 Dose: 10 mg Atorvastatin Calcium (Lipitor -) 20 mg PO HS [facility] Last Admin: 10/21/17 22:52 Dose: 20 mg Bacitracin (Bacitracin -) 1 applic TP BID [facility] Last Admin: 10/22/17 10:51 Dose: 1 applic Docusate Sodium (Colace -) 100 mg PO TID [facility] Last Admin: 10/22/17 13:49 Dose: 100 mg Guaifenesin (Mucinex -) 600 mg PO BID [facility] Last Admin: 10/22/17 10:51 Dose: 600 mg Heparin Sodium (Porcine) (Heparin -) 5,000 unit SQ TID [facility] Insulin Aspart (Novolog Vial Sliding Scale -) 1 vial SQ ACHS [facility] PRN Reason: Protocol Last Admin: 10/22/17 12:01 Dose: 4 units Lisinopril (Prinivil) 5 mg PO DAILY [facility] Last Admin: 10/22/17 10:50 Dose: 5 mg Methimazole (Tapazole -) 5 mg PO DAILY [facility] Last Admin: 10/22/17 10:50 Dose: 5 mg Multi-Ingredient Ointment (Zinc Oxide) 1 applic TP BID [facility] Last Admin: 10/22/17 10:52 Dose: 1 applic Multivitamins (Total B With C -) 1 each PO DAILY [facility] Last Admin: 10/22/17 10:51 Dose: 1 each Nystatin (Nystatin Oral Suspension -) 500,000 units PO Q6HPO [facility] Last Admin: 10/22/17 11:05 Dose: 500,000 units Nystatin (Mycostatin Cream -) 1 applic TP BID [facility] Sertraline HCl (Zoloft -) 100 mg PO DAILY [facility] Last Admin: 10/22/17 10:50 Dose: 100 mg - Objective Vital Signs: Vital Signs Temperature 98.4 F 10/22/17 15:04 Pulse Rate 95 H 10/22/17 15:04 Respiratory Rate 18 10/22/17 15:04 Blood Pressure 133/64 10/22/17 15:04 O2 Sat by Pulse Oximetry (%) 94 L 10/22/17 09:00 Constitutional: Yes: No Distress, Calm HENT: Yes: Other (mouth rash better) Cardiovascular: Yes: Regular Rate and Rhythm Respiratory: Yes: Regular, CTA Bilaterally Gastrointestinal: Yes: Normal Bowel Sounds, Soft Musculoskeletal: Yes: Other Extremities: Yes: Other Wound/Incision: Yes: Clean/Dry Neurological: Yes: Alert, Oriented Psychiatric: Yes: Alert, Oriented Labs: CBC, BMP 10/22/17 06:30 10/18/17 06:00 INR, PTT INR 1.15 (0.82-1.09) H 10/03/17 08:00 Assessment/Plan 76yo F with PMH of htn, dm, hyperthyroidism, schizophrenia, presented s/p mechanical fall, found to have Left humerus fracture. # Left humerus fx, s/p ORIF o # fever and persistent leukocytosis # pneumonia # DM # htn # hyperthyroidism # schizophrenia wbc increased plan wbc still fluctuating clinically patient looks stable will continue to monitor rest as per the team
[2017-10-22] MEDS: HEPARIN NA (PORCINE) 5,000 UNITS/ML 1ML VIAL SQ SCH ×2 (15:44→21:10)
--- NOTE | 2017-10-22 16:37 | PN ---
Teaching Attending Note Name of Resident: Monse Wilson ATTENDING PHYSICIAN STATEMENT I saw and evaluated the patient. I reviewed the resident's note and discussed the case with the resident. I agree with the resident's findings and plan as documented. SUBJECTIVE: no pain unless she moves her L shoulder. No fever or chills OBJECTIVE: NAD, erythema and crusting around lips, improved CV: RRR Lungs: good air entry , no crackles or rales today Ext: LUE in a sling, a surgical wound with well healing scar, and resolution of bruising. No erythema. radial pulse 2+, nl sensation and hand movement. maculopaplar rash on back, buttocks, posterior thighs, groin and R antecubital area with satellite lesions with pale scaly center ASSESSMENT AND PLAN: 76 y/o lady with h/o HTN, DM, and other medical problems who presented with L arm pain after mechanical fall , she was found to have L humerus Fx 1- Persistent leukocytosis: - stable - US of L upper arm withno abscess - CRP and ESR noted. 2- Angular cheilitis. - B complex - apply topical bacitracin - fungal treatment 3- L humerus Fx: cont to monitor . 4- HTN: cont lisinopril 5- hyperthyroidism: cont methimazole 6- DM : cont SSI . at dc might need another agent with metformin 7- rash: likely fungal rash , add nystatin cream and zinc oxide DVT px will d/w ID . rehab placement when ready
[2017-10-22] MEDS: ATORVASTATIN CA 20 MG TABLET (FP) PO SCH (21:10)
[2017-10-22] MEDS: NYSTATIN 100,000 UNIT/GM TOPICAL CREAM 15 GM TUBE TP SCH (22:46)
[2017-10-23] MEDS: DOCUSATE SODIUM 100 MG CAPSULE (FP) PO SCH ×3 (05:29→21:07)
[2017-10-23] MEDS: NYSTATIN 500,000 UNITS/5 ML SUSPENSION PO SCH ×4 (05:29→23:46)
[2017-10-23] MEDS: HEPARIN NA (PORCINE) 5,000 UNITS/ML 1ML VIAL SQ SCH ×3 (05:29→21:08)
[2017-10-23] MEDS: INSULIN SLIDING SCALE (NOVOLOG) 1 VIAL SQ SCH ×4 (06:31→21:06)
[2017-10-23] MEDS ORDERED: INSULIN (NOVOLOG) ASPART 100 UNITS/ML 10ML VIAL ONE ×3 (06:39→21:05)
[2017-10-23] MEDS ORDERED: PT OWN MED DRAWER 7, Y5N ONE (09:12)
[2017-10-23 09:18] LABS: HEMATOCRIT 37.7 % (32.4-45.2); HEMOGLOBIN 11.8 GM/dL (10.7-15.3); MCH 26.7 pg (25.7-33.7); MCHC 31.4 g/dl (32.0-36.0); MEAN CELL VOLUME 85.2 fl (80-96); MEAN PLT VOLUME 8.7 fl (7.5-11.1); PLATELET COUNT 439 K/MM3 (134-434); RBC 4.42 M/mm3 (3.60-5.2); RDW 15.9 % (11.6-15.6); WHITE BLOOD COUNT 17.1 K/mm3 (4.0-10.0)
[2017-10-23] MEDS: guaiFENesin 600 MG TABLET.ER (FP) PO SCH ×2 (09:21→21:08)
[2017-10-23] MEDS: SERTRALINE HCL 50 MG TABLET (FP) PO SCH (09:21)
[2017-10-23] MEDS: METHIMAZOLE 5 MG TABLET (FP) PO SCH (09:21)
[2017-10-23] MEDS: LISINOPRIL 5 MG TABLET (FP) PO SCH (09:21)
[2017-10-23] MEDS: VITAMIN B COMPLEX W/C COMBO TABLET (FP) PO SCH (09:22)
[2017-10-23] MEDS: ARIPiprazole 10 MG TABLET PO SCH (09:22)
[2017-10-23] MEDS: NYSTATIN 100,000 UNIT/GM TOPICAL CREAM 15 GM TUBE TP SCH ×2 (09:23→21:08)
[2017-10-23] MEDS: ZINC OXIDE 20% TOPICAL OINTMENT 30 GM TUBE TP SCH ×2 (09:26→21:09)
[2017-10-23] MEDS: BACITRACIN 15 GM TUBE TOPICAL OINTMENT TP SCH ×2 (09:30→21:09)
--- NOTE | 2017-10-23 12:44 | PN ---
Progress Note, Physician History of Present Illness: wbc continues to remain high patient asympotmatic still no movement of the shoulder - Current Medication List Current Medications: Active Medications Aripiprazole (Abilify) 10 mg PO DAILY [facility] Last Admin: 10/23/17 09:22 Dose: 10 mg Atorvastatin Calcium (Lipitor -) 20 mg PO HS [facility] Last Admin: 10/22/17 21:10 Dose: 20 mg Bacitracin (Bacitracin -) 1 applic TP BID [facility] Last Admin: 10/23/17 09:30 Dose: 1 applic Docusate Sodium (Colace -) 100 mg PO TID [facility] Last Admin: 10/23/17 05:29 Dose: 100 mg Guaifenesin (Mucinex -) 600 mg PO BID [facility] Last Admin: 10/23/17 09:21 Dose: 600 mg Heparin Sodium (Porcine) (Heparin -) 5,000 unit SQ TID [facility] Last Admin: 10/23/17 05:29 Dose: 5,000 unit Insulin Aspart (Novolog Vial Sliding Scale -) 1 vial SQ [facility] PRN Reason: Protocol Last Admin: 10/23/17 11:39 Dose: 4 units Lisinopril (Prinivil) 5 mg PO DAILY [facility] Last Admin: 10/23/17 09:21 Dose: 5 mg Methimazole (Tapazole -) 5 mg PO DAILY [facility] Last Admin: 10/23/17 09:21 Dose: 5 mg Multi-Ingredient Ointment (Zinc Oxide) 1 applic TP BID [facility] Last Admin: 10/23/17 09:26 Dose: 1 applic Multivitamins (Total B With C -) 1 each PO DAILY [facility] Last Admin: 10/23/17 09:22 Dose: 1 each Nystatin (Nystatin Oral Suspension -) 500,000 units PO Q6HPO [facility] Last Admin: 10/23/17 11:39 Dose: 500,000 units Nystatin (Mycostatin Cream -) 1 applic TP BID [facility] Last Admin: 10/23/17 09:23 Dose: 1 applic Sertraline HCl (Zoloft -) 100 mg PO DAILY [facility] Last Admin: 10/23/17 09:21 Dose: 100 mg - Objective Vital Signs: Vital Signs Temperature 99.3 F 10/23/17 09:00 Pulse Rate 102 H 10/23/17 09:00 Respiratory Rate 18 10/23/17 09:35 Blood Pressure 115/64 10/23/17 09:00 O2 Sat by Pulse Oximetry (%) 94 L 10/23/17 09:35 Constitutional: Yes: Calm Cardiovascular: Yes: Regular Rate and Rhythm Respiratory: Yes: Regular, CTA Bilaterally Gastrointestinal: Yes: Normal Bowel Sounds, Soft Extremities: Yes: Other Wound/Incision: Yes: Clean/Dry Neurological: Yes: Alert, Oriented Psychiatric: Yes: Alert, Oriented Labs: CBC, BMP 10/23/17 08:11 10/18/17 06:00 INR, PTT INR 1.15 (0.82-1.09) H 10/03/17 08:00 Assessment/Plan 76yo F with PMH of htn, dm, hyperthyroidism, schizophrenia, presented s/p mechanical fall, found to have Left humerus fracture. # Left humerus fx, s/p ORIF o # fever and persistent leukocytosis # pneumonia # DM # htn # hyperthyroidism # schizophrenia wbc increased plan wbc still fluctuating clinically patient looks stable will continue to monitor consider rescanning the shoulder to be sure rest as per the team
--- NOTE | 2017-10-23 18:10 | PN ---
Teaching Attending Note Name of Resident: Melchor Wolf ATTENDING PHYSICIAN STATEMENT I saw and evaluated the patient. I reviewed the resident's note and discussed the case with the resident. I agree with the resident's findings and plan as documented. SUBJECTIVE: No fever or chills . has pain in L shoulder with movement OBJECTIVE: NAD, erythema and crusting around lips, improved CV: RRR Lungs: good air entry , no crackles or rales Ext: LUE in a sling, a surgical wound with well healing scar, and resolution of bruising. No erythema. maculopaplar rash on back, buttocks, posterior thighs, groin and R antecubital area with satellite lesions with pale scaly center ASSESSMENT AND PLAN: 76 y/o lady with h/o HTN, DM, and other medical problems who presented with L arm pain after mechanical fall , she was found to have L humerus Fx 1- Persistent leukocytosis: - still no clear etiology, US with no absces . - will get a repeat CT scan of extremity with no contrast - If CT scan is neg , then will consult hematology to evaluate lekocytosis 2- Angular cheilitis. - B complex - apply topical bacitracin - fungal treatment 3- L humerus Fx: cont to monitor . 4- HTN: cont lisinopril 5- hyperthyroidism: cont methimazole 6- DM : cont SSI . at dc might need another agent with metformin , probably Januia 7- rash: likely fungal rash , Cont nystatin cream and zinc oxide DVT px will d/w ID . rehab placement Vs home with 24 hr aid and PT when ready . ? 1-2 days
[2017-10-23] MEDS: ATORVASTATIN CA 20 MG TABLET (FP) PO SCH (21:08)
--- NOTE | 2017-10-23 22:08 | PN ---
Physical Exam: SUBJECTIVE: Patient seen and examined No acute events overnight. Pt denies any new subjective complaints. She endorses less LUE pain upon movement. OBJECTIVE: Vital Signs Period Temp Pulse Resp BP Sys/Sheehan Pulse Ox Last 24 Hr 98 F-99.3 F 93-102 18-20 115-130/56-64 94-95 GENERAL: elderly female, awake, alert, and fully oriented, in no acute distress. HEENT: healing crusted lesions around lips LUNGS: decreased wheezing and rales HEART: normal rate and rhythm, S1, S2 without murmur, rub or gallop. ABDOMEN: Soft, nontender, nondistended, normoactive bowel sounds, no guarding, no rebound, no hepatosplenomegaly, no masses. Back: macular rash underneath immobilizer and underneath diaper EXTREMITIES: no LE edema. immobilizer removed. macular rash over right arm NEUROLOGICAL: Cranial nerves II through XII grossly intact. Normal speech Laboratory Results - last 24 hr 10/22/17 10/23/17 10/23/17 21:17 05:28 08:11 WBC 17.1 H RBC 4.42 Hgb 11.8 Hct 37.7 MCV 85.2 MCH 26.7 MCHC 31.4 L RDW 15.9 H Plt Count 439 H MPV 8.7 POC Glucometer 229 190 10/23/17 10/23/17 10/23/17 11:38 17:13 20:41 WBC RBC Hgb Hct MCV MCH MCHC RDW Plt Count MPV POC Glucometer 208 167 200 Active Medications Generic Name Dose Route Start Last Admin Trade Name Freq PRN Reason Stop Dose Admin Aripiprazole 10 mg 10/04/17 10:00 10/23/17 09:22 Abilify PO 10 mg DAILY MAGDI Administration Atorvastatin Calcium 20 mg 10/03/17 22:00 10/23/17 21:08 Lipitor - PO 20 mg HS MAGDI Administration Bacitracin 1 applic 10/18/17 12:00 10/23/17 21:09 Bacitracin - TP 1 applic BID MAGDI Administration Docusate Sodium 100 mg 10/03/17 22:00 10/23/17 21:07 Colace - PO 100 mg TID MAGDI Administration Guaifenesin 600 mg 10/09/17 10:00 10/23/17 21:08 Mucinex - PO 600 mg BID MAGDI Administration Heparin Sodium (Porcine) 5,000 unit 10/22/17 15:15 10/23/17 21:08 Heparin - SQ 5,000 unit TID MAGDI Administration Insulin Aspart 1 vial 10/03/17 16:30 10/23/17 21:06 Novolog Vial Sliding Scale - SQ 2 units ACHS MAGDI Administration Protocol Lisinopril 5 mg 10/10/17 10:00 10/23/17 09:21 Prinivil PO 5 mg DAILY MAGDI Administration Methimazole 5 mg 10/04/17 10:00 10/23/17 09:21 Tapazole - PO 5 mg DAILY MAGDI Administration Multi-Ingredient Ointment 1 applic 10/20/17 12:00 10/23/17 21:09 Zinc Oxide TP 1 applic BID MAGDI Administration Multivitamins 1 each 10/18/17 10:15 10/23/17 09:22 Total B With C - PO 1 each DAILY MAGDI Administration Nystatin 500,000 units 10/19/17 18:00 10/23/17 17:37 Nystatin Oral Suspension - PO 500,000 units Q6HPO MAGDI Administration Nystatin 1 applic 10/22/17 22:00 10/23/17 21:08 Mycostatin Cream - TP 1 applic BID MAGDI Administration Sertraline HCl 100 mg 10/04/17 10:00 10/23/17 09:21 Zoloft - PO 100 mg DAILY MAGDI Administration ASSESSMENT/PLAN: 76F w/ hx of HTN, DM, schizophrenia, hyperthyroidism and other medical problems who presented with L arm pain after mechanical fall, and was found to have L humerus Fx. s/p ORIF. Pt developed PNA in hospital, s/p course of abx. #L humerus Fx - s/p ORIF - wound care #infection -s/p treatment for PNA, no longer on abx per ID -pt has hx of persistent leukocytosis -afebrile overnight, wbc of 17 -trend temps and wbc counts -f/u 2nd CT LUE to r/o source of infection. If no source obtained, will consult hematology for persistent leukoyctosis #acute respiratory failure in the setting of PNA, possible aspiration, and pulmonary edema requiring IV lasix and oxygen via venti-mask to NC- resolving -echo: mild to moderate MR, mild aortic sclerosis #cheilosis -possibly fungal. continue nystatin swish and swallow -continue bacitracin -continue vitamin B complex #back rash -continue zinc oxide cream #HTN -continue home lisinopril #Hyperthyroidism - cont methimazole #schizophrenia -continue aripiprazole #anxiety/depression -continue sertraline #DM -continue ISS -BGM #FEN/ppx -no fluids -electrolytes wnl -diabetic/sodium diet -no GI ppx -lovenox 40 #Dispo -determining source of infection -Melchor Wolf MD PGY1 Visit type - Emergency Visit Emergency Visit: Yes ED Registration Date: 10/02/17 Care time: The patient presented to the Emergency Department on the above date and was hospitalized for further evaluation of their emergent condition. - New Patient This patient is new to me today: No - Critical Care Critical Care patient: No
[2017-10-24] MEDS: DOCUSATE SODIUM 100 MG CAPSULE (FP) PO SCH ×3 (05:37→22:11)
[2017-10-24] MEDS: HEPARIN NA (PORCINE) 5,000 UNITS/ML 1ML VIAL SQ SCH ×3 (05:37→22:10)
[2017-10-24] MEDS: NYSTATIN 500,000 UNITS/5 ML SUSPENSION PO SCH ×3 (05:39→17:23)
[2017-10-24] MEDS: INSULIN SLIDING SCALE (NOVOLOG) 1 VIAL SQ SCH ×4 (06:22→22:12)
[2017-10-24 09:33] LABS: BASO % 0.3 % (0-2.0); EOS % 4.7 % (0-4.5); HEMATOCRIT 38.6 % (32.4-45.2); HEMOGLOBIN 12.2 GM/dL (10.7-15.3); LYMPH % 19.1 % (8-40); MCHC 31.5 g/dl (32.0-36.0); MEAN CELL VOLUME 85.7 fl (80-96); MEAN PLT VOLUME 9.2 fl (7.5-11.1); MONO % 4.1 % (3.8-10.2); NEUT % 71.8 % (42.8-82.8); PLATELET COUNT 450 K/MM3 (134-434); RBC 4.51 M/mm3 (3.60-5.2); RDW 15.9 % (11.6-15.6); WHITE BLOOD COUNT 17.6 K/mm3 (4.0-10.0)
[2017-10-24] MEDS ORDERED: PT OWN MED DRAWER 7, Y5N ONE (09:44)
[2017-10-24] MEDS: ARIPiprazole 10 MG TABLET PO SCH (09:46)
[2017-10-24] MEDS: VITAMIN B COMPLEX W/C COMBO TABLET (FP) PO SCH (09:46)
[2017-10-24] MEDS: LISINOPRIL 5 MG TABLET (FP) PO SCH (09:46)
[2017-10-24] MEDS: METHIMAZOLE 5 MG TABLET (FP) PO SCH (09:46)
[2017-10-24] MEDS: SERTRALINE HCL 50 MG TABLET (FP) PO SCH (09:46)
[2017-10-24] MEDS: guaiFENesin 600 MG TABLET.ER (FP) PO SCH ×2 (09:46→22:11)
[2017-10-24] MEDS: NYSTATIN 100,000 UNIT/GM TOPICAL CREAM 15 GM TUBE TP SCH ×2 (09:47→22:11)
[2017-10-24] MEDS: ZINC OXIDE 20% TOPICAL OINTMENT 30 GM TUBE TP SCH ×2 (09:48→22:13)
[2017-10-24] MEDS: BACITRACIN 15 GM TUBE TOPICAL OINTMENT TP SCH ×2 (09:48→22:11)
[2017-10-24] MEDS ORDERED: INSULIN (NOVOLOG) ASPART 100 UNITS/ML 10ML VIAL ONE (11:52)
--- NOTE | 2017-10-24 15:09 | PN ---
Teaching Attending Note Name of Resident: Melchor Wolf ATTENDING PHYSICIAN STATEMENT I saw and evaluated the patient. I reviewed the resident's note and discussed the case with the resident. I agree with the resident's findings and plan as documented. SUBJECTIVE: Patient is comfortable with no acute distress, no shortness of breath, c/o having rash all over her body that she developed last week. OBJECTIVE: Vital Signs Temperature 98.8 F 10/24/17 06:00 Pulse Rate 85 10/24/17 06:00 Respiratory Rate 20 10/24/17 06:00 Blood Pressure 140/62 10/24/17 06:00 O2 Sat by Pulse Oximetry (%) 95 10/23/17 20:13 CBCD WBC 17.6 K/mm3 (4.0-10.0) H 10/24/17 08:20 RBC 4.51 M/mm3 (3.60-5.2) 10/24/17 08:20 Hgb 12.2 GM/dL (10.7-15.3) 10/24/17 08:20 Hct 38.6 % (32.4-45.2) 10/24/17 08:20 MCV 85.7 fl (80-96) 10/24/17 08:20 MCHC 31.5 g/dl (32.0-36.0) L 10/24/17 08:20 RDW 15.9 % (11.6-15.6) H 10/24/17 08:20 Plt Count 450 K/MM3 (134-434) H 10/24/17 08:20 MPV 9.2 fl (7.5-11.1) 10/24/17 08:20 CMP Sodium 138 mmol/L (136-145) 10/18/17 06:00 Potassium 4.4 mmol/L (3.5-5.1) 10/18/17 06:00 Chloride 103 mmol/L (98-107) 10/18/17 06:00 Carbon Dioxide 28 mmol/L (21-32) 10/18/17 06:00 Anion Gap 7 (8-16) L 10/18/17 06:00 BUN 9 mg/dL (7-18) 10/18/17 06:00 Creatinine 0.7 mg/dL (0.55-1.02) 10/18/17 06:00 Creat Clearance w eGFR > 60 (>60) 10/17/17 06:00 Random Glucose 152 mg/dL (74-106) H D 10/18/17 06:00 Calcium 8.4 mg/dL (8.5-10.1) L 10/18/17 06:00 Total Bilirubin 0.5 mg/dL (0.2-1.0) 10/17/17 06:00 AST 44 U/L (15-37) H D 10/17/17 06:00 ALT 58 U/L (12-78) D 10/17/17 06:00 Alkaline Phosphatase 141 U/L (45-117) H 10/17/17 06:00 Total Protein 6.5 g/dl (6.4-8.2) 10/17/17 06:00 Albumin 2.5 g/dl (3.4-5.0) L 10/17/17 06:00 CARDIAC ENZYMES Creatine Kinase 257 IU/L (26-192) H 10/02/17 16:25 Troponin I 0.02 ng/ml (0.00-0.05) 10/02/17 16:25 Current Medications Generic Name Dose Route Start Last Admin Trade Name Freq PRN Reason Stop Dose Admin Aripiprazole 10 mg 10/04/17 10:00 10/24/17 09:46 Abilify PO 10 mg DAILY MAGDI Administration Atorvastatin Calcium 20 mg 10/03/17 22:00 10/23/17 21:08 Lipitor - PO 20 mg HS MAGDI Administration Bacitracin 1 applic 10/18/17 12:00 10/24/17 09:48 Bacitracin - TP 1 applic BID MAGDI Administration Docusate Sodium 100 mg 10/03/17 22:00 10/24/17 14:18 Colace - PO 100 mg TID MAGDI Administration Guaifenesin 600 mg 10/09/17 10:00 10/24/17 09:46 Mucinex - PO 600 mg BID MAGDI Administration Heparin Sodium (Porcine) 5,000 unit 10/22/17 15:15 10/24/17 14:18 Heparin - SQ 5,000 unit TID MAGDI Administration Insulin Aspart 1 vial 10/03/17 16:30 10/24/17 11:54 Novolog Vial Sliding Scale - SQ 4 units ACHS MAGDI Administration Protocol Lisinopril 5 mg 10/10/17 10:00 10/24/17 09:46 Prinivil PO 5 mg DAILY MAGDI Administration Methimazole 5 mg 10/04/17 10:00 10/24/17 09:46 Tapazole - PO 5 mg DAILY MAGDI Administration Multi-Ingredient Ointment 1 applic 10/20/17 12:00 10/24/17 09:48 Zinc Oxide TP 1 applic BID MAGDI Administration Multivitamins 1 each 10/18/17 10:15 10/24/17 09:46 Total B With C - PO 1 each DAILY MAGDI Administration Nystatin 500,000 units 10/19/17 18:00 10/24/17 11:54 Nystatin Oral Suspension - PO 500,000 units Q6HPO MAGDI Administration Nystatin 1 applic 10/22/17 22:00 10/24/17 09:47 Mycostatin Cream - TP 1 applic BID MAGDI Administration Sertraline HCl 100 mg 10/04/17 10:00 10/24/17 09:46 Zoloft - PO 100 mg DAILY MAGDI Administration Home Medications Medication Instructions Recorded Lisinopril 10 mg PO DAILY 10/02/17 Metformin HCl 1,000 mg PO BID 10/02/17 Aripiprazole [Abilify] 10 mg PO DAILY 10/03/17 Cholecalciferol (Vitamin D3) 50,000 unit PO WEEKLY 10/03/17 [Vitamin D3] Methimazole [Tapazole] 5 mg PO DAILY 10/03/17 Sertraline HCl [Zoloft] 100 mg PO DAILY 10/03/17 Simvastatin 40 mg PO DAILY 10/03/17 Bacitracin - [Bacitracin Topical 1 applic TP BID tube 10/20/17 Ointment -] Docusate Sodium [Colace -] 100 mg PO TID capsule 10/20/17 Insulin Sliding Scale [Novolog 1 vial SQ ACHS units 10/20/17 Vial Sliding Scale -] Nystatin Oral Suspension - 500,000 units PO Q6HPO cup 10/20/17 [Nystatin Oral Susp 912593 Units/5 ML -] Nystatin Powder [Nystop Powder -] 1 applic TP TID applic 10/20/17 Vitamin B Comp W-C [Total B with C 1 each PO DAILY tablet 10/20/17 -] PE: Left upper extremity in immobilizer Skin: Rash over extremities, legs and her back, as per nurse is better. ASSESSMENT AND PLAN: Patient is a 76 y/o lady with h/o HTN, DM, and who presented with L arm pain after mechanical fall , she was found to have L humerus Fx #L humerus Fx s/p ORIF , rehab. in Immobilizer continue as per Ortho. # Persistent leukocytosis off antibiotic , Etiology is unclear, will get An MRI of left upper extremity to r/o possible an abscess. # Angular cheilitis. continue B complex, apply topical bacitracin as needed # HTN: cont lisinopril # hyperthyroidism: cont methimazole # DM : controlled cont SSI . at dc might need another agent with metformin , probably Januvia # rash: likely fungal rash , Cont nystatin cream and zinc oxide DVT px Heparin Patient will benefit from rehab placement Vs home with 24 hr aid and PT when ready.
--- NOTE | 2017-10-24 16:13 | PN ---
Physical Exam: SUBJECTIVE: Patient seen and examined No acute events overnight. Pt denies any new subjective complaints. She endorses less LUE pain upon movement. OBJECTIVE: Vital Signs Period Temp Pulse Resp BP Sys/Sheehan Pulse Ox Last 24 Hr 97.7 F-98.9 F 85-94 20-20 115-140/55-64 95 GENERAL: elderly female, awake, alert, and fully oriented, in no acute distress. HEENT: healing crusted lesions around lips LUNGS: decreased wheezing and rales HEART: normal rate and rhythm, S1, S2 without murmur, rub or gallop. ABDOMEN: Soft, nontender, nondistended, normoactive bowel sounds, no guarding, no rebound, no hepatosplenomegaly, no masses. Back: macular rash underneath immobilizer and underneath diaper EXTREMITIES: no LE edema. immobilizer removed. macular rash over right arm NEUROLOGICAL: Cranial nerves II through XII grossly intact. Normal speech Laboratory Results - last 24 hr 10/23/17 10/23/17 10/24/17 17:13 20:41 05:20 WBC RBC Hgb Hct MCV MCH MCHC RDW Plt Count MPV Neutrophils % Lymphocytes % Monocytes % Eosinophils % Basophils % POC Glucometer 167 200 168 10/24/17 10/24/17 08:20 11:48 WBC 17.6 H RBC 4.51 Hgb 12.2 Hct 38.6 MCV 85.7 MCH 27.0 MCHC 31.5 L RDW 15.9 H Plt Count 450 H MPV 9.2 Neutrophils % 71.8 Lymphocytes % 19.1 D Monocytes % 4.1 Eosinophils % 4.7 H Basophils % 0.3 POC Glucometer 214 Active Medications Generic Name Dose Route Start Last Admin Trade Name Freq PRN Reason Stop Dose Admin Aripiprazole 10 mg 10/04/17 10:00 10/24/17 09:46 Abilify PO 10 mg DAILY MAGDI Administration Atorvastatin Calcium 20 mg 10/03/17 22:00 10/23/17 21:08 Lipitor - PO 20 mg HS MAGDI Administration Bacitracin 1 applic 10/18/17 12:00 10/24/17 09:48 Bacitracin - TP 1 applic BID MAGDI Administration Docusate Sodium 100 mg 10/03/17 22:00 10/24/17 14:18 Colace - PO 100 mg TID MAGDI Administration Guaifenesin 600 mg 10/09/17 10:00 10/24/17 09:46 Mucinex - PO 600 mg BID MAGDI Administration Heparin Sodium (Porcine) 5,000 unit 10/22/17 15:15 10/24/17 14:18 Heparin - SQ 5,000 unit TID MAGDI Administration Insulin Aspart 1 vial 10/03/17 16:30 10/24/17 11:54 Novolog Vial Sliding Scale - SQ 4 units ACHS MAGDI Administration Protocol Lisinopril 5 mg 10/10/17 10:00 10/24/17 09:46 Prinivil PO 5 mg DAILY MAGDI Administration Methimazole 5 mg 10/04/17 10:00 10/24/17 09:46 Tapazole - PO 5 mg DAILY MAGDI Administration Multi-Ingredient Ointment 1 applic 10/20/17 12:00 10/24/17 09:48 Zinc Oxide TP 1 applic BID MAGDI Administration Multivitamins 1 each 10/18/17 10:15 10/24/17 09:46 Total B With C - PO 1 each DAILY MAGDI Administration Nystatin 500,000 units 10/19/17 18:00 10/24/17 11:54 Nystatin Oral Suspension - PO 500,000 units Q6HPO MAGDI Administration Nystatin 1 applic 10/22/17 22:00 10/24/17 09:47 Mycostatin Cream - TP 1 applic BID MAGDI Administration Sertraline HCl 100 mg 10/04/17 10:00 10/24/17 09:46 Zoloft - PO 100 mg DAILY MAGDI Administration ASSESSMENT/PLAN: 76F w/ hx of HTN, DM, schizophrenia, hyperthyroidism and other medical problems who presented with L arm pain after mechanical fall, and was found to have L humerus Fx. s/p ORIF. Pt developed PNA in hospital, s/p course of abx. #L humerus Fx - s/p ORIF - wound care #infection -s/p treatment for PNA, no longer on abx per ID -pt has hx of persistent leukocytosis -afebrile overnight, wbc of 17 again -trend temps and wbc counts -CT LUE: did not show signs of infection, but not best test for ruling out infection -f/u MRI LUE w/ contrast -hematology consulted, f/u recs #acute respiratory failure in the setting of PNA, possible aspiration, and pulmonary edema requiring IV lasix and oxygen via venti-mask to NC- resolving -echo: mild to moderate MR, mild aortic sclerosis #cheilosis- improving -possibly fungal. continue nystatin swish and swallow -continue bacitracin -continue vitamin B complex #back rash -continue zinc oxide cream #HTN -continue home lisinopril #Hyperthyroidism - cont methimazole #schizophrenia -continue aripiprazole #anxiety/depression -continue sertraline #DM -continue ISS -BGM #FEN/ppx -no fluids -electrolytes wnl -diabetic/sodium diet -no GI ppx -lovenox 40 #Dispo -determining source of infection Case discussed with attending, Dr. Sagastume. -Melchor Wolf MD PGY1 Visit type - Emergency Visit Emergency Visit: Yes ED Registration Date: 10/02/17 Care time: The patient presented to the Emergency Department on the above date and was hospitalized for further evaluation of their emergent condition. - New Patient This patient is new to me today: No - Critical Care Critical Care patient: No
[2017-10-24 16:33] LABS: ANION GAP 6 (8-16); BLOOD UREA NITROGEN 17 mg/dL (7-18); CALCIUM 8.7 mg/dL (8.5-10.1); CHLORIDE 103 mmol/L (98-107); CO2 27 mmol/L (21-32); CREATININE 0.8 mg/dL (0.55-1.02); GLUCOSE,RANDOM 138 mg/dL (74-106); POTASSIUM 4.5 mmol/L (3.5-5.1); SODIUM 136 mmol/L (136-145)
--- NOTE | 2017-10-24 16:48 | CONSULT ---
Consult Consult Specialty:: Oncology/Hematology - History of Present Illness History of Present Illness: 76 y/o lady with h/o HTN, DM, and who presented with L arm pain after mechanical fall , she was found to have L humerus Fx - Past Medical History Cardio/Vascular: Yes: HTN Psych: Yes: Depression, Schizophrenia Endocrine: Yes: Diabetes Mellitus, Other (Thyroid disease, patient is unclear whether it's hypothyroidism or hyperthyroidism) - Alcohol/Substance Use Hx Alcohol Use: No - Smoking History Smoking history: Never smoked Have you smoked in the past 12 months: No Home Medications - Allergies Allergies/Adverse Reactions: Allergies Allergy/AdvReac Type Severity Reaction Status Date / Time Penicillins Allergy Hives Verified 10/02/17 16:31 - Home Medications Home Medications: Ambulatory Orders Lisinopril 10 mg PO DAILY 10/02/17 Metformin HCl 1,000 mg PO BID 10/02/17 Aripiprazole [Abilify] 10 mg PO DAILY 10/03/17 Cholecalciferol (Vitamin D3) [Vitamin D3] 50,000 unit PO WEEKLY 10/03/17 Methimazole [Tapazole] 5 mg PO DAILY 10/03/17 Sertraline HCl [Zoloft] 100 mg PO DAILY 10/03/17 Simvastatin 40 mg PO DAILY 10/03/17 Bacitracin - [Bacitracin Topical Ointment -] 1 applic TP BID tube 10/20/17 Docusate Sodium [Colace -] 100 mg PO TID capsule 10/20/17 Insulin Sliding Scale [Novolog Vial Sliding Scale -] 1 vial SQ ACHS units 10/20 Nystatin Oral Suspension - [Nystatin Oral Susp 073571 Units/5 ML -] 500,000 units PO Q6HPO cup 10/20/17 Nystatin Powder [Nystop Powder -] 1 applic TP TID applic 10/20/17 Vitamin B Comp W-C [Total B with C -] 1 each PO DAILY tablet 10/20/17 Physical Exam Vital Signs: Vital Signs Temperature 97.7 F 10/24/17 15:28 Pulse Rate 88 10/24/17 15:28 Respiratory Rate 20 10/24/17 15:28 Blood Pressure 115/55 10/24/17 15:28 O2 Sat by Pulse Oximetry (%) 95 10/23/17 20:13 Constitutional: Yes: No Distress, Calm Eyes: Yes: Conjunctiva Clear HENT: Yes: Atraumatic, Normocephalic, Other (cushingoid appearance) Neck: Yes: Supple Gastrointestinal: Yes: Normal Bowel Sounds Edema: No Integumentary: Yes: Other (rash) Labs: CBC, BMP 10/24/17 08:20 10/24/17 14:45 Imaging - Results Cat Scan: Report Reviewed Problem List - Problems (1) Leukocytosis Code(s): D72.829 - ELEVATED WHITE BLOOD CELL COUNT, UNSPECIFIED (2) Humerus fracture Code(s): S42.309A - UNSP FRACTURE OF SHAFT OF HUMERUS, UNSP ARM, INIT Qualifiers: Encounter type: initial encounter Humerus Location: surgical neck Fracture type: closed Fracture morphology: unspecified fracture morphology Fracture alignment: displaced Laterality: left Qualified Code(s): S42.212A - Unspecified displaced fracture of surgical neck of left humerus, initial encounter for closed fracture (3) Rash Code(s): R21 - RASH AND OTHER NONSPECIFIC SKIN ERUPTION Assessment/Plan Leucocytosis: probable benign will f/u MRI will send peripheral flow cytometry. Rash: ?etiology monitor eos Rest per primary
--- NOTE | 2017-10-24 17:53 | PN ---
Progress Note, Physician History of Present Illness: wbc continues to remain high patient asympotmatic got imaging done - Current Medication List Current Medications: Active Medications Aripiprazole (Abilify) 10 mg PO DAILY [facility] Last Admin: 10/24/17 09:46 Dose: 10 mg Atorvastatin Calcium (Lipitor -) 20 mg PO HS [facility] Last Admin: 10/23/17 21:08 Dose: 20 mg Bacitracin (Bacitracin -) 1 applic TP BID [facility] Last Admin: 10/24/17 09:48 Dose: 1 applic Docusate Sodium (Colace -) 100 mg PO TID [facility] Last Admin: 10/24/17 14:18 Dose: 100 mg Guaifenesin (Mucinex -) 600 mg PO BID [facility] Last Admin: 10/24/17 09:46 Dose: 600 mg Heparin Sodium (Porcine) (Heparin -) 5,000 unit SQ TID [facility] Last Admin: 10/24/17 14:18 Dose: 5,000 unit Insulin Aspart (Novolog Vial Sliding Scale -) 1 vial SQ [facility] PRN Reason: Protocol Last Admin: 10/24/17 16:57 Dose: 2 units Lisinopril (Prinivil) 5 mg PO DAILY [facility] Last Admin: 10/24/17 09:46 Dose: 5 mg Methimazole (Tapazole -) 5 mg PO DAILY [facility] Last Admin: 10/24/17 09:46 Dose: 5 mg Multi-Ingredient Ointment (Zinc Oxide) 1 applic TP BID [facility] Last Admin: 10/24/17 09:48 Dose: 1 applic Multivitamins (Total B With C -) 1 each PO DAILY [facility] Last Admin: 10/24/17 09:46 Dose: 1 each Nystatin (Nystatin Oral Suspension -) 500,000 units PO Q6HPO [facility] Last Admin: 10/24/17 17:23 Dose: 500,000 units Nystatin (Mycostatin Cream -) 1 applic TP BID [facility] Last Admin: 10/24/17 09:47 Dose: 1 applic Sertraline HCl (Zoloft -) 100 mg PO DAILY [facility] Last Admin: 10/24/17 09:46 Dose: 100 mg - Objective Vital Signs: Vital Signs Temperature 97.7 F 10/24/17 15:28 Pulse Rate 88 10/24/17 15:28 Respiratory Rate 20 10/24/17 15:28 Blood Pressure 115/55 10/24/17 15:28 O2 Sat by Pulse Oximetry (%) 95 10/23/17 20:13 Constitutional: Yes: No Distress, Calm Cardiovascular: Yes: Regular Rate and Rhythm Respiratory: Yes: Regular, CTA Bilaterally Gastrointestinal: Yes: Normal Bowel Sounds, Soft Musculoskeletal: Yes: WNL Extremities: Yes: Other Wound/Incision: Yes: Dressing Dry and Intact Neurological: Yes: Alert, Oriented Psychiatric: Yes: Alert Labs: CBC, BMP 10/24/17 08:20 10/24/17 14:45 INR, PTT INR 1.15 (0.82-1.09) H 10/03/17 08:00 - ....Imaging MRI: Report Reviewed, Image Reviewed Assessment/Plan 76yo F with PMH of htn, dm, hyperthyroidism, schizophrenia, presented s/p mechanical fall, found to have Left humerus fracture. # Left humerus fx, s/p ORIF o # fever and persistent leukocytosis # pneumonia # DM # htn # hyperthyroidism # schizophrenia wbc increased plan wbc on the higher side mri result noted continue to monitor onco/heam to see the patient
[2017-10-24] MEDS: ATORVASTATIN CA 20 MG TABLET (FP) PO SCH (22:11)
[2017-10-25] MEDS: NYSTATIN 500,000 UNITS/5 ML SUSPENSION PO SCH ×4 (00:05→18:32)
[2017-10-25] MEDS: DOCUSATE SODIUM 100 MG CAPSULE (FP) PO SCH ×3 (06:23→22:24)
[2017-10-25] MEDS: INSULIN SLIDING SCALE (NOVOLOG) 1 VIAL SQ SCH ×4 (06:23→22:24)
[2017-10-25] MEDS: HEPARIN NA (PORCINE) 5,000 UNITS/ML 1ML VIAL SQ SCH ×3 (06:23→22:24)
[2017-10-25 08:29] LABS: BASO % 0.3 % (0-2.0); HEMATOCRIT 37.7 % (32.4-45.2); HEMOGLOBIN 11.9 GM/dL (10.7-15.3); LYMPH % 13.3 % (8-40); MCHC 31.5 g/dl (32.0-36.0); MEAN CELL VOLUME 85.7 fl (80-96); MEAN PLT VOLUME 8.8 fl (7.5-11.1); MONO % 3.2 % (3.8-10.2); NEUT % 78.2 % (42.8-82.8); PLATELET COUNT 373 K/MM3 (134-434); RDW 15.8 % (11.6-15.6); WHITE BLOOD COUNT 16.1 K/mm3 (4.0-10.0)
[2017-10-25 08:58] LABS: URIC ACID 3.2 mg/dL (2.6-7.2)
[2017-10-25] MEDS ORDERED: PT OWN MED DRAWER 7, Y5N ONE (10:52)
--- NOTE | 2017-10-25 11:04 | PN ---
Physical Exam: SUBJECTIVE: Patient seen and examined No acute events overnight. Pt denies any new subjective complaints. She endorses less LUE pain upon movement. OBJECTIVE: Vital Signs Period Temp Pulse Resp BP Sys/Sheehan Pulse Ox Last 24 Hr 97.7 F-99.1 F 76-88 20-24 115-135/49-68 94 GENERAL: elderly female, awake, alert, and fully oriented, in no acute distress. HEENT: healing crusted lesions around lips LUNGS: decreased wheezing and rales HEART: normal rate and rhythm, S1, S2 without murmur, rub or gallop. ABDOMEN: Soft, nontender, nondistended, normoactive bowel sounds, no guarding, no rebound, no hepatosplenomegaly, no masses. Back: macular rash underneath immobilizer and underneath diaper EXTREMITIES: no LE edema. immobilizer removed. macular rash over right arm NEUROLOGICAL: Cranial nerves II through XII grossly intact. Normal speech Laboratory Results - last 24 hr 10/24/17 10/24/17 10/24/17 11:48 14:45 16:57 WBC RBC Hgb Hct MCV MCH MCHC RDW Plt Count MPV Neutrophils % Lymphocytes % Monocytes % Eosinophils % Basophils % Sodium 136 Potassium 4.5 Chloride 103 Carbon Dioxide 27 Anion Gap 6 L BUN 17 D Creatinine 0.8 POC Glucometer 214 164 Random Glucose 138 H Uric Acid Calcium 8.7 LD Total 10/24/17 10/25/17 10/25/17 22:09 06:22 07:30 WBC RBC Hgb Hct MCV MCH MCHC RDW Plt Count MPV Neutrophils % Lymphocytes % Monocytes % Eosinophils % Basophils % Sodium Potassium Chloride Carbon Dioxide Anion Gap BUN Creatinine POC Glucometer 164 183 Random Glucose Uric Acid 3.2 Calcium LD Total 183 10/25/17 07:30 WBC 16.1 H RBC 4.40 Hgb 11.9 Hct 37.7 MCV 85.7 MCH 27.0 MCHC 31.5 L RDW 15.8 H Plt Count 373 MPV 8.8 Neutrophils % 78.2 Lymphocytes % 13.3 D Monocytes % 3.2 L Eosinophils % 5.0 H Basophils % 0.3 Sodium Potassium Chloride Carbon Dioxide Anion Gap BUN Creatinine POC Glucometer Random Glucose Uric Acid Calcium LD Total Active Medications Generic Name Dose Route Start Last Admin Trade Name Freq PRN Reason Stop Dose Admin Aripiprazole 10 mg 10/04/17 10:00 10/24/17 09:46 Abilify PO 10 mg DAILY MAGDI Administration Atorvastatin Calcium 20 mg 10/03/17 22:00 10/24/17 22:11 Lipitor - PO 20 mg HS MAGDI Administration Bacitracin 1 applic 10/18/17 12:00 10/24/17 22:11 Bacitracin - TP 1 applic BID MAGDI Administration Docusate Sodium 100 mg 10/03/17 22:00 10/25/17 06:23 Colace - PO 100 mg TID MAGDI Administration Guaifenesin 600 mg 10/09/17 10:00 10/24/17 22:11 Mucinex - PO 600 mg BID MAGDI Administration Heparin Sodium (Porcine) 5,000 unit 10/22/17 15:15 10/25/17 06:23 Heparin - SQ 5,000 unit TID MAGDI Administration Insulin Aspart 1 vial 10/03/17 16:30 10/25/17 06:23 Novolog Vial Sliding Scale - SQ 2 units ACHS MAGDI Administration Protocol Lisinopril 5 mg 10/10/17 10:00 10/24/17 09:46 Prinivil PO 5 mg DAILY MAGDI Administration Methimazole 5 mg 10/04/17 10:00 10/24/17 09:46 Tapazole - PO 5 mg DAILY MAGDI Administration Multi-Ingredient Ointment 1 applic 10/20/17 12:00 10/24/17 22:13 Zinc Oxide TP 1 applic BID MAGDI Administration Multivitamins 1 each 10/18/17 10:15 10/24/17 09:46 Total B With C - PO 1 each DAILY MAGDI Administration Nystatin 500,000 units 10/19/17 18:00 10/25/17 06:23 Nystatin Oral Suspension - PO 500,000 units Q6HPO MAGDI Administration Nystatin 1 applic 10/22/17 22:00 10/24/17 22:11 Mycostatin Cream - TP 1 applic BID MAGDI Administration Sertraline HCl 100 mg 10/04/17 10:00 10/24/17 09:46 Zoloft - PO 100 mg DAILY MAGDI Administration ASSESSMENT/PLAN: 76F w/ hx of HTN, DM, schizophrenia, hyperthyroidism and other medical problems who presented with L arm pain after mechanical fall, and was found to have L humerus Fx. s/p ORIF. Pt developed PNA in hospital, s/p course of abx. #L humerus Fx - s/p ORIF - wound care #infection -s/p treatment for PNA, no longer on abx per ID -pt has hx of persistent leukocytosis -afebrile overnight, wbc of 16 -trend temps and wbc counts -CT LUE: did not show signs of infection, but not best test for ruling out infection -f/u MRI LUE w/ contrast -hematology consulted, recs appreciated that leukocytosis is probably benign. will f/u peripheral flow cytometry and other ordered labs #acute respiratory failure in the setting of PNA, possible aspiration, and pulmonary edema requiring IV lasix and oxygen via venti-mask to NC- resolving -echo: mild to moderate MR, mild aortic sclerosis #cheilosis- improving -possibly fungal. continue nystatin swish and swallow -continue bacitracin -continue vitamin B complex #back rash -continue zinc oxide cream #HTN -continue home lisinopril #Hyperthyroidism - cont methimazole #schizophrenia -continue aripiprazole #anxiety/depression -continue sertraline #DM -continue ISS -BGM #FEN/ppx -no fluids -electrolytes wnl -diabetic/sodium diet -no GI ppx -lovenox 40 #Dispo -determining source of infection Case discussed with attending, Dr. Sagastume. -Melchor Wolf MD PGY1 Visit type - Emergency Visit Emergency Visit: Yes ED Registration Date: 10/02/17 Care time: The patient presented to the Emergency Department on the above date and was hospitalized for further evaluation of their emergent condition. - New Patient This patient is new to me today: No - Critical Care Critical Care patient: No
[2017-10-25] MEDS: VITAMIN B COMPLEX W/C COMBO TABLET (FP) PO SCH (12:16)
[2017-10-25] MEDS: SERTRALINE HCL 50 MG TABLET (FP) PO SCH (12:16)
[2017-10-25] MEDS: ARIPiprazole 10 MG TABLET PO SCH (12:16)
[2017-10-25] MEDS: BACITRACIN 15 GM TUBE TOPICAL OINTMENT TP SCH ×2 (12:16→22:24)
[2017-10-25] MEDS: guaiFENesin 600 MG TABLET.ER (FP) PO SCH ×2 (12:16→22:24)
[2017-10-25] MEDS: NYSTATIN 100,000 UNIT/GM TOPICAL CREAM 15 GM TUBE TP SCH ×2 (12:17→22:18)
[2017-10-25] MEDS: LISINOPRIL 5 MG TABLET (FP) PO SCH (12:17)
[2017-10-25] MEDS: METHIMAZOLE 5 MG TABLET (FP) PO SCH (12:17)
[2017-10-25] MEDS: ZINC OXIDE 20% TOPICAL OINTMENT 30 GM TUBE TP SCH ×2 (12:17→22:18)
[2017-10-25] MEDS ORDERED: INSULIN (NOVOLOG) ASPART 100 UNITS/ML 10ML VIAL ONE ×2 (19:03→22:23)
--- NOTE | 2017-10-25 20:11 | PN ---
Teaching Attending Note Name of Resident: Melchor Wolf ATTENDING PHYSICIAN STATEMENT I saw and evaluated the patient. I reviewed the resident's note and discussed the case with the resident. I agree with the resident's findings and plan as documented. SUBJECTIVE: Patient is feeling better with no acute distress. No fever or chills. OBJECTIVE: Vital Signs Temperature 98.8 F 10/25/17 15:31 Pulse Rate 88 10/25/17 15:31 Respiratory Rate 18 10/25/17 15:31 Blood Pressure 119/50 10/25/17 15:31 O2 Sat by Pulse Oximetry (%) 95 10/25/17 09:00 CBCD WBC 16.1 K/mm3 (4.0-10.0) H 10/25/17 07:30 RBC 4.40 M/mm3 (3.60-5.2) 10/25/17 07:30 Hgb 11.9 GM/dL (10.7-15.3) 10/25/17 07:30 Hct 37.7 % (32.4-45.2) 10/25/17 07:30 MCV 85.7 fl (80-96) 10/25/17 07:30 MCHC 31.5 g/dl (32.0-36.0) L 10/25/17 07:30 RDW 15.8 % (11.6-15.6) H 10/25/17 07:30 Plt Count 373 K/MM3 (134-434) 10/25/17 07:30 MPV 8.8 fl (7.5-11.1) 10/25/17 07:30 CMP Sodium 136 mmol/L (136-145) 10/24/17 14:45 Potassium 4.5 mmol/L (3.5-5.1) 10/24/17 14:45 Chloride 103 mmol/L (98-107) 10/24/17 14:45 Carbon Dioxide 27 mmol/L (21-32) 10/24/17 14:45 Anion Gap 6 (8-16) L 10/24/17 14:45 BUN 17 mg/dL (7-18) D 10/24/17 14:45 Creatinine 0.8 mg/dL (0.55-1.02) 10/24/17 14:45 Creat Clearance w eGFR > 60 (>60) 10/17/17 06:00 Random Glucose 138 mg/dL (74-106) H 10/24/17 14:45 Calcium 8.7 mg/dL (8.5-10.1) 10/24/17 14:45 Total Bilirubin 0.5 mg/dL (0.2-1.0) 10/17/17 06:00 AST 44 U/L (15-37) H D 10/17/17 06:00 ALT 58 U/L (12-78) D 10/17/17 06:00 Alkaline Phosphatase 141 U/L (45-117) H 10/17/17 06:00 Total Protein 6.5 g/dl (6.4-8.2) 10/17/17 06:00 Albumin 2.5 g/dl (3.4-5.0) L 10/17/17 06:00 CARDIAC ENZYMES Creatine Kinase 257 IU/L (26-192) H 10/02/17 16:25 Troponin I 0.02 ng/ml (0.00-0.05) 10/02/17 16:25 Current Medications Generic Name Dose Route Start Last Admin Trade Name Freq PRN Reason Stop Dose Admin Aripiprazole 10 mg 10/04/17 10:00 10/25/17 12:16 Abilify PO 10 mg DAILY MAGDI Administration Atorvastatin Calcium 20 mg 10/03/17 22:00 10/24/17 22:11 Lipitor - PO 20 mg HS MAGDI Administration Bacitracin 1 applic 10/18/17 12:00 10/25/17 12:16 Bacitracin - TP 1 applic BID MAGDI Administration Docusate Sodium 100 mg 10/03/17 22:00 10/25/17 14:43 Colace - PO 100 mg TID MAGDI Administration Guaifenesin 600 mg 10/09/17 10:00 10/25/17 12:16 Mucinex - PO 600 mg BID MAGDI Administration Heparin Sodium (Porcine) 5,000 unit 10/22/17 15:15 10/25/17 14:42 Heparin - SQ 5,000 unit TID MAGDI Administration Insulin Aspart 1 vial 10/03/17 16:30 10/25/17 18:31 Novolog Vial Sliding Scale - SQ 4 units ACHS MAGDI Administration Protocol Lisinopril 5 mg 10/10/17 10:00 10/25/17 12:17 Prinivil PO 5 mg DAILY MAGDI Administration Methimazole 5 mg 10/04/17 10:00 10/25/17 12:17 Tapazole - PO 5 mg DAILY MAGDI Administration Multi-Ingredient Ointment 1 applic 10/20/17 12:00 10/25/17 12:17 Zinc Oxide TP 1 applic BID MAGDI Administration Multivitamins 1 each 10/18/17 10:15 10/25/17 12:16 Total B With C - PO 1 each DAILY MAGDI Administration Nystatin 500,000 units 10/19/17 18:00 10/25/17 18:32 Nystatin Oral Suspension - PO 500,000 units Q6HPO MAGDI Administration Nystatin 1 applic 10/22/17 22:00 10/25/17 12:17 Mycostatin Cream - TP 1 applic BID MAGDI Administration Sertraline HCl 100 mg 10/04/17 10:00 10/25/17 12:16 Zoloft - PO 100 mg DAILY MAGDI Administration Home Medications Medication Instructions Recorded Lisinopril 10 mg PO DAILY 10/02/17 Metformin HCl 1,000 mg PO BID 10/02/17 Aripiprazole [Abilify] 10 mg PO DAILY 10/03/17 Cholecalciferol (Vitamin D3) 50,000 unit PO WEEKLY 10/03/17 [Vitamin D3] Methimazole [Tapazole] 5 mg PO DAILY 10/03/17 Sertraline HCl [Zoloft] 100 mg PO DAILY 10/03/17 Simvastatin 40 mg PO DAILY 10/03/17 Bacitracin - [Bacitracin Topical 1 applic TP BID tube 10/20/17 Ointment -] Docusate Sodium [Colace -] 100 mg PO TID capsule 10/20/17 Insulin Sliding Scale [Novolog 1 vial SQ ACHS units 10/20/17 Vial Sliding Scale -] Nystatin Oral Suspension - 500,000 units PO Q6HPO cup 10/20/17 [Nystatin Oral Susp 707474 Units/5 ML -] Nystatin Powder [Nystop Powder -] 1 applic TP TID applic 10/20/17 Vitamin B Comp W-C [Total B with C 1 each PO DAILY tablet 10/20/17 -] PE: Left upper extremity in immobilizer Skin: Rash over extremities, legs and her back, as per nurse is better. Reviewed MRI report. ASSESSMENT AND PLAN: Patient is a 76 y/o lady with h/o HTN, DM, and who presented with L arm pain after mechanical fall , she was found to have L humerus Fx #L humerus Fx s/p ORIF , rehab. in [facility] continue as per Ortho. # Persistent leukocytosis off antibiotic , Etiology is unclear, reviewed MRI report , willcheck with ortho in am whether aNYTHING else needs to be done.. # Angular cheilitis. continue B complex, apply topical bacitracin as needed # HTN: cont lisinopril # hyperthyroidism: cont methimazole # DM : controlled cont SSI . at dc might need another agent with metformin , probably Januvia # rash: likely fungal rash , Cont nystatin cream and zinc oxide DVT px Heparin Patient will benefit from rehab placement Vs home with 24 hr aid and PT when ready.
[2017-10-25] MEDS: ATORVASTATIN CA 20 MG TABLET (FP) PO SCH (22:24)
[2017-10-26] MEDS: NYSTATIN 500,000 UNITS/5 ML SUSPENSION PO SCH ×4 (00:12→18:01)
[2017-10-26] MEDS ORDERED: INSULIN (NOVOLOG) ASPART 100 UNITS/ML 10ML VIAL ONE ×2 (06:28→17:01)
[2017-10-26] MEDS: DOCUSATE SODIUM 100 MG CAPSULE (FP) PO SCH ×2 (06:29→14:37)
[2017-10-26] MEDS: HEPARIN NA (PORCINE) 5,000 UNITS/ML 1ML VIAL SQ SCH ×2 (06:29→14:37)
[2017-10-26] MEDS: INSULIN SLIDING SCALE (NOVOLOG) 1 VIAL SQ SCH ×3 (06:29→16:55)
[2017-10-26 08:48] LABS: BASO % 0.3 % (0-2.0); EOS % 5.6 % (0-4.5); HEMATOCRIT 37.3 % (32.4-45.2); HEMOGLOBIN 11.8 GM/dL (10.7-15.3); MCH 26.8 pg (25.7-33.7); MCHC 31.7 g/dl (32.0-36.0); MEAN CELL VOLUME 84.7 fl (80-96); MEAN PLT VOLUME 8.8 fl (7.5-11.1); MONO % 3.7 % (3.8-10.2); NEUT % 74.4 % (42.8-82.8); PLATELET COUNT 366 K/MM3 (134-434); RBC 4.41 M/mm3 (3.60-5.2); RDW 15.7 % (11.6-15.6); WHITE BLOOD COUNT 16.3 K/mm3 (4.0-10.0)
--- NOTE | 2017-10-26 09:27 | PN ---
Teaching Attending Note Name of Resident: Melchor Wolf ATTENDING PHYSICIAN STATEMENT I saw and evaluated the patient. I reviewed the resident's note and discussed the case with the resident. I agree with the resident's findings and plan as documented. SUBJECTIVE: Patient is feeling better. No fever or chills, no shortness of breath. Patient has no fever for many days now,, off antibiotic., Discussed with Ortho the result of MRI and per ortho it's a normal finding. OBJECTIVE: Vital Signs Temperature 98.4 F 10/26/17 08:16 Pulse Rate 83 10/26/17 08:16 Respiratory Rate 18 10/26/17 08:16 Blood Pressure 135/63 10/26/17 08:16 O2 Sat by Pulse Oximetry (%) 95 10/25/17 09:00 CBCD WBC 16.3 K/mm3 (4.0-10.0) H 10/26/17 08:00 RBC 4.41 M/mm3 (3.60-5.2) 10/26/17 08:00 Hgb 11.8 GM/dL (10.7-15.3) 10/26/17 08:00 Hct 37.3 % (32.4-45.2) 10/26/17 08:00 MCV 84.7 fl (80-96) 10/26/17 08:00 MCHC 31.7 g/dl (32.0-36.0) L 10/26/17 08:00 RDW 15.7 % (11.6-15.6) H 10/26/17 08:00 Plt Count 366 K/MM3 (134-434) 10/26/17 08:00 MPV 8.8 fl (7.5-11.1) 10/26/17 08:00 CMP Sodium 136 mmol/L (136-145) 10/24/17 14:45 Potassium 4.5 mmol/L (3.5-5.1) 10/24/17 14:45 Chloride 103 mmol/L (98-107) 10/24/17 14:45 Carbon Dioxide 27 mmol/L (21-32) 10/24/17 14:45 Anion Gap 6 (8-16) L 10/24/17 14:45 BUN 17 mg/dL (7-18) D 10/24/17 14:45 Creatinine 0.8 mg/dL (0.55-1.02) 10/24/17 14:45 Creat Clearance w eGFR > 60 (>60) 10/17/17 06:00 Random Glucose 138 mg/dL (74-106) H 10/24/17 14:45 Calcium 8.7 mg/dL (8.5-10.1) 10/24/17 14:45 Total Bilirubin 0.5 mg/dL (0.2-1.0) 10/17/17 06:00 AST 44 U/L (15-37) H D 10/17/17 06:00 ALT 58 U/L (12-78) D 10/17/17 06:00 Alkaline Phosphatase 141 U/L (45-117) H 10/17/17 06:00 Total Protein 6.5 g/dl (6.4-8.2) 10/17/17 06:00 Albumin 2.5 g/dl (3.4-5.0) L 10/17/17 06:00 CARDIAC ENZYMES Creatine Kinase 257 IU/L (26-192) H 10/02/17 16:25 Troponin I 0.02 ng/ml (0.00-0.05) 10/02/17 16:25 Current Medications Generic Name Dose Route Start Last Admin Trade Name Freq PRN Reason Stop Dose Admin Aripiprazole 10 mg 10/04/17 10:00 10/25/17 12:16 Abilify PO 10 mg DAILY MAGDI Administration Atorvastatin Calcium 20 mg 10/03/17 22:00 10/25/17 22:24 Lipitor - PO 20 mg HS MAGDI Administration Bacitracin 1 applic 10/18/17 12:00 10/25/17 22:24 Bacitracin - TP 1 applic BID MAGDI Administration Docusate Sodium 100 mg 10/03/17 22:00 10/26/17 06:29 Colace - PO 100 mg TID MAGDI Administration Guaifenesin 600 mg 10/09/17 10:00 10/25/17 22:24 Mucinex - PO 600 mg BID MAGDI Administration Heparin Sodium (Porcine) 5,000 unit 10/22/17 15:15 10/26/17 06:29 Heparin - SQ 5,000 unit TID MAGDI Administration Insulin Aspart 1 vial 10/03/17 16:30 10/26/17 06:29 Novolog Vial Sliding Scale - SQ 2 units ACHS MAGDI Administration Protocol Lisinopril 5 mg 10/10/17 10:00 10/25/17 12:17 Prinivil PO 5 mg DAILY MAGDI Administration Methimazole 5 mg 10/04/17 10:00 10/25/17 12:17 Tapazole - PO 5 mg DAILY MAGDI Administration Multi-Ingredient Ointment 1 applic 10/20/17 12:00 10/25/17 22:18 Zinc Oxide TP 1 applic BID MAGDI Administration Multivitamins 1 each 10/18/17 10:15 10/25/17 12:16 Total B With C - PO 1 each DAILY MAGDI Administration Nystatin 500,000 units 10/19/17 18:00 10/26/17 06:29 Nystatin Oral Suspension - PO 500,000 units Q6HPO MAGDI Administration Nystatin 1 applic 10/22/17 22:00 10/25/17 22:18 Mycostatin Cream - TP 1 applic BID MAGDI Administration Sertraline HCl 100 mg 10/04/17 10:00 10/25/17 12:16 Zoloft - PO 100 mg DAILY MAGDI Administration Home Medications Medication Instructions Recorded Lisinopril 10 mg PO DAILY 10/02/17 Metformin HCl 1,000 mg PO BID 10/02/17 Aripiprazole [Abilify] 10 mg PO DAILY 10/03/17 Cholecalciferol (Vitamin D3) 50,000 unit PO WEEKLY 10/03/17 [Vitamin D3] Methimazole [Tapazole] 5 mg PO DAILY 10/03/17 Sertraline HCl [Zoloft] 100 mg PO DAILY 10/03/17 Simvastatin 40 mg PO DAILY 10/03/17 Bacitracin - [Bacitracin Topical 1 applic TP BID tube 10/20/17 Ointment -] Docusate Sodium [Colace -] 100 mg PO TID capsule 10/20/17 Insulin Sliding Scale [Novolog 1 vial SQ ACHS units 10/20/17 Vial Sliding Scale -] Nystatin Powder [Nystop Powder -] 1 applic TP TID applic 10/20/17 Vitamin B Comp W-C [Total B with C 1 each PO DAILY tablet 10/20/17 -] Nystatin Cream [Mycostatin Cream -] 1 applic TP BID #1 applic 10/26/17 Zinc Oxide 1 applic TP BID #1 tube 10/26/17 PE: Left arm in immobilizer Rest of PE per resident's note. MRI report reviewed. Laboratory Tests 10/25/17 07:30 MCKINLEY & SPEP Interp Pending Total Protein (MCKINLEY) Pending Albumin (MCKINLEY) Pending Albumin/Globulin (MCKINLEY) Pending Pofen-2-Yngtxudns MCKINLEY Pending Knrur-5-[place] MCKINLEY Pending Gamma Globulins (MCKINLEY) Pending MCKINLEY M-Meek Pending IEP IgG Pending IEP IgA Pending IEP IgM Pending ASSESSMENT AND PLAN: Patient is a 76 y/o lady with h/o HTN, DM, and who presented with L arm pain after mechanical fall , she was found to have L humerus Fx #L humerus Fx s/p ORIF and RCTR as per . going home in [facility] as per Ortho. follow up with an ortho in a week # Persistent leukocytosis off antibiotic with no fever for many days , Etiology is unclear, reviewed MRI report with effusion and as IR , no tapping for now. As per ortho this is a normal post sx. # Angular cheilitis. continue B complex, apply topical bacitracin as needed # HTN: cont lisinopril # hyperthyroidism: cont methimazole # DM : controlled cont SSI . at dc might need another agent with metformin , probably Januvia # rash: likely fungal rash , Cont nystatin cream and zinc oxide DVT px Heparin Patient is going home. VNS, hospital bed, cane bedside comod, wheelchair , quad cane, walker( patient has a walker at home). Follow with primary care and oncologist for further care.
[2017-10-26] MEDS ORDERED: PT OWN MED DRAWER 7, Y5N ONE (09:39)
[2017-10-26] MEDS: VITAMIN B COMPLEX W/C COMBO TABLET (FP) PO SCH (09:40)
[2017-10-26] MEDS: LISINOPRIL 5 MG TABLET (FP) PO SCH (09:40)
[2017-10-26] MEDS: SERTRALINE HCL 50 MG TABLET (FP) PO SCH (09:40)
[2017-10-26] MEDS: ZINC OXIDE 20% TOPICAL OINTMENT 30 GM TUBE TP SCH (09:41)
[2017-10-26] MEDS: ARIPiprazole 10 MG TABLET PO SCH (09:41)
[2017-10-26] MEDS: METHIMAZOLE 5 MG TABLET (FP) PO SCH (09:41)
[2017-10-26] MEDS: guaiFENesin 600 MG TABLET.ER (FP) PO SCH (09:41)
[2017-10-26] MEDS: BACITRACIN 15 GM TUBE TOPICAL OINTMENT TP SCH (09:41)
[2017-10-26] MEDS: NYSTATIN 100,000 UNIT/GM TOPICAL CREAM 15 GM TUBE TP SCH (09:41)
--- NOTE | 2017-10-26 11:17 | PN ---
Progress Note, Physician History of Present Illness: wbc still high no complaints - Current Medication List Current Medications: Active Medications Aripiprazole (Abilify) 10 mg PO DAILY [facility] Last Admin: 10/26/17 09:41 Dose: 10 mg Atorvastatin Calcium (Lipitor -) 20 mg PO HS [facility] Last Admin: 10/25/17 22:24 Dose: 20 mg Bacitracin (Bacitracin -) 1 applic TP BID [facility] Last Admin: 10/26/17 09:41 Dose: 1 applic Docusate Sodium (Colace -) 100 mg PO TID [facility] Last Admin: 10/26/17 06:29 Dose: 100 mg Guaifenesin (Mucinex -) 600 mg PO BID [facility] Last Admin: 10/26/17 09:41 Dose: 600 mg Heparin Sodium (Porcine) (Heparin -) 5,000 unit SQ TID [facility] Last Admin: 10/26/17 06:29 Dose: 5,000 unit Insulin Aspart (Novolog Vial Sliding Scale -) 1 vial SQ [facility] PRN Reason: Protocol Last Admin: 10/26/17 06:29 Dose: 2 units Lisinopril (Prinivil) 5 mg PO DAILY [facility] Last Admin: 10/26/17 09:40 Dose: 5 mg Methimazole (Tapazole -) 5 mg PO DAILY [facility] Last Admin: 10/26/17 09:41 Dose: 5 mg Multi-Ingredient Ointment (Zinc Oxide) 1 applic TP BID [facility] Last Admin: 10/26/17 09:41 Dose: 1 applic Multivitamins (Total B With C -) 1 each PO DAILY [facility] Last Admin: 10/26/17 09:40 Dose: 1 each Nystatin (Nystatin Oral Suspension -) 500,000 units PO Q6HPO [facility] Last Admin: 10/26/17 06:29 Dose: 500,000 units Nystatin (Mycostatin Cream -) 1 applic TP BID [facility] Last Admin: 10/26/17 09:41 Dose: 1 applic Sertraline HCl (Zoloft -) 100 mg PO DAILY [facility] Last Admin: 10/26/17 09:40 Dose: 100 mg - Objective Vital Signs: Vital Signs Temperature 98.4 F 10/26/17 08:16 Pulse Rate 83 10/26/17 10:29 Respiratory Rate 18 10/26/17 08:16 Blood Pressure 135/63 10/26/17 08:16 O2 Sat by Pulse Oximetry (%) 95 10/26/17 10:29 Constitutional: Yes: No Distress, Calm Cardiovascular: Yes: Regular Rate and Rhythm Respiratory: Yes: Regular, CTA Bilaterally Gastrointestinal: Yes: Normal Bowel Sounds, Soft Musculoskeletal: Yes: Other Extremities: Yes: Other Wound/Incision: Yes: Dressing Dry and Intact Neurological: Yes: Alert, Oriented Psychiatric: Yes: Alert, Oriented Labs: CBC, BMP 10/26/17 08:00 10/24/17 14:45 INR, PTT INR 1.15 (0.82-1.09) H 10/03/17 08:00 Assessment/Plan 76yo F with PMH of htn, dm, hyperthyroidism, schizophrenia, presented s/p mechanical fall, found to have Left humerus fracture. # Left humerus fx, s/p ORIF o # fever and persistent leukocytosis # pneumonia # DM # htn # hyperthyroidism # schizophrenia wbc increased plan wbc on the higher side mri result noted continue to monitor onco/heam to see the patient collection noted in the mri if the patients wbc continues to increase--will need that fluid tapped the other way is to repeat imaging studies in couple of weeks if patient detoriates and see the status of collection which is seen on mri
--- NOTE | 2017-10-26 12:30 | PN ---
Progress Note (short form) - Note Progress Note: seen and examined chart reviewed concerned for her right arm Constitutional: Yes: No Distress, Calm Eyes: Yes: Conjunctiva Clear HENT: Yes: Atraumatic, Normocephalic, Other (cushingoid appearance) Neck: Yes: Supple Gastrointestinal: Yes: Normal Bowel Sounds Edema: No Integumentary: Yes: Other (rash) improved Last Vital Signs Temp Pulse Resp BP Pulse Ox 98.4 F 83 18 135/63 95 10/26/17 08:16 10/26/17 10:29 10/26/17 08:16 10/26/17 08:16 10/26/17 10:29 CBC, BMP 10/26/17 08:00 10/24/17 14:45 Current Medications Generic Name Dose Route Start Last Admin Trade Name Freq PRN Reason Stop Dose Admin Aripiprazole 10 mg 10/04/17 10:00 10/26/17 09:41 Abilify PO 10 mg DAILY MAGDI Administration Atorvastatin Calcium 20 mg 10/03/17 22:00 10/25/17 22:24 Lipitor - PO 20 mg HS MAGDI Administration Bacitracin 1 applic 10/18/17 12:00 10/26/17 09:41 Bacitracin - TP 1 applic BID MAGDI Administration Docusate Sodium 100 mg 10/03/17 22:00 10/26/17 06:29 Colace - PO 100 mg TID MAGDI Administration Guaifenesin 600 mg 10/09/17 10:00 10/26/17 09:41 Mucinex - PO 600 mg BID MAGDI Administration Heparin Sodium (Porcine) 5,000 unit 10/22/17 15:15 10/26/17 06:29 Heparin - SQ 5,000 unit TID MAGDI Administration Insulin Aspart 1 vial 10/03/17 16:30 10/26/17 11:51 Novolog Vial Sliding Scale - SQ 6 units ACHS MAGDI Administration Protocol Lisinopril 5 mg 10/10/17 10:00 10/26/17 09:40 Prinivil PO 5 mg DAILY MAGDI Administration Methimazole 5 mg 10/04/17 10:00 10/26/17 09:41 Tapazole - PO 5 mg DAILY MAGDI Administration Multi-Ingredient Ointment 1 applic 10/20/17 12:00 10/26/17 09:41 Zinc Oxide TP 1 applic BID MAGDI Administration Multivitamins 1 each 10/18/17 10:15 10/26/17 09:40 Total B With C - PO 1 each DAILY MAGDI Administration Nystatin 500,000 units 10/19/17 18:00 10/26/17 11:58 Nystatin Oral Suspension - PO 500,000 units Q6HPO MAGDI Administration Nystatin 1 applic 10/22/17 22:00 10/26/17 09:41 Mycostatin Cream - TP 1 applic BID MAGDI Administration Sertraline HCl 100 mg 10/04/17 10:00 10/26/17 09:40 Zoloft - PO 100 mg DAILY MAGDI Administration Leucocytosis: probable benign f.u on flow stable MRI reviewed, fluid mgmt per Primary/ID ??H/o PCOS Rash: improving Problem List - Problems (1) Leukocytosis Code(s): D72.829 - ELEVATED WHITE BLOOD CELL COUNT, UNSPECIFIED (2) Humerus fracture Code(s): S42.309A - UNSP FRACTURE OF SHAFT OF HUMERUS, UNSP ARM, INIT Qualifiers: Encounter type: initial encounter Humerus Location: surgical neck Fracture type: closed Fracture morphology: unspecified fracture morphology Fracture alignment: displaced Laterality: left Qualified Code(s): S42.212A - Unspecified displaced fracture of surgical neck of left humerus, initial encounter for closed fracture (3) Rash Code(s): R21 - RASH AND OTHER NONSPECIFIC SKIN ERUPTION
--- NOTE | 2017-10-26 13:18 | DS ---
Physical Exam: SUBJECTIVE: Patient seen and examined No acute events overnight. Pt denies any new subjective complaints. She endorses less LUE pain upon movement. OBJECTIVE: Vital Signs Period Temp Pulse Resp BP Sys/Sheehan Pulse Ox Last 24 Hr 98.4 F-99.1 F 76-88 18-20 119-138/50-78 95 PHYSICAL EXAM GENERAL: elderly female, awake, alert, and fully oriented, in no acute distress. HEENT: healing crusted lesions around lips LUNGS: decreased wheezing and rales HEART: normal rate and rhythm, S1, S2 without murmur, rub or gallop. ABDOMEN: Soft, nontender, nondistended, normoactive bowel sounds, no guarding, no rebound, no hepatosplenomegaly, no masses. Back: macular rash on back and underneath diaper EXTREMITIES: no LE edema, macular rash over right arm NEUROLOGICAL: Cranial nerves II through XII grossly intact. Normal speech LABS Laboratory Results - last 24 hr 10/25/17 10/25/17 10/26/17 17:36 22:20 06:26 WBC RBC Hgb Hct MCV MCH MCHC RDW Plt Count MPV Neutrophils % Lymphocytes % Monocytes % Eosinophils % Basophils % POC Glucometer 204 151 168 10/26/17 10/26/17 08:00 11:47 WBC 16.3 H RBC 4.41 Hgb 11.8 Hct 37.3 MCV 84.7 MCH 26.8 MCHC 31.7 L RDW 15.7 H Plt Count 366 MPV 8.8 Neutrophils % 74.4 Lymphocytes % 16.0 D Monocytes % 3.7 L Eosinophils % 5.6 H Basophils % 0.3 POC Glucometer 287 Microbiology 10/15/17 18:10 Blood - Peripheral Venous Blood Culture - Final NO GROWTH AFTER 5 DAYS INCUBATION 10/15/17 18:10 Blood - Peripheral Venous Blood Culture - Final NO GROWTH AFTER 5 DAYS INCUBATION 10/16/17 22:30 Urine - Urine - Catheterized Urine Culture - Final Yeast Like Organism 10/09/17 14:55 Blood - Peripheral Venous Blood Culture - Final NO GROWTH AFTER 5 DAYS INCUBATION 10/09/17 13:40 Blood - Peripheral Venous Blood Culture - Final NO GROWTH AFTER 5 DAYS INCUBATION 10/05/17 20:45 Blood - Peripheral Venous Blood Culture - Final NO GROWTH AFTER 5 DAYS INCUBATION 10/05/17 20:45 Blood - Peripheral Venous Blood Culture - Final NO GROWTH AFTER 5 DAYS INCUBATION 10/06/17 17:30 Urine - Urine - Catheterized Urine Culture - Final NO GROWTH OBTAINED 10/02/17 20:40 Urine - Urine Clean Catch Urine Culture - Final NO GROWTH OBTAINED MRI LUE: Coronal T1 and T2 STIR; sagittal T1 and T2 STIR; axial T1 and fat-suppressed proton-density; and sagittal, axial, and coronal fat-suppressed T1-weighted images were obtained after the intravenous administration of 15 cc of Omniscan. This exam is correlated with the previous x-rays of 10/02/2017 which demonstrated a comminuted fracture of the humeral head. A CT scan of the shoulder dated 10/23/2017 demonstrates screws of the proximal humeral diaphysis. There is a comminuted fracture of the humeral head with impaction at the anatomical neck. The CT scan demonstrates multiple osseous fragments. There is marked soft tissue edema and enhancement about the shoulder and a moderate to large amount of glenohumeral joint fluid. There is enhancement along the posterior lateral deltoid muscle which is likely postoperative. There is bone marrow edema and enhancement of the humeral head and proximal humeral diametaphysis. There is marked inferior subluxation of the humeral head in relationship to the glenoid and mild posterior subluxation. There is diffuse abnormal signal of the supraspinatus tendon which may be due to a complete tear. There is undersurface signal of the infraspinatus tendon which may represent a partial tear. There is soft tissue edema surrounding of the infraspinatus muscle and surrounding the infraspinatus muscle. The subscapularis tendon appears torn and slightly retracted together with an avulsed fracture fragment of the lesser tuberosity. The biceps tendon is intact. There is felt to be a complete tear of the teres minor muscle. There is a large abnormal soft tissue structure seen superior to the acromion which measures 6.6 cm transversely, 2.6 cm in AP dimension, and 3.2 cm in height. This mass appears homogeneously bright signal on the T1-weighted images and homogeneously fat suppresses on the fat-suppressed T2- weighted images, and demonstrates no evidence of enhancement on the post gadolinium images consistent with a lipoma. The lipoma may be within the supraspinatus muscle and causing compression of the supraspinatus muscle. Impression: 1. Comminuted fracture of the humeral head with impaction and marked inferior subluxation of the humeral head mild posterior subluxation. 2. Soft tissue edema and enhancement about the shoulder and moderate to large glenohumeral joint effusion and soft tissue edema within and surrounding the infraspinatus muscle. 3. Bone marrow edema and enhancement of the humeral head and proximal humeral diametaphysis and metallic artifact in the region of the proximal humeral diaphysis area 4. Possible complete tear of the supraspinatus tendon, mild partial undersurface tear of the infraspinatus tendon, avulsion of the lesser tuberosity with the subscapularis tendon, and probable complete tear of the teres minor muscle. 5. Large soft tissue mass superior to the acromion which is likely within the supraspinatus muscle consistent with a lipoma and compressing the supraspinatus muscle. The fracture could be the cause of the bone marrow edema and enhancement. The glenohumeral joint fluid and marked surrounding soft tissue edema could also be posttraumatic depending on the degree of trauma however an infectious process cannot be excluded. CT abd/pelvis: Sequential axial images were obtained from the domes of the diaphragms through the symphysis pubis following the administration of both oral and intravenous contrast material. Evaluation of the lung bases demonstrates consolidation/ atelectasis bilaterally, right greater than left. There is a trace amount of right pleural fluid also present. The liver is normal in size. It is mildly hypodense in texture suspicious for diffuse fatty infiltration. No mass lesions identified within the liver. The spleen is slightly enlarged measuring 12.4 cm in craniocaudad dimension. The pancreas, adrenal glands and kidneys demonstrate no significant abnormalities. Gallstones are identified within the gallbladder. There is no evidence of intra-abdominal or retroperitoneal lymphadenopathy or fluid collections. There is no evidence of pneumoperitoneum, bowel obstruction or intra-abdominal abscess. There is no CT evidence of acute appendicitis or diverticulitis. Examination of the pelvis demonstrates no evidence of pelvic masses, fluid collections or lymphadenopathy. There is no evidence of acute bony pathology. IMPRESSION: 1. Bibasilar consolidation/atelectasis, right greater than left. 2. No evidence of intra-abdominal abscess or acute pathology within the abdomen or pelvis. Please see above discussion. CTA Chest: Clinical information: evaluate for pulmonary embolism No discrete pulmonary embolism is identified. Bibasilar opacities are noted consistent with atelectasis/infiltrate. No pleural effusion is seen. There is possible mild left ventricular dilatation. No pericardial effusion is seen. The main pulmonary artery appears borderline in diameter measuring 3 cm. There is no aortic aneurysm. No discrete lymphadenopathy is identified. IMPRESSION: No CT evidence of pulmonary embolism. Bibasilar atelectasis/infiltrates. Minimal to mild bilateral upper lobe groundglass interstitial thickening. Possible mild cardiomegaly. The main pulmonary artery diameter appears borderline measuring 3 cm. Correlate with echocardiography. Nonspecific subcutaneous edema is seen along the left upper ventral chest wall with associated small amount of soft tissue air/gas accumulation. Probable partial imaging of cholelithiasis. CT Head: Sequential axial images were obtained from the base of the skull to the vertex. There is no evidence of acute intracranial hemorrhage, mass lesions or infarctions. There is a moderate degree of diffuse cerebral atrophy with sulcal widening and ventricular dilatation. There is a capacious cisterna magna. The visualized paranasal sinuses and mastoid air cells are clear. IMPRESSION: No evidence of acute intracranial pathology. HOSPITAL COURSE: Date of Admission:10/02/17 Date of Discharge: 10/26/17 76F w/ hx of HTN, DM, schizophrenia, hyperthyroidism and other medical problems who presented with L arm pain after mechanical fall, and was found to have a L humerus Fx. Pt was treated by orthopedic surgery with an ORIF and rotator cuff repair. Pt developed PNA in hospital, ID was consulted, and pt completed a course of antibiotics. Following that, pt had persistent leukocytosis without fever for which no infectious etiology could be determined. CT abdomen/pelvis, CXR, and MRI of LUE revealed no clear source. 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 Hematology/oncology was consulted who stated that leukocytosis was likely benign and ordered several immunological tests which are still pending. In the hospital, pt developed cheilosis for which she was treated with vitamin B complex and nystatin. She also developed a diffuse macular rash, treated with zinc oxide. MRI of LUE results discussed with orthopedic surgeon, Dr. Javier, who stated that findings are consistent with post-surgical changes, and he is not concerned with the LUE being source for infection. ID recommends f/u imaging of LUE if clinical picture worsens. Today, pt has normal vitals, has no subjective complaints, and is stable for discharge home with VNS. Pt instructed to f/u with her PCP and orthopedic surgery. Pt needs rehab for arm. Pt instructed to f/u on pending immunological labs. -Melchor Wolf MD PGY1 Minutes to complete discharge: 36 Discharge Summary Reason For Visit: WEAKNESS/ACCID FALL/FRACT OF HUMERUS Current Active Problems Accidental fall (Acute) Humerus fracture (Acute) Pneumonia (Acute) Rash (Acute) Diabetes mellitus (Chronic) Generalized weakness (Chronic) Hyperlipidemia (Chronic) Hypertension (Chronic) Hyperthyroidism (Chronic) Leukocytosis (Chronic) Condition: Stable - Instructions Diet, Activity, Other Instructions: You presented with left arm pain after a fall and were found to have a fracture of your humerus bone. You were treated with an orthopedic procedure called an ORIF (open reduction internal fixation) and rotator cuff repair, pain control, and wound care. While here, you developed a pneumonia and were treated with antibiotics and supplemental oxygen. You still have a high white blood cell count (marker of inflammation/infection), but after looking at your old white blood cell count levels, it appears that you are chronically elevated. Medications: continue taking all previous home medications Follow-ups: 1. Please follow up with your PCP within one week. If you don't have one, we have referred you to Dr. Orantes. Please follow up with him regarding all pending immunology labs. 2. Please follow up with your orthopedic surgeon, Dr. Javier, in one week. If you develop any fevers, chills, worsening shortness of breath, chest pain, or any other concerning symptoms, return to the ED. Referrals: Daryl Orantes MD [Staff Physician] - Lázaro Javier MD [Staff Physician] - Disposition: VNS/HOME HEALTH CARE - Home Medications Comprehensive Discharge Medication List: Ambulatory Orders Lisinopril 10 mg PO DAILY 10/02/17 Metformin HCl 1,000 mg PO BID 10/02/17 Aripiprazole [Abilify] 10 mg PO DAILY 10/03/17 Cholecalciferol (Vitamin D3) [Vitamin D3] 50,000 unit PO WEEKLY 10/03/17 Methimazole [Tapazole] 5 mg PO DAILY 10/03/17 Sertraline HCl [Zoloft] 100 mg PO DAILY 10/03/17 Simvastatin 40 mg PO DAILY 10/03/17 Bacitracin - [Bacitracin Topical Ointment -] 1 applic TP BID tube 10/20/17 Docusate Sodium [Colace -] 100 mg PO TID capsule 10/20/17 Insulin Sliding Scale [Novolog Vial Sliding Scale -] 1 vial SQ ACHS units 10/20 Nystatin Powder [Nystop Powder -] 1 applic TP TID applic 10/20/17 Vitamin B Comp W-C [Total B with C -] 1 each PO DAILY tablet 10/20/17 Nystatin Cream [Mycostatin Cream -] 1 applic TP BID #1 applic 10/26/17 Zinc Oxide 1 applic TP BID #1 tube 10/26/17 This patient is new to me today: No Emergency Visit: Yes ED Registration Date: 10/02/17 Care time: The patient presented to the Emergency Department on the above date and was hospitalized for further evaluation of their emergent condition. Critical Care patient: No - Discharge Referral Referred to [facility] No
[2017-10-26 16:14] VITALS: BP 105/64; PULSE 90; TEMP 99.7
== END 2017-10-26 21:26 | disposition home health service (06) | DRG 492 ==
LOC: JER 14:51 → JERBED 22:30 → UNDOADMIN 23:26 → J5S 10-03 04:31 → J6S 10-03 17:33
PROVIDERS: ADMIT Internal Medicine; ATTEND Internal Medicine
PROC: 0LQ20ZZ Repair Left Shoulder Tendon, Open Approach (ICD-10-PCS; 2017-10-03)
PROC: 0PSD04Z Reposition Left Humeral Head with Internal Fixation Device, Open Approach (ICD-10-PCS; principal; 2017-10-03 12:00)
DX: S42.202A Unspecified fracture of upper end of left humerus, initial encounter for closed fracture (principal); J18.9 Pneumonia, unspecified organism; J96.01 Acute respiratory failure with hypoxia; F20.5 Residual schizophrenia; W19.XXXA Unspecified fall, initial encounter; Y93.9 Activity, unspecified; Y92.89 Other specified places as the place of occurrence of the external cause; Y99.9 Unspecified external cause status; E86.0 Dehydration; E11.65 Type 2 diabetes mellitus with hyperglycemia; E78.5 Hyperlipidemia, unspecified; I10 Essential (primary) hypertension; E05.90 Thyrotoxicosis, unspecified without thyrotoxic crisis or storm; R53.1 Weakness; R21 Rash and other nonspecific skin eruption; K13.0 Diseases of lips; F41.8 Other specified anxiety disorders; K59.00 Constipation, unspecified; S46.012A Strain of muscle(s) and tendon(s) of the rotator cuff of left shoulder, initial encounter
CPT/HCPCS: 36415; 70450-TC; 71010-TC; 71275-TC; 73030-TC-LT; 73200-TC-RT; 73202-TC-RT; 73223-LT; 74177-TC; 76000-TC; 76882; 80048; 80053; 81003; 81015; 82550; 82553; 82607; 82746; 82784; 82962; 83036; 83615; 83735; 83880; 84100; 84155; 84165; 84443; 84484; 84550; 85025; 85027; 85610; 85651; 86140; 86334; 86850; 86870; 86900; 86901; 86902; 87040; 87086; 93005; 93010; 93306-TC; 93970-TC; 94640; 94760; 97116-GP; 97162-GP; 99283-25; C1887; J1644; Q9967